=== PATIENT | male | born 1950 | race Caucasian/White ===

== ENCOUNTER 2024-03-25 15:29 | Inpatient (IN) | payer MEDICARE, OTHER, SELFPAY ==
[2024-03-23 17:19] VITALS: BP 116/79
[2024-03-23 17:59] VITALS: BMI 29.3
[2024-03-23 18:10] LABS: % Basophils 0.5 % (0-2); % Eosinophils 1.4 % (0-6); % Immature Granulocytes 0.3 % (0-0.5); % Neutrophils 70.8 % (42.2-75.2); Absolute Basophils 0.1 10^3/uL (0-0.2); Absolute Eosinophils 0.2 10^3/uL (0-0.7); Absolute Neutrophils 7.9 10^3/uL (1.4-6.5); Hematocrit 38.1 % (39.0-52.0); Hemoglobin 12.9 g/dL (13.0-18.0); Mean Corp Hgb Conc. 33.9 g/dL (33.0-37.0); Mean Corpuscular Hgb 29.5 pg (27.0-31.0); Mean Corpuscular Volume 87.2 fL (80.0-94.0); Mean Platelet Volume 10.5 fL (7.4-10.4); Nucleated Red Blood Cells % 0 % (-); Platelet Count 225 10^3/uL (130-400); Red Blood Cell Count 4.37 10^6/uL (4.70-6.10); Red Cell Dist. Width 13.9 % (11.5-14.5); White Blood Cell Count 11.1 10^3/uL (4.8-10.8)
[2024-03-23] MEDS: NSS 1000 IV ×2 (18:11→23:27)
[2024-03-23 18:42] LABS: Lactic Acid 1.1 mmol/L (0.7-2.0)
[2024-03-23 19:01] VITALS: BP 130/102
[2024-03-23 19:24] LABS: ALT (SGPT) < 10 U/L (0-50); AST (SGOT) 67 U/L (17-59); Albumin 3.5 g/dl (3.5-5.0); Alkaline Phosphatase 83 U/L (38-126); Blood Urea Nitrogen 38 mg/dl (9-20); Calcium 8.8 mg/dl (8.4-10.2); Carbon Dioxide 23 mmol/L (22-30); Chloride 109 mmol/L (98-107); Estimated Creatinine Clearance 41 ml/min; Glucose 97 mg/dl (70-99); Potassium 4.2 mmol/L (3.5-5.1); Sodium 137 mmol/L (135-145); Total Bilirubin 0.7 mg/dl (0.2-1.3); Total Protein 6.1 g/dl (6.3-8.2); eGFR 48.85
[2024-03-23 19:36] LABS: Urine Albumin Trace (Neg - Trace); Urine Bilirubin Negative (Negative); Urine Character Very Cloudy (Clear); Urine Color Yellow; Urine Glucose Negative (Negative); Urine Ketone Trace (Negative); Urine Leukocyte 2+ (Negative); Urine Nitrite Negative (Negative); Urine Occult Blood 2+ (Negative); Urine Specific Gravity 1.025 (<1.030); Urine Urobilinogen Negative (Neg - 1+)
[2024-03-23 19:49] LABS: Urine Squamous Cell 0-2 /LPF (Few)
[2024-03-23 19:50] LABS: Urine Bacteria Moderate (Negative); Urine White Cell 26-30 /HPF (0-5)
--- NOTE | 2024-03-23 19:57 | ED.GENMED ---
History of Present Illness
General
Chief Complaint: Change in Mental Status
Source: spouse and family
Exam Limitations: none
Time Seen by Provider: 03/23/24 17:35
Nursing documentation reviewed up to this point in time: agreed with
Travel History
Have you had any contact with someone who has COVID-19?: No
Do you have any symptoms of coronavirus? Fever > 100 degrees, chills, cough, shortness of breath, sore throat, loss of taste or smell, muscle aches, or headache?: No
History of Present Illness
History of Present Illness:
Patient to ED for eval of increasing lethargy, frequent falls. He was seen at today and sent here for further work-up. According to family, patient has become increasingly weak over the past week. He has a history of parkinsons but is able to
assist with his care and is able to ambulate with walker. Family states he has had 3 falls this week. Today he was attempting to sit in a chair and missed. hit back of head on chair. No LOC. Patient has been 'sleeping' since. Family denies
fever/chills, n/v/d. Appetite is decreased. Has not been drinking today.
Review of Systems
Review of Systems
Allergies reviewed?: Yes
All Other Systems: ROS reviewed and negative except as documented in HPI and ROS
Constitutional: Reports fatigue
EENT: Reports no symptoms
Respiratory: Reports no symptoms
Cardiac: Reports no symptoms
ABD/GI: Reports other (Poor appetite)
: Reports no symptoms
Musculoskeletal: Reports no symptoms
Skin: Reports other (contusion to left hip and middle back)
Neurological: Reports weakness and other (lethargy)
Phy Exam
General Physical Exam
General Presentation: mild distress
General age: appears stated age
General Skin: warm and dry
General Habitus: elderly
Cardiovascular Exam
Cardiovascular Exam: regular rate/rhythm
Pulmonary Exam
Pulmonary Exam: lungs clear and no respiratory distress
Gastrointestinal Exam
Gastrointestinal Exam: normal bowel sounds and non tender
Musculoskeletal Exam
Musculoskeletal Exam: full ROM and neuro vasc intact
Skin Exam
Skin Exam: normal color, warm/dry, no rash and other (superficial abrasion to left hip, contusion to middle back)
Psychiatric Exam
Psychiatric Exam: normal mood/affect
Course
Orders/Labs/Results
Orders:
Orders
03/23/24 17:20
CT Cervical Spine W/o Iv Contr Urgent
Comment:
Reason For Exam: change of mental with falls
CT Head W/o Iv Contrast Urgent
Comment:
Reason For Exam: change of mental with falls
03/23/24 18:00
Complete Blood Count/With Diff Urgent
Lactic Acid Urgent
Blood Culture Urgent
CHRISTOS Source: Blood/Venous
Specimen Description:
03/23/24 18:10
CR Chest - 2 Views Urgent
Comment:
Reason For Exam: cough
03/23/24 18:11
0.9% Sodium Chloride 1000 ml [Nss] 1,000 ml IV BOLUS
03/23/24 18:46
Comprehensive Metabolic Panel Urgent
Blood Culture Urgent
CHRISTOS Source: Blood/Venous
Specimen Description:
03/23/24 19:20
Urinalysis Reflex To Culture Urgent
Date Specimen was Collected: 03/23/24
Time Specimen was Collected: 19:19
Urine Microscopic Reflex Cult Urgent
Urine Culture Urgent
CHRISTOS Source: U
Specimen Description:
Date Specimen was Collected: 03/23/24
Time Specimen was Collected: 19:19
03/23/24 19:55
Aztreonam [Azactam] 2,000 mg IV NOW STA
03/23/24 20:26
Sterile Water [Sterile Water For Injection] 10 ml .ROUTE .[facility]
03/23/24 20:47
Bladder Scan ONCE
Follow Bladder Retention/Intermittent Cath Algorithm?: Yes
PRN if no void in __ hours: 6
Frequency: Per Retention Algorithm
If Bladder Scan Result >: 400
then:: Straight cath
Straight Cath As Directed
Frequency: Per Retention Algorithm
Additional Instructions: straight cath as needed per acute urinary retention algorithm for 24 hrs
Additional Instructions: for bladder scan greater than 400 mL
03/23/24 20:48
Admit/Transfer Patient As Directed
Co-Sign Provider:
Level of Care: Observation services
Assign to:: Medical/Surgical
Physician / Group: Valeriy
Diagnosis: UTI/Confusion
03/23/24 20:52
Code Status As Directed
Resuscitation Status: Full Code
03/23/24 21:00
0.9% Sodium Chloride 1000 ml [Nss] 1,000 ml IV 100 mls/hr
03/23/24 21:32
Acetaminophen [Tylenol] 650 mg PO Q4HPRN PRN
Albuterol Nebs [Ventolin Nebules] 2.5 mg INH R Q4HPRN PRN
Bisacodyl [Dulcolax] 10 mg RECTAL [id number] PRN
Docusate W/Senna [Senokot-S] 1 tablet PO BIDPRN PRN
Ondansetron Injectable [Zofran] 4 mg IV Q6HPRN PRN
Polyethylene Glycol Powder [Miralax] 17 grams PO DAILYPRN PRN
03/23/24 21:32
Activity As Directed
Activity Level: As Tolerated
Bladder Scan As Directed
Follow Bladder Retention/Intermittent Cath Algorithm?: Yes
PRN if no void in __ hours: 6
Frequency: Per Retention Algorithm
If Bladder Scan Result >: 400
then:: Straight cath
Intake/ Output As Directed
Frequency: Per unit guidelines
Neurological Checks As Directed
Frequency: q4h
Orthostatic Vital Signs As Directed
Orthostatic VS Frequency: Daily
Straight Cath As Directed
Frequency: Per Retention Algorithm
Additional Instructions: straight cath as needed per acute urinary retention algorithm for 24 hrs
Additional Instructions: for bladder scan greater than 400 mL
Vital Signs As Directed
Frequency: Per unit guidelines
DX Deep Vein Thrombosis Video Routine
03/23/24 22:00
Carbidopa/Levodopa [Sinemet 25-100] 1 tablet PO TID
Donepezil [Aricept] 15 mg PO HS
Isradipine [DynaCirc] 2.5 mg PO HS
Zonisamide [Zonegran] 50 mg PO HS
03/24/24 Breakfast
IDDSI 6 - Soft & Bite Sized
At Your Request: Non-Participating
Does patient need a safe tray?: No
Basic Metabolic Panel IN AM
Complete Blood Count/With Diff IN AM
Magnesium IN AM
OT Consult [Ot Eval And Treat] IN AM
Physical Therapy Consult [Pt Eval And Treat] IN AM
Activity Level: As Tolerated
Speech Therapy Eval & Treat IN AM
03/24/24 08:00
CefTRIAXone [Rocephin] 1,000 mg IV Q24H
Pantoprazole [Protonix] 40 mg PO DAILY
Zonisamide [Zonegran] 25 mg PO DAILY
03/24/24 18:00
Enoxaparin Sodium [Lovenox] 40 mg SC QPM
Abnormal Lab Results
03/23/24 03/23/24 03/23/24
18:00 18:46 19:20
WBC 11.1 H 10^3/uL
(4.8-10.8)
RBC 4.37 L 10^6/uL
(4.70-6.10)
Hgb 12.9 L g/dL
(13.0-18.0)
Hct 38.1 L %
(39.0-52.0)
MPV 10.5 H fL
(7.4-10.4)
Absolute Neuts (auto) 7.9 H 10^3/uL
(1.4-6.5)
Absolute Monos (auto) 1.0 H 10^3/uL
(0.1-0.6)
Lymphocytes % 18.0 L %
(20.5-51.1)
Chloride 109 H mmol/L
(98-107)
BUN 38 H mg/dl
(9-20)
Creatinine 1.5 H mg/dL
(0.7-1.3)
AST 67 H U/L
(17-59)
Total Protein 6.1 L g/dl
(6.3-8.2)
Urine Ketones Trace A
(Negative)
Ur Occult Blood Reflex 2+ A
(Negative)
Leukocyte Esterase Rfl 2+ A
(Negative)
Urine RBC 7-10 A /HPF
(0-2)
Urine WBC (Reflex) 26-30 A /HPF
(0-5)
Urine Bacteria (Reflex) Moderate A
(Negative)
03/23/24 18:00
03/23/24 18:46
Vital Signs
Initial and Last Documented VS:
Initial Vital Signs
Pulse Resp BP Pulse Ox
86 17 116/79 96
03/23/24 17:19 03/23/24 17:19 03/23/24 17:19 03/23/24 17:19
Last Documented Vital Signs
Temp Pulse Resp BP Pulse Ox
97.9 F 69 18 138/113 94
03/23/24 18:21 03/23/24 21:15 03/23/24 21:15 03/23/24 21:00 03/23/24 21:15
*Critical Care Note
Total Time (30-74mins, 75-104mins- exclusive of procedures): Not Applicable
Update Note
Update Note:
Patient to ED for increasing weakness, frequent falls. Labs reviewed. CT reviewed. Will admit to hospitalist service for UTI, weakness, dehydration. Family is agreeable to plan.
ED Attending Note
-
Portions of this chart may have been created with voice recognition software.� Occasional wrong word or��sound alike� substitutions may have occurred due to the inherent limitations of voice recognition software.
Discharge Plan
Departure
Patient Disposition: Admit
Date of Disposition: 03/23/24
Time of Disposition: 20:02
Presentation/result/management discussed w/ accepting MD/DO: Hospitalist
Patient with high blood pressure during this ER visit?: No
Condition: Fair
Covid-19: Not Applicable
Discharge Problem:
Acute UTI, Weakness, Dehydration
Interventions
Interventions:
*Risk Screen - Suicide Last Done: 03/23/24 22:21
*General Assessment Last Done: 03/23/24 17:58
*Neglect/Abuse Screening Last Done: 03/23/24 18:56
ED- Fall Risk Assessment Last Done: 03/23/24 18:24
*ED COVID-19 Vaccine History Last Done: 03/23/24 22:21
*Nursing Disposition Last Done: 03/23/24 21:36
ED- Pulmonary Assessment Last Done: 03/23/24 18:24
ED- Neurological Assessment Last Done: 03/23/24 18:23
Discharge Date and Time
Discharge Date/Time: 03/23/24 21:36
[2024-03-23 20:00] VITALS: BP 119/98
[2024-03-23] MEDS: AZACTAM 2000 MG IV (20:27)
--- NOTE | 2024-03-23 20:57 | HPS.HSE ---
Family Physician
-
Family Physician: Juvencio Tai
Chief Complaint
-
Confusion, Dizziness, Recent Treatment for UTI 1 week ago
History of Present Illness
73yo M with PMH HTN, Dementia, GERD, BPH, Parkinsons Disease (family denies seizure history), Previous Dysphagia, Hx Facial Cellulitis presets to ER with dizziness/confusion, recent treatment of UTI 1 week ago. Pt is a poor historian, family
(brianna Newman and Flor aiding in HPI). 1 week ago patient was having increased confusion. They dipped his urine which was positive for LE but no nitrates. He was started on bactrim DS which he took without improvement. Ultimately it was
discontinued Sunday 2/2 concern for side effects of worsening confusion. Pt is no longer on modified diet but they report in last week he has been coughing more with meals. Family denies hx recurrent UTIs but does report his prostate was considered
extremely enlarged following with Dr. Sal, last seen end of last year, no longer on finasteride/flomax 2/2 concern for med side effects. Family reports decreased PO intake. Also report his speech being more slurred. No focal weakness or
sensation complaints, no prior hx CVA/seizures. They report he is on zonisamide to lessen the side effects of his sinemet, following with Neurologist Dr. Vijay Mcguire.
At baseline pt has waxing and waning periods of lucency but is [id number], walks with a walker, goes to the BR by himself and can shower by himself if assisted into the shower. Family reports 2 falls in the past 2 days. Yesterday he was assisted
to the kitchen by his . She reports turning her head for a brief moment and him landing backward on his back without head strike or LOC. She reports a similar episode when beside the living room couch today, this time with head strike no LOC.
Family Denies fever, chills, chest pain, palps, wheezing, cough, sob, abd pain, n/v/d/c, dysuria, calf or leg pain, flank pain, or his kidney stones.
PCN allergy: 'rash a very long time ago'
ER course: Pt presents BP transiently 130/102, self limiting, other V.S.S wnl. WBC 11.1K. BUN/Cr 138/1.5. LA 1.1.. AST/ALT 67/<10. UA many bact, 26-30 WBC, 2+ LE, (-) nitrite. CT brain (-). CT Cspine (-). CXR Mild cardiomegaly. S/P 2gm IV azactam
and 1LNS bolus in ER.
Medical History
Past Medical History
Past Medical History: Reports Other (HTN, Dementia, GERD, BPH, Parkinsons Disease (family denies seizure history), Previous Dysphagia, Hx Facial Cellulitis)
Past Surgical History: Reports None and Other
Additional Past Surgical History:
Botox injection for dysphagia
Social History
Unable to obtain full social history at this time due to: Dementia
Tobacco: Non-smoker
Alcohol: None
Drug: None
Personal:
Living: With Family
Family History
Family History: Other (Father with with CAD s/p PR in 70s. Mother with CVA. Denies family history of strokes/seizures. )
Allergies / Home Medications
Allergies reflects when Allergies were last updated in [employer].
Home Medications with original date entered in [employer]
Allergy/Medication List:
Allergies
Allergy/AdvReac Type Severity Reaction Status Date / Time
Penicillins Allergy Unknown Verified 03/23/24 17:18
Home Medications
carbidopa 25 mg-levodopa 100 mg tablet (Sinemet) 1 tab PO TID 03/23/24
donepezil 10 mg tablet 15 mg PO HS 03/23/24
isradipine 2.5 mg capsule 2.5 mg PO HS 03/23/24
omeprazole 20 mg tablet,delayed release 20 mg PO AM 03/23/24
zonisamide 25 mg capsule 25 mg PO AM 03/23/24
zonisamide 50 mg capsule 50 mg PO HS 03/23/24
Review of Systems
-
A 12 point ROS was completed and negative except as noted: Yes
Physical Exam
Vital Signs
Vital Signs
Temp Pulse Resp BP Pulse Ox
97.9 F 67 12 119/98 97
03/23/24 18:21 03/23/24 20:30 03/23/24 20:30 03/23/24 20:00 03/23/24 20:30
Physical Exam
General: Well Developed, Well Nourished, No Apparent Distress, Slurred Speech and Appears Chronically Ill
HEENT: NormoCephalic, Atraumatic, PERRLA and Other (Very Dry MMM, no exudates in oropharynx ); No Neck Nontender or Neck Mass
Respiratory: Clear and Non Labored Respirations; No Wheezes, Rales or Rhonchi
Cardiac: S1/S2 and Regular Rhythm; No Murmur, Rub, Gallop or Peripheral Edema
GI: Soft, Non Tender, Non Distended and Normal Bowel Sounds; No Organomegaly
Rectal: Deferred by Provider
Genito-urinary: No costovertebral tender; No Zapata
Musculoskeletal: No Clubbing, No Cyanosis and No Edema
Skin: Warm and Dry; No Rash
Neuro: Awake, Alert, Nonfocal/grossly intact, No Sensory Deficits and Other (AAOx2 (knows name, , president); baseline parkinsonian tremors. )
Hematologic/Lymphatic: No Lymphadenopathy
Psych: Anxious and Apparent Dementia
Laboratory Results
-
03/23/24 18:00
03/23/24 18:46
Laboratory Results
Lactic Acid 1.1 mmol/L (0.7-2.0) 03/23/24 18:00
Total Bilirubin 0.7 mg/dl (0.2-1.3) 03/23/24 18:46
AST 67 U/L (17-59) H 03/23/24 18:46
ALT < 10 U/L (0-50) 03/23/24 18:46
Alkaline Phosphatase 83 U/L (38-126) 03/23/24 18:46
Data Reviewed
-
Diagnostic Radiology: Image Personally Visualized and interpreted
CT Scan: Image Personally Visualized and interpreted
Medical Tests (Nuc Med, Echo, EKG etc): Image Personally Visualized and interpreted
Lab Data: Labs Reviewed by me
Old Records: Reviewed
Impression/Plan
-
Acute/Chronic Encephalopathy / Hx Dementia
Falls with Ambulatory Dysfunction
- AAOx2 on evaluation, no focal findings
- At baseline pt has waxing and waning periods of lucency but is [id number], walks with a walker, goes to the BR by himself and can shower by himself if assisted into the shower.
- CT brain and C-spine (-).
- Suspect metabolic encephalopathy 2/2 UTI and dehydration.
- Continue treatment as below with IVF/IVABx
- Obtain speech, PT/OT evaluation
- Family encouraging early discharge to prevent delirium which he has had in past. Pt will be admitted to observation status
- I discussed with family that i suspect his slurred speech is likely dehydration/uti. Will defer stroke evaluation and consider if persisting in AM. They are in agreement. Q4h neurochecks.
- Avoid Haldol in setting of parkinsons if acutely agitated. Will consider low dose benzos if needed.
UTI
- Apparent failure of outpatient bactrim, discontinued Sunday03/21/2024
- Sepsis not POA.
- Afebrile. WBC 11.1K. LA 1.1. UA Many Bact, 26-30 WBC, 2+LE, (-) Nitrites
- S/P 2gm IV Azactam in ER. PCN allergy reported 'rash a long time ago'
- Will start Rocephin and monitor closely for reaction. Follow up UCx and Blood cultures x 2 obtained in ER
- Consider ID consultation if intolerant to CTX
Elevated Serum Creatinine / Hx BPH
- BUN/Cr 38/1.5, no prior baselines. Suspect pre-renal etiology 2/2 dehydration. Also could be in setting of recent bactrim use. Bactrim now on hold.
- Follow up CPK
- Also consider postobstructive etiology given 'severe bph' reported. Obtain Bladder scan and Follow bladder scan protocol
- Family reports him no longer being on flomax/finasteride 2/2 medication side effect
- Follows outpatient with Dr. Sal for BPH
- S/P 1LNS Bolus in ER. Continue NS @ 100cc/hr and trend
Transaminitis
- AST/ALT 67/<10. RUQ exam benign. Suspect mild ischemic insult in setting of dehydration
- Will check CPK for completeness in setting of fall
- continue IVF and trend LFTs
HTN
- BP transiently 130/102 on arrival, self limiting
- Continue home isradipine vs pharmacy recommended conversion
GERD
- Stable on home PPI.
Hx Parkinsons Disease
- Continue home donepezil, sinemet, zonisamide. As per family zonisamide aids in side effects of his sinemet
- Continue outpatient follow up with Dr. Mcguire
Diet: soft, regular diet. speech evaluation.
DVT PPx: Lovenox, consider change to heparin if renal function worsening
Code Status: Full Code, Confirmed with family
[2024-03-23 21:00] VITALS: BP 138/113
[2024-03-23 22:21] VITALS: BP 135/81; BMI 29.1
[2024-03-23] MEDS: SINEMET 25-100 PO (22:36)
[2024-03-23] MEDS: ARICEPT PO (22:39)
[2024-03-24 00:23] LABS: Creatine Phosphokinase 1419 U/L (55-170)
[2024-03-24] MEDS: ZONEGRAN 50 MG PO ×2 (00:43→22:07)
[2024-03-24] MEDS: NON-FORMULARY ITEM 2.5 MG PO ×2 (02:08→22:08)
[2024-03-24 06:21] LABS: % Basophils 0.4 % (0-2); % Eosinophils 1.3 % (0-6); % Immature Granulocytes 0.3 % (0-0.5); % Lymphocytes 17.1 % (20.5-51.1); % Monocytes 8.2 % (1.7-9.3); % Neutrophils 72.7 % (42.2-75.2); Absolute Eosinophils 0.1 10^3/uL (0-0.7); Absolute Lymphocytes 1.6 10^3/uL (1.2-3.4); Absolute Monocytes 0.7 10^3/uL (0.1-0.6); Absolute Neutrophils 6.6 10^3/uL (1.4-6.5); Hematocrit 36.8 % (39.0-52.0); Hemoglobin 12.2 g/dL (13.0-18.0); Mean Corp Hgb Conc. 33.2 g/dL (33.0-37.0); Mean Corpuscular Hgb 29.6 pg (27.0-31.0); Mean Corpuscular Volume 89.3 fL (80.0-94.0); Mean Platelet Volume 10.2 fL (7.4-10.4); Nucleated Red Blood Cells % 0 % (-); Platelet Count 190 10^3/uL (130-400); Red Blood Cell Count 4.12 10^6/uL (4.70-6.10)
[2024-03-24 07:00] VITALS: BP 130/66
[2024-03-24 07:15] LABS: ALT (SGPT) < 10 U/L (0-50); AST (SGOT) 72 U/L (17-59); Albumin 3.4 g/dl (3.5-5.0); Alkaline Phosphatase 89 U/L (38-126); Blood Urea Nitrogen 28 mg/dl (9-20); Calcium 8.6 mg/dl (8.4-10.2); Carbon Dioxide 21 mmol/L (22-30); Chloride 109 mmol/L (98-107); Direct Bilirubin 0.3 mg/dl (0.0-0.4); Estimated Creatinine Clearance 56 ml/min; Glucose 90 mg/dl (70-99); Magnesium 1.9 mg/dl (1.6-2.3); Potassium 4.2 mmol/L (3.5-5.1); Sodium 135 mmol/L (135-145); Total Bilirubin 0.8 mg/dl (0.2-1.3); eGFR > 60.00
[2024-03-24] MEDS: PROTONIX 40 MG PO (08:52)
[2024-03-24] MEDS: NSS 1000 IV (08:52)
[2024-03-24] MEDS: ROCEPHIN 1000 MG IV (08:53)
[2024-03-24] MEDS: ZONEGRAN 25 MG PO (08:53)
[2024-03-24] MEDS: STERILE WATER FOR INJECTION 10 ML IV (08:53)
[2024-03-24] MEDS: SINEMET 25-100 1 TABLET PO ×3 (08:53→22:07)
--- NOTE | 2024-03-24 10:30 | PTCARENOTE ---
pt's screaming in the [address] 'I AM NOT HAPPY WITH WHAT I SEE HERE, HAS ANYONE HELPED HIM?' This nurse and tech responded immediately. Pt's continues to scream over and interrupt over this nurse. 'HE IS COVERED IN VOMIT, I KNEW WE SHOULD
NOT HAVE COME TO THIS HOSPITAL. This nurse again attempted to explain, again screaming and interrupted 'HAS ANYONE EVEN BEEN IN HERE?! HE NEEDS CARE' Pt had spilled some of his iranian toast on his gown, this nurse had attempted to explain he
was on an altered texture diet, so fool appeared to look different but reassured it was not vomit. again screaming in this nurse's face: 'THIS IS DISGUSTING' continues to be too loud, inappropriate, interrupting and agitated. This nurse
replied perhaps she needs to take a minute to calm down and encouraged her to step out. Manager Environmental at bedside, escorted pt's to her office.
--- NOTE | 2024-03-24 11:13 | W.PN.HOSP.TC ---
Addendum entered and electronically signed by Barbara Dickey MD 03/24/24 16:21:
Updated daughter on the phone
Original Note:
Today's Communication/Plan
-
see A/P
Assessment / Plan
Assessment / Plan
HPI: 73 yo M with PMH HTN, Dementia, GERD, BPH, Parkinson disease (family denies seizure history), previous dysphagia, Hx Facial Cellulitis; p/w dizziness/confusion, recent treatment of UTI 1 week ago.
Pt is a poor historian. 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 He was started on bactrim DS for presumed UTI, he took without improvement. Ultimately it was discontinued Sunday/ concern for side effects of worsening confusion.
Pt was no longer on modified diet but family reported in past week he has been coughing more with meals.
Family reported his prostate was considered extremely enlarged, and pt follows with Dr. Sal, last seen end of last year, no longer on finasteride/flomax 2/2 concern for med side effects.
Family also reported decreased PO intake and his speech being more slurred.
No focal weakness or sensation complaints, no prior hx CVA/seizures. They report he is on zonisamide to lessen the side effects of his Sinemet, following with Neurologist Dr. Vijay Mcguire.
At baseline pt has waxing and waning periods of lucency but is [id number], walks with a walker, goes to the BR by himself and can shower by himself if assisted into the shower. Family reports 2 falls in the past 2 days.
He fell in the kitchen, landed backward on his back without head strike or LOC. Also in the living room but this time with head strike no LOC.
A/P:
# Acute vs chronic metabolic encephalopathy with underling Dementia and Parkinson's disease
# Falls with Ambulatory Dysfunction
# Slurred speech may be related with underling Dementia and Parkinson's disease
Pt is arousable, but lethargic on assessment
CT brain and C-spine (-).
Suspect acute metabolic encephalopathy 2/2 UTI and dehydration. Continue treatment as below with IVF/IVABx
Speech eval
PT/OT eval
Family encouraging early discharge to prevent delirium which he has had in past.
# UTI
failure of outpatient Bactrim, discontinued Sunday03/21/2024
Follow urine Cx, blood Cx
s/p Azactam in ER, cont Rocephin (pt has tolerated well)
# Likely Prerenal MALLORY, resolved
# Likely non-traumatic rhabdomyolysis
SCr 1.5 on admission, today at 1.1
CPK 1419 on admission, cont to follow
Cont IVF
Cont bladder scan given report from family that he has severe BPH
# Transaminitis, suspect reactive
trend LFTs
# HTN, controlled
Pt is on isradipine at home
# GERD
Stable on home PPI.
# Parkinson's Disease
Continue home donepezil, sinemet, zonisamide. As per family zonisamide aids in side effects of his sinemet
Continue outpatient follow up with Dr. Mcguire
Diet: soft, bite size diet ordered. Would await starting diet until speech evaluation is performed.
DVT PPx: Lovenox SQ
Code Status: Full Code, Confirmed with family
DW at bedside. is upset about getting SPL eval for pt.
DW RN
total time spent 51 min
Anticipated Discharge: > 48 hours
Subjective/Interval History
-
Date of Service: March 24, 2024
Objective Data
-
Labs:
Laboratory Results
03/24/24
06:09
WBC 9.0
Hgb 12.2 L
Hct 36.8 L
Plt Count 190
Sodium 135
Potassium 4.2
Chloride 109 H
Carbon Dioxide 21 L
BUN 28 H
Creatinine 1.1
Glucose 90
Calcium 8.6
Total Bilirubin 0.8
AST 72 H
ALT < 10
Alkaline Phosphatase 89
Vital Signs:
Vital Signs
Temp Pulse Resp BP Pulse Ox
37.0 C 74 18 130/66 95
03/24/24 07:00 03/24/24 07:00 03/24/24 07:00 03/24/24 07:00 03/24/24 09:31
Review of Systems
-
Unable to obtain full review of systems at this time due to: Acuity
Physical Exam
-
General: Well Developed, Well Nourished, No Apparent Distress, Comfortable and Appears Chronically Ill; Negative Respiratory Distress
HEENT: Normocephalic, Atraumatic, Nose Appears Normal and Ears Appear Normal; Negative Oxygen
Respiratory: Clear to Auscultation and Non Labored Respirations; Negative Accessory Resp Muscle Use
Cardiac: Regular Rhythm and S1/S2
GI: Soft, Nontender, Nondistended and Normal Bowel Sounds
Skin: Warm and Dry
Neuro: Awake
Psych: Calm and Apparent Dementia
Data Reviewed
-
CT Scan: Report Reviewed by me
Labs: Labs Reviewed by me
--- NOTE | 2024-03-24 11:19 | PTCARENOTE ---
pt/ot attempted visit, refused.
--- NOTE | 2024-03-24 12:25 | CM ---
Reviewed chart, met with patient and his to obtain information for assessment. Patient's stated that patient lives with her in a one story condo with no steps to enter. (no steps inside condo or bathroom). Patient receives assistance from
aides, patient's did not quantify hours but stated that they are there enough that she feels supported, and he also receives care from his and two daughter who both live within 20 minutes. Patient does need assistance with dressing,
bathing, all ADLs and personal care and he uses a walker to assist with his ambulation, however, his stated that he can ambulate long distances without device, so he mainly uses the walker for extra safety.
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 She drives and can transport patient to his provider appointments and takes him shopping/does all the shopping.
Patient has never had VN services.
He has never been to a SNF nor does patient's want him to transition to one.
Patient has a prescription plan and uses [facility] in [place] for all of his medications.
Patient's PCP is, Juvencio Tai MD.
Patient's was provided with obs letter, she signed it and it is on the chart.
Plan: Case management will continue to follow and assist with discharge planning. Patient's would like patient to return home when stable for discharge.
--- NOTE | 2024-03-24 13:47 | PTCARENOTE ---
st in to see pt, awaiting recommendations
--- NOTE | 2024-03-24 13:53 | PTOTSP ---
Speech Language Pathology - Initial Bedside Assessment:
Patient known to ST at with prior participation in outpatient speech therapy for dysphagia 03/2023 through 04/2023 and prior outpatient VSE 05/04/2023 showing mild oropharyngeal dysphagia. At bedside, patient demonstrated s/s oropharyngeal dysphagia
including slow mastication, oral residue after swallow that increased with regular trial, and delayed coughing with consecutive thin sips only. Patient showed tolerance of soft solids and thins via single sips.
Recommend:
1) Diet: IDDSI Level 6 solids (soft/bite sized) and thin liquids
2) Strategies: upright sitting position when eating or drinking, small/SINGLE sips of liquid (avoid continuous swallows), small bites, ensure mouth clear of residual before next bite/sip
3) Supervision with meals
4) Medications: Whole one at a time in puree
ST to continue to follow. Discussed recommendations with RN
[2024-03-24 14:55] LABS: Creatine Phosphokinase 1477 U/L (55-170)
[2024-03-24 15:00] VITALS: BP 166/94
--- NOTE | 2024-03-24 16:00 | PTCARENOTE ---
daughter at bedside requsting doctor to update her. Attending was at bedside and explaoned POC to pt's this am, encourages daughter to s/w her mom. Pt's Daughter Linda said her mom couldn't understand the doctor and wanted to s/w her. This nurse
asked if there was any specific questions daughter states 'I just want to know like, if he is going to get better, or if like she understands parkinsons, he can't be in the hospital for long'. message passed along to attending
[2024-03-24] MEDS: LOVENOX 40 MG SC (17:05)
--- NOTE | 2024-03-24 17:39 | PTCARENOTE ---
and daughter at bedside expressing concern for pt's speech. Pt has garbled speech and can be difficult to understand. When trying to use simple yes/no questions he appears to sometimes not understand. pt's speech is unchanged from this
morning's assessment and appears to be described as the same in the ED.
[2024-03-24] MEDS: TYLENOL 650 MG PO (22:07)
[2024-03-24] MEDS: ARICEPT 15 MG PO (22:07)
[2024-03-24 22:36] VITALS: BP 132/56
[2024-03-25 07:22] LABS: Hematocrit 37.5 % (39.0-52.0); Hemoglobin 12.6 g/dL (13.0-18.0); Mean Corp Hgb Conc. 33.6 g/dL (33.0-37.0); Mean Corpuscular Hgb 29.6 pg (27.0-31.0); Mean Corpuscular Volume 88.2 fL (80.0-94.0); Mean Platelet Volume 10.5 fL (7.4-10.4); Platelet Count 216 10^3/uL (130-400); Red Blood Cell Count 4.25 10^6/uL (4.70-6.10); Red Cell Dist. Width 13.6 % (11.5-14.5); White Blood Cell Count 12.6 10^3/uL (4.8-10.8)
[2024-03-25 08:00] VITALS: BP 149/75
[2024-03-25 08:24] LABS: ALT (SGPT) 20 U/L (0-50); AST (SGOT) 66 U/L (17-59); Albumin 3.5 g/dl (3.5-5.0); Alkaline Phosphatase 83 U/L (38-126); Blood Urea Nitrogen 24 mg/dl (9-20); Calcium 8.9 mg/dl (8.4-10.2); Carbon Dioxide 22 mmol/L (22-30); Chloride 108 mmol/L (98-107); Creatine Phosphokinase 1074 U/L (55-170); Estimated Creatinine Clearance 62 ml/min; Glucose 102 mg/dl (70-99); Magnesium 1.9 mg/dl (1.6-2.3); Potassium 3.9 mmol/L (3.5-5.1); Sodium 136 mmol/L (135-145); Total Bilirubin 0.7 mg/dl (0.2-1.3); eGFR > 60.00
[2024-03-25] MEDS: ROCEPHIN 1000 MG IV (08:34)
[2024-03-25] MEDS: STERILE WATER FOR INJECTION 10 ML IV (08:34)
[2024-03-25] MEDS: ZONEGRAN 25 MG PO (08:34)
[2024-03-25] MEDS: PROTONIX 40 MG PO (08:35)
[2024-03-25] MEDS: SINEMET 25-100 1 TABLET PO ×3 (08:35→22:32)
--- NOTE | 2024-03-25 10:51 | W.PN.HOSP.TC ---
Today's Communication/Plan
-
see A/P
Assessment / Plan
Assessment / Plan
HPI: 73 yo M with PMH HTN, Dementia, GERD, BPH, Parkinson disease (family denies seizure history), previous dysphagia, Hx Facial Cellulitis; p/w dizziness/confusion, recent treatment of UTI 1 week ago.
Pt is a poor historian. 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 He was started on bactrim DS for presumed UTI, he took without improvement. Ultimately it was discontinued Sunday/ concern for side effects of worsening confusion.
Pt was no longer on modified diet but family reported in past week he has been coughing more with meals.
Family reported his prostate was considered extremely enlarged, and pt follows with Dr. Sal, last seen end of last year, no longer on finasteride/flomax 2/2 concern for med side effects.
Family also reported decreased PO intake and his speech being more slurred.
No focal weakness or sensation complaints, no prior hx CVA/seizures. They report he is on zonisamide to lessen the side effects of his Sinemet, following with Neurologist Dr. Vijay Mcguire.
At baseline pt has waxing and waning periods of lucency but is [id number]-5, walks with a walker, goes to the BR by himself and can shower by himself if assisted into the shower. Family reports 2 falls in the past 2 days.
He fell in the kitchen, landed backward on his back without head strike or LOC. Also in the living room but this time with head strike no LOC.
A/P:
# Acute metabolic encephalopathy with underling dementia and Parkinson's disease
# Falls with ambulatory dysfunction
Pt remains confused
Suspect acute metabolic encephalopathy 2/2 UTI and dehydration. Continue treatment as below with IVF/IVABx
CT brain and C-spine on admission negative
Can check MRI brain to r/o acute stroke
Speech cleared for IDDSI Level 6 solids (soft/bite sized) and thin liquids
PT/OT eval when able
Family encouraging early discharge to prevent delirium which he has had in past.
# Complicated UTI
failure of outpatient Bactrim, was discontinued Sunday03/21/2024
urine Cx growing diphtheroid (result may be skewed due to Bactrim)
blood Cx negative
s/p Azactam in ER, cont Rocephin (pt has tolerated well)
# Prerenal MALLORY, resolved
# Likely non-traumatic rhabdomyolysis
SCr 1.5 on admission, today at 1.0
CPK 1419 on admission, today at 1074
Cont IVF
# Acute urinary retention likely due to severe BPH
Cont bladder scan and straight cath PRN
Add Flomax
may need Zapata if fails to urinate, informed pt and family
# Mild Transaminitis, suspect reactive
trend LFTs
# HTN, controlled
Pt is on isradipine at home, has not resumed
Flomax started, will see if this can help control his BP
add hydralazine IV PRN
# GERD
Stable on home PPI.
# Parkinson's Disease
Continue home donepezil, Sinemet, zonisamide. As per family zonisamide aids in side effects of his Sinemet
Continue outpatient follow up with Dr. Mcguire
Diet: soft, bite size diet ordered.
DVT PPx: Lovenox SQ
Code Status: Full Code, Confirmed with family
DW at bedside.
DW daughter on the phone extensively.
DW RN
total time spent 51 min
Anticipated Discharge: 24 - 48 hours
Subjective/Interval History
-
Date of Service: March 25, 2024
Objective Data
-
Labs:
Laboratory Results
03/25/24
06:53
WBC 12.6 H
Hgb 12.6 L
Hct 37.5 L
Plt Count 216
Sodium 136
Potassium 3.9
Chloride 108 H
Carbon Dioxide 22
BUN 24 H
Creatinine 1.0
Glucose 102 H
Calcium 8.9
Total Bilirubin 0.7
AST 66 H
ALT 20
Alkaline Phosphatase 83
Vital Signs:
Vital Signs
Temp Pulse Resp BP Pulse Ox
36.4 C 65 19 149/75 97
03/25/24 08:00 03/25/24 08:00 03/25/24 08:00 03/25/24 08:00 03/25/24 08:00
I&O
03/24/24 03/25/24 03/26/24
06:59 06:59 06:59
Intake Total 700 / 700
Output Total 700 / 700
Balance 0 / 0
Review of Systems
-
Unable to obtain full review of systems at this time due to: Dementia and Acuity
Physical Exam
-
General: Well Developed, Well Nourished, No Apparent Distress, Comfortable and Appears Chronically Ill; Negative Respiratory Distress
HEENT: Normocephalic, Atraumatic, Nose Appears Normal and Ears Appear Normal; Negative Oxygen
Respiratory: Clear to Auscultation and Non Labored Respirations; Negative Accessory Resp Muscle Use
Cardiac: Regular Rhythm and S1/S2
GI: Soft, Nontender, Nondistended and Normal Bowel Sounds
Skin: Warm and Dry
Neuro: Awake
Psych: Calm, Confused and Apparent Dementia
Data Reviewed
-
CT Scan: Report Reviewed by me
Labs: Labs Reviewed by me
[2024-03-25] MEDS: FLOMAX 0.400000000000000022 MG PO (11:58)
[2024-03-25 12:01] VITALS: BP 115/76; BP 143/92; PULSE 72
[2024-03-25 12:02] VITALS: BP 115/76; BP 143/92
[2024-03-25 14:31] VITALS: BP 136/75
[2024-03-25] MEDS: LOVENOX 40 MG SC (17:51)
[2024-03-25 22:32] VITALS: BP 123/68
[2024-03-25] MEDS: ZONEGRAN 50 MG PO (22:32)
[2024-03-25] MEDS: ARICEPT 15 MG PO (22:32)
[2024-03-25] MEDS: NON-FORMULARY ITEM 2.5 MG PO (22:33)
[2024-03-26 06:41] LABS: Hematocrit 33.9 % (39.0-52.0); Hemoglobin 11.6 g/dL (13.0-18.0); Mean Corp Hgb Conc. 34.2 g/dL (33.0-37.0); Mean Corpuscular Hgb 30.1 pg (27.0-31.0); Mean Corpuscular Volume 87.8 fL (80.0-94.0); Mean Platelet Volume 10.5 fL (7.4-10.4); Platelet Count 213 10^3/uL (130-400); Red Blood Cell Count 3.86 10^6/uL (4.70-6.10); Red Cell Dist. Width 13.8 % (11.5-14.5); White Blood Cell Count 8.2 10^3/uL (4.8-10.8)
[2024-03-26] MEDS: STERILE WATER FOR INJECTION 10 ML IV (07:11)
[2024-03-26] MEDS: PROTONIX 40 MG PO (07:11)
[2024-03-26] MEDS: ZONEGRAN 25 MG PO (07:11)
[2024-03-26] MEDS: ROCEPHIN 1000 MG IV (07:11)
[2024-03-26] MEDS: SINEMET 25-100 1 TABLET PO (07:11)
[2024-03-26] MEDS: FLOMAX 0.400000000000000022 MG PO (07:11)
[2024-03-26 07:17] LABS: ALT (SGPT) 11 U/L (0-50); AST (SGOT) 53 U/L (17-59); Albumin 3.2 g/dl (3.5-5.0); Alkaline Phosphatase 75 U/L (38-126); Blood Urea Nitrogen 25 mg/dl (9-20); Calcium 8.7 mg/dl (8.4-10.2); Carbon Dioxide 26 mmol/L (22-30); Chloride 107 mmol/L (98-107); Creatine Phosphokinase 657 U/L (55-170); Estimated Creatinine Clearance 56 ml/min; Glucose 99 mg/dl (70-99); Potassium 4.1 mmol/L (3.5-5.1); Sodium 135 mmol/L (135-145); Total Bilirubin 0.6 mg/dl (0.2-1.3); Total Protein 5.6 g/dl (6.3-8.2); eGFR > 60.00
[2024-03-26 07:30] VITALS: BP 134/69
--- NOTE | 2024-03-26 10:45 | W.PN.HOSP.TC ---
Addendum entered and electronically signed by Barbara Dickey MD 03/26/24 14:03:
total DC time 35 min
Original Note:
Today's Communication/Plan
-
DC home today with Zapata
Assessment / Plan
Assessment / Plan
HPI: 73 yo M with PMH HTN, Dementia, GERD, BPH, Parkinson disease (family denies seizure history), previous dysphagia, Hx Facial Cellulitis; p/w dizziness/confusion, recent treatment of UTI 1 week ago.
Pt is a poor historian. 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 He was started on bactrim DS for presumed UTI, he took without improvement. Ultimately it was discontinued Sunday/ concern for side effects of worsening confusion.
Pt was no longer on modified diet but family reported in past week he has been coughing more with meals.
Family reported his prostate was considered extremely enlarged, and pt follows with Dr. Sal, last seen end of last year, no longer on finasteride/flomax 2/2 concern for med side effects.
Family also reported decreased PO intake and his speech being more slurred.
No focal weakness or sensation complaints, no prior hx CVA/seizures. They report he is on zonisamide to lessen the side effects of his Sinemet, following with Neurologist Dr. Vijay Mcguire.
At baseline pt has waxing and waning periods of lucency but is [id number]-[id number]-1, walks with a walker, goes to the BR by himself and can shower by himself if assisted into the shower. Family reports 2 falls in the past 2 days.
He fell in the kitchen, landed backward on his back without head strike or LOC. Also in the living room but this time with head strike no LOC.
A/P:
# Acute metabolic encephalopathy with underling dementia and Parkinson's disease
# Falls with ambulatory dysfunction
Acute metabolic encephalopathy 2/[address] brain and C-spine on admission negative
MRI brain negative for acute infarct or intracranial hemorrhage. Noted Moderate bilateral frontal and temporal lobe volume loss consistent with a CHRONIC NEURODEGENERATIVE DISEASE.
Speech cleared for IDDSI Level 6 solids (soft/bite sized) and thin liquids
# Complicated UTI due to severe BPH
failure of outpatient Bactrim, was discontinued Sunday03/21/2024
urine Cx growing diphtheroid (result may be skewed due to having received Bactrim outpt)
blood Cx negative
s/p Azactam in ER, cont Rocephin (pt has tolerated well), and plan to DC with Cefdinir 11 more days (total 14 days)
# Prerenal MALLORY, resolved
# Likely non-traumatic rhabdomyolysis
SCr 1.5 on admission, today at 1.1
CPK 1419 on admission, today at 657
Off IVF
# Acute urinary retention likely due to underlying severe BPH
Cont bladder scan and straight cath PRN
Cont to have urinary retention, will plan to discharge with Zapata
Added Flomax , cont going forward
# Mild Transaminitis, suspect reactive, resolved
# HTN, controlled
Pt is on isradipine at home, cont home med (brought in by family)
Flomax also started
hydralazine IV PRN
# GERD
Stable on home PPI.
# Parkinson's Disease
Continue home donepezil, Sinemet, zonisamide. As per family zonisamide aids in side effects of his Sinemet
Continue outpatient follow up with Dr. Mcguire
Diet: soft, bite size diet ordered.
DVT PPx: Lovenox SQ
Code Status: Full Code, Confirmed with family
DW daughter at bedside. Discussed extensively and answered all questions.
DW RN
Anticipated Discharge: Today
Subjective/Interval History
-
Date of Service: March 26, 2024
Objective Data
-
Labs:
Laboratory Results
03/26/24
06:17
WBC 8.2
Hgb 11.6 L
Hct 33.9 L
Plt Count 213
Sodium 135
Potassium 4.1
Chloride 107
Carbon Dioxide 26
BUN 25 H
Creatinine 1.1
Glucose 99
Calcium 8.7
Total Bilirubin 0.6
AST 53
ALT 11
Alkaline Phosphatase 75
Vital Signs:
Vital Signs
Temp Pulse Resp BP Pulse Ox
36.4 C 60 18 134/69 99
03/26/24 07:30 03/26/24 07:30 03/26/24 07:30 03/26/24 07:30 03/26/24 07:30
I&O
03/25/24 03/26/24 03/27/24
06:59 06:59 06:59
Intake Total 700 / 700 640 / 640
Output Total 700 / 700 500 / 500
Balance 0 / 0 140 / 140
Review of Systems
-
Unable to obtain full review of systems at this time due to: Dementia
Physical Exam
-
General: Well Developed, Well Nourished, No Apparent Distress, Comfortable and Appears Chronically Ill; Negative Respiratory Distress
HEENT: Normocephalic, Atraumatic, Nose Appears Normal and Ears Appear Normal; Negative Oxygen
Respiratory: Clear to Auscultation and Non Labored Respirations; Negative Accessory Resp Muscle Use
Cardiac: Regular Rhythm and S1/S2
GI: Soft, Nontender, Nondistended and Normal Bowel Sounds
Skin: Warm and Dry
Neuro: Awake
Psych: Calm and Apparent Dementia
Data Reviewed
-
CT Scan: Report Reviewed by me
Labs: Labs Reviewed by me
[2024-03-26 13:24] VITALS: BP 132/73
--- NOTE | 2024-03-26 13:29 | W.DCSUMMARY ---
Discharge Summary
Discharge Data
Date of Admission: 03/25/24
Date of Discharge: 03/26/24
-
Pending Results: No
Hospital Course
Principal Diagnosis:
Acute metabolic encephalopathy/lethargy due to complicated urinary tract infection from severe benign prostate hypertrophy (BPH)
Prerenal acute kidney injury (MALLORY), resolved
Chronic Diagnoses:�
Dementia and Parkinson's disease with ambulatory dysfunction
Benign prostate hypertrophy
Hypertension
Gastroesophageal reflux disease
Parkinson's Disease, on home donepezil, Sinemet, zonisamide. As per family zonisamide aids in side effects of his Sinemet
Dementia
Consultations:�
None
Procedures:�
None
Clinical course:�
This is a 73-year-old male with past medical history as stated above, who presented with confusion and lethargy.
Patient has underlying dementia and Parkinson's disease, hence he is limited in providing history.
Problem 1:
Acute metabolic encephalopathy/lethargy due to complicated urinary tract infection from severe BPH.
His CT head and MRI brain were negative for acute infarct or intracranial hemorrhage. His MRI brain noted moderate bilateral frontal and temporal lobe volume loss consistent with a CHRONIC NEURODEGENERATIVE DISEASE.
He was cleared by speech therapist to continue soft/bite sized meal and thin liquids.
Due to him having received Bactrim outpatient, this likely skewed his urine culture this admission, which grew diphtheroid.
He received empiric Rocephin while in the hospital, and was discharged with cefdinir for 11 more days (total antibiotic course 14 days).
Unfortunately due to his acute urinary retention, Zapata catheter was placed this admission. He was discharged with Zapata catheter, and has been informed to follow-up with his outside urologist for voiding trial.
Flomax was also added back (he had taken it before) and can be continued going forward.
Problem 2:
Prerenal MALLORY, resolved.
His serum creatinine down trended from 1.5 on admission to 1.1 on the day of discharge.
As for the rest of his medical problems, they were stable during his hospital stay.
Discharge Plan
-
Patient Disposition: Home with Home Care
Discharge Diagnosis/Procedures: Acute metabolic encephalopathy/lethargy due to complicated urinary tract infection with severe benign prostatic hyperplasia; underling dementia and Parkinson's disease; Falls with ambulatory dysfunction
Condition: Fair
Diet: As tolerated and Other diet
Additional Diets: soft and bite size with thin liquid
Activity: As tolerated
Driving Restrictions: No driving
Activity Restrictions/Additional Instructions:
Continue Zapata until further directed by your urologist.
Follow up with your urologist for outpatient voiding trial
Referrals:
Juvencio Tai MD [Family Provider] - in less than 1 week
Additional Discharge Medication Instructions: Continue Cefdinir for 11 more days
Continue Flomax
Prescriptions:
New
tamsulosin 0.4 mg Capsule
0.4 mg PO DAILY Qty: 30 0RF
cefdinir 300 mg capsule
300 mg PO Q12H 11 Days Qty: 22 0RF
Continued
donepezil 10 mg Tablet
15 mg PO HS
isradipine 2.5 mg Capsule
2.5 mg PO HS
carbidopa-levodopa [Sinemet] 25-100 mg Tablet
1 tab PO TID
Rx Instructions:
pt takes differently than how the prescription reads from [facility]. says they have been changing his medications around
zonisamide 25 mg Capsule
25 mg PO AMHS
zonisamide 50 mg Capsule
50 mg PO HS
omeprazole 20 mg Tablet,Delayed Release (Dr/Ec)
20 mg PO AMHS
Discharge Orders:
Discharge Patient (As Directed); Ordered 03/26/24
Ordered By: Barbara Dickey
Discharge Date and Time
Print Language: K[place]
== END 2024-03-26 13:51 | disposition home health service (06) | DRG 71 ==
LOC: 3 WEST ACU 15:29
PROVIDERS: Nurse Practitioner; ADMITTING PHYSICIAN Internal Medicine; ATTENDING PHYSICIAN Internal Medicine; EMERGENCY PHYSICIAN Emergency Medicine; FAMILY PHYSICIAN Internal Medicine
DX: G93.41 Metabolic encephalopathy (principal); N17.9 Acute kidney failure, unspecified; N39.0 Urinary tract infection, site not specified; N40.0 Benign prostatic hyperplasia without lower urinary tract symptoms; E86.0 Dehydration; G20.A1 Parkinson's disease without dyskinesia, without mention of fluctuations; F02.80 Dementia in other diseases classified elsewhere, unspecified severity, without behavioral disturbance, psychotic disturbance, mood disturbance, and anxiety; R26.2 Difficulty in walking, not elsewhere classified; I10 Essential (primary) hypertension; K21.9 Gastro-esophageal reflux disease without esophagitis
CPT/HCPCS: 70450; 70551; 71046; 72125; 80053; 81003; 81015; 82248; 82550; 83605; 83735; 85025; 85027; 87040; 87086; 92526; 92610; 96361; 96374; 97163; 97167; 99285

== ENCOUNTER 2024-05-17 19:55 | Inpatient (IN) | payer MEDICARE, OTHER, SELFPAY ==
[2024-05-17] VITALS (14 sets, daily range): BP systolic 115–169; BP diastolic 55–106; BMI 27.7; BMI 27.2
[2024-05-17 14:23] LABS: % Basophils 0.2 % (0-2); % Eosinophils 0.1 % (0-6); % Immature Granulocytes 0.5 % (0-0.5); % Lymphocytes 6.5 % (20.5-51.1); % Monocytes 6.4 % (1.7-9.3); % Neutrophils 86.3 % (42.2-75.2); Absolute Immature Granulocytes 0.1 10^3/uL (0-0.05); Absolute Lymphocytes 1.1 10^3/uL (1.2-3.4); Absolute Monocytes 1.1 10^3/uL (0.1-0.6); Absolute Neutrophils 15.2 10^3/uL (1.4-6.5); Hematocrit 36.9 % (39.0-52.0); Hemoglobin 12.5 g/dL (13.0-18.0); Mean Corp Hgb Conc. 33.9 g/dL (33.0-37.0); Mean Corpuscular Hgb 28.9 pg (27.0-31.0); Mean Corpuscular Volume 85.4 fL (80.0-94.0); Mean Platelet Volume 10.1 fL (7.4-10.4); Nucleated Red Blood Cells % 0 % (-); Platelet Count 244 10^3/uL (130-400); Red Blood Cell Count 4.32 10^6/uL (4.70-6.10); Red Cell Dist. Width 13.2 % (11.5-14.5); White Blood Cell Count 17.6 10^3/uL (4.8-10.8)
[2024-05-17 14:42] LABS: ALT (SGPT) 11 U/L (0-50); AST (SGOT) 30 U/L (17-59); Albumin 3.8 g/dl (3.5-5.0); Alkaline Phosphatase 92 U/L (38-126); Blood Urea Nitrogen 25 mg/dl (9-20); Carbon Dioxide 22 mmol/L (22-30); Chloride 104 mmol/L (98-107); Glucose 113 mg/dl (70-99); Potassium 4.2 mmol/L (3.5-5.1); Sodium 138 mmol/L (135-145); Total Bilirubin 0.8 mg/dl (0.2-1.3); Total Protein 6.6 g/dl (6.3-8.2); eGFR 53.07
--- NOTE | 2024-05-17 15:31 | ED.GENMED ---
History of Present Illness
General
Chief Complaint: Abdominal Symptoms
Source: patient, spouse and family
Exam Limitations: none
Time Seen by Provider: 05/17/24 15:17
Nursing documentation reviewed up to this point in time: agreed with
History of Present Illness
History of Present Illness:
73-year-old male presents emergency room complaining of diarrhea, suspicion for infection. Recent prostate artery embolization at [place]. He has been on Levaquin and Bactrim recently.
Past History
Past History
ED Past Medical History: HTN and Other (Parkinson's)
ED Past Surgical History: Urological (Prostate artery embolization 05/15/2024 at [place]) and Other (Rienzi teeth)
Social History
Tobacco: Non-smoker
Alcohol: None
Drug: None
Personal:
Living: with family
Employment: Retired
Review of Systems
Review of Systems
Allergies reviewed?: Yes
All Other Systems: Not applicable
Constitutional: Reports fatigue
EENT: Reports no symptoms
Respiratory: Reports no symptoms
Cardiac: Reports no symptoms
ABD/GI: Reports diarrhea
: Reports no symptoms
Musculoskeletal: Reports no symptoms
Skin: Reports no symptoms
Neurological: Reports no symptoms
Endocrine: Reports no symptoms
Hematologic/Lymphatic: Reports no symptoms
Psychiatric: Reports no symptoms
Phy Exam
Physical Exam
Physical Exam:
Physical Exam
General: Chronic ill appearance
Neck: supple. no meningeal signs. normal posterior pharynx
Heart: s1/s2 regular rate and rhythm, no murmur. equal radial
pulses.
HEENT: Pupils equal round reactive to light, EOMI
Lungs: no acute respiratory distress. clear bilaterally
Abdomen: not tender. no CVAT, soft
: Zapata catheter in place
Neuro: alert and oriented. no focal neurological deficits cranial nerves II through XII intact
Skin: no rash
Psychiatric: well kept. interactive and cooperative
Extremities: no edema. no calf tenderness. negative homans. good distal pulses
Course
Orders/Labs/Results
Orders:
Orders
05/17/24 14:15
CMP [Comprehensive Metabolic Panel] Urgent
Complete Blood Count/With Diff Urgent
05/17/24 15:37
CR Chest - 2 Views Urgent
Comment:
Reason For Exam: fever, possible aspiration
05/17/24 15:44
Lactic Acid Q4H
Comment: CANCEL 2nd LACTIC ACID IF 1st LACTIC ACID IS LESS THAN 2
Blood Culture Q30M
CHRISTOS Source: Blood/Venous
Specimen Description:
Blood Culture Q30M
CHRISTOS Source: Blood/Venous
Specimen Description:
05/17/24 15:53
Urinalysis Reflex To Culture Urgent
Date Specimen was Collected: 05/17/24
Time Specimen was Collected: 15:39
Urine Microscopic Reflex Cult Urgent
Urine Culture Urgent
CHRISTOS Source: U
Specimen Description:
Date Specimen was Collected: 05/17/24
Time Specimen was Collected: 15:39
05/17/24 16:11
0.9% Sodium Chloride 1000 ml [Nss] 1,000 ml IV BOLUS
05/17/24 16:46
Cefepime HCl [Maxipime] 2,000 mg IV NOW STA
Abnormal Lab Results
05/17/24 05/17/24
14:15 15:53
WBC 17.6 H 10^3/uL
(4.8-10.8)
RBC 4.32 L 10^6/uL
(4.70-6.10)
Hgb 12.5 L g/dL
(13.0-18.0)
Hct 36.9 L %
(39.0-52.0)
Abs Immat Gran (auto) 0.1 H 10^3/uL
(0-0.05)
Absolute Neuts (auto) 15.2 H 10^3/uL
(1.4-6.5)
Absolute Lymphs (auto) 1.1 L 10^3/uL
(1.2-3.4)
Absolute Monos (auto) 1.1 H 10^3/uL
(0.1-0.6)
Neutrophils % 86.3 H %
(42.2-75.2)
Lymphocytes % 6.5 L %
(20.5-51.1)
BUN 25 H mg/dl
(9-20)
Creatinine 1.4 H mg/dL
(0.7-1.3)
Glucose 113 H mg/dl
(70-99)
Urine Ketones Trace A
(Negative)
Ur Occult Blood Reflex 4+ A
(Negative)
Urine Bilirubin 1+ A
(Negative)
Leukocyte Esterase Rfl 2+ A
(Negative)
Urine RBC 26-30 A /HPF
(0-2)
Urine WBC (Reflex) 16-20 A /HPF
(0-5)
Urine Bacteria (Reflex) Many A
(Negative)
Urine Albumin (Reflex) 1+ A
(Neg - Trace)
05/17/24 14:15
05/17/24 14:15
Vital Signs
Initial and Last Documented VS:
Initial Vital Signs
Temp Pulse Resp BP Pulse Ox
98.7 F 87 16 126/66 96
05/17/24 14:02 05/17/24 14:02 05/17/24 14:02 05/17/24 14:02 05/17/24 14:02
Last Documented Vital Signs
Temp Pulse Resp BP Pulse Ox
100.1 F 78 15 133/85 96
05/17/24 16:09 05/17/24 16:03 05/17/24 16:03 05/17/24 16:03 05/17/24 16:03
MDM/Problems Addressed
Differential Diagnosis Includes:
UTI, aspiration pneumonia
MDM/Problems Addressed:
73-year-old male with diarrhea, weakness, UTI. Patient has Parkinson's. Concern for aspiration pneumonia. Treat with cefepime. Admit to hospitalist.
Chronic conditions affecting care: Neurological disorder (Parkinson's) and Other (Prostate embolization)
Acute Exacerbation and/or Progression of Chronic Illness: HTN, Neurological disorder (Parkinson's) and Other (Prostate hypertrophy)
*Radiology
Radiology exam reviewed: radiology read reviewed (Chest x-ray left lower lobe pneumonia)
*Pulse Oximetry
Patient hypoxic: no
*EKG
Interpreted by ED Provider?: NA
*Commercial Trailer Truck Driver Interpretation
Rate: Commercial Trailer Truck Driver- N/A
*Critical Care Note
Total Time (30-74mins, 75-104mins- exclusive of procedures): Not Applicable
Data Reviewed
Review of Other/Old Records Reveals: Labs (Prior white blood cell count 8.2 on 03/26/2024)
Source: records
Patient Management
Social determinants of health affecting care: Living situation
Discussion with other providers: Hospitalist
Escalation/DeEscalation of care consider admission/obs:
Admit indicated
ED Attending Note
-
Portions of this chart may have been created with voice recognition software.� Occasional wrong word or��sound alike� substitutions may have occurred due to the inherent limitations of voice recognition software.
Discharge Plan
Departure
Patient Disposition: Admit
Date of Disposition: 05/17/24
Time of Disposition: 16:50
Admit to: Telemetry
Presentation/result/management discussed w/ accepting MD/DO: Hospitalist
Patient with high blood pressure during this ER visit?: Yes
Condition: Fair
Discharge Problem:
Acute UTI, Pneumonia, Hypovolemia
Prescriptions:
No Action
donepezil 10 mg Tablet
15 mg PO HS
isradipine 2.5 mg Capsule
2.5 mg PO HS
zonisamide 25 mg Capsule
25 mg PO DAILY
zonisamide 50 mg Capsule
50 mg PO HS
omeprazole 20 mg Tablet,Delayed Release (Dr/Ec)
20 mg PO DAILY
carbidopa-levodopa 25-100 mg Tablet Extended Release
1 tab PO TID
tamsulosin 0.4 mg capsule
0.4 mg PO QPM
acetaminophen [Tylenol] 325 mg Tablet
650 mg PO Q4HPRN PRN (Reason: mild pain)
loperamide 2 mg Tablet
2 mg PO DAILYPRN PRN (Reason: dairrhea)
Theragen Tablet
1 tab PO DAILY
sulfamethoxazole-trimethoprim [Bactrim DS] 800-160 mg Tablet
1 tab PO BID
ascorbic acid (vitamin C) [Vitamin C] 500 mg Tablet
500 mg PO DAILY
finasteride 5 mg Tablet
5 mg PO DAILY
Gemtesa 75 mg Tablet
75 mg PO DAILYPRN PRN (Reason: prostate)
Referrals:
UNKNOWN - PT NOT,INTERVIEWE [Family Provider] -
Interventions
Interventions:
*Risk Screen - Suicide Last Done: 05/17/24 15:41
*General Assessment Last Done: 05/17/24 16:07
*Neglect/Abuse Screening Last Done: 05/17/24 15:41
*ED COVID-19 Vaccine History Last Done: 05/17/24 14:02
YI-Zwluqg-Jxnxziriwd Assessment Last Done: 05/17/24 15:42
Discharge Date and Time
Print Language: MALAWIAN
[2024-05-17 16:02] LABS: Urine Albumin 1+ (Neg - Trace); Urine Bilirubin 1+ (Negative); Urine Character Very Cloudy (Clear); Urine Color Yellow; Urine Glucose Negative (Negative); Urine Ketone Trace (Negative); Urine Leukocyte 2+ (Negative); Urine Nitrite Negative (Negative); Urine Occult Blood 4+ (Negative); Urine Specific Gravity 1.025 (<1.030); Urine Urobilinogen Negative (Neg - 1+)
[2024-05-17 16:07] LABS: Lactic Acid 1.4 mmol/L (0.7-2.0)
[2024-05-17 16:10] LABS: Urine Mucus Many
[2024-05-17] MEDS: NSS 1000 IV ×2 (16:11→21:17)
[2024-05-17 16:12] LABS: Urine Bacteria Many (Negative); Urine Red Blood Cell 26-30 /HPF (0-2); Urine White Cell 16-20 /HPF (0-5)
[2024-05-17] MEDS: MAXIPIME 2000 MG IV (16:53)
--- NOTE | 2024-05-17 18:57 | HPS.HSE ---
Family Physician
-
Family Physician: INTERVIEWE UNKNOWN - PT NOT
Chief Complaint
-
Change of mental status
History of Present Illness
73-year-old man presented to the emergency room complaining of diarrhea, change of mental status and a suspicion for infection. The patient had a recent prostate artery embolization at [place]. He has been on Levaquin and Bactrim recently. The
family stated this is how he looks when he has an infection. He was recently admitted to for an infection in April 18. At that time, the main diagnosis was:
Acute metabolic encephalopathy/lethargy due to complicated urinary tract infection from severe benign prostate hypertrophy (BPH)
Prerenal acute kidney injury (MALLORY)
The clinical course for that admit was as follows: (from the d/c summary)
'Acute metabolic encephalopathy/lethargy due to complicated urinary tract infection from severe BPH. His CT head and MRI brain were negative for acute infarct or intracranial hemorrhage. His MRI brain noted moderate bilateral frontal and temporal
lobe volume loss consistent with a CHRONIC NEURODEGENERATIVE DISEASE. He was cleared by speech therapist to continue soft/bite sized meal and thin liquids. Due to him having received Bactrim outpatient, this likely skewed his urine culture this
admission, which grew diphtheroid. He received empiric Rocephin while in the hospital, and was discharged with cefdinir for 11 more days (total antibiotic course 14 days). Unfortunately due to his acute urinary retention, Zapata catheter was placed
this admission. He was discharged with Zapata catheter, and has been informed to follow-up with his outside urologist for voiding trial. Flomax was also added back (he had taken it before) and can be continued going forward'. The Prerenal MALLORY,
resolved. His serum creatinine down trended from 1.5 on admission to 1.1 on the day of discharge'.
At the time of my exam, he was somnolent and unable to answer questions.
Medical History
Past Medical History
Past Medical History: Reports Other
Additional Past Medical History:
�
Dementia and Parkinson's disease with ambulatory dysfunction
Benign prostate hypertrophy
Hypertension
Gastroesophageal reflux disease
Parkinson's Disease, on home donepezil, Sinemet, zonisamide. As per family zonisamide aids in side effects of his Sinemet
Dementia
Past Surgical History: Reports Other
Additional Past Surgical History:
See above
Social History
Tobacco: Non-smoker
Alcohol: None
Drug: None
Personal:
Living: With Family
Employment: Retired
Family History
Family History: Not pertinent
Allergies / Home Medications
Allergies reflects when Allergies were last updated in [employer].
Home Medications with original date entered in [employer]
Allergy/Medication List:
Allergies
Allergy/AdvReac Type Severity Reaction Status Date / Time
Penicillins Allergy Unknown Verified 05/17/24 14:08
Home Medications
donepezil 10 mg tablet 15 mg PO HS cognitive impairment 03/23/24
isradipine 2.5 mg capsule 2.5 mg PO HS Blood Pressure 03/23/24
omeprazole 20 mg tablet,delayed release 20 mg PO DAILY Gastrointestinal Issue 03/23/24
zonisamide 25 mg capsule 25 mg PO DAILY Seizures 03/23/24
zonisamide 50 mg capsule 50 mg PO HS Seizures 03/23/24
acetaminophen 325 mg tablet (Tylenol) 650 mg PO Q4HPRN PRN mild pain 05/17/24
ascorbic acid (vitamin C) 500 mg tablet (Vitamin C) 500 mg PO DAILY 05/17/24
carbidopa ER 25 mg-levodopa 100 mg tablet,extended release 1 tab PO TID 05/17/24
finasteride 5 mg tablet 5 mg PO DAILY 05/17/24
loperamide 2 mg tablet 2 mg PO DAILYPRN PRN dairrhea 05/17/24
sulfamethoxazole 800 mg-trimethoprim 160 mg tablet (Bactrim DS) 1 tab PO BID 05/17/24
tamsulosin 0.4 mg capsule 0.4 mg PO QPM 05/17/24
therapeutic multivitamin 1 tab PO DAILY 05/17/24
vibegron 75 mg tablet (Gemtesa) 75 mg PO DAILYPRN PRN prostate 05/17/24
Review of Systems
-
Unable to obtain full review of systems at this time due to: Acuity
Physical Exam
Vital Signs
Vital Signs
Temp Pulse Resp BP Pulse Ox
99.3 F 76 18 169/83 95
05/17/24 18:32 05/17/24 18:45 05/17/24 18:45 05/17/24 18:30 05/17/24 18:45
Physical Exam
General: Appears in Distress
HEENT: Nose Appears Normal and Ears Appear Normal; No Moist mucous membranes
Respiratory: Wheezes and Rhonchi
Cardiac: S1/S2 and Regular Rhythm
GI: Soft, Non Tender and Non Distended
Musculoskeletal: No Clubbing, No Cyanosis and No Edema
Skin: Warm and Dry; No Rash or Jaundice
Neuro: No Awake, Alert, Oriented or AO x 3
Psych: Calm
Laboratory Results
-
05/17/24 14:15
05/17/24 14:15
Laboratory Results
Lactic Acid Cancelled 05/17/24 19:30
Total Bilirubin 0.8 mg/dl (0.2-1.3) 05/17/24 14:15
AST 30 U/L (17-59) 05/17/24 14:15
ALT 11 U/L (0-50) 05/17/24 14:15
Alkaline Phosphatase 92 U/L (38-126) 05/17/24 14:15
Data Reviewed
-
Lab Data: Labs Reviewed by me
Impression/Plan
-
IMPRESSION:
73 an with metabolic encephalopathy, infection, SIRS, MALLORY.
WBC 17.6
BUN/Creat 25/1.4
CXR possible LLL PNA
UA OB, LE, RBC, WBC, Malinda-Many
PLAN:
1. Infection, sources could be lung or urogenital. Given acuity, will use broad spectrum abx. Also,
IV saline
[place] culture
2. MALLORY - likely from decreased PO and increased metabolic demand
IV saline
3. Parkinson's disease
Continue usual parkinson's meds
Code: Full
VCD for DVTp
--- NOTE | 2024-05-17 21:20 | PTCARENOTE ---
Pt brought up by ED RN. Pt arousable, quickly falling back to sleep. Vitals stable at this time.
[2024-05-17] MEDS: SINEMET CR 25-100 (EXTENDED RELEASE) 1 TABLET PO (22:10)
[2024-05-17] MEDS: ZONEGRAN 50 MG PO (22:12)
[2024-05-17] MEDS: ARICEPT 15 MG PO (22:14)
[2024-05-18] VITALS (14 sets, daily range): BP systolic 91–179; BP diastolic 54–97; BMI 27.4
[2024-05-18] MEDS: NSS 1000 IV ×3 (02:06→12:28)
[2024-05-18 04:05] LABS: Hematocrit 35.8 % (39.0-52.0); Hemoglobin 11.7 g/dL (13.0-18.0); Mean Corp Hgb Conc. 32.7 g/dL (33.0-37.0); Mean Corpuscular Hgb 29.1 pg (27.0-31.0); Mean Corpuscular Volume 89.1 fL (80.0-94.0); Mean Platelet Volume 10.7 fL (7.4-10.4); Platelet Count 191 10^3/uL (130-400); Red Blood Cell Count 4.02 10^6/uL (4.70-6.10); Red Cell Dist. Width 13.2 % (11.5-14.5); White Blood Cell Count 13.3 10^3/uL (4.8-10.8)
[2024-05-18 04:21] LABS: ALT (SGPT) < 10 U/L (0-50); AST (SGOT) 27 U/L (17-59); Alkaline Phosphatase 81 U/L (38-126); Blood Urea Nitrogen 19 mg/dl (9-20); Calcium 8.3 mg/dl (8.4-10.2); Carbon Dioxide 21 mmol/L (22-30); Chloride 109 mmol/L (98-107); Estimated Creatinine Clearance 58 ml/min; Glucose 90 mg/dl (70-99); Potassium 3.8 mmol/L (3.5-5.1); Sodium 138 mmol/L (135-145); Total Bilirubin 0.8 mg/dl (0.2-1.3); Total Protein 5.6 g/dl (6.3-8.2); eGFR > 60.00
--- NOTE | 2024-05-18 05:53 | PTCARENOTE ---
Pt becoming more alert as nigh went on. Still having moments of forgetfulness.
[2024-05-18] MEDS: STERILE WATER FOR INJECTION 10 ML IV ×2 (05:58→16:20)
[2024-05-18] MEDS: MAXIPIME 2000 MG IV ×2 (05:58→16:20)
[2024-05-18] MEDS: ZONEGRAN 25 MG PO (08:29)
[2024-05-18] MEDS: PROSCAR 5 MG PO (08:30)
[2024-05-18] MEDS: THERAGRAN 1 TABLET PO (08:30)
[2024-05-18] MEDS: VITAMIN C 500 MG PO (08:30)
[2024-05-18] MEDS: PROTONIX 40 MG PO (08:30)
[2024-05-18] MEDS: SINEMET CR 25-100 (EXTENDED RELEASE) 1 TABLET PO ×3 (08:30→22:02)
--- NOTE | 2024-05-18 09:17 | W.PN.HOSP.TC ---
Today's Communication/Plan
-
see bold
Assessment / Plan
Assessment / Plan
HPI: 73-year-old man presented to the emergency room complaining of diarrhea, change of mental status and a suspicion for infection. The patient had a recent prostate artery embolization at [place]. He has been on Levaquin and Bactrim recently.
The family stated this is how he looks when he has an infection. He was recently admitted to for an infection in March 23.
#Sepsis with fever and leukocytosis upon admission
#Acute urinary tract infection, Zapata catheter associated
Zapata changed in ER on 05/17
Continue IV cefepime, follow-up on cultures, trend fever and white count
#Acute toxic metabolic encephalopathy
Improved, continue to monitor
#Diarrhea
Check KUB to rule out fecal impaction
Check C. difficile, stool cultures, stool WBCs
#Acute kidney injury
Secondary to dehydration and sepsis, resolved
#Urinary retention with chronic Zapata since February 2022
Continue finasteride, Flomax
Outpatient follow-up for void trial
#Recent prostate artery embolization
Outpatient follow-up
#Parkinson's disease
Continue Sinemet, Aricept
#Seizure disorder
Continue zonisamide
DVT prophylaxis�subcu Lovenox
Full code
Updated at bedside, daughter on phone 05/18
Total time spent to see the patient on the floor, examine the patient, review data and lab results, discuss treatment plan with patient, nursing staff around 50 minutes.
Physical Exam
General: Frail, elderly, no acute distress
HEENT: Normocephalic, Atraumatic, EOMI, MMM
Respiratory: Clear to Auscultation bilaterally
Cardiac: Normal S1/S2, Regular Rate and Rhythm
GI: Soft, Nontender, Nondistended, Normal Bowel Sounds
Extremities: No Clubbing, Cyanosis, or Edema
Neuro: Nonfocal/Grossly Intact
Psych: Calm, Cooperative
Derm: No Visible lesions
Anticipated Discharge: 24 - 48 hours
Subjective/Interval History
-
Date of Service: May 18, 2024
Fever resolved. Patient denies chest pain, shortness of breath, palpitations. No fever, no vomiting.
Objective Data
-
Labs:
Laboratory Results
05/18/24 05/18/24
03:35 03:36
WBC 13.3 H
Hgb 11.7 L
Hct 35.8 L
Plt Count 191 D
Sodium 138
Potassium 3.8
Chloride 109 H
Carbon Dioxide 21 L
BUN 19
Creatinine 1.1
Glucose 90
Calcium 8.3 L
Total Bilirubin 0.8
AST 27
ALT < 10
Alkaline Phosphatase 81
Vital Signs:
Vital Signs
Temp Pulse Resp BP Pulse Ox
98.5 F 53 13 132/69 98
05/18/24 03:53 05/18/24 06:00 05/18/24 06:00 05/18/24 06:00 05/18/24 04:00
I&O
05/17/24 05/18/24 05/19/24
06:59 06:59 06:59
Intake Total 1810 / 1810
Output Total 1025 / 1025
Balance 785 / 785
--- NOTE | 2024-05-18 11:43 | CM ---
Patient with Hx Parkinsons Dz, dementia with Dx Acute metabolic encephalopathy, UTI, MALLORY. Room air. Receiving IV Abx, IVF. PT Eval pending.
Met with patient, Flor & daughter Linda;
the patient did not respond verbally or participate in the conversation, except when daughter asked him if he knew he was in the hospital and he mumbled yes, but could not say which hospital.
The patient resides with his in a one story condo with no steps to enter.
Family reports that the patient has been less talkative than usual in the past few days.
assists with ADLs such as bathing/dressing. He is able to take a shower utilizing shower chair.
The patient is usually ambulatory with his U-step walker, however has been unable to stand the last few days.
He uses a w/c to go out for medical appointments.
There are no caregiver services in place.
DME - U-step walker, w/c, shower chair
VN - current with [facility] for PT/ST however /Dtr may want an alternate agency at d/c
No prior SNF
PCP- [facility]
Pharmacy - [facility]
Plan follow up afte seen by PT.
[2024-05-18] MEDS: ZESTRIL 10 MG PO (13:00)
--- NOTE | 2024-05-18 13:06 | PTCARENOTE ---
Assumed care of patient at beginning of this shift from previous RN. Patient Ox2 with slurred speech (not new for patient). and daughter in to visit and updated by Dr Foreman. Patient able to take po meds whole in applesauce without difficulty; able
to tolerate breakfast of scrambled eggs. Speech therapy and PT consults ordered. Patient had NSS infusing at 200ml/hr. Discussed with Dr Foreman who d/c'd IVF. Patient continues with frequent loose stools; Dr Foreman made aware and ordered cdiff and stool
cultures which were sent. Patient remains on enhanced precautions; family instructed in good hand hygiene. See worklist for full assessment and vital signs; see MAR for med administration.
--- NOTE | 2024-05-18 16:00 | PTOTSP ---
ST Acute Care Evaluation
Pt currently presents with mild oropharyngeal dysphagia characterized by impulsivity with bite size and intake rate, prolonged mastication and bolus formation, reduced bolus formation, as well as inconsistent airway protection with both solids and
liquids. Pt does better with small single sips via open cup and small bite sizes.
Recommendations:
- DOWNGRADE pt's diet to SOFT BITE SIZED SOLIDS, continue with THIN LIQUID with SINGLE SIPS ONLY, NO STRAWS; meds whole in puree.
- Aspiration precautions: HOB upright for all PO intake; small bites; single sips; no straws; alternate solids/liquids; no talking while eating/drinking.
- STAIR BUILDER will continue to follow closely to monitor pt's tolerance of the recommended diet consistencies and to determine whether pt is appropriate for a VFSS.
[2024-05-18] MEDS: FLOMAX 0.400000000000000022 MG PO (17:37)
[2024-05-18] MEDS: ZESTRIL PO (20:35)
[2024-05-18] MEDS: ARICEPT 15 MG PO (22:01)
[2024-05-18] MEDS: ZONEGRAN 50 MG PO (22:01)
[2024-05-18] MEDS: NON-FORMULARY ITEM 1 UNIT PO (22:03)
[2024-05-19] VITALS (13 sets, daily range): BP systolic 107–165; BP diastolic 65–88; PULSE 60–74; BMI 27.8
[2024-05-19] MEDS: NON-FORMULARY ITEM 1 MG PO (00:36)
--- NOTE | 2024-05-19 02:04 | PTCARENOTE ---
Could not find documentation that Zapata was fully replaced in ED, just 'bag replaced'. Pt Zapata on admission did not resemble one of Zapata catheters. TRAFFIC CONTROL SUPERVISOR made aware. Pt Zapata replaced. 200ml's Yellow urine with white and pink tinged sediment
pieces out. Zapata catheter that was removed having brown/white sediment at head. Pt tolerated catheter placed with out distress.
[2024-05-19] MEDS: MAXIPIME 2000 MG IV (04:02)
[2024-05-19] MEDS: STERILE WATER FOR INJECTION 10 ML IV (04:02)
[2024-05-19 04:46] LABS: Hematocrit 36.2 % (39.0-52.0); Mean Corp Hgb Conc. 33.1 g/dL (33.0-37.0); Mean Corpuscular Hgb 29.3 pg (27.0-31.0); Mean Corpuscular Volume 88.3 fL (80.0-94.0); Mean Platelet Volume 10.7 fL (7.4-10.4); Platelet Count 205 10^3/uL (130-400); Red Cell Dist. Width 13.1 % (11.5-14.5); White Blood Cell Count 12.5 10^3/uL (4.8-10.8)
[2024-05-19 04:57] LABS: Blood Urea Nitrogen 19 mg/dl (9-20); Calcium 8.6 mg/dl (8.4-10.2); Carbon Dioxide 22 mmol/L (22-30); Chloride 107 mmol/L (98-107); Estimated Creatinine Clearance 64 ml/min; Glucose 101 mg/dl (70-99); Magnesium 1.8 mg/dl (1.6-2.3); Phosphorus 2.4 mg/dl (2.5-4.5); Potassium 3.7 mmol/L (3.5-5.1); Sodium 137 mmol/L (135-145); eGFR > 60.00
[2024-05-19] MEDS: PROTONIX 40 MG PO (07:41)
[2024-05-19] MEDS: THERAGRAN 1 TABLET PO (07:41)
[2024-05-19] MEDS: VITAMIN C 500 MG PO (07:41)
[2024-05-19] MEDS: PROSCAR 5 MG PO (07:42)
[2024-05-19] MEDS: ZONEGRAN 25 MG PO (07:42)
[2024-05-19] MEDS: ZESTRIL 10 MG PO ×2 (07:42→21:44)
[2024-05-19] MEDS: SINEMET CR 25-100 (EXTENDED RELEASE) 1 TABLET PO ×3 (07:42→21:48)
--- NOTE | 2024-05-19 07:44 | W.PN.HOSP.TC ---
Today's Communication/Plan
-
see bold
Assessment / Plan
Assessment / Plan
HPI: 73-year-old man presented to the emergency room complaining of diarrhea, change of mental status and a suspicion for infection. The patient had a recent prostate artery embolization at [place]. He has been on Levaquin and Bactrim recently.
The family stated this is how he looks when he has an infection. He was recently admitted to for an infection in March 23.
#Sepsis with fever and leukocytosis upon admission
#Acute urinary tract infection, Zapata catheter associated
Zapata changed 05/18
Continue IV cefepime, urine cultures neg, trend fever and white count
C/s ID
#Acute toxic metabolic encephalopathy
Improved, continue to monitor
#Diarrhea
KUB negative for impaction
C. difficile toxin negative, antigen positive
Start po vanc, c/s ID
#Acute kidney injury
Secondary to dehydration and sepsis, resolved
#Urinary retention with chronic Zapata since February 2022
Continue finasteride, Flomax
Outpatient follow-up for void trial
#Recent prostate artery embolization
Outpatient follow-up
#Parkinson's disease
Continue Sinemet, Aricept
#Seizure disorder
Continue zonisamide
DVT prophylaxis�subcu Lovenox
Full code
Updated at bedside, daughter on phone 05/19
Total time spent to see the patient on the floor, examine the patient, review data and lab results, discuss treatment plan with patient, nursing staff around 51 minutes.
Physical Exam
General: Frail, elderly, no acute distress
HEENT: Normocephalic, Atraumatic, EOMI, MMM
Respiratory: Clear to Auscultation bilaterally
Cardiac: Normal S1/S2, Regular Rate and Rhythm
GI: Soft, Nontender, Nondistended, Normal Bowel Sounds
Extremities: No Clubbing, Cyanosis, or Edema
Neuro: Nonfocal/Grossly Intact
Psych: Calm, Cooperative
Derm: No Visible lesions
Anticipated Discharge: 24 - 48 hours
Subjective/Interval History
-
Date of Service: May 19, 2024
Patient continues to have diarrhea. No fever, no chest pain, no shortness of breath.
Objective Data
-
Labs:
Laboratory Results
05/19/24
04:02
WBC 12.5 H
Hgb 12.0 L
Hct 36.2 L
Plt Count 205
Sodium 137
Potassium 3.7
Chloride 107
Carbon Dioxide 22
BUN 19
Creatinine 1.0
Glucose 101 H
Calcium 8.6
Vital Signs:
Vital Signs
Temp Pulse Resp BP Pulse Ox
98.2 F 61 21 138/66 97
05/19/24 03:02 05/19/24 06:00 05/19/24 06:00 05/19/24 06:00 05/19/24 04:00
I&O
05/18/24 05/19/24 05/20/24
06:59 06:59 06:59
Intake Total 1810 / 1810 310 / 310
Output Total 1025 / 1025 500 / 500
Balance 785 / 785 -190 / -190
[2024-05-19] MEDS: NEUTRA-PHOS POWDER PACKET 250 MG PO ×4 (08:27→21:46)
--- NOTE | 2024-05-19 10:53 | PTCARENOTE ---
Assumed care of patient at beginning of this shift. Cdiff resulted negative; IP instructed to removed enhanced precautions. Daughter in room and updated; she asked for update from physician. Dr Foreman notified via tiger text and called daughter.
Patient's daughter then informed this nurse that Dr Foreman said the patient could still have cdiff. ID consulted by Dr Foreman. This nurse discussed with Silvia Rivers, IP RN who instructed to then place patient back on enhanced precautions.
[2024-05-19] MEDS: FIRVANQ 125 MG PO (12:21)
--- NOTE | 2024-05-19 12:51 | CON.ID ---
Addendum entered and electronically signed by Rosalind Olson MD 05/19/24 17:27:
On further review of timeline I suspect the fever and leukocytosis are due to the embolization which occurred just 2 days before
Stopped antibiotics
follow clinically overnight
Original Note:
Consultation
-
Date/Time Consultation Requested: 05/19/24 10:06
Date/Time Consultation Performed: 05/19/24 12:54
Requesting Provider: Dr Foreman
Performing Provider: Dr Olson
Reason for Consultation: Change of mental status
Chief Complaint / Past History
Chief Complaint
Change of mental status
History of Present Illness
Mr Nolen is a 73 year old male wih history of Dementia and Parkinson's disease who presented here for diarrhea. Of note with prostate artery embolization at [place] and recent courses of levaquin, bactrim and a 14 day course of
ceftriaxone/cefdinir. On arrival patient was somnolent and history was limited. He, his and daughter were available at the time of my exam and provided further history. They report intermittent courses of antibiotics over the last several
weeks including levaquin, bactrim and cefdinir typically for positive urine cultures by report often from [facility]. One urine culture was prior to the embolization which was thrusday. It was treated with bactrim for 5 days total - 4 days in advance
of the procudure and the last dose was sunday. Then on sunday he developed diarrhea and family noted that he was somewhat somnolent. Family also noted increased coughing from his baseline though no sputum production. He does have dysphagia and
eats a dysphagia diet at home as well. He has not complained of suprapubic tenderness or new cva tenderness. Urine is clear. He presented here sunday.
Since arrival here tmax 100.4, bp stable, wbc initially 17 now 12.5, hgb 12, plt 205, cr 1.0, lactic acid 1.4, c difficile toxin neg, ag positive, stool culture in progress, ua 16-20 wbc/hpf and many bacteria from chronic geiger, urine culture
finazlied no growth. 05/17: possible mild LLL pneumonia patient is currently on oral vancomycin and cefepime. [facility] 05/[facility]. Currently on cefepime. ID is consulted for assistance with management.
Past History
Additional Past Medical History:
Dementia and Parkinson's disease with ambulatory dysfunction
Benign prostate hypertrophy
Hypertension
Gastroesophageal reflux disease
Parkinson's Disease, on home donepezil, Sinemet, zonisamide. As per family zonisamide aids in side effects of his Sinemet
Dementia
Additional Past Surgical History:
(Prostate artery embolization 05/15/2024 at [place]) and Other ([place] teeth)
Allergy History:
Penicillins Allergy (Verified 05/17/24 14:08)
Unknown
Medications Reviewed: Yes
Social History
Tobacco: Non-Smoker
Alcohol: None
Drug: None
Family History
Family History: Not Pertinent
Review of Systems
Review of Systems
General: Negative Fever or Chills
All systems: All other systems were reviewed and were negative
Vital Signs
Temp Pulse Resp BP Pulse Ox
97.4 F 57 18 136/67 96
05/19/24 07:40 05/19/24 12:00 05/19/24 12:00 05/19/24 12:00 05/19/24 08:35
Physical Exam
Physical Exam
Constitutional: No Acute Distress and Chronically Ill
Cardiovascular: Regular Rate and S1/S2; Negative Murmur or Rub
Pulmonary: Clear and Symmetric; Negative Wheezes, Rales or Rhonchi
Gastrointestinal: Soft, Non Tender, Non Distended and Normal Bowel Sounds
Skin: Warm and Dry; Negative Rash or Jaundice
Lab / Diagnostic Study Results
05/19/24 04:02
05/19/24 04:02
Abs Immat Gran (auto) 0.1 10^3/uL (0-0.05) H 05/17/24 14:15
Absolute Neuts (auto) 15.2 10^3/uL (1.4-6.5) H 05/17/24 14:15
Absolute Lymphs (auto) 1.1 10^3/uL (1.2-3.4) L 05/17/24 14:15
Absolute Monos (auto) 1.1 10^3/uL (0.1-0.6) H 05/17/24 14:15
Absolute Basos (auto) 0.0 10^3/uL (0-0.2) 05/17/24 14:15
Immature Gran % 0.5 % (0-0.5) 05/17/24 14:15
Neutrophils % 86.3 % (42.2-75.2) H 05/17/24 14:15
Lymphocytes % 6.5 % (20.5-51.1) L 05/17/24 14:15
Monocytes % 6.4 % (1.7-9.3) 05/17/24 14:15
Eosinophils % 0.1 % (0-6) 05/17/24 14:15
Basophils % 0.2 % (0-2) 05/17/24 14:15
Lactic Acid Cancelled 05/17/24 21:06
Microbiology Results
Micro:
05/17/24 15:53 Urine Culture - Final
Urine NO GROWTH
05/18/24 13:23 Salmonella/Shigella Culture - Preliminary
Feces/Stool Culture in Progress
Campylobacter Culture - Preliminary
Culture in Progress
Shiga Toxin Test - Final
No E. coli Shiga Toxin 1 or 2 detected.
Stool Leukocytes - Final
05/17/24 15:44 Blood Culture - Preliminary
Blood/Venous No Growth in 24 hours- Final report to follow
05/17/24 15:44 Blood Culture - Preliminary
Blood/Venous No Growth in 24 hours- Final report to follow
05/18/24 13:23 C. difficile GDH Antigen & Toxins - Final
Feces/Stool C. difficile antigen positive, toxin negative.
Clostridium difficile present, but toxin not detected.
Patient may be a carrier, colonized with nontoxinogenic
strain or the level of toxin in sample is below detection
limits. This information should be used in conjunction with
the patient's clinical history.
Assessment / Plan
Recent prostate embolization 05/15
Possible Aspiration Pneumonia
Dementia/Parkinsons
Leukocytosis - resolving
Fever - resolved
Colonization with C diff without active infection
Recent prostate embolization
- blood cultures x2 no growth to date
- UA from geiger with minimal pyuria, urine culture finalized negative
- sputum culture if able to produce one
- procalcitonin - leukocytosis and fever could have been due to recent embolization on 05/15 - if negative can stop antibiotics
- switched to cefdinir for now
- can continue oral vancomycin 125 mg PO BID through 05/21
- Imodium PRN
- follow clinically
--- NOTE | 2024-05-19 15:06 | PTCARENOTE ---
Pt rec'd from offgoing RN at 13:30 seated in chair. approaching nurse's station shortly after angry that pt's lunch had not been delievered after 2 hours. Diet order noted to be [id number], kitchen confirmed that pt is not allowed to have what the
ordered him, and that she was told that on the phone but hung up. Dr. Foreman contacted to clarify, regular diet order rec'd, updated to clarify the new diet and remind that she needs to cut up his food for him. remains annoyed with staff.
--- NOTE | 2024-05-19 15:16 | PTCARENOTE ---
Confirmed with Do-med surg orders rec'd. LENARD Copeland in room drawing procal now.
[2024-05-19] MEDS: IMODIUM 2 MG PO (15:41)
[2024-05-19] MEDS: STERILE WATER FOR INJECTION IV (15:52)
[2024-05-19] MEDS: FLOMAX 0.400000000000000022 MG PO (17:17)
--- NOTE | 2024-05-19 19:29 | PTCARENOTE ---
Pt has been assigned clean bed since 18:30, attempted to call report to 4th floor but RN was unavailable to take report, this RN requested that grocery store associate please call to receive report from IMU before other patients so that dayshift RN can leave on
time. At time of this writing no call rec'd from floor to take report, so handoff given to IMU grocery store associate to give report to floor.
--- NOTE | 2024-05-19 20:29 | PTCARENOTE ---
Report given to 4W RN. Pt will be transport via bed with all of his belongings.
--- NOTE | 2024-05-19 21:10 | PTCARENOTE ---
Pt arrived to room 431-01. Pt transferred from bed to stretcher. Pt AAOx3, VSS. Pt presenting with garbled/ slurred speech. Pt in no signs of acute distress, respirations regular. Pt oriented to room, call alejandro placed within reach.
[2024-05-19] MEDS: ARICEPT 15 MG PO (21:45)
[2024-05-19] MEDS: ZONEGRAN 50 MG PO (21:47)
[2024-05-19] MEDS: NON-FORMULARY ITEM 1 UNIT PO (21:48)
[2024-05-20 06:00] VITALS: BMI 27.5
--- NOTE | 2024-05-20 06:14 | W.PN.HOSP.TC ---
Today's Communication/Plan
-
monitor off abx
possible discharge tomorrow home rehab if remains stable/continues to improve
Assessment / Plan
Assessment / Plan
HPI: 73-year-old man presented to the emergency room complaining of diarrhea, change of mental status and a suspicion for infection. The patient had a recent prostate artery embolization at [place]. He has been on Levaquin and Bactrim recently.
The family stated this is how he looks when he has an infection. He was recently admitted to for an infection in March 23.
#Fever and leukocytosis upon admission suspect reactive due to recent procedure prostate artery embolization.
#Suspected Acute urinary tract infection, Zapata catheter associated (less likely)
Zapata changed 05/18
received empiric IV cefepime, urine cultures neg, fever white count resolved
ID consult appreciated monitor off abx
#Acute toxic metabolic encephalopathy
Improved, continue to monitor
#Diarrhea
KUB negative for impaction
C. difficile toxin negative, antigen positive
Diarrhea since resolved
ID consult appreciated no treatment needed at this time. Outpt probiotics encouraged
#Acute kidney injury
Secondary to dehydration, resolved
#Urinary retention with chronic Zapata since February 2022
Continue finasteride, Flomax
Outpatient follow-up for void trial
#Recent prostate artery embolization
Outpatient follow-up
#Parkinson's disease
Continue Sinemet, Aricept
#Seizure disorder
Continue zonisamide
DVT prophylaxis�subcu Lovenox
Full code
PT/OT appreciated SNF rehab - patient/family however prefer home rehab
Updated at bedside, daughter on phone 05/20
Total time spent to see the patient on the floor, examine the patient, review data and lab results, discuss treatment plan with patient, nursing staff around 55 minutes.
Physical Exam
General: Frail, elderly, no acute distress
HEENT: Normocephalic, Atraumatic, EOMI, MMM
Respiratory: Clear to Auscultation bilaterally
Cardiac: Normal S1/S2, Regular Rate and Rhythm
GI: Soft, Nontender, Nondistended, Normal Bowel Sounds
Extremities: No Clubbing, Cyanosis, or Edema
Neuro: Sleeping but arousable conversant follows simple commands
Psych: Calm, Cooperative
Derm: No Visible lesions
Anticipated Discharge: Within 24 hours
Subjective/Interval History
-
Date of Service: May 20, 2024
Seen and examined at bedside in no acute distress resting comfortably in bed. sleeping but arousable, follows simple commands, conversant,
Objective Data
-
Labs:
Laboratory Results
05/20/24
06:00
WBC Pending
Hgb Pending
Hct Pending
Plt Count Pending
Sodium Pending
Potassium Pending
Chloride Pending
Carbon Dioxide Pending
BUN Pending
Creatinine Pending
Glucose Pending
Calcium Pending
Vital Signs:
Vital Signs
Temp Pulse Resp BP Pulse Ox
97.6 F 75 18 135/74 95
05/19/24 23:45 05/19/24 23:45 05/19/24 23:45 05/19/24 23:45 05/19/24 23:45
I&O
05/18/24 05/19/24 05/20/24
06:59 06:59 06:59
Intake Total 1810 / 1810 310 / 310 240 / 240
Output Total 1025 / 1025 500 / 500 750 / 750
Balance 785 / 785 -190 / -190 -510 / -510
[2024-05-20 07:03] LABS: Hematocrit 35.1 % (39.0-52.0); Hemoglobin 11.6 g/dL (13.0-18.0); Mean Corpuscular Hgb 28.8 pg (27.0-31.0); Mean Corpuscular Volume 87.1 fL (80.0-94.0); Mean Platelet Volume 10.1 fL (7.4-10.4); Platelet Count 224 10^3/uL (130-400); Red Blood Cell Count 4.03 10^6/uL (4.70-6.10); White Blood Cell Count 9.7 10^3/uL (4.8-10.8)
[2024-05-20 07:31] LABS: Blood Urea Nitrogen 20 mg/dl (9-20); Calcium 8.7 mg/dl (8.4-10.2); Carbon Dioxide 22 mmol/L (22-30); Chloride 107 mmol/L (98-107); Estimated Creatinine Clearance 71 ml/min; Glucose 109 mg/dl (70-99); Magnesium 1.9 mg/dl (1.6-2.3); Potassium 3.6 mmol/L (3.5-5.1); Sodium 137 mmol/L (135-145); eGFR > 60.00
[2024-05-20 07:50] VITALS: BP 163/79
[2024-05-20] MEDS: THERAGRAN 1 TABLET PO (08:43)
[2024-05-20] MEDS: PROSCAR 5 MG PO (08:43)
[2024-05-20] MEDS: PROTONIX 40 MG PO (08:43)
[2024-05-20] MEDS: SINEMET CR 25-100 (EXTENDED RELEASE) 1 TABLET PO ×3 (08:43→22:05)
[2024-05-20] MEDS: VITAMIN C 500 MG PO (08:43)
[2024-05-20] MEDS: ZESTRIL 10 MG PO ×2 (08:44→22:04)
[2024-05-20] MEDS: ZONEGRAN 25 MG PO (08:44)
[2024-05-20] MEDS: NEUTRA-PHOS POWDER PACKET 250 MG PO ×4 (08:46→22:05)
--- NOTE | 2024-05-20 14:35 | CM ---
manager plant reviewed patient's chart and spoke with patient and spouse at bedside. Per spouse patient is current with [facility] and would like [facility] after discharge, referral sent to [facility].
Plan; Home with [facility].
[phone]
[2024-05-20 15:06] VITALS: BP 150/77; PULSE 68; O2SAT 97
[2024-05-20 15:35] VITALS: BP 127/62
--- NOTE | 2024-05-20 17:06 | W.PN.ID1 ---
Date of Service
Date of Service: May 20, 2024
Today's Communication
- fever and leukocytosis resolved and patient remains stable off of antibiotics
- Imodium PRN
- follow up with PCP; stable for dc from ID perspective
Assessment / Plan
Recent prostate embolization 05/15
- likely cause of fever and leukocytosis
Dementia/Parkinsons
Leukocytosis - resolving
Fever - resolved
Colonization with C diff without active infection
Recent prostate embolization
- fever and leukocytosis resolved and patient remains stable off of antibiotics
- Imodium PRN
- encouraged probiotics outpatient as colonized with c difficile, no treatment needed at this time
- follow up with PCP; stable for dc from ID perspective
Chief Complaint
-: Fever
Subjective / Review of Systems
afebrile
bp stable
without leukocytosis
cr stable
blood cultures remain negative
Vital Signs / Physical Exam
Vital Signs
Vital Signs
Temp Pulse Resp BP Pulse Ox
98.9 F 65 18 127/62 96
05/20/24 15:35 05/20/24 15:35 05/20/24 15:35 05/20/24 15:35 05/20/24 15:35
Physical Exam
Constitutional: No Acute Distress
Cardiovascular: Regular Rate and S1/S2; Negative Murmur or Rub
Pulmonary: Clear and Symmetric; Negative Wheezes or Rales
Gastrointestinal: Soft, Non Tender, Non Distended and Normal Bowel Sounds
Skin: Warm and Dry; Negative Rash or Jaundice
Objective Data
Lab Data
Lab Results
05/20/24 06:50
05/20/24 06:50
Estimated Creat Clear 71 ml/min 05/20/24 06:50
Lactic Acid Cancelled 05/17/24 21:06
Total Bilirubin 0.8 mg/dl (0.2-1.3) 05/18/24 03:35
AST 27 U/L (17-59) 05/18/24 03:35
ALT < 10 U/L (0-50) 05/18/24 03:35
Alkaline Phosphatase 81 U/L (38-126) 05/18/24 03:35
Most recent labs reviewed.
Micro Results:
05/17/24 15:44 Blood Culture - Preliminary
Blood/Venous No Growth in 72 hours- Final report to follow
05/17/24 15:44 Blood Culture - Preliminary
Blood/Venous No Growth in 72 hours- Final report to follow
05/18/24 13:23 Salmonella/Shigella Culture - Preliminary
Feces/Stool Culture in Progress
Campylobacter Culture - Final
No Campylobacter species isolated.
Shiga Toxin Test - Final
No E. coli Shiga Toxin 1 or 2 detected.
Stool Leukocytes - Final
05/17/24 15:53 Urine Culture - Final
Urine NO GROWTH
05/18/24 13:23 C. difficile GDH Antigen & Toxins - Final
Feces/Stool C. difficile antigen positive, toxin negative.
Clostridium difficile present, but toxin not detected.
Patient may be a carrier, colonized with nontoxinogenic
strain or the level of toxin in sample is below detection
limits. This information should be used in conjunction with
the patient's clinical history.
[2024-05-20] MEDS: FLOMAX 0.400000000000000022 MG PO (17:20)
[2024-05-20] MEDS: ARICEPT 15 MG PO (22:05)
[2024-05-20] MEDS: ZONEGRAN 50 MG PO (22:05)
[2024-05-20] MEDS: NON-FORMULARY ITEM 1 UNIT PO (22:06)
[2024-05-20 23:40] VITALS: BP 132/72
[2024-05-21 06:00] VITALS: BMI 27.4
[2024-05-21 07:00] VITALS: BP 151/77
--- NOTE | 2024-05-21 07:26 | W.PN.HOSP.TC ---
Addendum entered and electronically signed by Alycia Mejia MD 05/22/24 08:00:
SIRS d/t noninfectious source
Addendum entered and electronically signed by Alycia Mejia MD 05/22/24 07:57:
Acute Toxic Metabolic Encephalopathy resolving
Addendum entered and electronically signed by Alycia Mejia MD 05/21/24 13:20:
Patient significantly decompensated.
Family unable to take care at home.
Discharge canceled.
Rehab options being explored
Neuro eval requested Parkinson Sz medication question possible oversedation vs progression dz
Addendum entered and electronically signed by Alycia Mejia MD 05/21/24 11:19:
Hypertension
-home Isradipine Continued
-low dose Lisinopril added during hospitalization tolerated well, will prescribe on discharge
-follow up with primary for further blood pressure mgmt recommended
Original Note:
Today's Communication/Plan
-
discharge
Assessment / Plan
Assessment / Plan
HPI: 73-year-old man presented to the emergency room complaining of diarrhea, change of mental status and a suspicion for infection. The patient had a recent prostate artery embolization at [place]. He has been on Levaquin and Bactrim recently.
The family stated this is how he looks when he has an infection. He was recently admitted to for an infection in March 23.
#Fever and leukocytosis upon admission suspect reactive due to recent procedure prostate artery embolization.
#Suspected Acute urinary tract infection, Zapata catheter associated (less likely)
Zapata changed 05/18
received empiric IV cefepime,
urine and blood cultures neg/NGTD, fever white count resolved, remains afebrile wbc wnl off abx
ID consult appreciated
#Acute toxic metabolic encephalopathy
Improved, baseline mental status as per family bedside
#Diarrhea
KUB negative for impaction
C. difficile toxin negative, antigen positive
Diarrhea since resolved
ID consult appreciated no treatment needed at this time. Outpt probiotics encouraged
#Acute kidney injury
Secondary to dehydration, resolved
#Urinary retention with chronic Zapata since February 2022
Continue finasteride, Flomax
Outpatient follow-up for void trial with urology
#Recent prostate artery embolization
Outpatient follow-up
#Parkinson's disease
Continue Sinemet, Aricept
#Seizure disorder
Continue zonisamide
DVT prophylaxis�subcu Lovenox
Full code
PT/OT appreciated SNF rehab - patient/family however prefer home rehab
Medically stable for discharge home with home rehab and outpatient follow up recommendations.
Discussed with patient, patient's Flor, and patient's daughter Linda
Total Time Preparing Discharge ___50____ minutes including examination of the patient, summary of the hospital stay, instructions for continuing care to all relevant caregivers; and preparation of discharge records, prescriptions, and referral
forms if necessary.
Physical Exam
General: Frail, elderly, no acute distress
HEENT: Normocephalic, Atraumatic, EOMI, MMM Flat affect
Respiratory: Clear to Auscultation bilaterally
Cardiac: Normal S1/S2, Regular Rate and Rhythm
GI: Soft, Nontender, Nondistended, Normal Bowel Sounds
Extremities: No Clubbing, Cyanosis, or Edema, some cogwheel rigidity noted upper exts
Neuro: Awake Alert Conversant
Psych: Calm, Cooperative
Anticipated Discharge: Today
Subjective/Interval History
-
Date of Service: May 21, 2024
Seen and examined at bedside in no acute distress sitting up comfortably in bed. Reports dysuria. Flor and Daughter Linda present during evaluation.
Objective Data
-
Labs:
Laboratory Results
05/21/24
07:07
WBC Pending
Hgb Pending
Hct Pending
Plt Count Pending
Sodium Pending
Potassium Pending
Chloride Pending
Carbon Dioxide Pending
BUN Pending
Creatinine Pending
Glucose Pending
Calcium Pending
Vital Signs:
Vital Signs
Temp Pulse Resp BP Pulse Ox
98.0 F 72 18 132/72 95
05/20/24 23:40 05/20/24 23:40 05/20/24 23:40 05/20/24 23:40 05/20/24 23:40
I&O
05/20/24 05/21/24 05/22/24
06:59 06:59 06:59
Intake Total 240 / 240 600 / 600
Output Total 1350 / 1350 1000 / 1000
Balance -1110 / -1110 -400 / -400
[2024-05-21 07:36] LABS: Hematocrit 35.5 % (39.0-52.0); Hemoglobin 11.9 g/dL (13.0-18.0); Mean Corp Hgb Conc. 33.5 g/dL (33.0-37.0); Mean Corpuscular Hgb 28.7 pg (27.0-31.0); Mean Corpuscular Volume 85.5 fL (80.0-94.0); Platelet Count 245 10^3/uL (130-400); Red Blood Cell Count 4.15 10^6/uL (4.70-6.10); White Blood Cell Count 9.5 10^3/uL (4.8-10.8)
[2024-05-21 07:52] LABS: Blood Urea Nitrogen 17 mg/dl (9-20); Calcium 8.6 mg/dl (8.4-10.2); Carbon Dioxide 23 mmol/L (22-30); Chloride 107 mmol/L (98-107); Estimated Creatinine Clearance 71 ml/min; Glucose 107 mg/dl (70-99); Magnesium 1.8 mg/dl (1.6-2.3); Potassium 3.8 mmol/L (3.5-5.1); Sodium 137 mmol/L (135-145); eGFR > 60.00
[2024-05-21] MEDS: ZESTRIL 10 MG PO (08:13)
[2024-05-21] MEDS: PROSCAR 5 MG PO (08:13)
[2024-05-21] MEDS: VITAMIN C 500 MG PO (08:13)
[2024-05-21] MEDS: SINEMET CR 25-100 (EXTENDED RELEASE) 1 TABLET PO ×3 (08:13→21:26)
[2024-05-21] MEDS: ZONEGRAN 25 MG PO (08:13)
[2024-05-21] MEDS: THERAGRAN 1 TABLET PO (08:13)
[2024-05-21] MEDS: PROTONIX 40 MG PO (08:13)
[2024-05-21] MEDS: NEUTRA-PHOS POWDER PACKET 250 MG PO ×4 (08:14→21:26)
--- NOTE | 2024-05-21 11:22 | W.DCSUMMARY ---
Discharge Summary
Discharge Data
Date of Admission: 05/17/24
Date of Discharge: 05/21/24
-
Pending Results: Yes
Additional Pending Results:
official culture results
Discharge Plan
-
Patient Disposition: Home with Home Care
Discharge Diagnosis/Procedures: #Fever and leukocytosis upon admission suspect reactive due to recent procedure prostate artery embolization.
#Suspected Acute urinary tract infection, Zapata catheter associated, (ruled out, cultures negative, stable off antibiotics)
#Zapata changed 05/18
#Acute toxic metabolic encephalopathy resolved
#Diarrhea resolved
#CDiff colonized but toxin negative
#Acute kidney injury resolved
#Urinary retention with chronic Zapata
#Recent prostate artery embolization
#Parkinson's disease
#Seizure disorder
Condition: Fair
Diet: Regular
Activity: With assistance, As tolerated and With Walker
Driving Restrictions: No driving
Bathing Restrictions: None
Blood Work: Please repeat CBC and BMP with primary care provider in 1 week of discharge.
Others Tests: Repeat CXR in 1 month of discharge with primary care provider recommended
Other Services: VN, PT, OT and ST
Activity Restrictions/Additional Instructions:
Please follow up with primary care provider and urology in 1 week of discharge.
Encourage probiotic use (this is available over the counter and in food products such as yogurt) to promote healthy gut- as per ID recommendation for Cdiff colonization but without toxin present. No specific treatment for CDIff is necessary at this
time.
Bactrim has been discontinued as no antibiotic treatment is necessary at this time.
Lisinopril has been started for hypertension
Please take medications as prescribed/recommended and follow up with primary care provider and/or other healthcare provider involved in your care for refills and/or further adjustment to your medication regimen as necessary.
Instructions: Probiotics
Referrals:
UNKNOWN - PT NOT,INTERVIEWE [Family Provider] -
Prescriptions:
New
lisinopril 10 mg Tablet
10 mg PO DAILY 30 Days Qty: 30 0RF
Continued
donepezil 10 mg Tablet
15 mg PO HS
isradipine 2.5 mg Capsule
2.5 mg PO HS
zonisamide 25 mg Capsule
25 mg PO DAILY
zonisamide 50 mg Capsule
50 mg PO HS
omeprazole 20 mg Tablet,Delayed Release (Dr/Ec)
20 mg PO DAILY
carbidopa-levodopa 25-100 mg Tablet Extended Release
1 tab PO TID
tamsulosin 0.4 mg capsule
0.4 mg PO QPM
acetaminophen [Tylenol] 325 mg Tablet
650 mg PO Q4HPRN PRN (Reason: mild pain)
loperamide 2 mg Tablet
2 mg PO DAILYPRN PRN (Reason: dairrhea)
therapeutic multivitamin Tablet
1 tab PO DAILY
ascorbic acid (vitamin C) [Vitamin C] 500 mg Tablet
500 mg PO DAILY
finasteride 5 mg Tablet
5 mg PO DAILY
Gemtesa 75 mg Tablet
75 mg PO DAILYPRN PRN (Reason: prostate)
Discontinued
sulfamethoxazole-trimethoprim [Bactrim DS] 800-160 mg Tablet
1 tab PO BID
Discharge Orders:
Discharge Patient (As Directed); Ordered 05/21/24
Ordered By: Alycia Mejia
Discharge Date and Time
Print Language: FRISIAN
--- NOTE | 2024-05-21 11:55 | PN.CDI ---
CDI
- -
CDI:
Physician Documentation Request
Admit Date: 05/17/24 19:55
Dear Doctor Jackie,
hospitalist progress notes state 'Sepsis with fever and leukocytosis upon admission'
progress notes state 'Fever and leukocytosis upon admission suspect reactive due to recent procedure prostate artery embolization'
Please clarify which most accurately describes the patient:
Sepsis
Systemic manifestations of infection, with 2 or more SIRS criteria which include:
Fever > 100.4 degrees F or hypothermia < 96.8 degrees F
Leukocytosis - WBC > 12,000 or leukopenia, WBC < 4,000 or > 10% bands
Tachycardia - > 90 beats per minute
Tachypnea - RR > 20 breaths per minute or PaCO2 < 32 mmHg
Source: Merck Manual 2012
SIRS due to a non-infectious source
Other
Use of terms such as suspected, likely, concern for, or probable (associated with a specific diagnosis that is being evaluated, monitored, or treated as if it exists) are acceptable and can be coded in the inpatient setting, when documented at the
time of discharge.
Thank you,
Nicol Redd RN, BSN
CDI Specialist
[place] text
Please use your independent medical judgment in providing your response.
--- NOTE | 2024-05-21 11:59 | PN.CDI ---
CDI
- -
CDI:
Physician Documentation Request
Admit Date: 05/17/24 19:55
Dear Doctor Jackie,
Patient presented to the emergency room complaining of diarrhea, change of mental status and a suspicion for infection
H&P states '73 an with metabolic encephalopathy'
Progress notes from 05/18- states 'Acute toxic metabolic encephalopathy'
In an attempt to clarify potentially conflicting documentation, please clarify the type of encephalopathy:
Metabolic encephalopathy
Toxic metabolic encephalopathy
Other
Use of terms such as suspected, likely, concern for, or probable (associated with a specific diagnosis that is being evaluated, monitored, or treated as if it exists) are acceptable and can be coded in the inpatient setting, when documented at the
time of discharge.
Thank you,
Nicol Redd RN, BSN
CDI Specialist
[place] text
Please use your independent medical judgment in providing your response.
[2024-05-21 12:07] LABS: B.E. -1.7 mmol/L; HCO3 21.7 mmol/L (21-28); O2 Saturation % 97.4 % (94-98); PCO2 32 mmHg (35-48); PO2 79 mmHg (83-108); pH 7.44 (7.35-7.45)
--- NOTE | 2024-05-21 12:16 | CM ---
case finisher continues to follow with patient progress and spoke with patient and spouse this am along with daughter, Linda, plan is for patient to return to home today, family to transport, declined ambulance, declined skilled placement, plan is to
home with ALEXANDER with [facility] visiting nurses along with PT/OT. Patient's daughter was requesting twice a week PT/OT and case finisher spoke with Raegan at [facility] to request increased therapy in home. Per daughter Linda patient's physical
therapy specializes in people with Parkinson.
Plan; Home with [facility] visiting nurses. Family to transport.
[phone]
--- NOTE | 2024-05-21 13:51 | PTCARENOTE ---
Discharge ordered. Family insisting that pt can walk from a wheelchair to the car and then up into their house. In my time with the patient, he has been a heavy two person assist, yesterday he required the enzo to get oob. Attempted to stand pt
with family. Pt struggled to get himself to the side of the bed and after getting him to dangle his legs, he was unable to straighten his back and stand up straight. Dr. Mejia made aware, family now requesting to talk to case management.
--- NOTE | 2024-05-21 14:18 | CON.NEURO4 ---
Consultation - Neurology 4
-
CONSULTING PHYSICIAN: Dick Rosario MD(Neurology)
REFERRING PHYSICIAN: Devante Mejia(Hospitalist)
DICTATED BY: Dick Rosario
DATE/TIME OF REQUEST: 05/21/2024
DATE/TIME OF CONSULTATION: 05/21/2024 1415
Reason for Consultation: Altered mental Status
History of Present Illness:
This is a 73 year old right handed male who has presented to the hospital with fever and altered mental status. He gives a h/o Parkinson since his mid 50s who has been on Sinemet and Zonisamide(prevent freezing episodes), dementia secondary to
Parkinson's, dysphagia, facial Cellulitis who had a recent arterial embolization for BPH. He had multiple episodes of UTI and he was treated with multiple courses of antibiotics which included Bactrim and Cephalosporins. His prostate was extremely
enlarged was treated with finasteride/flomax without benefit. Last he underwent arterial embolization and he received a single dose of IV Levaquin. Subsequently his mental status has declined
On arrival patient was somnolent and history was limited. His and daughter were available at the time of my exam and provided further history. They report intermittent courses of antibiotics over the last several weeks including
Levaquin(single dose), Bactrim and cefdinir typically for positive urine cultures by report often from an indwelling Foleys. Positive urine culture prior to the embolization. It was treated with Bactrim for 5 days total - 4 days in advance of the
procedure and the last dose was Sunday. Then on Sunday he developed diarrhea and family noted that he was somewhat somnolent. Family also noted increased coughing from his baseline though no sputum production. He does have dysphagia and eats a
dysphagia diet at home as well. He has not complained of suprapubic tenderness or new cva tenderness. Urine is clear. He was admitted on Sunday.
Since arrival here tmax 100.4, bp stable, wbc initially 17 now 12.5, hgb 12, plt 205, cr 1.0, lactic acid 1.4, c difficile toxin neg, UA 16-20 WBC and many bacteria from chronic Zapata, urine culture revealed no growth.
05/17: possible mild LLL pneumonia patient is currently on oral vancomycin and cefepime. Zapata exchanged in [facility] ER on 05/17. Was treated with Cefepime.
At baseline till February-March pt has waxing and waning levels of alertness, walks with a walker, goes to the by himself and can shower by himself if assisted into the shower.
Past Medical History: Parkinsons, BPH
Surgical History: Arterial embolization
Family History: [place]
Social History: Lives at home with his family
Allergies: PCN
Home Medications: Carbidopa/Levodopa CR 25/100 TID, Zonegran 25mg AM, 50mg qhs, Aricept 15 mg qhs
Review of Symptoms:
Patient denies any fever, headache, chest pain, shortness of breath, GI or symptoms.
�Per the HPI.�All systems are reviewed negative except above.
�- Remove any of these problems that patient may have complained about in the HPI.
�- If patient is unresponsive, intubated or demented, say 'Per the HPI. I am unable to obtain a complete review of systems�because of patient's inability to provide history.'
Vital Signs: Addendum
Physical Exam:
The patient is afebrile, heart sounds S1 and S2 are (regular / irregular), and chest is clear to auscultation bilaterally.
- If not clear, describe.
Neurologic Examination:
The patient is arousable, confused and oriented x person. He is able to follow commands but unable to answer questions. There is aphasia and dysarthria. On cranial nerve assessment, pupils are 3 mm bilateral, round and reactive to light and
accommodation. Visual kruse are full. Extraocular movements are intact. Facial sensations are intact and bilaterally symmetrical, there is no facial asymmetry. Hearing is impaired bilaterally to normal conversation volume. Tongue palate and uvula
are midline. Sternocleidomastoid strengths are full bilaterally.
Motor exam reveals increased tone with strengths are 4/5 bilateral upper and lower extremities with minimal cogwheeling. There is no drift or involuntary movement noted.
Deep tendon reflexes are + bilateral upper and lower extremities and Babinski is absent bilaterally. Sensations of pain, touch, temperature and vibration are intact and bilaterally symmetrical.
Coordination is intact by finger to nose bilaterally.
Lab Results: Addendum
Neuro Imaging:
Impression:
Mr. YADIRA STRAUSS is a 73 year old M with h/o PArkinsons who has presented to the hospital with altered mental status following arterial embolization for BPH
Recommendations:
1. Continue Sinemet 25/100 CR TID
2. Decrease Zonegran 25 mg PO daily
3. Decrease Aricept 5 mg qhs
4. Avoid Quinolones
5. B12 level
6. Thiamin 100mg daily
Discussed patient care with: Hospitalist
Vital Signs and Labs
-
Vital Signs and Labs:
Vital Signs
Temp Pulse Resp BP Pulse Ox
36.6 C 58 18 151/77 96
05/21/24 07:00 05/21/24 07:00 05/21/24 07:00 05/21/24 07:00 05/21/24 07:00
Lab Results
05/21/24 07:07
05/21/24 07:07
Sodium 137 mmol/L (135-145) 05/21/24 07:07
Potassium 3.8 mmol/L (3.5-5.1) 05/21/24 07:07
BUN 17 mg/dl (9-20) 05/21/24 07:07
Glucose 107 mg/dl (70-99) H 05/21/24 07:07
Calcium 8.6 mg/dl (8.4-10.2) 05/21/24 07:07
Phosphorus 3.0 mg/dl (2.5-4.5) 05/21/24 07:07
Medications
-
Active Medications
Generic Name Dose Route Start Last Admin
Trade Name Freq PRN Reason Stop Dose Admin
Acetaminophen 650 mg 05/17/24 21:06
Acetaminophen 325 Mg Tablet PO 06/14/24 21:05
Q4HPRN PRN
mild pain
Ascorbic Acid 500 mg 05/18/24 08:00 05/21/24 08:13
Ascorbic Acid 500 Mg Tablet PO 06/15/24 07:59 500 mg
DAILY ESTEBAN Administration
Carbidopa/Levodopa 1 tablet 05/17/24 22:00 05/21/24 08:13
Carbidopa (25 Mg) Levodopa (100 Mg) Extended Release Tablet PO 06/14/24 21:59 1 tablet
TID ESTEBAN Administration
Donepezil HCl 5 mg 05/21/24 22:00
Donepezil 5 Mg Tablet PO 06/18/24 21:59
HS ESTEBAN
Finasteride 5 mg 05/18/24 08:00 05/21/24 08:13
Finasteride 5 Mg Tablet PO 06/15/24 07:59 5 mg
DAILY ESTEBAN Administration
Lisinopril 10 mg 05/22/24 08:00
Lisinopril 10 Mg Tablet PO 06/19/24 07:59
DAILY ESTEBAN
Loperamide HCl 2 mg 05/19/24 13:54
Loperamide 2 Mg Capsule PO 06/16/24 13:53
Q6HPRN PRN
diarrhea
Multivitamins Therapeutic 1 tablet 05/18/24 08:00 05/21/24 08:13
Multivitamin Tablet PO 06/15/24 07:59 1 tablet
DAILY ESTEBAN Administration
Vibegron [Gemtesa] 0 mg 05/17/24 21:06 05/19/24 00:36
75 Mg Tablet Po PO 1 mg
Dailyprn Prostate DAILYPRN PRN Administration
prostate
Isradipine 2.5 Mg 0 unit 05/18/24 22:00 05/20/24 22:06
Capsule Po Hs PO 06/15/24 21:59 1 unit
HS ESTEBAN Administration
Pantoprazole Sodium 40 mg 05/18/24 08:00 05/21/24 08:13
Pantoprazole 40 Mg Delayed Release Tablet PO 06/15/24 07:59 40 mg
DAILY ESTEBAN Administration
Potassium Phosphate 250 mg 05/19/24 09:00 05/21/24 08:14
Neutra-Phos Powder Concentrate (250 Mg) Packet PO 06/16/24 08:59 250 mg
PCHS ESTEBAN Administration
Sodium Chloride 0 flush 05/17/24 22:00
Sodium Chloride 0.9% (Flush) Syringe IV 06/14/24 21:59
PER PROTOCOL ESTEBAN
Tamsulosin HCl 0.4 mg 05/18/24 18:00 05/20/24 17:20
Tamsulosin 0.4 Mg Capsule PO 06/15/24 17:59 0.4 mg
QPM ESTEBAN Administration
Zonisamide 25 mg 05/18/24 08:00 05/21/24 08:13
Zonisamide 25 Mg Capsule PO 06/15/24 07:59 25 mg
DAILY ESTEBAN Administration
Home Medications
�Medication �Instructions �Recorded
donepezil 10 mg tablet 15 mg PO HS cognitive impairment 03/23/24
isradipine 2.5 mg capsule 2.5 mg PO HS Blood Pressure 03/23/24
omeprazole 20 mg tablet,delayed 20 mg PO DAILY Gastrointestinal 03/23/24
release Issue
zonisamide 25 mg capsule 25 mg PO DAILY Seizures 03/23/24
zonisamide 50 mg capsule 50 mg PO HS Seizures 03/23/24
acetaminophen 325 mg tablet 650 mg PO Q4HPRN PRN mild pain 05/17/24
(Tylenol)
ascorbic acid (vitamin C) 500 mg 500 mg PO DAILY 05/17/24
tablet (Vitamin C)
carbidopa ER 25 mg-levodopa 100 mg 1 tab PO TID 05/17/24
tablet,extended release
finasteride 5 mg tablet 5 mg PO DAILY 05/17/24
loperamide 2 mg tablet 2 mg PO DAILYPRN PRN dairrhea 05/17/24
tamsulosin 0.4 mg capsule 0.4 mg PO QPM 05/17/24
therapeutic multivitamin 1 tab PO DAILY 05/17/24
vibegron 75 mg tablet (Gemtesa) 75 mg PO DAILYPRN PRN prostate 05/17/24
lisinopril 10 mg tablet 10 mg PO DAILY 30 days #30 tabs 05/21/24
[2024-05-21 15:00] VITALS: BP 170/81
[2024-05-21] MEDS: VITAMIN B1 100 MG PO (16:17)
[2024-05-21 17:08] LABS: Vitamin B12 468 pg/ml (239-931)
[2024-05-21] MEDS: FLOMAX 0.400000000000000022 MG PO (18:07)
[2024-05-21] MEDS: ARICEPT 10 MG PO (21:26)
[2024-05-21] MEDS: NON-FORMULARY ITEM 1 UNIT PO (21:27)
[2024-05-21 23:50] VITALS: BP 135/77
[2024-05-22 06:00] VITALS: BMI 28.1
[2024-05-22 07:00] VITALS: BP 143/82
--- NOTE | 2024-05-22 07:19 | W.PN.HOSP.TC ---
Today's Communication/Plan
-
ST/PT/OT
discharge planning Acute Rehab
Blood Pressure control
small bite sized diet, thin liquids, single sips, no straw, aspiration precautions.
Assessment / Plan
Assessment / Plan
HPI: 73-year-old man presented to the emergency room complaining of diarrhea, change of mental status and a suspicion for infection. The patient had a recent prostate artery embolization at [place]. He has been on Levaquin and Bactrim recently.
The family stated this is how he looks when he has an infection. He was recently admitted to for an infection in March 23.
#Fever and leukocytosis upon admission suspect reactive due to recent procedure prostate artery embolization. (SIRS d/t noninfectious source)
#Suspected Acute urinary tract infection, Zapata catheter associated (less likely)
Zapata changed 05/18
received empiric IV cefepime,
urine and blood cultures neg/NGTD, fever white count resolved, remains afebrile wbc wnl off abx
ID consult appreciated
#Acute toxic metabolic encephalopathy vs nontoxic metabolic encephalopathy
resolving
#Diarrhea
KUB negative for impaction
C. difficile toxin negative, antigen positive
Diarrhea since resolved
ID consult appreciated no treatment needed at this time. Outpt probiotics encouraged
#Acute kidney injury
Secondary to dehydration, resolved
#Urinary retention with chronic Zapata since February 2022
Continue finasteride, Flomax
Outpatient follow-up for void trial with urology
#Recent prostate artery embolization
Outpatient follow-up
#Parkinson's disease
#Decompensation/Ambulatory dysfunction possible residual effect anesthesia from prior procedure vs polypharmacy
Continue Sinemet
Continue zonisamide [correction to prior documentation zonisamide for movement d/o no sz as per neuro]
Neuro eval appreciated Zonisamide and Aricept doses reduced (Originally recommended reduction in Aricept from 15 mg HS to 5mg however per family request dose was reduced to 10 mg HS instead)
#Dysphagia 2/2 Parkinson
Speech eval appreciated
small bite sized diet, single sips, no straw, meds in pureed
#Hypertension
cont home isradipine
Low dose Lisinopril added this hospitalzation, continue
DVT prophylaxis�subcu Lovenox
Full code
PT/OT appreciated Acute Rehab
PMR eval requested
Discussed with patient and patient's Flor
I spent a total of 57 minutes with the patient or on the floor. More than 50% of this time involved counseling and coordination of care.
Physical Exam
General: Frail, elderly, no acute distress
HEENT: Normocephalic, Atraumatic, EOMI, MMM Flat affect
Respiratory: Clear to Auscultation bilaterally
Cardiac: Normal S1/S2, Regular Rate and Rhythm
GI: Soft, Nontender, Nondistended, Normal Bowel Sounds
Extremities: No Clubbing, Cyanosis, or Edema, some cogwheel rigidity noted upper exts
Neuro: AOx3
Psych: Calm, Cooperative
Anticipated Discharge: 24 - 48 hours
Subjective/Interval History
-
Date of Service: May 22, 2024
Seen and examined at bedside in no acute distress sitting up comfortably in bed. Significant improvement in mental status noted. More alert awake conversant. Flor present during evaluation.
Objective Data
-
Labs:
Laboratory Results
05/22/24
06:21
WBC Pending
Hgb Pending
Hct Pending
Plt Count Pending
Sodium Pending
Potassium Pending
Chloride Pending
Carbon Dioxide Pending
BUN Pending
Creatinine Pending
Glucose Pending
Calcium Pending
Vital Signs:
Vital Signs
Temp Pulse Resp BP Pulse Ox
99.0 F 70 18 135/77 95
05/21/24 23:50 05/21/24 23:50 05/21/24 23:50 05/21/24 23:50 05/21/24 23:50
I&O
05/21/24 05/22/24 05/23/24
06:59 06:59 06:59
Intake Total 600 / 600 800 / 800
Output Total 1000 / 1000 1325 / 1325
Balance -400 / -400 -525 / -525
[2024-05-22 07:32] LABS: Hematocrit 36.5 % (39.0-52.0); Mean Corp Hgb Conc. 32.9 g/dL (33.0-37.0); Mean Corpuscular Hgb 28.7 pg (27.0-31.0); Mean Corpuscular Volume 87.3 fL (80.0-94.0); Mean Platelet Volume 10.2 fL (7.4-10.4); Platelet Count 243 10^3/uL (130-400); Red Blood Cell Count 4.18 10^6/uL (4.70-6.10); Red Cell Dist. Width 12.9 % (11.5-14.5)
[2024-05-22 08:03] LABS: Blood Urea Nitrogen 18 mg/dl (9-20); Calcium 8.5 mg/dl (8.4-10.2); Carbon Dioxide 23 mmol/L (22-30); Chloride 105 mmol/L (98-107); Estimated Creatinine Clearance 71 ml/min; Glucose 97 mg/dl (70-99); Magnesium 1.9 mg/dl (1.6-2.3); Phosphorus 3.2 mg/dl (2.5-4.5); Potassium 3.9 mmol/L (3.5-5.1); Sodium 137 mmol/L (135-145); eGFR > 60.00
[2024-05-22] MEDS: VITAMIN C 500 MG PO (08:39)
[2024-05-22] MEDS: VITAMIN B1 100 MG PO (08:39)
[2024-05-22] MEDS: PROSCAR 5 MG PO (08:40)
[2024-05-22] MEDS: THERAGRAN 1 TABLET PO (08:40)
[2024-05-22] MEDS: PROTONIX 40 MG PO (08:40)
[2024-05-22] MEDS: ZESTRIL 10 MG PO (08:40)
[2024-05-22] MEDS: SINEMET CR 25-100 (EXTENDED RELEASE) 1 TABLET PO ×3 (08:40→22:04)
[2024-05-22] MEDS: NEUTRA-PHOS POWDER PACKET 250 MG PO ×4 (08:40→22:04)
[2024-05-22] MEDS: ZONEGRAN 25 MG PO (08:42)
--- NOTE | 2024-05-22 10:23 | CM ---
manager occupational reviewed patient's chart and spoke with nursing and family and per family they feel that patient needs rehab, they have been reluctant to agree to rehab as they feel that patient will not get enough physical therapy. Patient's family
are agreeable to [facility] at [facility] referral sent to [facility]. Patient needs PM&R evaluation. Patient with Parkinson's.
Plan; Await PM&R evaluation and recommendation.
[2024-05-22 15:00] VITALS: BP 135/75
--- NOTE | 2024-05-22 17:49 | W.PN.ID1 ---
Date of Service
Date of Service: May 22, 2024
Today's Communication
ID service will no longer actively follow this patient please recall for further questions
Assessment / Plan
Recent prostate embolization 05/15
- likely cause of fever and leukocytosis
Dementia/Parkinsons
Leukocytosis - resolving
Fever - resolved
Colonization with C diff without active infection
Recent prostate embolization
- fever and leukocytosis resolved and patient remains stable off of antibiotics
- Imodium PRN
- encouraged probiotics outpatient as colonized with c difficile, no treatment needed at this time
ID service will no longer actively follow this patient please recall for further questions
Chief Complaint
-: Fever
Subjective / Review of Systems
afebrile
bp stable
remains without leukocytosis off of antibiotics
cr stable
blood cultures finalized negative
Vital Signs / Physical Exam
Vital Signs
Vital Signs
Temp Pulse Resp BP Pulse Ox
98.4 F 72 16 135/75 96
05/22/24 15:00 05/22/24 15:00 05/22/24 15:00 05/22/24 15:00 05/22/24 15:00
Physical Exam
Constitutional: No Acute Distress
Cardiovascular: Regular Rate and S1/S2; Negative Murmur or Rub
Pulmonary: Clear and Symmetric; Negative Wheezes or Rales
Gastrointestinal: Soft, Non Tender, Non Distended and Normal Bowel Sounds
Skin: Warm and Dry; Negative Rash or Jaundice
Objective Data
Lab Data
Lab Results
05/22/24 06:21
05/22/24 06:21
Estimated Creat Clear 71 ml/min 05/22/24 06:21
Lactic Acid Cancelled 05/17/24 21:06
Total Bilirubin 0.8 mg/dl (0.2-1.3) 05/18/24 03:35
AST 27 U/L (17-59) 05/18/24 03:35
ALT < 10 U/L (0-50) 05/18/24 03:35
Alkaline Phosphatase 81 U/L (38-126) 05/18/24 03:35
Most recent labs reviewed.
Micro Results:
05/17/24 15:44 Blood Culture - Final
Blood/Venous No Growth - Final Report
05/17/24 15:44 Blood Culture - Final
Blood/Venous No Growth - Final Report
05/18/24 13:23 Salmonella/Shigella Culture - Final
Feces/Stool No Salmonella, Shigella, Aeromonas or Plesiomonas species
isolated.
Campylobacter Culture - Final
No Campylobacter species isolated.
Shiga Toxin Test - Final
No E. coli Shiga Toxin 1 or 2 detected.
Stool Leukocytes - Final
05/17/24 15:53 Urine Culture - Final
Urine NO GROWTH
05/18/24 13:23 C. difficile GDH Antigen & Toxins - Final
Feces/Stool C. difficile antigen positive, toxin negative.
Clostridium difficile present, but toxin not detected.
Patient may be a carrier, colonized with nontoxinogenic
strain or the level of toxin in sample is below detection
limits. This information should be used in conjunction with
the patient's clinical history.
[2024-05-22] MEDS: FLOMAX 0.400000000000000022 MG PO (17:59)
[2024-05-22] MEDS: ARICEPT 10 MG PO (22:04)
[2024-05-22] MEDS: NON-FORMULARY ITEM 1 UNIT PO (22:06)
[2024-05-22 23:00] VITALS: BP 125/61
[2024-05-23 06:18] VITALS: BMI 27.7
[2024-05-23 07:00] VITALS: BP 153/76
--- NOTE | 2024-05-23 07:21 | W.PN.HOSP.TC ---
Today's Communication/Plan
-
PT/OT
Blood Pressure Control
Pending PMR eval
Assessment / Plan
Assessment / Plan
HPI: 73-year-old man presented to the emergency room complaining of diarrhea, change of mental status and a suspicion for infection. The patient had a recent prostate artery embolization at [place]. He has been on Levaquin and Bactrim recently.
The family stated this is how he looks when he has an infection. He was recently admitted to for an infection in March 23.
#Fever and leukocytosis upon admission suspect reactive due to recent procedure prostate artery embolization. (SIRS d/t noninfectious source)
#Suspected Acute urinary tract infection, Zapata catheter associated (less likely)
Zapata changed 05/18
received empiric IV cefepime,
urine and blood cultures neg/NGTD, fever white count resolved, remains afebrile wbc wnl off abx
ID consult appreciated
#Acute toxic metabolic encephalopathy vs nontoxic metabolic encephalopathy
resolving
#Diarrhea
KUB negative for impaction
C. difficile toxin negative, antigen positive
Diarrhea since resolved
ID consult appreciated no treatment needed at this time. Outpt probiotics encouraged
#Acute kidney injury
Secondary to dehydration, resolved
#Urinary retention with chronic Zapata since February 2022
Continue finasteride, Flomax
Outpatient follow-up for void trial with urology
#Recent prostate artery embolization
Outpatient follow-up
#Parkinson's disease
#Decompensation/Ambulatory dysfunction possible residual effect anesthesia from prior procedure vs polypharmacy
Continue Sinemet
Continue zonisamide [correction to prior documentation zonisamide for movement d/o no sz as per neuro]
Neuro eval appreciated Zonisamide and Aricept doses reduced (Originally recommended reduction in Aricept from 15 mg HS to 5mg however per family request dose was reduced to 10 mg HS instead)
#Dysphagia 2/2 Parkinson
Speech eval appreciated
small bite sized diet, single sips, no straw, meds in pureed
#Hypertension
cont home isradipine
Low dose Lisinopril added this hospitalzation, continue
DVT prophylaxis�subcu Lovenox
Full code
PT/OT appreciated Acute Rehab
PMR eval pending
Discussed with patient, patient's Flor, and daughter Linda
I spent a total of 55 minutes with the patient or on the floor. More than 50% of this time involved counseling and coordination of care.
Physical Exam
General: Frail, elderly, no acute distress
HEENT: Normocephalic, Atraumatic, EOMI, MMM Flat affect
Respiratory: Clear to Auscultation bilaterally
Cardiac: Normal S1/S2, Regular Rate and Rhythm
GI: Soft, Nontender, Nondistended, Normal Bowel Sounds
Extremities: No Clubbing, Cyanosis, or Edema, some cogwheel rigidity noted upper exts
Neuro: AOx3
Psych: Calm, Cooperative
Anticipated Discharge: 24 - 48 hours
Subjective/Interval History
-
Date of Service: May 23, 2024
Seen and examined at bedside in no acute distress sitting up comfortably in chair. Alert conversant. Flor present during evaluation.
Objective Data
-
Vital Signs:
Vital Signs
Temp Pulse Resp BP Pulse Ox
99.8 F 63 18 125/61 94
05/22/24 23:00 05/22/24 23:00 05/22/24 23:00 05/22/24 23:00 05/22/24 23:00
I&O
05/22/24 05/23/24 05/24/24
06:59 06:59 06:59
Intake Total 800 / 800 720 / 720
Output Total 1325 / 1325 750 / 750
Balance -525 / -525 -30 / -30
[2024-05-23] MEDS: PROTONIX 40 MG PO (08:31)
[2024-05-23] MEDS: NEUTRA-PHOS POWDER PACKET 250 MG PO ×3 (08:31→16:49)
[2024-05-23] MEDS: ZESTRIL 10 MG PO (08:31)
[2024-05-23] MEDS: VITAMIN C 500 MG PO (08:31)
[2024-05-23] MEDS: THERAGRAN 1 TABLET PO (08:32)
[2024-05-23] MEDS: PROSCAR 5 MG PO (08:32)
[2024-05-23] MEDS: SINEMET CR 25-100 (EXTENDED RELEASE) 1 TABLET PO ×3 (08:32→22:17)
[2024-05-23] MEDS: ZONEGRAN 25 MG PO (08:33)
[2024-05-23] MEDS: VITAMIN B1 100 MG PO (08:33)
--- NOTE | 2024-05-23 10:22 | CM ---
Chart reviewed and physical therapy are recommending acute rehab for patient, waiting on PM&R evaluation.
Plan; Waiting on recommendation from PM&R family were hoping for rehab placement at [place] [facility], referral sent to [place].
[2024-05-23 12:21] VITALS: BP 123/71; BP 123/77; PULSE 81
--- NOTE | 2024-05-23 12:23 | CON.MD ---
Documented by User: Shirin Brown PA-C 05/23/24 15:28
Consultation - Medical
-
Referring Provider: Alycia Joy
Chief Complaint: Ambulatory dysfunction, debility
History of Present Illness: Patient is a 73-year-old man with PMH of (Dementia HTN, Parkinson's disease, BPH, prostate artery embolization on 05/15/2024) who presented to the emergency room on 05/17 with diarrhea,and mental status change. He had a
recent prostate artery embolization on 05/15/24 at [facility] with recent courses of levaquin, bactrim and a 14 day course of ceftriaxone/cefdinir for reported positive urine cultures. He was recently admitted to for an infection on April 18 and was
diagnosed with acute metabolic encephalopathy and lethargy due to complicated urinary tract infection.
Past Medical History: HTN and Other Parkinson's Disease,
Procedure History: Urological (Prostate artery embolization 05/15/2024 at [facility] ,[facility] teeth
Family History: non pertinent
Social History:
Functional Level Premorbidly: Assisted with ADL, ambulates with wheelchair, walker. Patient says mostly stays in bed.
Functional Level Currently: Grooming�supervision, toileting�dependent, lower extremity care�max assist, transfer -mod assist, ambulated 60 feet x 2 with rollator with min assist
Tobacco: Non-smoker
Alcohol: Denies
Drug use: Denies
Lives with: Family
24-hour assistance available:
Number of floors: one
# steps to enter:
# steps to second floor: none
Potential First floor set up:yes
Driving: no
Occupation: Retired
�
Allergies:
Allergy/AdvReac Type Severity Reaction Status Date / Time
Penicillins Allergy Tolerates Verified 05/21/24 18:21
ceftriaxone/cefdinir
Review of Systems:
Constitutional: (x) Normal _
Eye: (x) Normal _
Ear/Nose/Throat: (x) Normal _
Respiratory: (x) Normal _
Cardiovascular: (x) Normal _
Gastrointestinal: (x) Diarrhea, dysphagia
Genitourinary: (x) BPH,
Musculoskeletal: (x) Normal _
Integumentary: (x) Normal _
Neurologic: (x) Normal _
Psychiatric: (x) Normal _
Endocrine: (x) Normal _
Hematologic/Lymphatic: (x) Normal _
Allergic/Immunologic: (x) Normal _
Medications:
Active Current Visit Medication List
Category Date Time Status
Acetaminophen [Tylenol] Med 05/17/24 21:06 Active
650 mg PO Q4HPRN PRN
Ascorbic Acid [Vitamin C] Med 05/18/24 08:00 Active
500 mg PO DAILY
Carbidopa/Levodopa Cr [Sinemet Cr 25-100 (Extended Med 05/17/24 22:00 Active
Release)]
1 tablet PO TID
Donepezil HCl [Aricept] Med 05/21/24 22:00 Active
10 mg PO HS
Finasteride [Proscar] Med 05/18/24 08:00 Active
5 mg PO DAILY
Flush (0.9% Sodium Chloride) [Flush (Nss)] Med 05/17/24 22:00 Active
See Dose Instructions IV PER PROTOCOL
Lisinopril [Zestril] Med 05/22/24 08:00 Active
10 mg PO DAILY
Loperamide [Imodium] Med 05/19/24 13:54 Active
2 mg PO Q6HPRN PRN
Multivitamin [Theragran] Med 05/18/24 08:00 Active
1 tablet PO DAILY
Non-Formulary Item Med 05/18/24 22:00 Active
See Dose Instructions PO HS
Pantoprazole [Protonix] Med 05/18/24 08:00 Active
40 mg PO DAILY
Sodium/Potassium Phosphate Mix [Neutra-Phos Powder Med 05/19/24 09:00 Active
Packet]
250 mg PO PCHS
Tamsulosin [Flomax] Med 05/18/24 18:00 Active
0.4 mg PO QPM
Zonisamide [Zonegran] Med 05/18/24 08:00 Active
25 mg PO DAILY
vibegron [Gemtesa] Med 05/17/24 21:06 Active
See Dose Instructions PO DAILYPRN PRN
Vitals:
Temp Pulse Resp BP Pulse Ox
97.7 F 60 16 153/76 95
05/23/24 07:00 05/23/24 07:00 05/23/24 07:00 05/23/24 08:31 05/23/24 07:00
Height 5 ft 8 in
Actual Weight 82.724 kg
Body Mass Index (BMI) 27.7
Physical Exam:
General Appearance/Observation: Well-developed, well-nourished individual in no apparent distress.
Pain/Comfort Assessment: Denies
Mood/Affect: Appropriate
Integumentary/Operative Site:
�� Pressure Ulcer Evaluation: absent over heels.
��
�� Other Type of Wound: absent
��
Eyes: Conjunctiva/Lids: normal ��� Pupils: pupils equal round and reactive to light and Accommodation
Ears/Nose/Throat: oral mucosa moist,� throat- unable to fully visualize. Not opening mouth wide.�� Lips/Teeth/Gums: normal
Neck: No muscle spasm or tenderness
Cardiovascular: Heart: regular, no murmur
Pulses: dorsalis pedis 1+ bilaterally
Respiratory: Respiratory Effort/Chest Expansion: normal ������� Auscultation: Clear to auscultation bilaterally
Gastrointestinal: abdomen not tender, no distension, normal abdominal bowel sounds, rumbling
Genitourinary:Zapata
Extremities: Edema: None Cyanosis: None Trophic changes: None
Neurology Exam:
Orientation: Alert, Oriented to self,
Memory: unable to fully assess, hard to hear due to hypophonia
Higher cortical function
Repetition: impaired
Comprehension: slow to process
Two step command: slow to process
Naming: Intact
Cranial Nerves:
�� CNII: Pupillary light reflex: Intact��� Visual Field: Intact
�� CN III, IV, : Extraocular muscles: Intact . Slow to follow
�� CN V: Facial Sensation at Forehead: Intact, Maxilla: Intact, Mandible: Intact
�� CN VII: Facial movement: Symmetric
�� CN VIII: Hearing: Normal
�� CN IX/X: Speech & swallow: hypophonia hard to hear Position of Uvula: Midline
�� CN XI: Shoulder shrug: Symmetric
�� CN XII: Tongue protrusion: Midline
Sensory:
�� Light touch: Intact in bilateral upper and lower extremities
�
Reflexes:
�� Biceps: trace bilaterally
�� Brachioradialis:trace bilaterally
�� Triceps:trace bilaterally
�� Patellar:absent bilaterally
�� Achilles: absent bilaterally
�� Babinski: Down going bilaterally
�� Clonus: None
�� Terrance: Negative bilaterally
Cerebellar: Dysmetria/Ataxia:not tested
Musculoskeletal:
Motor: (Manual muscle scale 0-5)
Muscle SA EF WE EE FF FA HF KE DF EHL PF
Right� 4 4 3+ 5 4 4 1 1 3 3 3
Left 4 4 3+ 5 4 4 0 0 3 3 3
Patient does not follow commands consistently. Not lifting legs when instructed to.
Tone: Normal in all extremities
Range of Motion: Passively within normal limits in all extremities
Lab Results
Labs
WBC 10.0 10^3/uL (4.8-10.8) 05/22/24 06:21
RBC 4.18 10^6/uL (4.70-6.10) L 05/22/24 06:21
Hgb 12.0 g/dL (13.0-18.0) L 05/22/24 06:21
Hct 36.5 % (39.0-52.0) L 05/22/24 06:21
MCV 87.3 fL (80.0-94.0) 05/22/24 06:21
MCH 28.7 pg (27.0-31.0) 05/22/24 06:21
MCHC 32.9 g/dL (33.0-37.0) L 05/22/24 06:21
RDW 12.9 % (11.5-14.5) 05/22/24 06:21
Plt Count 243 10^3/uL (130-400) 05/22/24 06:21
MPV 10.2 fL (7.4-10.4) 05/22/24 06:21
Abs Immat Gran (auto) 0.1 10^3/uL (0-0.05) H 05/17/24 14:15
Absolute Neuts (auto) 15.2 10^3/uL (1.4-6.5) H 05/17/24 14:15
Absolute Lymphs (auto) 1.1 10^3/uL (1.2-3.4) L 05/17/24 14:15
Absolute Monos (auto) 1.1 10^3/uL (0.1-0.6) H 05/17/24 14:15
Absolute Eos (auto) 0.0 10^3/uL (0-0.7) 05/17/24 14:15
Absolute Basos (auto) 0.0 10^3/uL (0-0.2) 05/17/24 14:15
Immature Gran % 0.5 % (0-0.5) 05/17/24 14:15
Neutrophils % 86.3 % (42.2-75.2) H 05/17/24 14:15
Lymphocytes % 6.5 % (20.5-51.1) L 05/17/24 14:15
Monocytes % 6.4 % (1.7-9.3) 05/17/24 14:15
Eosinophils % 0.1 % (0-6) 05/17/24 14:15
Basophils % 0.2 % (0-2) 05/17/24 14:15
Nucleated RBC % 0 % (-) 05/17/24 14:15
pH 7.44 (7.35-7.45) 05/21/24 11:58
pCO2 32 mmHg (35-48) L 05/21/24 11:58
pO2 79 mmHg (83-108) L 05/21/24 11:58
HCO3 21.7 mmol/L (21-28) 05/21/24 11:58
Base Excess -1.7 mmol/L 05/21/24 11:58
ABG O2 Sat (Measured) 97.4 % (94-98) 05/21/24 11:58
O2 Delivery Level 05/21/24 11:58
Sodium 137 mmol/L (135-145) 05/22/24 06:21
Potassium 3.9 mmol/L (3.5-5.1) 05/22/24 06:21
Chloride 105 mmol/L (98-107) 05/22/24 06:21
Carbon Dioxide 23 mmol/L (22-30) 05/22/24 06:21
BUN 18 mg/dl (9-20) 05/22/24 06:21
Creatinine 0.9 mg/dL (0.7-1.3) 05/22/24 06:21
Estimated Creat Clear 71 ml/min 05/22/24 06:21
eGFR > 60.00 05/22/24 06:21
Glucose 97 mg/dl (70-99) 05/22/24 06:21
Lactic Acid Cancelled 05/17/24 21:06
Calcium 8.5 mg/dl (8.4-10.2) 05/22/24 06:21
Phosphorus 3.2 mg/dl (2.5-4.5) 05/22/24 06:21
Magnesium 1.9 mg/dl (1.6-2.3) 05/22/24 06:21
Total Bilirubin 0.8 mg/dl (0.2-1.3) 05/18/24 03:35
AST 27 U/L (17-59) 05/18/24 03:35
ALT < 10 U/L (0-50) 05/18/24 03:35
Alkaline Phosphatase 81 U/L (38-126) 05/18/24 03:35
Total Protein 5.6 g/dl (6.3-8.2) L 05/18/24 03:35
Albumin 3.0 g/dl (3.5-5.0) L 05/18/24 03:35
Vitamin B12 Cancelled 05/21/24 15:15
Procalcitonin 0.10 ng/ml (0.0-0.25) 05/19/24 15:30
Urine Color Yellow 05/17/24 15:53
Urine Clarity Very cloudy (Clear) 05/17/24 15:53
Urine pH 5.0 (5.0-9.0) 05/17/24 15:53
Ur Specific [place] 1.025 (<1.030) 05/17/24 15:53
Urine Ketones Trace (Negative) A 05/17/24 15:53
Ur Occult Blood Reflex 4+ (Negative) A 05/17/24 15:53
Urine Nitrite (Reflex) Negative (Negative) 05/17/24 15:53
Urine Bilirubin 1+ (Negative) A 05/17/24 15:53
Urine Urobilinogen Negative (Neg - 1+) 05/17/24 15:53
Leukocyte Esterase Rfl 2+ (Negative) A 05/17/24 15:53
Urine RBC 26-30 /HPF (0-2) A 05/17/24 15:53
Urine WBC (Reflex) 16-20 /HPF (0-5) A 05/17/24 15:53
Urine Bacteria (Reflex) Many (Negative) A 05/17/24 15:53
Urine Mucus Many 05/17/24 15:53
Urine Glucose Negative (Negative) 05/17/24 15:53
Urine Albumin (Reflex) 1+ (Neg - Trace) A 05/17/24 15:53
�
Diagnostic Results: as per HPI
Assessment Patient is a 73-year-old man with PMH of (Dementia HTN, Parkinson's disease, BPH, prostate artery embolization on 05/15/2024) with diarrhea,and mental status change. He had a recent prostate artery embolization on 05/15/24 at [facility] with
recent courses of levaquin, bactrim and a 14 day course antibiotics.
Plan
PT/OT to increase independence with ADLs, improve balance, coordination, endurance, strength, mobility, community reintegration, decreased burden of care on others and family education.
Dilatory dysfunction/debility,
Ambulatory dysfunction/debility: PT/OT
Acute toxic metabolic encephalopathy vs nontoxic metabolic encephalopathy-resolving. Blood cultures were negative.
Diarrhea: KUB negative for impaction, C. difficile toxin negative, antigen positive. resolved. Per ID- no treatment needed at this time. Outpatient probiotics encouraged as colonized with c difficile. Imodium prn
Parkinson's Disease: Sinemet 25/100 CR TID, Zonegran 25 mg PO daily. PT/OT/Speech
Dementia: Aricept 5 mg qHS
Dysphagia secondary to Parkinson: speech evaluation, aspiration precautions.�Small bite sized diet, single sips, no straw, meds in pureed. Advance diet as tolerated.
Leukocytosis - resolved-10. Recent prostate embolization 05/15- likely cause
HTN: Isradipine, Lisinopril 10mg .monitor closely
Acute kidney injury: due to dehydration, resolved
HLD: Statin
Psych: Psychology consult.� Monitor mood, adjust medications as needed.
Skin: monitor for pressure sores/rashes/lesions.
Pain: acetaminophen as needed.
Bowel: Colace and Senna, PRN bisacodyl.
Bladder/ BPH s/p embolization 05/15: Zapata- Proscar 5mg qd. Flomax 0.4 daily, Gemtesa 75 mg p.o. as needed time void, PVRs, PRN straight cath.
GI Prophylaxis: Pantoprazole 40mg qd
DVT Prophylaxis: Lovenox SC
Pulmonary: Incentive spirometry
Safety: Continue to reinforce assistance with all transfers.
Code Status:� Full code
Dispo (date/plan/equipment needs): Home with family care.� Social history reviewed.
Functional and Medical Goals: Modified Independent with ADL�s, ambulation, transfers
Discharge Destination:
Summary of recommendations:
-
Thank you for allowing me to care for your patient. Please contact me with any questions or concerns.
This note was dictated using a voice recognition system. Please excuse any typographical errors from flat finisher. If you believe there are any discrepancies, please notify our office.

Documented by User: Toni Reyes MD 05/23/24 16:56
Consultation - Medical
-
Referring Provider: Alycia Joy
Chief Complaint: Ambulatory dysfunction, debility
History of Present Illness: Patient is a 73-year-old man with PMH of (Dementia HTN, Parkinson's disease, BPH, prostate artery embolization on 05/15/2024) who presented to the emergency room on 05/17 with diarrhea,and mental status change. He had a
recent prostate artery embolization on 05/15/24 at [facility] with recent courses of levaquin, bactrim and a 14 day course of ceftriaxone/cefdinir for reported positive urine cultures. He was recently admitted to for an infection on April 18 and was
diagnosed with acute metabolic encephalopathy and lethargy due to complicated urinary tract infection.
Past Medical History: HTN and Other Parkinson's Disease,
Procedure History: Urological (Prostate artery embolization 05/15/2024 at [facility] ,[facility] teeth
Family History: non pertinent
Social History:
Functional Level Premorbidly: Assisted with ADL, ambulates with wheelchair, walker. Patient says mostly stays in bed.
Functional Level Currently: Grooming�supervision, toileting�dependent, lower extremity care�max assist, transfer -mod assist, ambulated 60 feet x 2 with rollator with min assist
Tobacco: Non-smoker
Alcohol: Denies
Drug use: Denies
Lives with: Family
24-hour assistance available:
Number of floors: one
# steps to enter:
# steps to second floor: none
Potential First floor set up:yes
Driving: no
Occupation: Retired
�
Allergies:
Allergy/AdvReac Type Severity Reaction Status Date / Time
Penicillins Allergy Tolerates Verified 05/21/24 18:21
ceftriaxone/cefdinir
Review of Systems:
Constitutional: (x) Normal _
Eye: (x) Normal _
Ear/Nose/Throat: (x) Normal _
Respiratory: (x) Normal _
Cardiovascular: (x) Normal _
Gastrointestinal: (x) Diarrhea, dysphagia
Genitourinary: (x) BPH,
Musculoskeletal: (x) Normal _
Integumentary: (x) Normal _
Neurologic: (x) Normal _
Psychiatric: (x) Normal _
Endocrine: (x) Normal _
Hematologic/Lymphatic: (x) Normal _
Allergic/Immunologic: (x) Normal _
Medications:
Active Current Visit Medication List
Category Date Time Status
Acetaminophen [Tylenol] Med 05/17/24 21:06 Active
650 mg PO Q4HPRN PRN
Ascorbic Acid [Vitamin C] Med 05/18/24 08:00 Active
500 mg PO DAILY
Carbidopa/Levodopa Cr [Sinemet Cr 25-100 (Extended Med 05/17/24 22:00 Active
Release)]
1 tablet PO TID
Donepezil HCl [Aricept] Med 05/21/24 22:00 Active
10 mg PO HS
Finasteride [Proscar] Med 05/18/24 08:00 Active
5 mg PO DAILY
Flush (0.9% Sodium Chloride) [Flush (Nss)] Med 05/17/24 22:00 Active
See Dose Instructions IV PER PROTOCOL
Lisinopril [Zestril] Med 05/22/24 08:00 Active
10 mg PO DAILY
Loperamide [Imodium] Med 05/19/24 13:54 Active
2 mg PO Q6HPRN PRN
Multivitamin [Theragran] Med 05/18/24 08:00 Active
1 tablet PO DAILY
Non-Formulary Item Med 05/18/24 22:00 Active
See Dose Instructions PO HS
Pantoprazole [Protonix] Med 05/18/24 08:00 Active
40 mg PO DAILY
Sodium/Potassium Phosphate Mix [Neutra-Phos Powder Med 05/19/24 09:00 Active
Packet]
250 mg PO PCHS
Tamsulosin [Flomax] Med 05/18/24 18:00 Active
0.4 mg PO QPM
Zonisamide [Zonegran] Med 05/18/24 08:00 Active
25 mg PO DAILY
vibegron [Gemtesa] Med 05/17/24 21:06 Active
See Dose Instructions PO DAILYPRN PRN
Vitals:
Temp Pulse Resp BP Pulse Ox
97.7 F 60 16 153/76 95
05/23/24 07:00 05/23/24 07:00 05/23/24 07:00 05/23/24 08:31 05/23/24 07:00
Height 5 ft 8 in
Actual Weight 82.724 kg
Body Mass Index (BMI) 27.7
Physical Exam:
General Appearance/Observation: Well-developed, well-nourished individual in no apparent distress.
Pain/Comfort Assessment: Denies
Mood/Affect: Appropriate
Integumentary/Operative Site:
�� Pressure Ulcer Evaluation: absent over heels.
��
�� Other Type of Wound: absent
��
Eyes: Conjunctiva/Lids: normal ��� Pupils: pupils equal round and reactive to light and Accommodation
Ears/Nose/Throat: oral mucosa moist,� throat- unable to fully visualize. Not opening mouth wide.�� Lips/Teeth/Gums: normal
Neck: No muscle spasm or tenderness
Cardiovascular: Heart: regular, no murmur
Pulses: dorsalis pedis 1+ bilaterally
Respiratory: Respiratory Effort/Chest Expansion: normal ������� Auscultation: Clear to auscultation bilaterally
Gastrointestinal: abdomen not tender, no distension, normal abdominal bowel sounds, rumbling
Genitourinary:Zapata
Extremities: Edema: None Cyanosis: None Trophic changes: None
Neurology Exam:
Orientation: Alert, Oriented to self,
Memory: unable to fully assess, hard to hear due to hypophonia
Higher cortical function
Repetition: impaired
Comprehension: slow to process
Two step command: slow to process
Naming: Intact
Cranial Nerves:
�� CNII: Pupillary light reflex: Intact��� Visual Field: Intact
�� CN III, IV, : Extraocular muscles: Intact . Slow to follow
�� CN V: Facial Sensation at Forehead: Intact, Maxilla: Intact, Mandible: Intact
�� CN VII: Facial movement: Symmetric
�� CN VIII: Hearing: Normal
�� CN IX/X: Speech & swallow: hypophonia hard to hear Position of Uvula: Midline
�� CN XI: Shoulder shrug: Symmetric
�� CN XII: Tongue protrusion: Midline
Sensory:
�� Light touch: Intact in bilateral upper and lower extremities
�
Reflexes:
�� Biceps: trace bilaterally
�� Brachioradialis:trace bilaterally
�� Triceps:trace bilaterally
�� Patellar:absent bilaterally
�� Achilles: absent bilaterally
�� Babinski: Down going bilaterally
�� Clonus: None
�� Terrance: Negative bilaterally
Cerebellar: Dysmetria/Ataxia:not tested
Musculoskeletal:
Motor: (Manual muscle scale 0-5)
Muscle SA EF WE EE FF FA HF KE DF EHL PF
Right� 4 4 3+ 5 4 4 1 1 3 3 3
Left 4 4 3+ 5 4 4 0 0 3 3 3
Patient does not follow commands consistently. Not lifting legs when instructed to.
Tone: Seems more rigidity in UE and LE's
Range of Motion: Limited with UE/shoulder to 100, no gross contractures
Lab Results
Labs
WBC 10.0 10^3/uL (4.8-10.8) 05/22/24 06:21
RBC 4.18 10^6/uL (4.70-6.10) L 05/22/24 06:21
Hgb 12.0 g/dL (13.0-18.0) L 05/22/24 06:21
Hct 36.5 % (39.0-52.0) L 05/22/24 06:21
MCV 87.3 fL (80.0-94.0) 05/22/24 06:21
MCH 28.7 pg (27.0-31.0) 05/22/24 06:21
MCHC 32.9 g/dL (33.0-37.0) L 05/22/24 06:21
RDW 12.9 % (11.5-14.5) 05/22/24 06:21
Plt Count 243 10^3/uL (130-400) 05/22/24 06:21
MPV 10.2 fL (7.4-10.4) 05/22/24 06:21
Abs Immat Gran (auto) 0.1 10^3/uL (0-0.05) H 05/17/24 14:15
Absolute Neuts (auto) 15.2 10^3/uL (1.4-6.5) H 05/17/24 14:15
Absolute Lymphs (auto) 1.1 10^3/uL (1.2-3.4) L 05/17/24 14:15
Absolute Monos (auto) 1.1 10^3/uL (0.1-0.6) H 05/17/24 14:15
Absolute Eos (auto) 0.0 10^3/uL (0-0.7) 05/17/24 14:15
Absolute Basos (auto) 0.0 10^3/uL (0-0.2) 05/17/24 14:15
Immature Gran % 0.5 % (0-0.5) 05/17/24 14:15
Neutrophils % 86.3 % (42.2-75.2) H 05/17/24 14:15
Lymphocytes % 6.5 % (20.5-51.1) L 05/17/24 14:15
Monocytes % 6.4 % (1.7-9.3) 05/17/24 14:15
Eosinophils % 0.1 % (0-6) 05/17/24 14:15
Basophils % 0.2 % (0-2) 05/17/24 14:15
Nucleated RBC % 0 % (-) 05/17/24 14:15
pH 7.44 (7.35-7.45) 05/21/24 11:58
pCO2 32 mmHg (35-48) L 05/21/24 11:58
pO2 79 mmHg (83-108) L 05/21/24 11:58
HCO3 21.7 mmol/L (21-28) 05/21/24 11:58
Base Excess -1.7 mmol/L 05/21/24 11:58
ABG O2 Sat (Measured) 97.4 % (94-98) 05/21/24 11:58
O2 Delivery Level 05/21/24 11:58
Sodium 137 mmol/L (135-145) 05/22/24 06:21
Potassium 3.9 mmol/L (3.5-5.1) 05/22/24 06:21
Chloride 105 mmol/L (98-107) 05/22/24 06:21
Carbon Dioxide 23 mmol/L (22-30) 05/22/24 06:21
BUN 18 mg/dl (9-20) 05/22/24 06:21
Creatinine 0.9 mg/dL (0.7-1.3) 05/22/24 06:21
Estimated Creat Clear 71 ml/min 05/22/24 06:21
eGFR > 60.00 05/22/24 06:21
Glucose 97 mg/dl (70-99) 05/22/24 06:21
Lactic Acid Cancelled 05/17/24 21:06
Calcium 8.5 mg/dl (8.4-10.2) 05/22/24 06:21
Phosphorus 3.2 mg/dl (2.5-4.5) 05/22/24 06:21
Magnesium 1.9 mg/dl (1.6-2.3) 05/22/24 06:21
Total Bilirubin 0.8 mg/dl (0.2-1.3) 05/18/24 03:35
AST 27 U/L (17-59) 05/18/24 03:35
ALT < 10 U/L (0-50) 05/18/24 03:35
Alkaline Phosphatase 81 U/L (38-126) 05/18/24 03:35
Total Protein 5.6 g/dl (6.3-8.2) L 05/18/24 03:35
Albumin 3.0 g/dl (3.5-5.0) L 05/18/24 03:35
Vitamin B12 Cancelled 05/21/24 15:15
Procalcitonin 0.10 ng/ml (0.0-0.25) 05/19/24 15:30
Urine Color Yellow 05/17/24 15:53
Urine Clarity Very cloudy (Clear) 05/17/24 15:53
Urine pH 5.0 (5.0-9.0) 05/17/24 15:53
Ur Specific [place] 1.025 (<1.030) 05/17/24 15:53
Urine Ketones Trace (Negative) A 05/17/24 15:53
Ur Occult Blood Reflex 4+ (Negative) A 05/17/24 15:53
Urine Nitrite (Reflex) Negative (Negative) 05/17/24 15:53
Urine Bilirubin 1+ (Negative) A 05/17/24 15:53
Urine Urobilinogen Negative (Neg - 1+) 05/17/24 15:53
Leukocyte Esterase Rfl 2+ (Negative) A 05/17/24 15:53
Urine RBC 26-30 /HPF (0-2) A 05/17/24 15:53
Urine WBC (Reflex) 16-20 /HPF (0-5) A 05/17/24 15:53
Urine Bacteria (Reflex) Many (Negative) A 05/17/24 15:53
Urine Mucus Many 05/17/24 15:53
Urine Glucose Negative (Negative) 05/17/24 15:53
Urine Albumin (Reflex) 1+ (Neg - Trace) A 05/17/24 15:53
�
Diagnostic Results: as per HPI
Assessment Patient is a 73-year-old man with PMH of (Dementia HTN, Parkinson's disease, BPH, prostate artery embolization on 05/15/2024) with diarrhea,and mental status change. He had a recent prostate artery embolization on 05/15/24 at [facility] with
recent courses of levaquin, bactrim and a 14 day course antibiotics.
Plan
PT/OT to increase independence with ADLs, improve balance, coordination, endurance, strength, mobility, community reintegration, decreased burden of care on others and family education.
Dilatory dysfunction/debility,
Ambulatory dysfunction/debility: PT/OT
Acute toxic metabolic encephalopathy vs nontoxic metabolic encephalopathy-resolving. Blood cultures were negative.
Diarrhea: KUB negative for impaction, C. difficile toxin negative, antigen positive. resolved. Per ID- no treatment needed at this time. Outpatient probiotics encouraged as colonized with c difficile. Imodium prn
Parkinson's Disease: Sinemet 25/100 CR TID, Zonegran 25 mg PO daily. PT/OT/Speech
Dementia: Aricept 5 mg qHS
Dysphagia secondary to Parkinson: speech evaluation, aspiration precautions.�Small bite sized diet, single sips, no straw, meds in pureed. Advance diet as tolerated.
Leukocytosis - resolved-10. Recent prostate embolization 05/15- likely cause
HTN: Isradipine, Lisinopril 10mg .monitor closely
Acute kidney injury: due to dehydration, resolved
HLD: Statin
Psych: Psychology consult.� Monitor mood, adjust medications as needed.
Skin: monitor for pressure sores/rashes/lesions.
Pain: acetaminophen as needed.
Bowel: Colace and Senna, PRN bisacodyl.
Bladder/ BPH s/p embolization 05/15: Zapata- Proscar 5mg qd. Flomax 0.4 daily, Gemtesa 75 mg p.o. as needed time void, PVRs, PRN straight cath.
GI Prophylaxis: Pantoprazole 40mg qd
DVT Prophylaxis: Lovenox SC
Pulmonary: Incentive spirometry
Safety: Continue to reinforce assistance with all transfers.
Code Status:� Full code
Dispo (date/plan/equipment needs): Home with family care.� Social history reviewed.
Functional and Medical Goals: Modified Independent with ADL�s, ambulation, transfers
Discharge Destination: SNF/Skilled rehab
Summary of recommendations:
Attending note;
Patient seen and examined by me this afternoon in the room. Patients seen with and case discussed with Shirin Brown PA-C and agree with above note, examination and plan as outlined. Patient appears to have significant Parkinson's with
bradykinesia and limited mobility. Drooling and somewhat rigid in neck and UE and LE's for me on examination. Hypophonic and difficult to understand with some speech, but does follow commands well. No specific UE or LE weakness or asymmtry, but
just more generalized weakness and difficulty with lifting leg in bed. Only mild resting tremor on my exam.
He does have additional deconditioning and weakness in conjunction with the Parkinson's that is limiting his functional mobility and balance, gait dysfunction, fall risk, ADL's. This patient would certainly benefit from additional rehabilitation
services after discharge before discharge home in order to improve strength, and balance and gait stability and improve towards more independence with above and his ADL's. He would do better at skilled/SNF level rehab at this time and doubtful he
could tolerate intensive level therapies needed for participation in acute rehab. His rigidity is notable and posterior lean with transfers and gait does increase risk of falls.
This note was dictated using a voice recognition system. Please excuse any typographical errors from flat finisher. If you believe there are any discrepancies, please notify our office.
[2024-05-23 16:20] VITALS: BP 104/58
[2024-05-23] MEDS: FLOMAX 0.400000000000000022 MG PO (16:49)
[2024-05-23] MEDS: NON-FORMULARY ITEM 1 UNIT PO (22:16)
[2024-05-23] MEDS: ARICEPT 10 MG PO (22:17)
[2024-05-23 23:00] VITALS: BP 133/68
[2024-05-24 05:54] VITALS: BMI 26.8
--- NOTE | 2024-05-24 07:11 | W.PN.HOSP.TC ---
Today's Communication/Plan
-
cont PT/OT
discharge planning [facility] Tomorrow Sun 05/25
Assessment / Plan
Assessment / Plan
HPI: 73-year-old man presented to the emergency room complaining of diarrhea, change of mental status and a suspicion for infection. The patient had a recent prostate artery embolization at [place]. He has been on Levaquin and Bactrim recently.
The family stated this is how he looks when he has an infection. He was recently admitted to for an infection in March 23.
#Fever and leukocytosis upon admission suspect reactive due to recent procedure prostate artery embolization. (SIRS d/t noninfectious source)
#Suspected Acute urinary tract infection, Zapata catheter associated (less likely)
Zapata changed 05/18
received empiric IV cefepime,
urine and blood cultures neg/NGTD, fever white count resolved, remains afebrile wbc wnl off abx
ID consult appreciated
#Acute toxic metabolic encephalopathy vs nontoxic metabolic encephalopathy
resolving
#Diarrhea
KUB negative for impaction
C. difficile toxin negative, antigen positive
Diarrhea since resolved
ID consult appreciated no treatment needed at this time. Outpt probiotics encouraged
#Acute kidney injury
Secondary to dehydration, resolved
#Urinary retention with chronic Zapata since February 2022
Continue finasteride, Flomax
Outpatient follow-up for void trial with urology
#Recent prostate artery embolization
Outpatient follow-up
#Parkinson's disease
#Decompensation/Ambulatory dysfunction possible residual effect anesthesia from prior procedure vs polypharmacy
Continue Sinemet
Continue zonisamide [correction to prior documentation zonisamide for movement d/o no sz as per neuro]
Neuro eval appreciated Zonisamide and Aricept doses reduced (Originally recommended reduction in Aricept from 15 mg HS to 5mg however per family request dose was reduced to 10 mg HS instead)
#Dysphagia 2/2 Parkinson
Speech eval appreciated
small bite sized diet, single sips, no straw, meds in pureed
#Hypertension
cont home isradipine
Low dose Lisinopril added this hospitalization, continue
DVT prophylaxis�subcu Lovenox
Full code
PT/OT appreciated Acute Rehab
Case mgmt appreciated patient accepted [facility] for tomorrow Sun 05/25
Discussed with patient, patient's Flor, and daughter Linda
I spent a total of 40 minutes with the patient or on the floor. More than 50% of this time involved counseling and coordination of care.
Physical Exam
General: Frail, elderly, no acute distress
HEENT: Normocephalic, Atraumatic, EOMI, MMM Flat affect
Respiratory: Clear to Auscultation bilaterally
Cardiac: Normal S1/S2, Regular Rate and Rhythm
GI: Soft, Nontender, Nondistended, Normal Bowel Sounds
Extremities: No Clubbing, Cyanosis, or Edema, some cogwheel rigidity noted upper exts
Neuro: AOx3
Psych: Calm, Cooperative
Anticipated Discharge: Within 24 hours
Subjective/Interval History
-
Date of Service: May 24, 2024
No acute distress. Reports overall feeling well.
Objective Data
-
Labs:
Laboratory Results
05/24/24
06:00
WBC Pending
Hgb Pending
Hct Pending
Plt Count Pending
Sodium Pending
Potassium Pending
Chloride Pending
Carbon Dioxide Pending
BUN Pending
Creatinine Pending
Glucose Pending
Calcium Pending
Vital Signs:
Vital Signs
Temp Pulse Resp BP Pulse Ox
99.3 F 67 18 133/68 96
05/23/24 23:00 05/23/24 23:00 05/23/24 23:00 05/23/24 23:00 05/23/24 23:00
I&O
05/23/24 05/24/24 05/25/24
06:59 06:59 06:59
Intake Total 720 / 720 600 / 600
Output Total 750 / 750 775 / 775
Balance -30 / -30 -175 / -175
[2024-05-24 07:50] VITALS: BP 160/80
[2024-05-24] MEDS: THERAGRAN 1 TABLET PO (07:54)
[2024-05-24] MEDS: PROTONIX 40 MG PO (07:54)
[2024-05-24] MEDS: ZONEGRAN 25 MG PO (07:54)
[2024-05-24] MEDS: PROSCAR 5 MG PO (07:54)
[2024-05-24] MEDS: VITAMIN C 500 MG PO (07:54)
[2024-05-24] MEDS: SINEMET CR 25-100 (EXTENDED RELEASE) 1 TABLET PO ×3 (07:54→21:07)
[2024-05-24] MEDS: ZESTRIL 10 MG PO (07:55)
[2024-05-24 08:37] LABS: Hematocrit 37.3 % (39.0-52.0); Hemoglobin 12.5 g/dL (13.0-18.0); Mean Corp Hgb Conc. 33.5 g/dL (33.0-37.0); Mean Corpuscular Hgb 28.7 pg (27.0-31.0); Mean Corpuscular Volume 85.7 fL (80.0-94.0); Mean Platelet Volume 10.2 fL (7.4-10.4); Platelet Count 278 10^3/uL (130-400); Red Blood Cell Count 4.35 10^6/uL (4.70-6.10); White Blood Cell Count 9.7 10^3/uL (4.8-10.8)
[2024-05-24 09:00] LABS: Blood Urea Nitrogen 30 mg/dl (9-20); Calcium 8.7 mg/dl (8.4-10.2); Carbon Dioxide 23 mmol/L (22-30); Chloride 108 mmol/L (98-107); Estimated Creatinine Clearance 58 ml/min; Glucose 95 mg/dl (70-99); Magnesium 2.2 mg/dl (1.6-2.3); Phosphorus 2.9 mg/dl (2.5-4.5); Potassium 4.2 mmol/L (3.5-5.1); Sodium 138 mmol/L (135-145); eGFR > 60.00
--- NOTE | 2024-05-24 10:25 | PTCARENOTE ---
pt's daughter at bedside, very upset that he was not a candidate for [facility]. Dr Mejia aware that she would like to speak to him. He stated he would be up shortly. Acupuncturist Jay also at bedside speaking to pt's daughter and .
--- NOTE | 2024-05-24 10:43 | CM ---
Addendum entered by Jasmyn Moreno 05/24/24 16:18:
Caroline (Manjula) [facility] Acute rehab [phone]
Addendum entered by Jasmyn Moreno 05/24/24 13:23:
pay station department manager spoke with Caroline in admissions at [facility] and they have accepted patient tomorrow 05/25/24. Message left for patient's spouse.
[facility] Acute rehab
Report [phone]

Original Note:
Chart reviewed PM&R saw patient and PM&R are recommending home, family feel patient is not at baseline and are still requesting acute rehab, family are requesting a referral to [facility], referral sent, also [place] discussed, but family are looking
for acute rehab.
Plan; Referral sent to [facility] acute rehab.
--- NOTE | 2024-05-24 11:33 | PTCARENOTE ---
Dr Mejia spoke to daughter and . They then came out and asked RN if he could get oob. RN stated they would look for other staff to help. When RN walked in to the room family had pt standing at the bedside. They were asked to please wait for staff
before getting him up as he has geiger catheter and sequential teds attached to him. He was able to stand at the bedside for approx 5 minutes with support.
[2024-05-24 13:15] VITALS: BP 114/79; BP 141/73; PULSE 63
[2024-05-24 13:19] VITALS: BP 114/79; BP 141/73; PULSE 63; O2SAT 97
[2024-05-24 15:19] VITALS: BP 115/72
[2024-05-24] MEDS: FLOMAX 0.400000000000000022 MG PO (17:41)
[2024-05-24] MEDS: ARICEPT 10 MG PO (21:07)
[2024-05-24] MEDS: NON-FORMULARY ITEM 1 UNIT PO (21:07)
[2024-05-24 23:00] VITALS: BP 118/63
[2024-05-25 05:24] VITALS: BMI 26.9
--- NOTE | 2024-05-25 06:32 | W.PN.HOSP.TC ---
Addendum entered and electronically signed by Alycia Mejia MD 05/28/24 18:00:
Acute Kidney Injury likely due to dehydration unclear relation to SIRS on presentation
Addendum entered and electronically signed by Alycia Mejia MD 05/28/24 17:58:
SIRS possibly contributed to acute toxic metabolic encephalopathy
Original Note:
Today's Communication/Plan
-
Discharge
Assessment / Plan
Assessment / Plan
HPI: 73-year-old man presented to the emergency room complaining of diarrhea, change of mental status and a suspicion for infection. The patient had a recent prostate artery embolization at [place]. He has been on Levaquin and Bactrim recently.
The family stated this is how he looks when he has an infection. He was recently admitted to for an infection in March 23.
#Fever and leukocytosis upon admission suspect reactive due to recent procedure prostate artery embolization. (SIRS d/t noninfectious source)
#Suspected Acute urinary tract infection, Zapata catheter associated (less likely)
Zapata changed 05/18
received empiric IV cefepime,
urine and blood cultures neg/NGTD, fever white count resolved, remains afebrile wbc wnl off abx
ID consult appreciated
#Acute toxic metabolic encephalopathy vs nontoxic metabolic encephalopathy
resolving
#Diarrhea
KUB negative for impaction
C. difficile toxin negative, antigen positive
Diarrhea since resolved
ID consult appreciated no treatment needed at this time. Outpt probiotics encouraged
#Acute kidney injury
Secondary to dehydration, resolved
#Urinary retention with chronic Zapata since February 2022
Continue finasteride, Flomax
Outpatient follow-up for void trial with urology
#Recent prostate artery embolization
Outpatient follow-up
#Parkinson's disease
#Decompensation/Ambulatory dysfunction possible residual effect anesthesia from prior procedure vs polypharmacy
Continue Sinemet
Continue zonisamide [correction to prior documentation zonisamide for movement d/o no sz as per neuro]
Neuro eval appreciated Zonisamide and Aricept doses reduced (Originally recommended reduction in Aricept from 15 mg HS to 5mg however per family request dose was reduced to 10 mg HS instead)
#Dysphagia 2/2 Parkinson
Speech eval appreciated
small bite sized diet, single sips, no straw, meds in pureed
#Hypertension
cont home isradipine
Low dose Lisinopril added this hospitalization, continue
DVT prophylaxis�subcu Lovenox
Full code
PT/OT appreciated Acute Rehab
Case mgmt appreciated patient accepted [facility] for tomorrow Sun 05/25
Medically stable for discharge to [facility] with outpatient follow up recommendations.
Discussed with patient, patient's Flor, and daughter Linda
Total Time Preparing Discharge __40 minutes including examination of the patient, summary of the hospital stay, instructions for continuing care to all relevant caregivers; and preparation of discharge records, prescriptions, and referral
forms if necessary.
Physical Exam
General: Frail, elderly, no acute distress
HEENT: Normocephalic, Atraumatic, EOMI, MMM Flat affect
Respiratory: Clear to Auscultation bilaterally
Cardiac: Normal S1/S2, Regular Rate and Rhythm
GI: Soft, Nontender, Nondistended, Normal Bowel Sounds
Extremities: No Clubbing, Cyanosis, or Edema, some cogwheel rigidity noted upper exts
Neuro: AOx3
Psych: Calm, Cooperative
Anticipated Discharge: Today
Subjective/Interval History
-
Date of Service: May 25, 2024
No acute distress. Reports feeling well.
Objective Data
-
Vital Signs:
Vital Signs
Temp Pulse Resp BP Pulse Ox
97.9 F 64 18 118/63 96
05/24/24 23:00 05/24/24 23:00 05/24/24 23:00 05/24/24 23:00 05/24/24 23:00
I&O
05/23/24 05/24/24 05/25/24
06:59 06:59 06:59
Intake Total 720 / 720 600 / 600 1560 / 1560
Output Total 750 / 750 775 / 775 725 / 725
Balance -30 / -30 -175 / -175 835 / 835
[2024-05-25 07:40] VITALS: BP 149/93
[2024-05-25] MEDS: VISBIOME 1 CAP PO (08:38)
[2024-05-25] MEDS: THERAGRAN 1 TABLET PO (08:38)
[2024-05-25] MEDS: ZONEGRAN 25 MG PO (08:38)
[2024-05-25] MEDS: SINEMET CR 25-100 (EXTENDED RELEASE) 1 TABLET PO (08:38)
[2024-05-25] MEDS: PROTONIX 40 MG PO (08:38)
[2024-05-25] MEDS: VITAMIN C 500 MG PO (08:38)
[2024-05-25] MEDS: PROSCAR 5 MG PO (08:38)
[2024-05-25] MEDS: ZESTRIL 10 MG PO (08:38)
--- NOTE | 2024-05-25 09:03 | W.DCSUMMARY ---
Discharge Summary
Discharge Data
Date of Admission: 05/17/24
Date of Discharge: 05/25/24
-
Pending Results: No
Hospital Course
73-year-old man presented to the emergency room complaining of diarrhea, change of mental status and a suspicion for infection. The patient had a recent prostate artery embolization at [place]. He had been on Levaquin and Bactrim recently. He
was recently admitted to for an infection in March 23. Fever and leukocytosis upon admission suspect reactive due to recent procedure prostate artery embolization. (SIRS d/t noninfectious source). Suspected Acute urinary tract infection, Zapata
catheter associated (less likely, ruled out). Zapata changed 05/18. Pt received empiric IV cefepime, urine and blood cultures neg/NGTD, fever white count resolved, remained afebrile wbc wnl off abx. Acute toxic metabolic encephalopathy vs nontoxic
metabolic encephalopathy, gradually resolved over the course of hospitalization. Diarrhea, KUB negative for impaction, C. difficile toxin negative, antigen positive. Diarrhea since resolved. ID consult appreciated no treatment needed at this
time. Outpt probiotics encouraged. Acute kidney injury secondary to dehydration, resolved. Urinary retention with chronic Zapata since February 2022, continued finasteride and Flomax. Outpatient follow-up for void trial with urology recommended.
Parkinson's disease, decompensation/Ambulatory dysfunction possible residual effect anesthesia from prior procedure vs polypharmacy. Continued home Sinemet. Neuro evaluated and recommended Zonisamide and Aricept dose reduction (Originally
recommended reduction in Aricept from 15 mg HS to 5mg. However per family request, dose was reduced to 10 mg HS instead). Dysphagia 2/2 Parkinson, speech eval appreciated small bite sized diet, single sips, no straw, meds in pureed. Hypertension,
continued home isradipine, low dose Lisinopril added this hospitalization for better blood pressure control. PT/OT evaluated and recommended Acute Rehab. Medically stable, patient was discharged to [facility] with outpatient follow up
recommendations.
Discharge Plan
-
Patient Disposition: Acute Rehab Facility
Discharge Diagnosis/Procedures: Recent prostate artery embolization
Fever and leukocytosis upon admission suspect reactive due to recent procedure prostate artery embolization.
Suspected Acute urinary tract infection, Zapata catheter associated, (ruled out, cultures negative, stable off antibiotics)
Zapata changed 05/18
Acute toxic metabolic encephalopathy resolved
Diarrhea resolved
CDiff colonized but toxin negative
Acute kidney injury resolved
Urinary retention with chronic Zapata
Parkinson's disease
Seizure disorder
Ambulatory dysfunction, decompensated due to recent anesthesia vs polypharmacy (medications adjusted)
Condition: Fair
Diet: Regular
Activity: With assistance, As tolerated and With Walker
Driving Restrictions: No driving
Bathing Restrictions: None
Others Tests: Repeat CXR in 1 month of discharge with primary care provider recommended
Other Services: VN, PT, OT and ST
Activity Restrictions/Additional Instructions:
Please follow up with primary care provider and urology in 1 week of discharge.
Encourage probiotic use (this is available over the counter and in food products such as yogurt) to promote healthy gut- as per ID recommendation for Cdiff colonization but without toxin present. No specific treatment for CDIff is necessary at this
time.
Bactrim has been discontinued as no antibiotic treatment is necessary at this time.
Lisinopril has been started for hypertension
Ziprasidone and Donepezil doses have been reduced due to concerns side effects, polypharmacy, contributing to decompensation as per neurology.
Please take medications as prescribed/recommended and follow up with primary care provider and/or other healthcare provider involved in your care for refills and/or further adjustment to your medication regimen as necessary.
Instructions: Probiotics
Referrals:
UNKNOWN - PT NOT,INTERVIEWE [Family Provider] -
Prescriptions:
New
lisinopril 10 mg Tablet
10 mg PO DAILY 30 Days Qty: 30 0RF
donepezil 10 mg Tablet
10 mg PO HS 30 Days Qty: 30 0RF
Continued
isradipine 2.5 mg Capsule
2.5 mg PO HS
zonisamide 25 mg Capsule
25 mg PO DAILY
omeprazole 20 mg Tablet,Delayed Release (Dr/Ec)
20 mg PO DAILY
carbidopa-levodopa 25-100 mg Tablet Extended Release
1 tab PO TID
tamsulosin 0.4 mg capsule
0.4 mg PO QPM
acetaminophen [Tylenol] 325 mg Tablet
650 mg PO Q4HPRN PRN (Reason: mild pain)
loperamide 2 mg Tablet
2 mg PO DAILYPRN PRN (Reason: dairrhea)
therapeutic multivitamin Tablet
1 tab PO DAILY
ascorbic acid (vitamin C) [Vitamin C] 500 mg Tablet
500 mg PO DAILY
finasteride 5 mg Tablet
5 mg PO DAILY
Gemtesa 75 mg Tablet
75 mg PO DAILYPRN PRN (Reason: prostate)
Discontinued
donepezil 10 mg Tablet
15 mg PO HS
zonisamide 50 mg Capsule
50 mg PO HS
sulfamethoxazole-trimethoprim [Bactrim DS] 800-160 mg Tablet
1 tab PO BID
Discharge Orders:
Discharge Patient (As Directed); Ordered 05/25/24
Ordered By: Alycia Mejia
Discharge Date and Time
Discharge Date/Time: 05/25/24 12:00
Print Language: KHMER
[2024-05-25 10:05] VITALS: BP 137/73
--- NOTE | 2024-05-25 10:15 | PTCARENOTE ---
Addendum entered by Ariana Cummings RN 05/25/24 10:49:
Report called to Urmila at [facility] . She will be nurse caring for him. Made her aware of pear picker time changed from 11am to 1230pm . Fell left and will meet patient at [facility].
Original Note:
pt for transfer to [facility]. Report was given to Caroline. Pt' s family updated on pear picker time of 1230.
--- NOTE | 2024-05-25 10:29 | CM ---
Patient with Hx Parkinsons Dz, dementia with Dx Reactive fever & leukocytosis, Acute metabolic encephalopathy, Diarrhea, MALLORY. Room air. PT & OT recommend acute rehab.
Spoke with Caroline LyndaManjula) [facility] Acute re[facility] (ph [phone]); she agrees to transport time 12:30pm. The phone for report [phone], fax [phone].
Met with patient, and daughter; all agree to d/c today to [facility] by ambulance and are aware of transport time. IMM completed with daughter Linda.
Plan [facility] today by ambulance.
--- NOTE | 2024-05-25 13:50 | PTCARENOTE ---
pt's was called as a bag with a pair of the patient's shorts was found in the room after discharge. His Flor told the RN that they could just throw them away
--- NOTE | 2024-05-27 11:44 | PN.CDI ---
CDI
- -
CDI:
Physician Documentation Request
Admit Date: 05/17/24 19:55
Dear Doctor Jackie,
Patient is admitted with fever and leukocytosis , SIRS d/t noninfectious source, acute toxic metabolic encephalopathy. Other diagnosis include MALLORY, diarrhea.
Progress note states 'Acute kidney injury secondary to dehydration...'
Please clarify if a relationship exist between these conditions:
Yes, MALLORY is related to/associated with/due to SIRS
No, MALLORY is not related to/associated with/due to SIRS but it is due to dehydration only.
Unable to determine
Use of terms such as suspected, likely, concern for, or probable (associated with a specific diagnosis that is being evaluated, monitored, or treated as if it exists) are acceptable and can be coded in the inpatient setting, when documented at the
time of discharge.
Thank you,
Nicol Redd RN, BSN
CDI Specialist
tiger text
Please use your independent medical judgment in providing your response.
--- NOTE | 2024-05-27 12:16 | PN.CDI ---
CDI
- -
CDI:
Physician Documentation Request
Admit Date: 05/17/24 19:55
Dear Doctor Jackie
Patient admitted with fever and leukocytosis, SIRS d/t noninfectious source, acute toxic metabolic encephalopathy.
Please clarify the relationship between these conditions:
Yes, acute toxic metabolic encephalopathy is related to/associated with/due to SIRS.
No, acute toxic metabolic encephalopathy is not related to/associated with/due to SIRS
Unable to determine
Use of terms such as suspected, likely, concern for, or probable (associated with a specific diagnosis that is being evaluated, monitored, or treated as if it exists) are acceptable and can be coded in the inpatient setting, when documented at the
time of discharge.
Thank you,
Nicol Redd RN, BSN
CDI Specialist
tiger text
Please use your independent medical judgment in providing your response.
== END 2024-05-25 12:00 | DRG 91 ==
LOC: 4 WEST ACU 19:55
PROVIDERS: Family Medicine; ADMITTING PHYSICIAN Internal Medicine; ATTENDING PHYSICIAN Internal Medicine; CONSULT PHYSICIAN Physical Medicine & Rehabilitation; CONSULT PHYSICIAN Psychiatry & Neurology Neurology; EMERGENCY PHYSICIAN Emergency Medicine; OTHER PHYSICIAN Student in an Organized Health Care Education/Training Program
DX: G92.8 Other toxic encephalopathy (principal); R65.11 Systemic inflammatory response syndrome (SIRS) of non-infectious origin with acute organ dysfunction; N17.8 Other acute kidney failure; G20.A1 Parkinson's disease without dyskinesia, without mention of fluctuations; F02.80 Dementia in other diseases classified elsewhere, unspecified severity, without behavioral disturbance, psychotic disturbance, mood disturbance, and anxiety; I10 Essential (primary) hypertension; K21.9 Gastro-esophageal reflux disease without esophagitis; E86.0 Dehydration; G40.909 Epilepsy, unspecified, not intractable, without status epilepticus; N40.1 Benign prostatic hyperplasia with lower urinary tract symptoms; E86.1 Hypovolemia; D72.828 Other elevated white blood cell count; R33.9 Retention of urine, unspecified; R13.10 Dysphagia, unspecified; R26.89 Other abnormalities of gait and mobility; R19.7 Diarrhea, unspecified; Z79.899 Other long term (current) drug therapy; Z98.890 Other specified postprocedural states; Z87.440 Personal history of urinary (tract) infections; Z22.1 Carrier of other intestinal infectious diseases; Z88.0 Allergy status to penicillin
CPT/HCPCS: 36600; 71046; 74018; 80048; 80053; 81003; 81015; 82607; 82805; 83605; 83735; 84100; 84145; 85025; 85027; 87040; 87045; 87046; 87077; 87086; 87324; 87427; 87449; 89055; 92526; 92610; 96361; 96374; 97116; 97163; 97167; 97530; 99284

== ENCOUNTER 2024-06-21 11:02 | Emergency (ER) | payer MEDICARE, OTHER, SELFPAY ==
[2024-06-21 11:07] VITALS: BP 153/80
[2024-06-21 12:58] VITALS: BP 159/95
[2024-06-21 13:00] VITALS: BP 154/94
--- NOTE | 2024-06-21 13:12 | ED.GENMED ---
History of Present Illness
General
Chief Complaint: Catheter/Tube Problem
Time Seen by Provider: 06/21/24 12:49
History of Present Illness
History of Present Illness:
73-year-old male presents the emergency department for evaluation of a clogged Zapata catheter. Chronic Zapata due to urinary retention, due to frequent bleeding underwent a prostate artery embolization at [place] approximately 5 to 6 weeks ago.
This procedure was complicated by postoperative infection and he was admitted here for this. Zapata was last emptied yesterday. He is not on anticoagulants. History is limited due to his dementia
Past History
Past History
ED Past Medical History: HTN and Other (Parkinson's)
ED Past Surgical History: Urological (Prostate artery embolization 05/15/2024 at [place]) and Other ([place] teeth)
Social History
Tobacco: Non-smoker
Alcohol: None
Drug: None
Personal:
Living: with family
Employment: Retired
Review of Systems
Review of Systems
Allergies reviewed?: Yes
All Other Systems: ROS reviewed and negative except as documented in HPI and ROS
Phy Exam
Physical Exam
Physical Exam:
GEN: Well appearing, NAD, WDWN
HEENT: Oral mucosa moist, no scleral icterus
Cardiac: Regular rate
Lung: No respiratory distress, no tachypnea
: Red urine in Zapata bag
MSK: No gross deformity or injuries
Skin: Good color, no pallor or jaundice, no rashes
Neuro: Alert, oriented to baseline per spouse
Psych: Calm, cooperative
Course
Orders/Labs/Results
Orders:
Orders
06/21/24 13:27
Urinalysis Reflex To Culture Urgent
Date Specimen was Collected: 06/21/24
Time Specimen was Collected: 13:25
Urine Microscopic Reflex Cult Urgent
Urine Culture Urgent
CHRISTOS Source: U
Specimen Description:
Date Specimen was Collected: 06/21/24
Time Specimen was Collected: 13:25
Abnormal Lab Results
06/21/24
13:27
Urine Ketones Trace A
(Negative)
Ur Occult Blood Reflex 4+ A
(Negative)
Leukocyte Esterase Rfl Trace A
(Negative)
Urine RBC >100 A /HPF
(0-2)
Urine WBC (Reflex) 11-15 A /HPF
(0-5)
Urine Bacteria (Reflex) Few A
(Negative)
Urine Albumin (Reflex) 1+ A
(Neg - Trace)
Vital Signs
Initial and Last Documented VS:
Initial Vital Signs
Temp Pulse Resp BP Pulse Ox
98.7 F 73 18 153/80 98
06/21/24 11:07 06/21/24 11:07 06/21/24 11:07 06/21/24 11:07 06/21/24 11:07
Last Documented Vital Signs
Temp Pulse Resp BP Pulse Ox
98.7 F 73 18 153/98 97
06/21/24 11:07 06/21/24 11:07 06/21/24 11:07 06/21/24 15:31 06/21/24 13:16
MDM/Problems Addressed
MDM/Problems Addressed:
Zapata exchanged and upsized, pink-tinged urine observed draining well. Patient's not on blood thinners thus I do not feel there is indication for CBI. Has urology follow-up on Sunday. Will start empiric antibiotics
*Critical Care Note
Total Time (30-74mins, 75-104mins- exclusive of procedures): Not Applicable
ED Attending Note
-
Portions of this chart may have been created with voice recognition software.� Occasional wrong word or��sound alike� substitutions may have occurred due to the inherent limitations of voice recognition software.
Discharge Plan
Departure
Patient Disposition: Home (Routine Discharge)
Date of Disposition: 06/21/24
Time of Disposition: 15:24
Patient with high blood pressure during this ER visit?: No
Discharge Problem:
Hematuria, Complication, blocked Zapata catheter
Instructions: Blood in Urine (Hematuria), Adult ED
Prescriptions:
No Action
isradipine 2.5 mg Capsule
2.5 mg PO HS
zonisamide 25 mg Capsule
25 mg PO DAILY
omeprazole 20 mg Tablet,Delayed Release (Dr/Ec)
20 mg PO DAILY
carbidopa-levodopa 25-100 mg Tablet Extended Release
1 tab PO TID
tamsulosin 0.4 mg capsule
0.4 mg PO QPM
acetaminophen [Tylenol] 325 mg Tablet
650 mg PO Q4HPRN PRN (Reason: mild pain)
loperamide 2 mg Tablet
2 mg PO DAILYPRN PRN (Reason: dairrhea)
therapeutic multivitamin Tablet
1 tab PO DAILY
ascorbic acid (vitamin C) [Vitamin C] 500 mg Tablet
500 mg PO DAILY
finasteride 5 mg Tablet
5 mg PO DAILY
Gemtesa 75 mg Tablet
75 mg PO DAILYPRN PRN (Reason: prostate)
lisinopril 10 mg Tablet
10 mg PO DAILY 30 Days Qty: 30 0RF
donepezil 10 mg Tablet
10 mg PO HS 30 Days Qty: 30 0RF
Referrals:
Glynn Joseph MD [Family Provider] -
Activity Restrictions/Additional Instructions:
See your urologist Sunday
Return if the catheter clogs again
Interventions
Interventions:
*Risk Screen - Suicide Last Done: 06/21/24 12:15
*General Assessment Last Done: 06/21/24 12:15
*Neglect/Abuse Screening Last Done: 06/21/24 12:15
ED- Fall Risk Assessment Last Done: 06/21/24 12:56
*ED COVID-19 Vaccine History Last Done: 06/21/24 12:15
*Nursing Disposition Last Done: 06/21/24 15:39
WG-Nayzev-Emtyolvrvq Assessment Last Done: 06/21/24 12:13
ED-Male Genitourinary Assessment Last Done: 06/21/24 12:13
Discharge Date and Time
Discharge Date/Time: 06/21/24 15:40
Print Language: [id number]
[2024-06-21 13:48] LABS: Urine Albumin 1+ (Neg - Trace); Urine Bilirubin Negative (Negative); Urine Character Slightly Cloudy (Clear); Urine Color Amber; Urine Glucose Negative (Negative); Urine Ketone Trace (Negative); Urine Leukocyte Trace (Negative); Urine Nitrite Negative (Negative); Urine Occult Blood 4+ (Negative); Urine Urobilinogen Negative (Neg - 1+)
[2024-06-21 14:06] LABS: Urine Mucus Few; Urine Red Blood Cell >100 /HPF (0-2); Urine Squamous Cell 0-2 /LPF (Few)
[2024-06-21 14:08] LABS: Urine Bacteria Few (Negative)
[2024-06-21 15:31] VITALS: BP 153/98
== END 2024-06-21 15:40 | disposition home or self-care (01) ==
LOC: EMR 11:02
PROVIDERS: Physician Assistant; EMERGENCY PHYSICIAN Emergency Medicine; FAMILY PHYSICIAN Internal Medicine
DX: T83.091A Other mechanical complication of indwelling urethral catheter, initial encounter (principal); R31.9 Hematuria, unspecified; R33.9 Retention of urine, unspecified; F02.80 Dementia in other diseases classified elsewhere, unspecified severity, without behavioral disturbance, psychotic disturbance, mood disturbance, and anxiety; G20.A1 Parkinson's disease without dyskinesia, without mention of fluctuations; I10 Essential (primary) hypertension; Z98.890 Other specified postprocedural states; Z88.0 Allergy status to penicillin
CPT/HCPCS: 99284; 51702; 81003; 81015; 87086

== ENCOUNTER → 2024-07-01 10:10 | Outpatient (REF) | payer MEDICARE, OTHER, SELFPAY | LOC: RST 10:10 | PROVIDERS: ATTENDING PHYSICIAN Psychiatry & Neurology Neurology; FAMILY PHYSICIAN Internal Medicine | DX: G20.A2 Parkinson's disease without dyskinesia, with fluctuations (principal); R13.10 Dysphagia, unspecified | CPT/HCPCS: 74230; 92611 ==

== ENCOUNTER 2024-07-23 16:33 | Inpatient (IN) | payer MEDICARE, OTHER, SELFPAY ==
[2024-07-22 19:46] VITALS: BMI 28.5
[2024-07-22 19:48] VITALS: BP 120/73
[2024-07-22 19:59] LABS: % Basophils 0.2 % (0-2); % Eosinophils 0.4 % (0-6); % Immature Granulocytes 0.4 % (0-0.5); % Lymphocytes 7.2 % (20.5-51.1); % Monocytes 0.4 % (1.7-9.3); % Neutrophils 91.4 % (42.2-75.2); Absolute Lymphocytes 0.4 10^3/uL (1.2-3.4); Absolute Neutrophils 5.1 10^3/uL (1.4-6.5); Hematocrit 36.9 % (39.0-52.0); Hemoglobin 12.7 g/dL (13.0-18.0); Mean Corp Hgb Conc. 34.4 g/dL (33.0-37.0); Mean Corpuscular Hgb 28.5 pg (27.0-31.0); Mean Corpuscular Volume 82.7 fL (80.0-94.0); Mean Platelet Volume 10.5 fL (7.4-10.4); Nucleated Red Blood Cells % 0 % (-); Platelet Count 184 10^3/uL (130-400); Red Blood Cell Count 4.46 10^6/uL (4.70-6.10); Red Cell Dist. Width 14.4 % (11.5-14.5); White Blood Cell Count 5.6 10^3/uL (4.8-10.8)
[2024-07-22 20:00] VITALS: BP 137/69
[2024-07-22 20:10] LABS: Lactic Acid 1.7 mmol/L (0.7-2.0)
[2024-07-22 20:19] LABS: ALT (SGPT) < 10 U/L (0-50); AST (SGOT) 21 U/L (17-59); Albumin 3.7 g/dl (3.5-5.0); Alkaline Phosphatase 98 U/L (38-126); Blood Urea Nitrogen 29 mg/dl (9-20); Calcium 9.3 mg/dl (8.4-10.2); Carbon Dioxide 23 mmol/L (22-30); Chloride 105 mmol/L (98-107); Estimated Creatinine Clearance 51 ml/min; Glucose 94 mg/dl (70-99); Potassium 3.6 mmol/L (3.5-5.1); Sodium 140 mmol/L (135-145); Total Bilirubin 0.6 mg/dl (0.2-1.3); Total Protein 6.2 g/dl (6.3-8.2); eGFR > 60.00
--- NOTE | 2024-07-22 20:23 | ED.GENMED ---
History of Present Illness
General
Chief Complaint: Urinary Symptoms
Source: patient and spouse
Exam Limitations: none
Time Seen by Provider: 07/22/24 19:49
History of Present Illness
History of Present Illness:
This is a 73 year old male that is brought in by ambulance with c/o Blood in his urine and Fever. states that he just got his catheter out about a month ago and he does not want another one. States that suddenly today he went to Urinate and he
had blood in his urine. States that she used an AZO strip and some of it was positive. State that she took his temp and it was 96.0 then she called the PCP and he started with chills and not feeling well so they came to the ER. States that his temp
went up to 101 and he was weak. States that he had diarrhea today and patient states that he did have urinary burning. Denies any chest pain, SOB, abd pain, nausea, vomiting, headache, dizziness.
Past History
Past History
ED Past Medical History: GERD, HTN and Other (Parkinson's, Urinary retention, Cellulitis, )
ED Past Surgical History: Urological (Prostate artery embolization 05/15/2024 at [place]) and Other ([place] teeth)
Social History
Tobacco: Non-smoker
Alcohol: None
Drug: None
Personal:
Living: with family
Employment: Retired
Review of Systems
Review of Systems
All Other Systems: ROS reviewed and negative except as documented in HPI and ROS
Constitutional: Reports fever and chills
EENT: Reports no symptoms
Respiratory: Reports no symptoms; Denies cough or trouble breathing
Cardiac: Reports no symptoms; Denies chest pain
ABD/GI: Reports diarrhea; Denies abdominal pain, nausea or vomiting
: Reports dysuria; Denies frequency or urgency
Musculoskeletal: Reports no symptoms
Skin: Reports no symptoms
Neurological: Reports no symptoms; Denies dizzy or headache
Psychiatric: Reports no symptoms
Phy Exam
General Physical Exam
General Presentation: no apparent distress
General age: appears older than age
General Skin: warm and dry
General Habitus: elderly
General Mental: alert
General Hydration: appears well hydrated
ENT Exam
ENT Exam: TM's normal, pharynx normal and neck supple
Eye Exam
Eye Exam: EOMI
Cardiovascular Exam
Cardiovascular Exam: regular rate/rhythm and normal peripheral pulses
Pulmonary Exam
Pulmonary Exam: lungs clear, no respiratory distress, no rales, chest non tender, no crackles, no rhonchi, no wheezing and no cough
Gastrointestinal Exam
Gastrointestinal Exam: normal bowel sounds, non tender, soft, no organomegaly, no pulsatile mass and non distended
Musculoskeletal Exam
Musculoskeletal Exam: edema (Very slight nonpitting of ankles)
Skin Exam
Skin Exam: normal color, warm/dry, no rash and no petechia
Psychiatric Exam
Psychiatric Exam: normal mood/affect
Course
Orders/Labs/Results
Orders:
Orders
07/22/24 19:41
Cardiac Monitoring- Treatment ONCE
IV Insert/Care/Rem.- Treatment PRN
Straight cath- Treatment ONCE
O2 Therapy [RESP] Urgent
Titrate/Wean O2 to maintain O2 sat greater than (%): 93
Special Instructions: TO MAINTAIN CONTINUOUS O2 SATS > OR = 93%
Pulse Ox/cont/shift [RESP] Urgent
Quantity: 1
Special Instructions: CONTINUOUS
07/22/24 19:44
Complete Blood Count/With Diff Urgent
Comprehensive Metabolic Panel Urgent
Lactic Acid Q4H
Comment: ON ICE, CANCEL 2ND ORDER IF FIRST LACTIC ACID LEVEL <2
Urinalysis Reflex To Culture Urgent
Date Specimen was Collected: 07/22/24
Time Specimen was Collected: 19:42
Urine Microscopic Reflex Cult Urgent
Blood Culture Urgent
CHRISTOS Source: Blood/Venous
Specimen Description:
Urine Culture Urgent
CHRISTOS Source: U
Specimen Description:
Date Specimen was Collected: 07/22/24
Time Specimen was Collected: 19:42
07/22/24 20:22
0.9% Sodium Chloride 1000 ml [Nss] 1,000 ml IV BOLUS
07/22/24 20:23
Ibuprofen [Motrin] 600 mg PO NOW STA
07/22/24 20:59
COVID-19 Antigen Urgent
Source: Nasal Swab
07/22/24 21:44
CR Chest - 2 Views Urgent
Comment:
Reason For Exam: Fever
07/22/24 23:45
Lactic Acid Q4H
Comment: ON ICE, CANCEL 2ND ORDER IF FIRST LACTIC ACID LEVEL <2
Abnormal Lab Results
07/22/24
19:44
RBC 4.46 L 10^6/uL
(4.70-6.10)
Hgb 12.7 L g/dL
(13.0-18.0)
Hct 36.9 L %
(39.0-52.0)
MPV 10.5 H fL
(7.4-10.4)
Absolute Lymphs (auto) 0.4 L 10^3/uL
(1.2-3.4)
Absolute Monos (auto) 0.0 L 10^3/uL
(0.1-0.6)
Neutrophils % 91.4 H %
(42.2-75.2)
Lymphocytes % 7.2 L %
(20.5-51.1)
Monocytes % 0.4 L %
(1.7-9.3)
BUN 29 H mg/dl
(9-20)
Total Protein 6.2 L g/dl
(6.3-8.2)
Leukocyte Esterase Rfl 1+ A
(Negative)
07/22/24 19:44
08/27/24 19:44
H/H slighlty low. Dehydration.
Vital Signs
Initial and Last Documented VS:
Initial Vital Signs
Pulse Resp Pulse Ox
104 19 96
07/22/24 19:41 07/22/24 19:41 07/22/24 19:41
Last Documented Vital Signs
Temp Pulse Resp BP Pulse Ox
100.7 F H 87 15 90/59 95
07/22/24 22:24 07/22/24 22:30 07/22/24 22:30 07/22/24 22:23 07/22/24 22:30
MDM/Problems Addressed
Differential Diagnosis Includes:
Hematuria, UTI, PNA
MDM/Problems Addressed:
This is a 73 year old male that comes in by ambulance with c/o hematuria. states that this started today and he had fever with chills. States that she feels he has a UTI.
Will get labs, Urine and give IV fluids.
Back into see patient and family. Explained that his blood work shows dehydration and patient was given IV fluids. His urine is negative for infection and he is COVID negative. Will get Chest x-ray.
Back into see patient and family. Explained that his chest X-ray is normal. a Blood culture was sent and his blood work shows that his WBC are normal and he is negative for COVId. Urine is negative. Will discharge patient home. Explained that this
could be a viral illness but if his blood culture comes back positive she will be called. WIll make ambulance arrangement for patient to go home.
Chronic conditions affecting care:
UTi,
Acute Exacerbation and/or Progression of Chronic Illness:
UTI
*Radiology
Radiology exam reviewed: preliminary read by ED provider (Chest- negative for acute disease. ) and radiology read reviewed (Chest-Low lung volumes with otherwise clear lungs. )
*Pulse Oximetry
Patient hypoxic: no
*EKG
Interpreted by ED Provider?: NA
Rate: EKG- N/A
*Critical Care Note
Total Time (30-74mins, 75-104mins- exclusive of procedures): Not Applicable
ED Attending Note
-
Portions of this chart may have been created with voice recognition software.� Occasional wrong word or��sound alike� substitutions may have occurred due to the inherent limitations of voice recognition software.
Discharge Plan
Departure
Patient Disposition: Home (Routine Discharge)
Date of Disposition: 07/22/24
Time of Disposition: 22:55
Patient with high blood pressure during this ER visit?: No
Condition: Good
Covid-19: Negative COVID-19
Discharge Problem:
Acute viral syndrome, Fever
Instructions: Fever, Adult (DC)
Prescriptions:
No Action
isradipine 2.5 mg Capsule
2.5 mg PO HS
zonisamide 25 mg Capsule
25 mg PO DAILY
carbidopa-levodopa 25-100 mg Tablet Extended Release
1 tab PO TID
tamsulosin 0.4 mg capsule
0.4 mg PO QPM
therapeutic multivitamin Tablet
1 tab PO DAILY
ascorbic acid (vitamin C) [Vitamin C] 500 mg Tablet
500 mg PO DAILY
finasteride 5 mg Tablet
5 mg PO DAILY
donepezil 10 mg Tablet
10 mg PO HS 30 Days Qty: 30 0RF
omeprazole 40 mg Capsule,Delayed Release(Dr/Ec)
40 mg PO DAILY
memantine 7 mg Capsule,Sprinkle,Er 24hr
7 mg PO DAILY
Visbiome 112.5 billion cell Capsule
1 cap PO DAILY
Referrals:
Glynn Joseph MD [Family Provider] - Follow up in 2-3 days
Activity Restrictions/Additional Instructions:
As discussed, your blood work shows dehydration. You have been given IV fluid here. Please increase your water intake to 8-8oz glasses daily. Your urine is negative for infection and you are negative for COVID. Your chest x-ray is normal. Please
use Tylenol 1000mg every 6 hours or Ibuprofen 600mg with food for fever and alternate them, so if you take Tylenol at 9am the Ibuprofen can be given at 12 noon and the Tylenol will be due at 3pm and Ibuprofen at 6pm. Follow up with the family
doctor for recheck. IF YOU HAVE ANY OTHER CONCERNS PLEASE RETURN TO THE EMERGENCY ROOM.
Interventions
Interventions:
*Risk Screen - Suicide Last Done: 07/22/24 19:46
*General Assessment Last Done: 07/22/24 19:46
*Neglect/Abuse Screening Last Done: 07/22/24 19:46
*ED COVID-19 Vaccine History Last Done: 07/22/24 19:46
ED-Male Genitourinary Assessment Last Done: 07/22/24 19:46
Discharge Date and Time
Print Language: MACEDONIAN
[2024-07-22 20:51] LABS: Urine Albumin Trace (Neg - Trace); Urine Bilirubin Negative (Negative); Urine Character Clear (Clear); Urine Color Yellow; Urine Glucose Negative (Negative); Urine Ketone Negative (Negative); Urine Leukocyte 1+ (Negative); Urine Nitrite Negative (Negative); Urine Occult Blood Negative (Negative); Urine Specific Gravity 1.015 (<1.030); Urine Urobilinogen Negative (Neg - 1+)
[2024-07-22 21:00] VITALS: BP 106/65
[2024-07-22] MEDS: MOTRIN 600 MG PO (21:03)
[2024-07-22 21:09] LABS: Urine Red Blood Cell 0-2 /HPF (0-2)
[2024-07-22] MEDS: NSS 1000 IV (21:09)
[2024-07-22 21:36] LABS: COVID-19 Antigen Negative (Negative)
[2024-07-22 22:23] VITALS: BP 90/59
[2024-07-22 23:00] VITALS: BP 89/58
[2024-07-22 23:03] VITALS: BP 88/64
--- NOTE | 2024-07-22 23:37 | ED.GENMED ---
History of Present Illness
General
Chief Complaint: Urinary Symptoms
Time Seen by Provider: 07/22/24 19:49
Past History
Past History
ED Past Medical History: GERD, HTN and Other (Parkinson's, Urinary retention, Cellulitis, )
ED Past Surgical History: Urological (Prostate artery embolization 05/15/2024 at [place]) and Other ([place] teeth)
Social History
Tobacco: Non-smoker
Alcohol: None
Drug: None
Personal:
Living: with family
Employment: Retired
Course
Orders/Labs/Results
Orders:
Orders
07/22/24 19:41
Cardiac Monitoring- Treatment ONCE
IV Insert/Care/Rem.- Treatment PRN
Straight cath- Treatment ONCE
O2 Therapy [RESP] Urgent
Titrate/Wean O2 to maintain O2 sat greater than (%): 93
Special Instructions: TO MAINTAIN CONTINUOUS O2 SATS > OR = 93%
Pulse Ox/cont/shift [RESP] Urgent
Quantity: 1
Special Instructions: CONTINUOUS
07/22/24 19:44
Complete Blood Count/With Diff Urgent
Comprehensive Metabolic Panel Urgent
Lactic Acid Q4H
Comment: ON ICE, CANCEL 2ND ORDER IF FIRST LACTIC ACID LEVEL <2
Urinalysis Reflex To Culture Urgent
Date Specimen was Collected: 07/22/24
Time Specimen was Collected: 19:42
Urine Microscopic Reflex Cult Urgent
Blood Culture Urgent
CHRISTOS Source: Blood/Venous
Specimen Description:
Urine Culture Urgent
CHRISTOS Source: U
Specimen Description:
Date Specimen was Collected: 07/22/24
Time Specimen was Collected: 19:42
07/22/24 20:22
0.9% Sodium Chloride 1000 ml [Nss] 1,000 ml IV BOLUS
07/22/24 20:23
Ibuprofen [Motrin] 600 mg PO NOW STA
07/22/24 20:59
COVID-19 Antigen Urgent
Source: Nasal Swab
07/22/24 21:44
CR Chest - 2 Views Urgent
Comment:
Reason For Exam: Fever
07/22/24 23:45
Lactic Acid Q4H
Comment: ON ICE, CANCEL 2ND ORDER IF FIRST LACTIC ACID LEVEL <2
Abnormal Lab Results
07/22/24
19:44
RBC 4.46 L 10^6/uL
(4.70-6.10)
Hgb 12.7 L g/dL
(13.0-18.0)
Hct 36.9 L %
(39.0-52.0)
MPV 10.5 H fL
(7.4-10.4)
Absolute Lymphs (auto) 0.4 L 10^3/uL
(1.2-3.4)
Absolute Monos (auto) 0.0 L 10^3/uL
(0.1-0.6)
Neutrophils % 91.4 H %
(42.2-75.2)
Lymphocytes % 7.2 L %
(20.5-51.1)
Monocytes % 0.4 L %
(1.7-9.3)
BUN 29 H mg/dl
(9-20)
Total Protein 6.2 L g/dl
(6.3-8.2)
Leukocyte Esterase Rfl 1+ A
(Negative)
07/22/24 19:44
07/22/24 19:44
Vital Signs
Initial and Last Documented VS:
Initial Vital Signs
Pulse Resp Pulse Ox
104 19 96
07/22/24 19:41 07/22/24 19:41 07/22/24 19:41
Last Documented Vital Signs
Temp Pulse Resp BP Pulse Ox
100.7 F H 85 14 88/64 97
07/22/24 22:24 07/22/24 23:03 07/22/24 23:03 07/22/24 23:03 07/22/24 23:03
ED Attending Note
-
Portions of this chart may have been created with voice recognition software.� Occasional wrong word or��sound alike� substitutions may have occurred due to the inherent limitations of voice recognition software.
Discharge Plan
Departure
Patient Disposition: Admit
Date of Disposition: 07/22/24
Time of Disposition: 22:55
Admit to: Med/Surg
Presentation/result/management discussed w/ accepting MD/DO: Hospitalist
Patient with high blood pressure during this ER visit?: No
Condition: Good
Covid-19: Negative COVID-19
Discharge Problem:
Acute viral syndrome, Fever, Weakness
Prescriptions:
No Action
isradipine 2.5 mg Capsule
2.5 mg PO HS
zonisamide 25 mg Capsule
25 mg PO DAILY
carbidopa-levodopa 25-100 mg Tablet Extended Release
1 tab PO TID
tamsulosin 0.4 mg capsule
0.4 mg PO QPM
therapeutic multivitamin Tablet
1 tab PO DAILY
ascorbic acid (vitamin C) [Vitamin C] 500 mg Tablet
500 mg PO DAILY
finasteride 5 mg Tablet
5 mg PO DAILY
donepezil 10 mg Tablet
10 mg PO HS 30 Days Qty: 30 0RF
omeprazole 40 mg Capsule,Delayed Release(Dr/Ec)
40 mg PO DAILY
memantine 7 mg Capsule,Sprinkle,Er 24hr
7 mg PO DAILY
Visbiome 112.5 billion cell Capsule
1 cap PO DAILY
Referrals:
Glynn Joseph MD [Family Provider] - Follow up in 2-3 days
Interventions
Interventions:
*Risk Screen - Suicide Last Done: 07/22/24 19:46
*General Assessment Last Done: 07/22/24 19:46
*Neglect/Abuse Screening Last Done: 07/22/24 19:46
*ED COVID-19 Vaccine History Last Done: 07/22/24 19:46
ED-Male Genitourinary Assessment Last Done: 07/22/24 19:46
Discharge Date and Time
Print Language: [place]
[2024-07-23] VITALS (19 sets, daily range): BP systolic 85–140; BP diastolic 42–83; PULSE 70–73; O2SAT 98; BMI 28.9
--- NOTE | 2024-07-23 02:38 | HPS.HSE ---
Family Physician
-
Family Physician: Glynn Foster
Chief Complaint
-
Fever, Blood in urine
History of Present Illness
Patient is a 73y M with PMH significant for Parkinson's disease, dementia and hypertension who presents to ED for evaluation of reported fever at home and noted blood in the urine. Patient was noted to have initial fever to 103 here in the ED.
At the time of my examination, he is resting comfortably and he denies any and all complaints.
His work-up thus far has been fairly unremarkable with the exception of the fever.
Medical History
Past Medical History
Past Medical History: Reports Other
Additional Past Medical History:
�
Dementia and Parkinson's disease with ambulatory dysfunction
Benign prostate hypertrophy
Hypertension
Gastroesophageal reflux disease
Parkinson's Disease, on home donepezil, Sinemet, zonisamide. As per family zonisamide aids in side effects of his Sinemet
Dementia
Past Surgical History: Reports Other
Additional Past Surgical History:
See above
Social History
Tobacco: Non-smoker
Alcohol: None
Drug: None
Personal:
Living: With Family
Employment: Retired
Family History
Family History: Not pertinent
Allergies / Home Medications
Allergies reflects when Allergies were last updated in [facility].
Home Medications with original date entered in [facility]
Allergy/Medication List:
Allergies
Allergy/AdvReac Type Severity Reaction Status Date / Time
Penicillins Allergy Tolerates Verified 05/21/24 18:21
ceftriaxone/cefdinir
Home Medications
isradipine 2.5 mg capsule 2.5 mg PO HS Blood Pressure 03/23/24
zonisamide 25 mg capsule 25 mg PO DAILY Seizures 03/23/24
ascorbic acid (vitamin C) 500 mg tablet (Vitamin C) 500 mg PO DAILY 05/17/24
carbidopa ER 25 mg-levodopa 100 mg tablet,extended release 1 tab PO TID 05/17/24
finasteride 5 mg tablet 5 mg PO DAILY 05/17/24
tamsulosin 0.4 mg capsule 0.4 mg PO QPM 05/17/24
therapeutic multivitamin 1 tab PO DAILY 05/17/24
donepezil 10 mg tablet 10 mg PO HS 30 days #30 tabs 05/25/24
Lactobac no.2-Bifidobac no.1-S. thermo 112.5 billion cell capsule (Visbiome) 1 cap PO DAILY 07/22/24
memantine 7 mg capsule sprinkle,extended release 24hr 7 mg PO DAILY 07/22/24
omeprazole 40 mg capsule,delayed release 40 mg PO DAILY 07/22/24
Review of Systems
-
History Source: Patient
A 12 point ROS was completed and negative except as noted: Yes
Constitutional: Denies Fever or Chills
EENT: Denies Sore Throat
Respiratory: Denies Cough or Trouble Breathing
Cardiac: Denies Chest Pain or Palpitations
Abdomen/GI: Denies Abdominal Pain, Nausea, Vomiting or Diarrhea
: Denies Dysuria, Frequency or Flank Pain
Musculoskeletal: Denies Joint Pain or Edema
Neurological: Denies Dizzy or Headache
Psych: Denies Depression or Anxiety
Physical Exam
Vital Signs
Vital Signs
Temp Pulse Resp BP Pulse Ox
100.7 F H 71 11 89/56 94
07/22/24 22:24 07/23/24 02:00 07/23/24 02:00 07/23/24 02:00 07/23/24 02:00
Physical Exam
General: Other (73y M in no acute distress. Resting comfortably.)
HEENT: Moist mucous membranes and PERRLA
Respiratory: Other (Scattered coarse breath sounds. No wheeze / rhonchi.)
Cardiac: S1/S2 and Regular Rhythm; No Murmur
GI: Soft, Non Tender, Non Distended and Normal Bowel Sounds
Musculoskeletal: No Clubbing, No Cyanosis and Other (Trace pedal edema.)
Neuro: Awake, Alert and Other (Some muscle stiffness / rigidity appreciated.)
Laboratory Results
-
07/22/24 19:44
07/22/24 19:44
Laboratory Results
Lactic Acid Cancelled 07/22/24 23:45
Total Bilirubin 0.6 mg/dl (0.2-1.3) 07/22/24 19:44
AST 21 U/L (17-59) 07/22/24 19:44
ALT < 10 U/L (0-50) 07/22/24 19:44
Alkaline Phosphatase 98 U/L (38-126) 07/22/24 19:44
Impression/Plan
-
A/P: Patient is a 73y M with PMH significant for PD, HTN and BPH who presents to ED for evaluation of fever and reported blood in the urine at home.
Fever
- Observe overnight for further evaluation and treatment.
- fever to 103 here with no evident source - ? viral process.
- UA is unremarkable - as is CXR.
- No leukocytosis, but there is a L shift.
- Patient offers no focal complaints and examination is fairly unremarkable.
- Would observe off of any abx therapy for now.
- Follow fever curve and monitor for any evident symptoms.
- Follow-up culture data and treat any positive results accordingly.
Parkinson's Disease with Dementia
- Stable. Continue current outpatient med regimen.
- Patient has no seizure history - Zonegran is to aid with side effects of Sinemet.
BPH
- Bladder scan protocol / straight cath or Zapata if needed.
- Continue Flomax / Proscar.
DVT Prophylaxis: SCDs
Code Status: Full
[2024-07-23] MEDS: NSS 500 IV (04:45)
[2024-07-23] MEDS: LR 1000 IV ×2 (06:00→17:10)
[2024-07-23 06:29] LABS: Hematocrit 32.4 % (39.0-52.0); Hemoglobin 11.3 g/dL (13.0-18.0); Mean Corp Hgb Conc. 34.9 g/dL (33.0-37.0); Mean Corpuscular Hgb 29.2 pg (27.0-31.0); Mean Corpuscular Volume 83.7 fL (80.0-94.0); Mean Platelet Volume 10.3 fL (7.4-10.4); Platelet Count 174 10^3/uL (130-400); Red Blood Cell Count 3.87 10^6/uL (4.70-6.10); Red Cell Dist. Width 14.6 % (11.5-14.5); White Blood Cell Count 21.9 10^3/uL (4.8-10.8)
[2024-07-23 06:40] LABS: Blood Urea Nitrogen 32 mg/dl (9-20); Calcium 8.8 mg/dl (8.4-10.2); Carbon Dioxide 22 mmol/L (22-30); Chloride 107 mmol/L (98-107); Estimated Creatinine Clearance 41 ml/min; Glucose 109 mg/dl (70-99); Potassium 3.9 mmol/L (3.5-5.1); Sodium 139 mmol/L (135-145); eGFR 48.85
[2024-07-23] MEDS: PROSCAR 5 MG PO (08:36)
[2024-07-23] MEDS: VITAMIN C 500 MG PO (08:36)
[2024-07-23] MEDS: PROTONIX 40 MG PO (08:37)
[2024-07-23] MEDS: NAMENDA 5 MG PO ×2 (09:27→20:42)
[2024-07-23] MEDS: ZONEGRAN 25 MG PO (09:27)
[2024-07-23] MEDS: SINEMET CR 25-100 (EXTENDED RELEASE) 1 TABLET PO ×3 (09:27→21:01)
--- NOTE | 2024-07-23 10:15 | W.PN.HOSP.TC ---
Today's Communication/Plan
-
Follow-up CT C/A/P without contrast
Start empiric IV antibiotics
Follow cultures
Assessment / Plan
Assessment / Plan
#Gram-positive septicemia -- unclear source, cannot rule out aspiration
-Presented with high-grade fever, now with leukocytosis; source of which unclear
-Presumed right blood culture showing gram-positive cocci in chains and clusters
-Chest x-ray was normal, UA unremarkable upon arrival
-History limited from his dementia, unclear if he is having acute complaint
Plan:
-Order CT C/A/P without contrast to assess for infection source
-Start IV vancomycin empirically, ordered MRSA screen
-Continue to follow cultures for final results and sensitivities
-Add on procalcitonin levels to previous labs
-Trend CBC, temperature curve
-Aspiration precaution
-Consider ID consult
#Parkinson's Disease with dementia
-Medications include Sinemet, on Zonegran to limit side effects
-Appears stable on his current regimen
#BPH
-Home regimen includes Flomax and Proscar
-Will monitor for signs of urine retention, bladder scan protocol
DVT prophylaxis: SCDs
Diet: Regular, meds placed in applesauce
CODE STATUS: Full code
Anticipated Discharge: > 48 hours
Subjective/Interval History
-
Date of Service: July 23, 2024
Seen and examined at the bedside while eating breakfast. No acute events since admission.
White cell count did come back at 22 today. Preliminary blood culture showing gram-positive cocci. Started vancomycin empirically.
He denies any acute complaints, history limited from baseline dementia.
Objective Data
-
Labs:
Laboratory Results
07/23/24
06:20
WBC 21.9 H
Hgb 11.3 L
Hct 32.4 L
Plt Count 174
Sodium 139
Potassium 3.9
Chloride 107
Carbon Dioxide 22
BUN 32 H
Creatinine 1.5 H
Glucose 109 H
Calcium 8.8
Vital Signs:
Vital Signs
Temp Pulse Resp BP Pulse Ox
99.2 F 73 20 115/63 100
07/23/24 06:00 07/23/24 08:15 07/23/24 08:15 07/23/24 08:06 07/23/24 08:07
Review of Systems
-
Unable to obtain full review of systems at this time due to: Dementia
Physical Exam
-
General: No Apparent Distress, Comfortable and Sweats
HEENT: Normocephalic, Atraumatic, Moist Mucous Membranes and Anicteric
Respiratory: Clear to Auscultation (Coarse sounds) and Non Labored Respirations; Negative Wheezes, Rales, Rhonchi or Accessory Resp Muscle Use
Cardiac: Regular Rhythm and S1/S2; Negative Murmur, Rub or Gallop
GI: Soft, Nontender, Nondistended and Normal Bowel Sounds
Musculoskeletal: No Clubbing, No Cyanosis and No Edema
Neuro: Awake, Alert, Oriented, Nonfocal/Grossly Intact and Central Nerve's Intact
Data Reviewed
-
Labs: Labs Reviewed by me
--- NOTE | 2024-07-23 10:34 | PHA.VAN.IN ---
Assessment
- Assessment
Renal Function: Appears elevated from baseline (SCR 1.5 vs 0.9)
Plan
- Plan
Initial / Loading Dose: 2000mg - administration pending
Maintenance Regimen: dosing by level given increasing SCR
Monitoring: random 07/24 600
Pharmacokinetics Vancomycin I
- -
Patient Age: 73
Patient Sex: Male
Vancomycin Day #: 1
Indication: Bacteremia
Requesting Provider: Dr. Mukesh Carrillo
Pertinent Antimicrobial Allergies:
penicillins - tolerates ceftriaxone / cefdinir
Height / Weight:
Height 5 ft 7 in
Actual Weight 82.6 kg
- Vital Signs / Lab Results
Temp Pulse Resp BP Pulse Ox
99.2 F 73 20 115/63 100
07/23/24 06:00 07/23/24 08:15 07/23/24 08:15 07/23/24 08:06 07/23/24 08:07
Lab Results - Hematology
07/22/24 07/23/24
19:44 06:20
WBC 5.6 21.9 H
Lab Results - Chemistry
07/22/24 07/23/24
19:44 06:20
BUN 29 H 32 H
Creatinine 1.2 1.5 H
Estimated Creat Clear 51 41
Albumin 3.7
07/22/24 07/22/24
19:44 23:45
Lactic Acid 1.7 Cancelled
Lab Results - Urine
07/22/24
19:44
Urine Nitrite (Reflex) Negative
Leukocyte Esterase Rfl 1+ A
Urine WBC (Reflex) 6-10
Microbiology Results
07/22/24 19:44 Blood Culture - Preliminary
Blood/Venous Positive culture in progress
Gram Stain - Preliminary
--- NOTE | 2024-07-23 10:35 | CM ---
CM reviewed medical records. CM met with patient in room. OT was in room assisting patient with breakfast. Patient was pleasant and cooperative with IA. Patient was able to confirm with the assistance of OT that patient lives with and
children provide assistance through out the day for ADL's. Patent has been to acute rehab at [facility]. Patient does have a history of [facility] care, but could not confirm if he has nursing or PT in the home. Patient is active with his
PCP. CRONIN letter provided.
CM left message for patient's to confirm home care agency.
--- NOTE | 2024-07-23 11:15 | PTOTSP ---
Speech Therapy Assessment
Patient with overt signs concerning for laryngeal penetration and/or aspiration when drinking consecutive sips of thin liquid. Tolerated single sips of thin liquid. This correlates with findings on recent VSE. Patient is considered at elevated risk
for aspiration given history of PD and dementia. Pharyngeal stasis noted on recent VSE but without overt symptoms today.
Recommend
1. Continue with current diet of regular soldis and thin liquids.
2. Supervision
3. Single sips of liquid
4. Meds whole in applesauce.
5. Clear mouth of food before sip of liquid.
6. Throat clear and dry swallows intermittently during meals and after med pass.
7. Aspiration precautions.
ST will follow to ensure diet tolerance and alter recommendations/strategies as needed.
[2024-07-23] MEDS: VANCOCIN 540 MG IV (12:29)
[2024-07-23] MEDS: TYLENOL 650 MG PO (16:12)
--- NOTE | 2024-07-23 16:30 | PTCARENOTE ---
Received pt from ER, pt drowsy, arousable to verbal; stimuli, able to follow simple commands, garbled speech, difficult to understand. Able to state birthday, oriented to self only. Pt had fever upon arrival to floor, 102.2, procal result critical
value, made aware, antibiotics coverage adjusted. Other VSS, NSR on tele. 98% on RA. Pt given tylenol and ice packs. Last temp 99.6. Pt oriented to room, call alejandro within reach, Bed alarm placed for safety, daughter updated via phone, plan of
care continues.
[2024-07-23 16:53] LABS: Procalcitonin 54.97 ng/ml (0.0-0.25)
[2024-07-23] MEDS: LOVENOX 40 MG SC (17:10)
[2024-07-23] MEDS: FLOMAX 0.4 MG PO (17:10)
[2024-07-23] MEDS: STERILE WATER FOR INJECTION 10 ML IV (17:26)
[2024-07-23] MEDS: ROCEPHIN 1000 MG IV (17:26)
[2024-07-23] MEDS: ARICEPT 10 MG PO (20:43)
[2024-07-24] MEDS: LR 1000 IV ×2 (02:57→14:08)
[2024-07-24 03:34] VITALS: BP 154/74
[2024-07-24] MEDS: TYLENOL 650 MG PO ×2 (03:35→18:41)
[2024-07-24 06:56] LABS: Vancomycin Random 9.5 ug/ml
[2024-07-24 07:14] LABS: % Basophils 0.3 % (0-2); % Eosinophils 0.2 % (0-6); % Immature Granulocytes 1.3 % (0-0.5); % Lymphocytes 4.1 % (20.5-51.1); % Monocytes 3.4 % (1.7-9.3); % Neutrophils 90.7 % (42.2-75.2); Absolute Immature Granulocytes 0.2 10^3/uL (0-0.05); Absolute Lymphocytes 0.5 10^3/uL (1.2-3.4); Absolute Monocytes 0.4 10^3/uL (0.1-0.6); Absolute Neutrophils 10.8 10^3/uL (1.4-6.5); Hematocrit 31.5 % (39.0-52.0); Hemoglobin 10.8 g/dL (13.0-18.0); Mean Corp Hgb Conc. 34.3 g/dL (33.0-37.0); Mean Corpuscular Hgb 28.7 pg (27.0-31.0); Mean Corpuscular Volume 83.8 fL (80.0-94.0); Mean Platelet Volume 11.4 fL (7.4-10.4); Nucleated Red Blood Cells % 0 % (-); Platelet Count 144 10^3/uL (130-400); Red Blood Cell Count 3.76 10^6/uL (4.70-6.10); Red Cell Dist. Width 14.7 % (11.5-14.5); White Blood Cell Count 11.9 10^3/uL (4.8-10.8)
[2024-07-24 07:19] LABS: Blood Urea Nitrogen 27 mg/dl (9-20); Calcium 8.3 mg/dl (8.4-10.2); Carbon Dioxide 20 mmol/L (22-30); Chloride 108 mmol/L (98-107); Estimated Creatinine Clearance 51 ml/min; Glucose 104 mg/dl (70-99); Potassium 3.7 mmol/L (3.5-5.1); Sodium 138 mmol/L (135-145); eGFR > 60.00
[2024-07-24 07:40] VITALS: BP 168/85
[2024-07-24] MEDS: PROTONIX 40 MG PO (08:52)
[2024-07-24] MEDS: VITAMIN C 500 MG PO (08:52)
[2024-07-24] MEDS: NAMENDA 5 MG PO (08:53)
[2024-07-24] MEDS: SINEMET CR 25-100 (EXTENDED RELEASE) 1 TABLET PO ×2 (08:53→15:20)
[2024-07-24] MEDS: ZONEGRAN 25 MG PO (08:53)
[2024-07-24] MEDS: PROSCAR 5 MG PO (08:54)
--- NOTE | 2024-07-24 09:07 | PHA.VAN.FU ---
Addendum entered and electronically signed by Yelena Rowe Luiz 07/24/24 09:29:
Agree with resident's assessment and plan below.
Original Note:
Vancomycin Assessment / Plan
- Assessment
Renal Function: SCR Decreasing (1.5->1.2; baseline 0.9)
WBC's are: Trending Down
In the past 24 hrs, patient has been: Febrile (Max 102.9)
Concomitant Antimicrobials: Ceftriaxone
- Assessment - Therapeutic Drug Monitoring
Random Level: 9.5 ~15.5hrs after 2G loading dose
- Dosing Plan
Dosing by Level: Re-dose today
Dosing Comments: 1500mg x1
- Monitoring Plan
Random Level: 07/25 0600
- Follow Up
Pharmacy will continue to follow.
Vancomycin Follow UP
- -
Patient Age: 73
Patient Sex: Male
Vancomycin Day #: 2
Indication: Bacteremia
Requesting Provider: Dr. Mukesh Carrillo
Pertinent Antimicrobial Allergies:
penicillins - tolerates ceftriaxone / cefdinir
Height / Weight:
Height 5 ft 7 in
Actual Weight 83.546 kg
- Vital Signs / Lab Results
Temp Pulse Resp BP Pulse Ox
98.8 F 76 20 168/85 97
07/24/24 07:40 07/24/24 07:40 07/24/24 07:40 07/24/24 07:40 07/24/24 07:40
Lab Results - Hematology
07/22/24 07/23/24 07/24/24
19:44 06:20 05:59
WBC 5.6 21.9 H 11.9 H
Lab Results - Chemistry
07/22/24 07/23/24 07/24/24
19:44 06:20 05:59
BUN 29 H 32 H 27 H
Creatinine 1.2 1.5 H 1.2
Estimated Creat Clear 51 41 51
Albumin 3.7
07/22/24 07/22/24
19:44 23:45
Lactic Acid 1.7 Cancelled
Microbiology Results
07/22/24 19:44 Blood Culture - Preliminary
Blood/Venous Positive culture in progress
Gram Stain - Preliminary
Therapeutic Drug Monitoring
Random Vancomycin 9.5 ug/ml 07/24/24 05:59
[2024-07-24] MEDS: VANCOCIN 300 MG IV (10:03)
[2024-07-24] MEDS: VANCOCIN 300 ML IV (10:03)
--- NOTE | 2024-07-24 10:20 | CM ---
Reviewed the chart notes and attempted to speak with the patient's spouse via telephone. Introduced self and role of a test case developer. Patient's spouse went on a rampage about last hospitalization and how [facility] refused to accept the patient, but .
[facility] did. CM attempted to redirect to this present hospitalization and inquired whether patient was current with any VN service. Per spouse, [facility] had been out about four times. Attempted to discuss PT recommendation, but patient's spouse
stated 'I'm not listening to you. I will only speak with the doctor'. Then she promptly disconnected the line. CM continues to be available to patient/family and is monitoring medical plan for needs at discharge.
Plan: Discharge plans will depend on the patient's progress. PT recommending skilled rehab.
[2024-07-24 11:03] VITALS: BP 146/75
--- NOTE | 2024-07-24 11:29 | W.PN.HOSP.TC ---
Today's Communication/Plan
-
Continue with broad-spectrum antibiotics
Follow cultures and MRSA screen
ID consult
Assessment / Plan
Assessment / Plan
#Gram-positive septicemia -- unclear source; cannot rule out aspiration or UTI
-Presented with high-grade fever, leukocytosis; source of which unclear
-Blood culture showing gram-positive cocci in chains and clusters, final result pending
-Chest x-ray was normal, UA unremarkable upon arrival, Procalcitonin came back at 54
-CT showed ureteral dilation, signs of passed stones in bladder, small bilateral effusions
-History limited from his dementia, unclear if he is having acute complaint
-Currently on IV vancomycin and ceftriaxone empirically
-Infectious disease consulted for source identification
Plan:
-Continue with broad-spectrum antibiotics, follow-up final cultures
-Follow-up MRSA screen to transition vancomycin to more narrow spectrum
-Consider repeat cultures, echocardiogram
-Trend CBC, temperature curve
-Aspiration precaution
#Parkinson's Disease with dementia
-Medications include Sinemet, on Zonegran to limit side effects
-Appears stable on his current regimen
#BPH
-Home regimen includes Flomax and Proscar
-Will monitor for signs of urine retention, bladder scan protocol
#GERD
-No known history of Hendrix's esophagus or erosive disease
-Stable on home PPI therapy daily
DVT prophylaxis: SCDs
Diet: Regular, meds placed in applesauce
CODE STATUS: Full code
Anticipated Discharge: > 48 hours
Subjective/Interval History
-
Date of Service: July 24, 2024
Seen and examined at the bedside. No acute events reported overnight.
He remains hemodynamically stable, on room air, though still febrile with fever 101.2 �F this morning. Leukocytosis improving with white count near 11 today
He denies any acute complaints though history is limited from his dementia. His daughter was at the bedside and I updated her on the plan and course of hospitalization thus far.
Objective Data
-
Labs:
Laboratory Results
07/24/24
05:59
WBC 11.9 H
Hgb 10.8 L
Hct 31.5 L
Plt Count 144
Sodium 138
Potassium 3.7
Chloride 108 H
Carbon Dioxide 20 L
BUN 27 H
Creatinine 1.2
Glucose 104 H
Calcium 8.3 L
Vital Signs:
Vital Signs
Temp Pulse Resp BP Pulse Ox
98.2 F 54 22 146/75 95
07/24/24 11:03 07/24/24 11:03 07/24/24 11:03 07/24/24 11:03 07/24/24 11:03
Review of Systems
-
Unable to obtain full review of systems at this time due to: Dementia
Physical Exam
-
General: Well Nourished, No Apparent Distress and Comfortable
HEENT: Normocephalic, Atraumatic and Moist Mucous Membranes
Respiratory: Clear to Auscultation and Non Labored Respirations; Negative Wheezes, Rales or Rhonchi
Cardiac: Regular Rhythm and S1/S2; Negative Murmur, Rub or Gallop
GI: Soft, Nontender, Nondistended and Normal Bowel Sounds
Genito-urinary: No Costovertebral Tender
Musculoskeletal: No Clubbing, No Cyanosis and No Edema
Skin: Warm and Dry; Negative Rash
Neuro: Awake, Alert, Nonfocal/Grossly Intact, Central Nerve's Intact and Other (Mental baseline with severe dementia)
Data Reviewed
-
CT Scan: Report Reviewed by me, Discussed with Physician and Discussed with Family
Labs: Labs Reviewed by me, Discussed with Physician and Discussed with Family
[2024-07-24] MEDS: LR IV (12:52)
[2024-07-24 15:13] VITALS: BP 158/78
[2024-07-24] MEDS: VISBIOME 1 CAP PO (15:20)
--- NOTE | 2024-07-24 15:49 | CON.ID ---
Consultation
-
Date/Time Consultation Requested: 07/24/24 11:28
Date/Time Consultation Performed: 07/24/24 15:50
Requesting Provider: Dr Carrillo
Performing Provider: Dr Olson
Reason for Consultation: Sepsis, source unclear
Chief Complaint / Past History
Chief Complaint
fever and hematuria
History of Present Illness
Mr Nolen is a 73 year old male with history of Parkisons Disease and dementia, prior prostate embolization who presented here for fever and hematuria. Patient rapidly falls asleep during my evaluation. RN provides the history that he has been
lethargic. Fever of 103.0 noted in the ER. Reported no complains on arrival. Patient with history of prolonged geiger use - about 3 months - recently removed. No hardwear. No new back pain.
Since arrival here she has been febrile to 102.9 rectal, bp stable, wbc initially 5.6 peaked at 21 now 11.9, hbg 10.8, plt 144, L shift is noted, eos were present, cr 1.2 on arrival peaked at 1.5 now 1.2, lactic acid 1.7, t bili 0.6, ast 21, alt
<10, alk phos 98, procal 55, UA minimal pyuria with 6-10 wbc, covid ag neg, CT c/a/p dilation of distal ureter - stones in the bladder - no discrete obstructing stone, 07/22 single blood culture enterococcus, urine culture polymicrobial, finalized
neg, currently on vancomycin and ceftriaxone - tolerating both.
Past History
Additional Past Medical History:
Dementia and Parkinson's disease with ambulatory dysfunction
Benign prostate hypertrophy
Hypertension
Gastroesophageal reflux disease
Parkinson's Disease, on home donepezil, Sinemet, zonisamide. As per family zonisamide aids in side effects of his Sinemet
Dementia
Past Surgical History: None
Allergy History:
Penicillins Allergy (Verified 05/21/24 18:21)
Tolerates ceftriaxone/cefdinir
Medications Reviewed: Yes
Social History
Tobacco: Non-Smoker
Alcohol: None
Drug: None
Family History
Family History: Not Pertinent
Review of Systems
Review of Systems
General: Fever and Chills
All systems: All other systems were reviewed and were negative
Vital Signs
Temp Pulse Resp BP Pulse Ox
97.7 F 58 20 158/78 97
07/24/24 15:13 07/24/24 15:13 07/24/24 15:13 07/24/24 15:13 07/24/24 15:13
Physical Exam
Physical Exam
Constitutional: No Acute Distress
Cardiovascular: Regular Rate and S1/S2; Negative Murmur or Rub
Pulmonary: Clear and Symmetric; Negative Wheezes, Rales or Rhonchi
Gastrointestinal: Soft, Non Tender, Non Distended and Normal Bowel Sounds
Extremities: Splinter Hemorrhage (hand)
Skin: Warm and Dry; Negative Rash or Jaundice
Lab / Diagnostic Study Results
07/24/24 05:59
07/24/24 05:59
Abs Immat Gran (auto) 0.2 10^3/uL (0-0.05) H 07/24/24 05:59
Absolute Neuts (auto) 10.8 10^3/uL (1.4-6.5) H 07/24/24 05:59
Absolute Lymphs (auto) 0.5 10^3/uL (1.2-3.4) L 07/24/24 05:59
Absolute Monos (auto) 0.4 10^3/uL (0.1-0.6) 07/24/24 05:59
Absolute Basos (auto) 0.0 10^3/uL (0-0.2) 07/24/24 05:59
Immature Gran % 1.3 % (0-0.5) H 07/24/24 05:59
Neutrophils % 90.7 % (42.2-75.2) H 07/24/24 05:59
Lymphocytes % 4.1 % (20.5-51.1) L 07/24/24 05:59
Monocytes % 3.4 % (1.7-9.3) 07/24/24 05:59
Eosinophils % 0.2 % (0-6) 07/24/24 05:59
Basophils % 0.3 % (0-2) 07/24/24 05:59
Lactic Acid Cancelled 07/22/24 23:45
Procalcitonin 54.97 ng/ml (0.0-0.25) H* 07/23/24 16:12
Microbiology Results
Micro:
07/22/24 19:44 Urine Culture - Final
Urine
07/22/24 19:44 Blood Culture - Preliminary
Blood/Venous Enterococcus species
Gram Stain - Preliminary
07/23/24 16:12 MRSA Screen - Pending
Nose
Assessment / Plan
Enterococcal Bacteremia
Reported allergy to penicillin - unknown
Dementia
- urine culture polymicrobial
- single blood culture with enterococcus
- repeat blood cultures x2
- TTE - given frailty of patient doubt patient would be a surgical candidate, would not plan on YONIS as risks likely > benefits, empiric treatment may be considered pending course
- CT a/p without gross lesions
- suspect initial source was likely urinary, unclear if now with secondary endovascular infection - workup as above - follow for clearance of blood cultures
- likely ampicillin challenge when confirmed that isolate sensitive
- continue vancomycin/ceftriaxone for now
[2024-07-24] MEDS: FLOMAX 0.4 MG PO (17:09)
[2024-07-24] MEDS: LOVENOX 40 MG SC (17:10)
[2024-07-24] MEDS: ROCEPHIN 1000 MG IV (17:10)
[2024-07-24] MEDS: STERILE WATER FOR INJECTION 10 ML IV (17:10)
--- NOTE | 2024-07-24 17:50 | W.PN.URO.CBU ---
Today's Communication / Plan
-
Continue bladder scan protocol
Patient would benefit from UDS as an outpatient to better characterize his current voiding dysfunction follwing PAE and in the setting of probable neurogenic bladder
Outpatient cystoscopy might prove beneficial in evaluating the nature of the calcific debris that appears to be withnin the urinary bladder
Assessment / Plan
-
Transient gross hematuria prior to hospitalization: resolved
Significant BPH s/p PAE
3 month history of Zapata catheter dependence with recurrent UTI: retnetion has resolved
Left hydroureter with possible left distal ureteral stricture v. edema from passed stone
Chronic left hydronephrosis
Enterobacter in blood culture without correlate in urine
Diagnosis
-
Date of Service: July 24, 2024
-
Patient Diagnosis:
Significant BPH s/p prostatic arterial embolization April 2024 (Dr. Sawyer: [facility])
Patient had been catheter dependent for roughly 3 months (both before and after PAE)
He ultimately passed a voiding trial a few weeks ago, but has been having significant urinary urgency and urge incontinence
He remains on tamsulosin and finasteride
---
He was admitted with fever and an episode of gross hematuria for further evaluation
He has Enterococcus in his blood
Urine culture was unrevealing (mixed gaudencio)
CT scan 07/23/24 (personally reviewed) revealed left hydroureteronephrosis to the level of the distal ureter with transition to normal caliber a few centimeters proximal to the UVJ. No ureteral stone was noted. There is calcific debris along the
right side of the bladder base: possibly passed stone fragments or changes from his PAE.
His outpatient record documents known left hydronephrosis dating to as early as 2021
Subjective
-
Provides little information
Denies any left CVAT
No dysuria
Objective
-
Vital Signs
Temp Pulse Resp BP Pulse Ox
99.5 F 58 20 158/78 97
07/24/24 16:44 07/24/24 15:13 07/24/24 15:13 07/24/24 15:13 07/24/24 15:13
Intake and Output
07/23/24 07/24/24 07/25/24
06:59 06:59 06:59
Other:
How many times incontinent 1
MODERATE amount urine
How many times incontinent 2
SATURATED amount urine
Laboratory Results
07/24/24 05:59
07/24/24 05:59
Review of Systems
-
Unable to obtain full review of systems at this time due to: Dementia
Physical Exam
-
General - no acute distress
Abdomen - soft, non-tender, no CVAT
Genitalia - normal. In adult diaper
Counseling
-
Patient encouraged to follow up with his treating urologist
The family is inclined to have follow p care here: have seen Dr. Christensen
[2024-07-24 20:39] VITALS: BP 95/53
[2024-07-24] MEDS: NAMENDA PO ×2 (20:39→22:32)
[2024-07-24] MEDS: ARICEPT PO ×2 (20:40→22:33)
[2024-07-24] MEDS: SINEMET CR 25-100 (EXTENDED RELEASE) PO (22:33)
--- NOTE | 2024-07-24 22:33 | PTCARENOTE ---
during PM med pass pt too drowsy to follow commands and swallow PO medications safely. [employer]SHOVEL DRIVER made aware. no new orders at this time. plan of care ongoing.
[2024-07-24 23:52] VITALS: BP 183/84
[2024-07-25] VITALS (9 sets, daily range): BP systolic 137–184; BP diastolic 67–94; PULSE 51; O2SAT 95
[2024-07-25] MEDS: LR 1000 IV ×2 (04:28→15:48)
[2024-07-25 06:41] LABS: Vancomycin Random 9.8 ug/ml
[2024-07-25 06:52] LABS: Blood Urea Nitrogen 23 mg/dl (9-20); Calcium 8.5 mg/dl (8.4-10.2); Carbon Dioxide 24 mmol/L (22-30); Chloride 108 mmol/L (98-107); Estimated Creatinine Clearance 56 ml/min; Glucose 107 mg/dl (70-99); Potassium 3.9 mmol/L (3.5-5.1); Sodium 141 mmol/L (135-145); eGFR > 60.00
[2024-07-25 07:09] LABS: % Basophils 0.2 % (0-2); % Immature Granulocytes 0.6 % (0-0.5); % Monocytes 5.2 % (1.7-9.3); Absolute Eosinophils 0.2 10^3/uL (0-0.7); Absolute Immature Granulocytes 0.1 10^3/uL (0-0.05); Absolute Lymphocytes 1.1 10^3/uL (1.2-3.4); Absolute Monocytes 0.5 10^3/uL (0.1-0.6); Absolute Neutrophils 6.9 10^3/uL (1.4-6.5); Hemoglobin 11.3 g/dL (13.0-18.0); Mean Corp Hgb Conc. 34.2 g/dL (33.0-37.0); Mean Corpuscular Hgb 29.4 pg (27.0-31.0); Mean Corpuscular Volume 85.7 fL (80.0-94.0); Mean Platelet Volume 10.7 fL (7.4-10.4); Nucleated Red Blood Cells % 0 % (-); Platelet Count 136 10^3/uL (130-400); Red Blood Cell Count 3.85 10^6/uL (4.70-6.10); Red Cell Dist. Width 14.6 % (11.5-14.5); White Blood Cell Count 8.7 10^3/uL (4.8-10.8)
--- NOTE | 2024-07-25 08:09 | PHA.VAN.FU ---
Vancomycin Assessment / Plan
- Assessment
Renal Function: SCR Decreasing
WBC's are: WNL
Concomitant Antimicrobials: ceftriaxone
- Assessment - Therapeutic Drug Monitoring
Random Level: 9.8 - drawn ~20H after previous dose of 1500mg
- Dosing Plan
Dosing by Level: Re-dose today (Vanc 750mg x1 now then at 1800)
Dosing Comments: SCR remains slighlty elevated from baseline of ~0.9
Will trial BID dosing today rather than 1750mg
- Monitoring Plan
Random Level: 07/26 06
- Follow Up
Pharmacy will continue to follow.
Vancomycin Follow UP
- -
Patient Age: 73
Patient Sex: Male
Vancomycin Day #: 3
Indication: Bacteremia
Requesting Provider: Dr. Mukesh Carrillo / [facility]
Pertinent Antimicrobial Allergies:
penicillins - tolerates ceftriaxone / cefdinir
Height / Weight:
Height 5 ft 7 in
Actual Weight 83.546 kg
- Vital Signs / Lab Results
Temp Pulse Resp BP Pulse Ox
98.6 F 48 18 153/69 97
07/25/24 03:07 07/25/24 03:07 07/25/24 03:07 07/25/24 03:07 07/25/24 03:07
Lab Results - Hematology
07/22/24 07/23/24 07/24/24
19:44 06:20 05:59
WBC 5.6 21.9 H 11.9 H
07/25/24
05:47
WBC 8.7
Lab Results - Chemistry
07/22/24 07/23/24 07/24/24
19:44 06:20 05:59
BUN 29 H 32 H 27 H
Creatinine 1.2 1.5 H 1.2
Estimated Creat Clear 51 41 51
Albumin 3.7
07/25/24
05:47
BUN 23 H
Creatinine 1.1
Estimated Creat Clear 56
Albumin
07/22/24 07/22/24
19:44 23:45
Lactic Acid 1.7 Cancelled
Microbiology Results
07/23/24 16:12 MRSA Screen - Final
Nose No Methicillin Resistant Staphylococcus aureus isolated.
07/22/24 19:44 Urine Culture - Final
Urine
07/22/24 19:44 Blood Culture - Preliminary
Blood/Venous Enterococcus species
Gram Stain - Preliminary
Therapeutic Drug Monitoring
Random Vancomycin 9.8 ug/ml 07/25/24 05:47
[2024-07-25] MEDS: VISBIOME 1 CAP PO (09:04)
[2024-07-25] MEDS: NAMENDA 5 MG PO ×2 (09:04→22:15)
[2024-07-25] MEDS: ZONEGRAN 25 MG PO (09:04)
[2024-07-25] MEDS: VANCOCIN 150 IV ×2 (09:04→17:55)
[2024-07-25] MEDS: VITAMIN C 500 MG PO (09:04)
[2024-07-25] MEDS: PROTONIX 40 MG PO (09:04)
[2024-07-25] MEDS: PROSCAR 5 MG PO (09:04)
[2024-07-25] MEDS: SINEMET CR 25-100 (EXTENDED RELEASE) 1 TABLET PO ×3 (09:04→22:16)
--- NOTE | 2024-07-25 10:21 | PN.CDI ---
CDI
- -
CDI:
Physician Documentation Request
Admit Date: 07/23/24 16:33
Dear Doctor Gerardo,
Patient admitted with sepsis.
Creatinine levels documented below:
Patient received IV fluids.
Laboratory Tests
07/22/24 07/23/24 07/24/24
19:44 06:20 05:59
Creatinine 1.2 1.5 H 1.2
Please clarify which of the following accurately represents the patient's renal status:
MALLORY
Insignificant abnormal lab finding
Other
Criteria for MALLORY*
1 Increase in serum creatinine by > or = to 0.3 mg/dL (> or = to 26.5 micromol/L) within 48 hours, OR
2 Increase in serum creatinine to > or = to 1.5 times baseline, which is known or presumed to have occurred within 7 days, OR
3 Urine volume < 0.5 nL/kg/hour for six hours
Use of terms such as suspected, likely, concern for, or probable (associated with a specific diagnosis that is being evaluated, monitored, or treated as if it exists) are acceptable and can be coded in the inpatient setting, when documented at the
time of discharge.
Thank you,
Cheryl DO,RN,CCDS
CDI Specialist
Available via tiger text
Please use your independent medical judgment in providing your response.
*Source: Kidney Disease: Improving Global Outcomes (KDIGO) 2012
--- NOTE | 2024-07-25 11:30 | W.PN.HOSP.TC ---
Today's Communication/Plan
-
Continue vancomycin and ceftriaxone
Follow repeat cultures
Procalcitonin tomorrow morning
Follow-up ID recs
Assessment / Plan
Assessment / Plan
#Enterococcus bacteremia -- suspected urinary source though unable to confirm
-Presented with high-grade fever, leukocytosis; source of which unclear
-Chest x-ray was normal, UA unremarkable upon arrival, Procalcitonin came back at 54
-CT showed ureteral dilation, signs of passed stones in bladder, small bilateral effusions
-History limited from his dementia, unclear if he is having acute complaints
-Currently on IV vancomycin and ceftriaxone empirically; TTE negative
-Infectious disease following, repeat blood culture sent yesterday
Plan:
-Continue with broad-spectrum antibiotics, follow-up repeat cultures
-Consider YONIS if repeat cultures are positive
-Trend CBC, temperature curve
-Aspiration precaution
-Repeat procalcitonin tomorrow
#Parkinson's Disease with dementia
-Medications include Sinemet, on Zonegran to limit side effects
-Appears stable on his current regimen
#BPH
-Home regimen includes Flomax and Proscar
-Will monitor for signs of urine retention, bladder scan protocol
#GERD
-No known history of Hendrix's esophagus or erosive disease
-Stable on home PPI therapy daily
#Prerenal MALLORY (resolved)
-In the context of sepsis, creatinine peaked at 1.5, resolved with IVF
DVT prophylaxis: SCDs
Diet: Regular, meds placed in applesauce
CODE STATUS: Full code
Anticipated Discharge: 24 - 48 hours
Subjective/Interval History
-
Date of Service: July 25, 2024
Seen and examined at bedside. His daughter was in the room and I answered all questions that she had. No acute events reported overnight.
As of this morning he appears well, states he feels good. History is limited by his baseline dementia.
I did speak with his daughter about plan regarding his sepsis. TTE yesterday was negative, repeat blood cultures were taken. If repeat blood cultures are again positive for Enterococcus he may require YONIS for better assessment for endocarditis.
His daughter states that the is not a good candidate for anesthesia due to post anesthetic cognitive effects. Seems to be more with general anesthesia than sedation with benzodiazepines.
Objective Data
-
Labs:
Laboratory Results
07/25/24
05:47
WBC 8.7
Hgb 11.3 L
Hct 33.0 L
Plt Count 136
Sodium 141
Potassium 3.9
Chloride 108 H
Carbon Dioxide 24
BUN 23 H
Creatinine 1.1
Glucose 107 H
Calcium 8.5
Vital Signs:
Vital Signs
Temp Pulse Resp BP Pulse Ox
97.9 F 63 20 145/85 97
07/25/24 11:24 07/25/24 11:24 07/25/24 11:24 07/25/24 11:24 07/25/24 11:24
I&O
07/24/24 07/25/24 07/26/24
06:59 06:59 06:59
Intake Total 780 / 780
Output Total 600 / 600
Balance 180 / 180
Review of Systems
-
Unable to obtain full review of systems at this time due to: Dementia
Physical Exam
-
General: No Apparent Distress, Comfortable and Other (Nontoxic-appearing today)
HEENT: Normocephalic, Atraumatic and Moist Mucous Membranes
Respiratory: Clear to Auscultation and Non Labored Respirations; Negative Wheezes, Rales or Rhonchi
Cardiac: Regular Rhythm and S1/S2; Negative Murmur, Rub, JVD or Gallop
GI: Soft, Nontender, Nondistended and Normal Bowel Sounds
Musculoskeletal: No Clubbing, No Cyanosis and No Edema
Skin: Warm and Dry; Negative Rash
Neuro: Awake, Alert, Oriented, Nonfocal/Grossly Intact and Central Nerve's Intact; Negative Tremors
Data Reviewed
-
Medical Tests (Nuc Med, Echo etc): Report Reviewed by me and Discussed with Family
Labs: Labs Reviewed by me and Discussed with Family
--- NOTE | 2024-07-25 12:08 | W.PN.ID1 ---
Date of Service
Date of Service: July 25, 2024
Today's Communication
- plan ampicillin challenge today - discussed with adult daughter who is in agreement
- continue ceftriaxone
- likely 6 week course of IV antibiotics
Assessment / Plan
Possible endocarditis
Enterococcal Bacteremia
Reported allergy to penicillin - unknown
Note urology concern possible neurogenic bladder
Dementia
- 3 minor criteria for endocarditis - predisposing lesion, splinter hemorrhages, single positive blood culture CA enterococcus
- urine culture polymicrobial - suspect initial source was likely urinary, now with possible endocarditis
- single blood culture with enterococcus
- repeat blood cultures x2 in progress no growth to date
- advise against trending procalcitonins for bacteremia - it is not well validated and would not change my management
- TTE with sclerosis but no wilfred vegetration - given frailty of patient doubt patient would be a surgical candidate, would not plan on YONIS as risks likely > benefits, empiric treatment may be considered pending course
- CT a/p without gross lesions
- plan ampicillin challenge today - discussed with adult daughter who is in agreement
- continue ceftriaxone
- likely 6 week course of IV antibiotics
Chief Complaint
-: Bacteremia
Subjective / Review of Systems
afebrile
bp stable
leukocytosis has resolved
Vital Signs / Physical Exam
Vital Signs
Vital Signs
Temp Pulse Resp BP Pulse Ox
97.9 F 63 20 145/85 97
07/25/24 11:24 07/25/24 11:24 07/25/24 11:24 07/25/24 11:24 07/25/24 11:24
Physical Exam
Constitutional: No Acute Distress
Cardiovascular: Regular Rate and S1/S2; Negative Murmur or Rub
Pulmonary: Clear and Symmetric; Negative Wheezes or Rales
Gastrointestinal: Soft, Non Tender, Non Distended and Normal Bowel Sounds
Extremities: Splinter Hemorrhage
Skin: Warm and Dry; Negative Rash or Jaundice
Neurological: Awake
Objective Data
Lab Data
Lab Results
07/25/24 05:47
07/25/24 05:47
Estimated Creat Clear 56 ml/min 07/25/24 05:47
Lactic Acid Cancelled 07/22/24 23:45
Total Bilirubin 0.6 mg/dl (0.2-1.3) 07/22/24 19:44
AST 21 U/L (17-59) 07/22/24 19:44
ALT < 10 U/L (0-50) 07/22/24 19:44
Alkaline Phosphatase 98 U/L (38-126) 07/22/24 19:44
Most recent labs reviewed.
Micro Results:
07/22/24 19:44 Blood Culture - Preliminary
Blood/Venous Enterococcus faecalis
Gram Stain - Preliminary
07/23/24 16:12 MRSA Screen - Final
Nose No Methicillin Resistant Staphylococcus aureus isolated.
07/24/24 18:13 Blood Culture - Pending
Blood/Venous
07/24/24 17:35 Blood Culture - Pending
Blood/Venous
07/22/24 19:44 Urine Culture - Final
Urine
Care Review
Plan reviewed with: Physician (Dr Carrillo - procalcitonin)
[2024-07-25] MEDS: AMPICILLIN 108 MG IV ×3 (13:49→22:16)
--- NOTE | 2024-07-25 16:45 | CM ---
Addendum entered by Meg Pantoja 07/26/24 13:55:
CM outreached to [facility] television director today to determine possibility of transfer for acute rehab and timing due to weekend/holiday. Referral had been sent via [facility] on July 25. Pt will need IV abx and PICC line.
Bed not available until Sunday at the earliest.
CM will continue to follow for Acute Rehab transfer vs. SNF pending determination.
Original Note:
Chart reviewed, MRI ordered, Therapy recommending Acute Rehab; Referral sent to [facility] via [facility] for consideration.
If other options need to be pursued this will be discussed with Jake and his to determine willingness to consider alternatives (SNF vs. home with heavy support services). is very agitated and demanding.
CM will continue to follow to coordinate rehab transfer if accepted.
[2024-07-25] MEDS: ROCEPHIN 1000 MG IV (17:05)
[2024-07-25] MEDS: LOVENOX 40 MG SC (17:05)
[2024-07-25] MEDS: STERILE WATER FOR INJECTION 10 ML IV (17:05)
[2024-07-25] MEDS: FLOMAX 0.4 MG PO (17:06)
[2024-07-25] MEDS: ARICEPT 15 MG PO (22:17)
[2024-07-26] MEDS: AMPICILLIN 108 MG IV ×6 (01:47→22:09)
[2024-07-26 03:56] VITALS: BP 158/78
[2024-07-26 07:30] VITALS: BP 179/81
[2024-07-26 08:14] LABS: % Basophils 0.3 % (0-2); % Eosinophils 1.5 % (0-6); % Immature Granulocytes 0.3 % (0-0.5); % Lymphocytes 16.8 % (20.5-51.1); % Monocytes 6.4 % (1.7-9.3); % Neutrophils 74.7 % (42.2-75.2); Absolute Eosinophils 0.1 10^3/uL (0-0.7); Absolute Lymphocytes 1.6 10^3/uL (1.2-3.4); Absolute Monocytes 0.6 10^3/uL (0.1-0.6); Hematocrit 32.7 % (39.0-52.0); Hemoglobin 11.1 g/dL (13.0-18.0); Mean Corp Hgb Conc. 33.9 g/dL (33.0-37.0); Mean Corpuscular Hgb 28.1 pg (27.0-31.0); Mean Corpuscular Volume 82.8 fL (80.0-94.0); Mean Platelet Volume 11.3 fL (7.4-10.4); Nucleated Red Blood Cells % 0 % (-); Platelet Count 156 10^3/uL (130-400); Red Blood Cell Count 3.95 10^6/uL (4.70-6.10); Red Cell Dist. Width 14.4 % (11.5-14.5); White Blood Cell Count 9.4 10^3/uL (4.8-10.8)
[2024-07-26 08:34] LABS: Vancomycin Random 11.4 ug/ml
[2024-07-26 08:47] LABS: Blood Urea Nitrogen 17 mg/dl (9-20); Calcium 8.9 mg/dl (8.4-10.2); Carbon Dioxide 26 mmol/L (22-30); Chloride 107 mmol/L (98-107); Estimated Creatinine Clearance 62 ml/min; Glucose 100 mg/dl (70-99); Sodium 142 mmol/L (135-145); eGFR > 60.00
[2024-07-26] MEDS: LR 1000 IV (09:17)
[2024-07-26] MEDS: PROTONIX 40 MG PO (09:18)
[2024-07-26] MEDS: VITAMIN C 500 MG PO (09:18)
[2024-07-26] MEDS: DESENEX/MITRAZOL/ZEASORB 1 APPLIC TOPICAL ×2 (09:18→22:17)
[2024-07-26] MEDS: VISBIOME 1 CAP PO (09:19)
[2024-07-26] MEDS: PROSCAR 5 MG PO (09:20)
[2024-07-26] MEDS: SINEMET CR 25-100 (EXTENDED RELEASE) 1 TABLET PO ×3 (09:20→22:09)
[2024-07-26] MEDS: ZONEGRAN 25 MG PO (09:20)
[2024-07-26] MEDS: NAMENDA 5 MG PO ×2 (09:20→22:07)
--- NOTE | 2024-07-26 09:44 | W.PN.ID1 ---
Date of Service
Date of Service: July 26, 2024
Today's Communication
Add metronidazole.
Increase ceftriaxone dose.
Assessment / Plan
Possible endocarditis
Enterococcal, anaerobic GNR Bacteremia
Reported allergy to penicillin - unknown. Tolerating ampicillin.
Note urology concern possible neurogenic bladder
Dementia
- 3 minor criteria for endocarditis - predisposing lesion, splinter hemorrhages, single positive blood culture CA enterococcus
- urine culture polymicrobial - suspect initial source was likely urinary, now with possible endocarditis
- single blood culture with enterococcus
- repeat blood cultures x2 in progress no growth to date
- advise against trending procalcitonins for bacteremia - it is not well validated and would not change my management
- TTE with sclerosis but no wilfred vegetation - given frailty of patient doubt patient would be a surgical candidate, would not plan on YONIS as risks likely > benefits, empiric treatment may be considered pending course
- CT a/p without gross lesions
- Continue IV ampicillin.
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
-Add oral metronidazole to cover the anaerobe.
- likely 6 week course of IV antibiotics
Chief Complaint
-: Bacteremia
Subjective / Review of Systems
Enjoying breakfast.
No rash/pruritis.
Vital Signs / Physical Exam
Vital Signs
Vital Signs
Temp Pulse Resp BP Pulse Ox
98 F 69 18 179/81 95
07/26/24 07:30 07/26/24 07:30 07/26/24 07:30 07/26/24 07:30 07/26/24 07:30
Physical Exam
Constitutional: No Acute Distress
Cardiovascular: Regular Rate and S1/S2
Pulmonary: Clear
Gastrointestinal: Soft, Non Tender and Non Distended
Extremities: Negative Edema
Objective Data
Lab Data
Lab Results
07/26/24 07:13
07/26/24 07:13
Estimated Creat Clear 62 ml/min 07/26/24 07:13
Lactic Acid Cancelled 07/22/24 23:45
Total Bilirubin 0.6 mg/dl (0.2-1.3) 07/22/24 19:44
AST 21 U/L (17-59) 07/22/24 19:44
ALT < 10 U/L (0-50) 07/22/24 19:44
Alkaline Phosphatase 98 U/L (38-126) 07/22/24 19:44
Most recent labs reviewed.
Micro Results:
07/24/24 18:13 Blood Culture - Preliminary
Blood/Venous No Growth in 24 hours- Final report to follow
07/24/24 17:35 Blood Culture - Preliminary
Blood/Venous No Growth in 24 hours- Final report to follow
07/22/24 19:44 Blood Culture - Preliminary
Blood/Venous Enterococcus faecalis
Anaerobic gram neg bacilli
Gram Stain - Preliminary
07/23/24 16:12 MRSA Screen - Final
Nose No Methicillin Resistant Staphylococcus aureus isolated.
07/22/24 19:44 Urine Culture - Final
Urine
07/23/24 CT C/A/P: There is dilation of the left proximal and mid ureter measuring up to 1.9 cm with nondistended distal ureter, however no discrete discrete obstructing stone visualized. Calcification within the right posterior lateral aspect of
the urinary bladder, possible stones. Colonic diverticulosis without evidence of acute diverticulitis. Normal appendix.
[2024-07-26] MEDS: FLUSH (NSS) 2 FLUSH IV (10:34)
[2024-07-26] MEDS: STERILE WATER FOR INJECTION 20 ML IV ×2 (10:34→22:10)
[2024-07-26] MEDS: ROCEPHIN 2000 MG IV ×2 (10:34→22:10)
[2024-07-26 11:00] VITALS: BP 151/71
--- NOTE | 2024-07-26 12:31 | W.PN.HOSP.TC ---
Today's Communication/Plan
-
will order panorex
consult Dr. Haider
Assessment / Plan
Assessment / Plan
pt is a 73 year old male
Enterococcus bacteremia -- suspected urinary source though unable to confirm--Chest x-ray was normal, UA unremarkable upon arrival, Procalcitonin came back at 54--CT showed ureteral dilation, signs of passed stones in bladder, small bilateral
effusions-Currently on IV vancomycin and ceftriaxone empirically; TTE negative--apprec ID--looking at possibility of needing ABX for 6 weeks--not planning YONIS--will check Panorex to eval teeth
Parkinson's Disease with dementia--Medications include Sinemet, on Zonegran to limit side effects--Appears stable on his current regimen--family wants [facility]--has been in [facility] acute rehab in May with much improvement (as per daughter)
BPH--Home regimen includes Flomax and Proscar--Will monitor for signs of urine retention, bladder scan protocol
GERD--No known history of Hendrix's esophagus or erosive disease--Stable on home PPI therapy daily
Prerenal MALLORY (resolved)--In the context of sepsis, creatinine peaked at 1.5, resolved with IVF
DVT prophylaxis: SCDs
CODE STATUS: Full code
updated daughter Linda by phone--07/26/24
Anticipated Discharge: > 48 hours
Subjective/Interval History
-
Date of Service: July 26, 2024
pt not verbal with me--drooling but will raise his head and look at me
Objective Data
-
Labs:
Laboratory Results
07/26/24
07:13
WBC 9.4
Hgb 11.1 L
Hct 32.7 L
Plt Count 156
Sodium 142
Potassium 4.0
Chloride 107
Carbon Dioxide 26
BUN 17
Creatinine 1.0
Glucose 100 H
Calcium 8.9
Vital Signs:
max temp for 24 hours
07/25/24
19:14
Temp 99.2 F
Vital Signs
Temp Pulse Resp BP Pulse Ox
98 F 69 18 179/81 95
07/26/24 07:30 07/26/24 07:30 07/26/24 07:30 07/26/24 07:30 07/26/24 07:30
I&O
07/25/24 07/26/24 07/27/24
06:59 06:59 06:59
Intake Total 780 / 780 2075
Output Total 600 / 600
Balance 180 / 180 2075
Review of Systems
-
Unable to obtain full review of systems at this time due to: Dementia
Physical Exam
-
General: Well Developed, Well Nourished and No Apparent Distress
HEENT: Normocephalic, Atraumatic and Other (drooling)
Respiratory: Clear to Auscultation; Negative Wheezes, Rales or Rhonchi
Cardiac: Regular Rhythm and S1/S2; Negative Murmur
GI: Soft, Nontender, Nondistended and Normal Bowel Sounds
Musculoskeletal: No Clubbing, No Cyanosis and No Edema
Neuro: Awake; Negative Alert
Psych: Calm
--- NOTE | 2024-07-26 12:36 | CM ---
Addendum entered by Meg Pantoja 07/26/24 12:39:
Pt also needs IV abx for 6 weeks.
Original Note:
CM outreached to [place] [facility] [employer] liaison today to determine possibility of transfer for acute rehab and timing due to weekend/holiday. Ref[facility] had been [facility] via [facility] July [facility].
Will need Physiatry eval for consideration.
CM will continue to follow for Acute Rehab transfer vs. SNF pending determination.
[2024-07-26] MEDS: FLAGYL 500 MG PO ×2 (14:59→22:09)
[2024-07-26 15:24] VITALS: BP 169/77
[2024-07-26] MEDS: FLOMAX 0.4 MG PO (17:32)
[2024-07-26] MEDS: LOVENOX 40 MG SC (17:33)
[2024-07-26 19:04] VITALS: BP 147/72
[2024-07-26] MEDS: ARICEPT 15 MG PO (22:09)
[2024-07-26 23:26] VITALS: BP 162/77
[2024-07-27] VITALS (7 sets, daily range): BP systolic 114–178; BP diastolic 65–94
[2024-07-27] MEDS: AMPICILLIN 108 MG IV ×6 (01:40→21:23)
[2024-07-27] MEDS: FLAGYL 500 MG PO ×3 (05:27→21:18)
[2024-07-27 08:19] LABS: Hematocrit 34.9 % (39.0-52.0); Mean Corp Hgb Conc. 34.4 g/dL (33.0-37.0); Mean Corpuscular Hgb 28.8 pg (27.0-31.0); Mean Corpuscular Volume 83.7 fL (80.0-94.0); Platelet Count 179 10^3/uL (130-400); Red Blood Cell Count 4.17 10^6/uL (4.70-6.10); Red Cell Dist. Width 14.2 % (11.5-14.5); White Blood Cell Count 9.3 10^3/uL (4.8-10.8)
[2024-07-27] MEDS: NAMENDA 5 MG PO ×2 (08:19→21:19)
[2024-07-27] MEDS: DESENEX/MITRAZOL/ZEASORB 1 APPLIC TOPICAL ×2 (08:19→21:21)
[2024-07-27] MEDS: SINEMET CR 25-100 (EXTENDED RELEASE) 1 TABLET PO ×3 (08:20→21:18)
[2024-07-27] MEDS: PROTONIX 40 MG PO (08:20)
[2024-07-27] MEDS: ZONEGRAN 25 MG PO (08:20)
[2024-07-27] MEDS: PROSCAR 5 MG PO (08:20)
[2024-07-27] MEDS: VISBIOME 1 CAP PO (08:20)
[2024-07-27] MEDS: VITAMIN C 500 MG PO (08:20)
[2024-07-27 08:38] LABS: Blood Urea Nitrogen 15 mg/dl (9-20); Calcium 8.8 mg/dl (8.4-10.2); Carbon Dioxide 25 mmol/L (22-30); Chloride 105 mmol/L (98-107); Estimated Creatinine Clearance 56 ml/min; Glucose 96 mg/dl (70-99); Magnesium 1.8 mg/dl (1.6-2.3); Sodium 141 mmol/L (135-145); eGFR > 60.00
--- NOTE | 2024-07-27 09:25 | W.PN.HOSP.TC ---
Today's Communication/Plan
-
await final decision re: PICC and IV abx
await final decision for [facility]
Assessment / Plan
Assessment / Plan
pt is a 73 year old male
Enterococcus bacteremia -- suspected urinary source though unable to confirm as urine culture with mixed gaudencio--CT showed ureteral dilation, signs of passed stones in bladder, small bilateral effusions-Currently on IV ceftriaxone/ampicillin/flagyl;
TTE negative--apprec ID--looking at possibility of needing ABX for 6 weeks--not planning YONIS, will need PICC--will check Panorex to eval teeth (ordered)
Parkinson's Disease with dementia--Medications include Sinemet, on Zonegran to limit side effects--Appears stable on his current regimen--family wants [facility]lon--has been in [place] acute rehab in May with much improvement (as per
daughter)--consulted Dr. Haider
BPH--Home regimen includes Flomax and Proscar--Will monitor for signs of urine retention, bladder scan protocol
GERD--No known history of Hendrix's esophagus or erosive disease--Stable on home PPI therapy daily
Prerenal MALLORY (resolved)--In the context of sepsis, creatinine peaked at 1.5, resolved with IVF
DVT prophylaxis: SCDs
CODE STATUS: Full code
updated daughter Linda by phone--07/26/24
Anticipated Discharge: > 48 hours
Subjective/Interval History
-
Date of Service: July 27, 2024
pt sitting up eating breakfast
Objective Data
-
Labs:
Laboratory Results
07/27/24
07:05
WBC 9.3
Hgb 12.0 L
Hct 34.9 L
Plt Count 179
Sodium 141
Potassium 4.0
Chloride 105
Carbon Dioxide 25
BUN 15
Creatinine 1.1
Glucose 96
Calcium 8.8
Vital Signs:
max temp for 24 hours
07/27/24
03:27
Temp 99 F
Vital Signs
Temp Pulse Resp BP Pulse Ox
98 F 57 18 171/81 95
07/27/24 08:20 07/27/24 08:20 07/27/24 08:20 07/27/24 08:20 07/27/24 08:20
I&O
07/26/24 07/27/24 07/28/24
06:59 06:59 06:59
Intake Total 2075 800 / 800
Balance 2075 800 / 800
Review of Systems
-
All other systems: Reviewed and negative
Physical Exam
-
General: Well Developed, Well Nourished and No Apparent Distress
HEENT: Normocephalic and Atraumatic
Respiratory: Clear to Auscultation; Negative Wheezes or Rhonchi
Cardiac: Regular Rhythm and S1/S2; Negative Murmur
GI: Other (could not examine--sitting up in bed with breakfast tray table in front of him)
Musculoskeletal: No Clubbing, No Cyanosis and No Edema
Neuro: Awake and Alert
--- NOTE | 2024-07-27 10:11 | W.PN.ID1 ---
Date of Service
Date of Service: July 27, 2024
Today's Communication
Continue ampicillin/ceftriaxone/metronidazole.
Assessment / Plan
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
Enterococcal, anaerobic GNR Bacteremia
Reported allergy to penicillin - unknown. Tolerating ampicillin.
Note urology concern possible neurogenic bladder
Dementia
- 3 minor criteria for endocarditis - predisposing lesion, splinter hemorrhages, single positive blood culture CA enterococcus
- urine culture polymicrobial - suspect initial source was likely urinary, now with possible endocarditis
- single blood culture with enterococcus
- repeat blood cultures x2 in progress no growth to date
- advise against trending procalcitonins for bacteremia - it is not well validated and would not change my management
- TTE with sclerosis but no wilfred vegetation - given frailty of patient doubt patient would be a surgical candidate, would not plan on YONIS as risks likely > benefits, empiric treatment may be considered pending course
- CT a/p without gross lesions
- Continue IV ampicillin.
- Continue ceftriaxone 2g IV q12, as synergy with ampicillin for suspected invasive E. faecalis.
-Continue oral metronidazole (d2) to cover the anaerobe.
- likely 6 week course of IV antibiotics
Chief Complaint
-: Bacteremia
Subjective / Review of Systems
Daughter at bedside.
Pt without new complaints.
Vital Signs / Physical Exam
Vital Signs
Vital Signs
Temp Pulse Resp BP Pulse Ox
98 F 57 18 171/81 95
07/27/24 08:20 07/27/24 08:20 07/27/24 08:20 07/27/24 08:20 07/27/24 08:20
Physical Exam
Constitutional: No Acute Distress
Cardiovascular: Regular Rate and S1/S2
Pulmonary: Clear
Gastrointestinal: Soft, Non Tender and Non Distended
Neurological: Awake
Objective Data
Lab Data
Lab Results
07/27/24 07:05
07/27/24 07:05
Estimated Creat Clear 56 ml/min 07/27/24 07:05
Lactic Acid Cancelled 07/22/24 23:45
Total Bilirubin 0.6 mg/dl (0.2-1.3) 07/22/24 19:44
AST 21 U/L (17-59) 07/22/24 19:44
ALT < 10 U/L (0-50) 07/22/24 19:44
Alkaline Phosphatase 98 U/L (38-126) 07/22/24 19:44
Most recent labs reviewed.
Micro Results:
07/24/24 18:13 Blood Culture - Preliminary
Blood/Venous No Growth in 48 hours- Final report to follow
07/24/24 17:35 Blood Culture - Preliminary
Blood/Venous No Growth in 48 hours- Final report to follow
07/22/24 19:44 Blood Culture - Preliminary
Blood/Venous Enterococcus faecalis
Anaerobic gram neg bacilli
Gram Stain - Preliminary
07/23/24 16:12 MRSA Screen - Final
Nose No Methicillin Resistant Staphylococcus aureus isolated.
07/22/24 19:44 Urine Culture - Final
Urine
07/23/24 CT C/A/P: There is dilation of the left proximal and mid ureter measuring up to 1.9 cm with nondistended distal ureter, however no discrete discrete obstructing stone visualized. Calcification within the right posterior lateral aspect of
the urinary bladder, possible stones. Colonic diverticulosis without evidence of acute diverticulitis. Normal appendix.
[2024-07-27] MEDS: FLUSH (NSS) 2 FLUSH IV ×3 (11:30→18:12)
[2024-07-27] MEDS: STERILE WATER FOR INJECTION 20 ML IV ×2 (11:30→21:28)
[2024-07-27] MEDS: ROCEPHIN 2000 MG IV ×2 (11:30→21:28)
[2024-07-27] MEDS: APRESOLINE 5 MG IV (16:44)
[2024-07-27] MEDS: FLUSH (NSS) 1 FLUSH IV (16:45)
--- NOTE | 2024-07-27 16:55 | CM ---
CM outreached to [facility] revenue liaison; Bed not available until Sunday at the earliest. Referral had been sent via [facility] on July 25. Pt will need IV abx and PICC line.
Bed not available until Sunday at the earliest.
No Physiatry consult needed per [place] liaison due to Medicare coverage.
[2024-07-27] MEDS: FLOMAX 0.4 MG PO (17:54)
[2024-07-27] MEDS: LOVENOX 40 MG SC (17:54)
[2024-07-27] MEDS: ARICEPT 15 MG PO (21:18)
[2024-07-28] MEDS: AMPICILLIN 108 MG IV ×6 (02:38→21:27)
[2024-07-28 03:48] VITALS: BP 130/73
[2024-07-28] MEDS: FLAGYL 500 MG PO ×3 (05:51→21:25)
[2024-07-28 07:40] VITALS: BP 165/74
[2024-07-28 08:40] LABS: Hematocrit 34.1 % (39.0-52.0); Hemoglobin 11.6 g/dL (13.0-18.0); Mean Corpuscular Hgb 27.9 pg (27.0-31.0); Mean Platelet Volume 9.7 fL (7.4-10.4); Platelet Count 200 10^3/uL (130-400); Red Blood Cell Count 4.16 10^6/uL (4.70-6.10); Red Cell Dist. Width 14.2 % (11.5-14.5); White Blood Cell Count 10.2 10^3/uL (4.8-10.8)
[2024-07-28 09:16] LABS: Blood Urea Nitrogen 17 mg/dl (9-20); Calcium 8.9 mg/dl (8.4-10.2); Carbon Dioxide 24 mmol/L (22-30); Chloride 106 mmol/L (98-107); Estimated Creatinine Clearance 56 ml/min; Glucose 96 mg/dl (70-99); Magnesium 1.8 mg/dl (1.6-2.3); Sodium 140 mmol/L (135-145); eGFR > 60.00
[2024-07-28] MEDS: NAMENDA 5 MG PO ×2 (09:30→21:26)
[2024-07-28] MEDS: PROTONIX 40 MG PO (09:30)
[2024-07-28] MEDS: DESENEX/MITRAZOL/ZEASORB 1 APPLIC TOPICAL ×2 (09:30→21:30)
[2024-07-28] MEDS: SINEMET CR 25-100 (EXTENDED RELEASE) 1 TABLET PO ×3 (09:30→21:26)
[2024-07-28] MEDS: PROSCAR 5 MG PO (09:30)
[2024-07-28] MEDS: VISBIOME 1 CAP PO (09:30)
[2024-07-28] MEDS: ZONEGRAN 25 MG PO (09:30)
[2024-07-28] MEDS: VITAMIN C 500 MG PO (09:31)
[2024-07-28] MEDS: STERILE WATER FOR INJECTION 20 ML IV ×2 (09:31→21:27)
[2024-07-28] MEDS: ROCEPHIN 2000 MG IV ×2 (09:31→21:27)
[2024-07-28] MEDS: FLUSH (NSS) 2 FLUSH IV ×3 (09:34→17:53)
--- NOTE | 2024-07-28 10:23 | W.PN.HOSP.TC ---
Addendum entered and electronically signed by Grayson Cobb DO 07/28/24 11:06:
Updated daughter at the bedside. All questions answered.
Original Note:
Today's Communication/Plan
-
Continue current care
Assessment / Plan
Assessment / Plan
Gen-AAOx3, NAD
HEENT-NC, AT, anicteric, clear oral mm
Neck-supple
CV-reg, no M, +S1/S2
Lungs-clear B/L
Abd-soft, NT, ND
Ext-no edema
Musculoskeletal-no cyanosis, clubbing
Skin-warm and dry
Neuro-grossly non-focal
Psych-calm, cooperative
Enterococcus bacteremia -- suspected urinary source though unable to confirm as urine culture with mixed gaudencio--CT showed ureteral dilation, signs of passed stones in bladder, small bilateral effusions-Currently on IV ceftriaxone/ampicillin/flagyl;
TTE negative--apprec ID--looking at possibility of needing ABX for 6 weeks--not planning YONIS, will need PICC.
Mandibular x-ray shows 1.2 cm lytic lesion around the remaining root of the left posterior mandibular tooth, suspicious for dental abscess. Tried to consult oral surgery but no one is on-call today, given the holiday. Will try tomorrow.
Parkinson's Disease with dementia--Medications include Sinemet, on Zonegran to limit side effects--Appears stable on his current regimen--family wants [facility]--has been in [facility] acute re[facility] in May with much improvement (as per
daughter)--consulted Dr. Haider
BPH--Home regimen includes Flomax and Proscar--Will monitor for signs of urine retention, bladder scan protocol
GERD--No known history of Hendrix's esophagus or erosive disease--Stable on home PPI therapy daily
Prerenal MALLORY (resolved)--In the context of sepsis, creatinine peaked at 1.5, resolved with IVF
DVT prophylaxis: SCDs
CODE STATUS: Full code
Dispo -awaiting acute rehab.
Anticipated Discharge: Within 24 hours
Subjective/Interval History
-
Date of Service: July 28, 2024
Patient seen and examined. Eating breakfast. No complaints.
Objective Data
-
Labs:
Laboratory Results
07/28/24
08:09
WBC 10.2
Hgb 11.6 L
Hct 34.1 L
Plt Count 200
Sodium 140
Potassium 4.0
Chloride 106
Carbon Dioxide 24
BUN 17
Creatinine 1.1
Glucose 96
Calcium 8.9
Vital Signs:
Vital Signs
Temp Pulse Resp BP Pulse Ox
97.8 F 58 24 165/74 94
07/28/24 07:40 07/28/24 07:40 07/28/24 07:40 07/28/24 07:40 07/28/24 07:40
I&O
07/27/24 07/28/24 07/29/24
06:59 06:59 06:59
Intake Total 800 / 800 590 / 590
Balance 800 / 800 590 / 590
Review of Systems
-
Unable to obtain full review of systems at this time due to: Dementia
History Source: Patient
All other systems: Reviewed and negative
[2024-07-28 11:25] VITALS: BP 129/67
--- NOTE | 2024-07-28 12:05 | W.PN.ID1 ---
Date of Service
Date of Service: July 28, 2024
Today's Communication
See below.
Assessment / Plan
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
Enterococcal, Bacteroides Bacteremia
Left mandibular abscess
Reported allergy to penicillin - unknown. Tolerating ampicillin.
Note urology concern possible neurogenic bladder
Dementia
- 3 minor criteria for endocarditis - predisposing lesion, splinter hemorrhages, single positive blood culture CA enterococcus
- urine culture polymicrobial - suspect initial source was likely urinary, now with possible endocarditis
- single blood culture with enterococcus and bacteroides
- repeat blood cultures x2 in progress no growth to date
- advise against trending procalcitonin for bacteremia - it is not well validated and would not change my management
- TTE with sclerosis but no wilfred vegetation - given frailty of patient doubt patient would be a surgical candidate, would not plan on YONIS as risks likely > benefits, empiric treatment may be considered pending course
- CT a/p without gross lesions
- Continue IV ampicillin.
- Continue ceftriaxone 2g IV q12, as synergy with ampicillin for suspected invasive E. faecalis.
-Continue oral metronidazole (d3) to cover the anaerobe.
- likely 6 week course of IV antibiotics as per Dr Olson who will arrange for home IV abx.
- Per daughter, pt with 2 weeks of left lower tooth pain prior to admission. Last summer, dentist had recommended tooth extraction before it becomes infected. However, pt cannot receive sedation and therefore procedure delayed.
Enterococcus and Bacteroides are not typical oral gaudencio. Regardless, tooth abscess needs to be addressed with extraction. Recommend he sees an oral surgeon for best course of action. The current antibiotics cover odontogenic infections.
Chief Complaint
-: Bacteremia
Subjective / Review of Systems
Daughter at bedside. She wants to take him home soon.
Vital Signs / Physical Exam
Vital Signs
Vital Signs
Temp Pulse Resp BP Pulse Ox
97.8 F 58 24 165/74 94
07/28/24 07:40 07/28/24 07:40 07/28/24 07:40 07/28/24 07:40 07/28/24 07:40
Physical Exam
Constitutional: No Acute Distress
Cardiovascular: Regular Rate and S1/S2
Pulmonary: Clear
Gastrointestinal: Soft, Non Tender, Non Distended and Normal Bowel Sounds
Genito-Urinary: Negative CVA Tenderness
Objective Data
Lab Data
Lab Results
07/28/24 08:09
07/28/24 08:09
Estimated Creat Clear 56 ml/min 07/28/24 08:09
Lactic Acid Cancelled 07/22/24 23:45
Total Bilirubin 0.6 mg/dl (0.2-1.3) 07/22/24 19:44
AST 21 U/L (17-59) 07/22/24 19:44
ALT < 10 U/L (0-50) 07/22/24 19:44
Alkaline Phosphatase 98 U/L (38-126) 07/22/24 19:44
Most recent labs reviewed.
Micro Results:
07/24/24 18:13 Blood Culture - Preliminary
Blood/Venous No Growth in 72 hours- Final report to follow
07/24/24 17:35 Blood Culture - Preliminary
Blood/Venous No Growth in 72 hours- Final report to follow
07/22/24 19:44 Blood Culture - Final
Blood/Venous Enterococcus faecalis
Bacteroides distasonis
Gram Stain - Final
07/23/24 16:12 MRSA Screen - Final
Nose No Methicillin Resistant Staphylococcus aureus isolated.
07/22/24 19:44 Urine Culture - Final
Urine
07/23/24 CT C/A/P: There is dilation of the left proximal and mid ureter measuring up to 1.9 cm with nondistended distal ureter, however no discrete discrete obstructing stone visualized. Calcification within the right posterior lateral aspect of
the urinary bladder, possible stones. Colonic diverticulosis without evidence of acute diverticulitis. Normal appendix.
07/27/24 Mandible XRAY: 1.2 cm lytic lesion around the remaining root of a left posterior mandibular tooth suspicious for a left-sided mandibular dental abscess.
[2024-07-28 14:11] LABS: Rheumatoid Agglutinin Less Than 10 IU (<10 IU)
[2024-07-28 14:30] VITALS: BP 162/89; PULSE 58; O2SAT 96
[2024-07-28 15:40] VITALS: BP 143/76
[2024-07-28] MEDS: LOVENOX 40 MG SC (17:53)
[2024-07-28] MEDS: FLOMAX 0.4 MG PO (17:53)
[2024-07-28] MEDS: ARICEPT 15 MG PO (21:25)
[2024-07-28 23:42] VITALS: BP 141/79
[2024-07-29] MEDS: AMPICILLIN 108 MG IV ×6 (01:30→21:55)
[2024-07-29] MEDS: FLAGYL 500 MG PO ×3 (05:56→21:53)
[2024-07-29 07:45] VITALS: BP 167/90
[2024-07-29] MEDS: DESENEX/MITRAZOL/ZEASORB 1 APPLIC TOPICAL ×2 (08:06→19:51)
[2024-07-29] MEDS: VITAMIN C 500 MG PO (08:07)
[2024-07-29] MEDS: PROTONIX 40 MG PO (08:07)
[2024-07-29] MEDS: ZONEGRAN 25 MG PO (08:07)
[2024-07-29] MEDS: SINEMET CR 25-100 (EXTENDED RELEASE) 1 TABLET PO ×3 (08:07→21:53)
[2024-07-29] MEDS: PROSCAR 5 MG PO (08:07)
[2024-07-29] MEDS: VISBIOME 1 CAP PO (08:07)
[2024-07-29] MEDS: NAMENDA 5 MG PO ×2 (08:07→19:52)
--- NOTE | 2024-07-29 09:41 | W.PN.HOSP.TC ---
Today's Communication/Plan
-
Discharge planning
Assessment / Plan
Assessment / Plan
Gen-AAOx3, NAD
HEENT-NC, AT, anicteric, clear oral mm
Neck-supple
CV-reg, no M, +S1/S2
Lungs-clear B/L
Abd-soft, NT, ND
Ext-no edema
Musculoskeletal-no cyanosis, clubbing
Skin-warm and dry
Neuro-grossly non-focal
Psych-calm, cooperative
Enterococcus bacteremia -- suspected urinary source though unable to confirm as urine culture with mixed gaudencio--CT showed ureteral dilation, signs of passed stones in bladder, small bilateral effusions-Currently on IV ceftriaxone/ampicillin/flagyl;
TTE negative--apprec ID--looking at possibility of needing ABX for 6 weeks--not planning YONIS, will need PICC.
Mandibular x-ray shows 1.2 cm lytic lesion around the remaining root of the left posterior mandibular tooth, suspicious for dental abscess.
Oral surgery is not available in our hospital and patient will require outpatient oral surgery evaluation.
Parkinson's Disease with dementia--Medications include Sinemet, on Zonegran to limit side effects--Appears stable on his current regimen--family wants [facility]--has been in [facility] acute rehab in May with much improvement (as per
daughter)--consulted Dr. Haider
BPH--Home regimen includes Flomax and Proscar--Will monitor for signs of urine retention, bladder scan protocol
GERD--No known history of Hendrix's esophagus or erosive disease--Stable on home PPI therapy daily
Prerenal MALLORY (resolved)--In the context of sepsis, creatinine peaked at 1.5, resolved with IVF
DVT prophylaxis: SCDs
CODE STATUS: Full code
Dispo -awaiting acute rehab. Medically stable for discharge. Case management aware.
Anticipated Discharge: Within 24 hours
Subjective/Interval History
-
Date of Service: July 29, 2024
Patient seen and examined. No complaints.
Objective Data
-
Vital Signs:
Vital Signs
Temp Pulse Resp BP Pulse Ox
97.3 F 58 16 167/90 96
07/29/24 07:45 07/29/24 07:45 07/29/24 07:45 07/29/24 07:45 07/29/24 07:45
I&O
07/28/24 07/29/24 07/30/24
06:59 06:59 06:59
Intake Total 590 / 590 250 / 250
Balance 590 / 590 250 / 250
Review of Systems
-
History Source: Patient
All other systems: Reviewed and negative
[2024-07-29] MEDS: STERILE WATER FOR INJECTION 20 ML IV ×2 (10:16→21:55)
[2024-07-29] MEDS: ROCEPHIN 2000 MG IV ×2 (10:16→21:55)
--- NOTE | 2024-07-29 11:20 | W.PN.ID1 ---
Date of Service
Date of Service: July 29, 2024
Today's Communication
- 6 week course of IV antibiotics through 09/02/24 - script provided to correctional case records supervisor
stable for dc when outpatient IV antibiotics arranged
Assessment / Plan
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
Enterococcal, Bacteroides Bacteremia
Left mandibular abscess
<del>Reported</del> <del>allergy</del> <del>to</del> <del>penicillin</del> <del>-</del> <del>unknown.</del> passed ampicillin challenge, patient is not allergic, removed
Note urology concern possible neurogenic bladder
Dementia
- 3 minor criteria for endocarditis - predisposing lesion, splinter hemorrhages, single positive blood culture CA enterococcus
- urine culture polymicrobial - suspect initial source was likely urinary, now with possible endocarditis
- single blood culture with enterococcus and bacteroides
- repeat blood cultures x2 in progress no growth to date
- CT a/p without gross lesions
- Continue IV ampicillin. - 6 week course through 09/02/24 - script provided to correctional case records supervisor
- Continue ceftriaxone 2g IV q12 - 6 week course through 09/02/24 - script provided to correctional case records supervisor
- Continue oral metronidazole (d4 of 14) to cover the anaerobe through 08/07
- Per daughter, pt with 2 weeks of left lower tooth pain prior to admission. Last summer, dentist had recommended tooth extraction before it becomes infected. However, pt cannot receive sedation and therefore procedure delayed.
- tooth abscess needs to be addressed with extraction - ideally within the next two weeks. Recommend he sees an oral surgeon for best course of action. The current antibiotics cover odontogenic infections.
stable for dc when outpatient IV antibiotics arranged
Chief Complaint
-: Bacteremia
Subjective / Review of Systems
afebrile
bp stable
does report some tooth pain 'I can feel it'
bacteroids is oral gaudencio, enterococcus occasionally described as oral gaudencio, however not common, would still treat as community acquired enterococcus especially with history of bladder dysfunction and likely stone
Vital Signs / Physical Exam
Vital Signs
Vital Signs
Temp Pulse Resp BP Pulse Ox
97.3 F 58 16 167/90 96
07/29/24 07:45 07/29/24 07:45 07/29/24 07:45 07/29/24 07:45 07/29/24 07:45
Physical Exam
Constitutional: No Acute Distress
Cardiovascular: Regular Rate and S1/S2; Negative Murmur or Rub
Pulmonary: Clear and Symmetric; Negative Wheezes or Rales
Gastrointestinal: Soft, Non Tender, Non Distended and Normal Bowel Sounds
Skin: Warm and Dry; Negative Rash or Jaundice
Objective Data
Lab Data
Lab Results
07/28/24 08:09
07/28/24 08:09
Estimated Creat Clear 56 ml/min 07/28/24 08:09
Lactic Acid Cancelled 07/22/24 23:45
Total Bilirubin 0.6 mg/dl (0.2-1.3) 07/22/24 19:44
AST 21 U/L (17-59) 07/22/24 19:44
ALT < 10 U/L (0-50) 07/22/24 19:44
Alkaline Phosphatase 98 U/L (38-126) 07/22/24 19:44
Most recent labs reviewed.
Micro Results:
07/24/24 18:13 Blood Culture - Preliminary
Blood/Venous No Growth in 4 days- Final report to follow
07/24/24 17:35 Blood Culture - Preliminary
Blood/Venous No Growth in 4 days- Final report to follow
07/22/24 19:44 Blood Culture - Final
Blood/Venous Enterococcus faecalis
Bacteroides distasonis
Gram Stain - Final
07/23/24 16:12 MRSA Screen - Final
Nose No Methicillin Resistant Staphylococcus aureus isolated.
07/22/24 19:44 Urine Culture - Final
Urine
07/23/24 CT C/A/P: There is dilation of the left proximal and mid ureter measuring up to 1.9 cm with nondistended distal ureter, however no discrete discrete obstructing stone visualized. Calcification within the right posterior lateral aspect of
the urinary bladder, possible stones. Colonic diverticulosis without evidence of acute diverticulitis. Normal appendix.
07/27/24 Mandible XRAY: 1.2 cm lytic lesion around the remaining root of a left posterior mandibular tooth suspicious for a left-sided mandibular dental abscess.
Care Review
Plan reviewed with: Nurse
--- NOTE | 2024-07-29 11:54 | CON.MD ---
Documented by User: Vicky Lopez MD, Resident 07/29/24 20:42
Consultation - Medical
-
Referring Provider: Reza Galicia MD
Chief Complaint: Debility
History of Present Illness:
The patient is a 73 year old male who presented to ER on 07/22/24 complaining from fever and blood in his urine. The patient had chills and was not feeling well. His daughter reported that this was his third time UTI. Additionally the patient had
diarrhea and burning while urinating at that time with a temperature of 103 F. Blood and urine cultures were sent. The patient blood culture was positive with enterococcus and had another blood culture positive with MRSA. His last 2 blood culture
resulted with no growth. ID did asses the patient and started on IV antibiotics and planning to continue IV antibiotic treatment until 09/02/24 due a possible endocarditis.
Past Medical History:
Dementia and Parkinson's disease with ambulatory dysfunction
Benign prostate hypertrophy
Hypertension
Gastroesophageal reflux disease
Parkinson's Disease, on home donepezil, Sinemet, zonisamide. As per family zonisamide aids in side effects of his Sinemet
Dementia
Procedure History: Urological (Prostate artery embolization 05/15/2024 at [place]) and Other (Descanso teeth)
Family History: Non relevant
Social History: and lives with
Functional Level Premorbidly: Assisted, rolling walker
Functional Level Currently: Bed Mobility:-Supine to sit- Maximum assistance -Sit to supine- Maximum assistance/ Transfer -Sit to stand- Moderate assistance/ -Stand to sit- Minimal assistance/ [Ambulation/Weight Bearing/Gait]: Ambulation Pt
ambulated 2 ft forward and back with RW and mod assist of 2. After sitting and resting, pt stood and side stepped toward HOB with mod assist of 2. Needs assistance with walker management
Tobacco: Denies
Alcohol: Denies
Drug use: Denies
Lives with:
24-hour assistance available: Yes by
Number of floors: one story home
# steps to enter: first floor
# steps to second floor:
Potential First floor set up:available
Driving: No
Occupation: Retired
Allergies
Allergy/AdvReac Type Severity Reaction Status Date / Time
No Known Allergies Allergy Unverified 07/29/24 11:29
Home Medications
isradipine 2.5 mg capsule 2.5 mg PO HS Blood Pressure 03/23/24
zonisamide 25 mg capsule 25 mg PO DAILY Seizures 03/23/24
ascorbic acid (vitamin C) 500 mg tablet (Vitamin C) 500 mg PO DAILY Supplement 05/17/24
carbidopa ER 25 mg-levodopa 100 mg tablet,extended release 1 tab PO TID PARKINSON'S 05/17/24
finasteride 5 mg tablet 5 mg PO DAILY Urinary Issue 05/17/24
tamsulosin 0.4 mg capsule 0.4 mg PO QPM Urinary Issue 05/17/24
therapeutic multivitamin 1 tab PO DAILY Supplement 05/17/24
Lactobac no.2-Bifidobac no.1-S. thermo 112.5 billion cell capsule (Visbiome) 1 cap PO DAILY Gastrointestinal Issue 07/22/24
memantine 7 mg capsule sprinkle,extended release 24hr 7 mg PO DAILY cognative health 07/22/24
omeprazole 40 mg capsule,delayed release 40 mg PO DAILY Gastrointestinal Issue 07/22/24
donepezil 10 mg tablet 15 mg PO HS 07/24/24
Review of Systems:
Constitutional: (x) Normal _
Eye: (x) Normal _
Ear/Nose/Throat: (x) Normal _
Respiratory: (x) Normal _
Cardiovascular: (x) Normal _
Gastrointestinal: (x) Normal
Genitourinary: (x) Had a catheter and was removed one month ago. The patient is not willing having catheter.
Musculoskeletal: (x) Has stiffness on bilateral LE
Integumentary: (x) Normal _
Neurologic: (x) Normal _
Psychiatric: (x) Normal _
Endocrine: (x) Normal _
Hematologic/Lymphatic: (x) Normal _
Allergic/Immunologic: (x) Normal _
Vitals:
Vital Signs
Temp Pulse Resp BP Pulse Ox
97.8 F 62 16 148/76 94
07/29/24 15:40 07/29/24 19:56 07/29/24 15:40 07/29/24 19:56 07/29/24 15:40
Physical Exam:
General Appearance/Observation: Well-developed, well-nourished individual in no apparent distress.
Pain/Comfort Assessment: Denies
Integumentary/Operative Site:
Pressure Ulcer Evaluation: absent over heels.
Eyes: Conjunctiva/Lids: normal Pupils: pupils equal round and reactive to light and Accommodation
Ears/Nose/Throat: oral mucosa moist, throat clear.
Neck: No muscle spasm or tenderness
Cardiovascular: Heart: regular, no murmur
Pulses: dorsalis pedis 2+ bilaterally
Respiratory: Respiratory Effort/Chest Expansion: normal Auscultation: Clear to auscultation bilaterally
Gastrointestinal: abdomen not tender, no distension, normal abdominal bowel sounds
Genitourinary: No Zapata
Rectal Exam: Deferred
Extremities: Edema: None Cyanosis: None Trophic changes: None
Neurology Exam:
Orientation: Alert, Oriented to self, Time, Place
Memory: Intact immediately
Two step command: Intact
Naming: Have difficulty with naming ( dementia)
Cranial Nerves:
CNII: Pupillary light reflex: Intact Visual Field: Intact
CN III, IV, : Extraocular muscles: Intact
CN V: Facial Sensation at Forehead: Intact, Maxilla: Intact, Mandible: Intact
CN VII: Facial movement: Symmetric
CN VIII: Hearing: Normal
CN IX/X: Speech & swallow:Difficulty with swallowing.
CN XI: Shoulder shrug: Symmetric
CN XII: Tongue protrusion: Midline
Sensory:
Light touch: Intact in bilateral upper and lower extremities
Reflexes:
Biceps: 2+ bilaterally
Brachioradialis: 2+ bilaterally
Triceps: 2+ bilaterally
Patellar: 2+ bilaterally
Achilles: 2+ bilaterally
Babinski: Down going bilaterally
Clonus: None
Terrance: Negative bilaterally
Cerebellar: Dysmetria/Ataxia: None on finger nose test
Musculoskeletal:
Motor: (Manual muscle scale 0-5) Muscle Strength on Bilateral Upper Extremities: 5/5
Motor: (Manual muscle scale 0-5) Muscle Strength on Bilateral Lower Extremities:3/5 on HF/KE/KF
Bilateral DF/PF :4-5/5
Tone: Normal in all extremities
Range of Motion: Passively within normal limits in all extremities
Lab Results
Laboratory Data
Total Bilirubin 0.6 mg/dl (0.2-1.3) 07/22/24 19:44
AST 21 U/L (17-59) 07/22/24 19:44
ALT < 10 U/L (0-50) 07/22/24 19:44
Alkaline Phosphatase 98 U/L (38-126) 07/22/24 19:44
Lab Results - Hematology
07/27/24 07/28/24
07:05 08:09
WBC 9.3 10.2
Lab Results - Chemistry
07/27/24 07/28/24
07:05 08:09
BUN 15 17
Creatinine 1.1 1.1
Estimated Creat Clear 56 56
Diagnostic Results: as per HPI
Assessment: The patient was admitted to the hospital with a concern of sepsis and his blood culture showed positivity for growth twice. It was deciided to continue his treatment with IV antibiotics until 09/02/24 with a possible diagnosis of
endocarditis. The patient has had a chronic ambulatory problem at baseline due his Parkinson and currently needs moderate assistance for mobilizing.
Plan
PM&R PT/OT to increase independence with ADLs, improve balance, coordination, endurance, strength, mobility, community reintegration, decreased burden of care on others and family education.
Enterococcus bacteremia: Currently on IV ceftriaxone/ampicillin/flagyl; TTE negative--apprec ID--looking at possibility of needing ABX for 6 weeks--not planning YONIS, will need PICC.Mandibular x-ray: suspicious for dental abscess/ require outpatient
oral surgery evaluation at outpatient setting
Parkinson's Disease with dementia: Sinemet and Zonegran
Dysphagia: speech evaluation, oral care protocol, chlorhexidine rinse after meals and HS, aspiration precautions. Advance diet as tolerated.
Dysarthria: speech evaluation
BPH: Flomax and Proscar/ monitor for signs of urine retention, bladder scan protocol
GERD PPX: PPI
Prerenal MALLORY:resolved
DVT prophylaxis: SCDs
CODE STATUS: Full code
Functional and Medical Goals: Modified Independent with ADL�s, ambulation, transfers
Discharge Destination: SNF to continue IV treatment
Summary of recommendations:
Discharge Destination: The patient can be considered for SNF to increase independence with ADLs, improve balance, coordination, endurance, strength, mobility, community reintegration, decreased burden of care on others and family education. He needs
to receive his IV antibiotics until 09/02/24 with a possible diagnosis of endocarditis. SNF would be the recommended place for this patient to receive his IV treatment properly and continue to PT/OT.
Please contact me with any questions or concerns. Thanks Dr Haider for involving me in this patient`s care.
Vicky Lopez MD
[facility]

Documented by User: Justen Haider MD 07/30/24 00:07
Consultation - Medical
-
Referring Provider: Reza Galicia MD
Chief Complaint: Debility
History of Present Illness:
The patient is a 73 year old male who presented to ER on 07/22/24 complaining from fever and blood in his urine. The patient had chills and was not feeling well. His daughter reported that this was his third time UTI. Additionally the patient had
diarrhea and burning while urinating at that time with a temperature of 103 F. Blood and urine cultures were sent. The patient blood culture was positive with enterococcus and had another blood culture positive with MRSA. His last 2 blood culture
resulted with no growth. ID did asses the patient and started on IV antibiotics and planning to continue IV antibiotic treatment until 09/02/24 due a possible endocarditis.
Past Medical History:
Dementia and Parkinson's disease with ambulatory dysfunction
Benign prostate hypertrophy
Hypertension
Gastroesophageal reflux disease
Parkinson's Disease, on home donepezil, Sinemet, zonisamide. As per family zonisamide aids in side effects of his Sinemet
Dementia
Procedure History: Urological (Prostate artery embolization 05/15/2024 at [place]) and Other (Descanso teeth)
Family History: Non relevant
Social History: and lives with
Functional Level Premorbidly: Assisted, rolling walker
Functional Level Currently: Bed Mobility:-Supine to sit- Maximum assistance -Sit to supine- Maximum assistance/ Transfer -Sit to stand- Moderate assistance/ -Stand to sit- Minimal assistance/ [Ambulation/Weight Bearing/Gait]: Ambulation Pt
ambulated 2 ft forward and back with RW and mod assist of 2. After sitting and resting, pt stood and side stepped toward HOB with mod assist of 2. Needs assistance with walker management
Tobacco: Denies
Alcohol: Denies
Drug use: Denies
Lives with:
24-hour assistance available: Yes by
Number of floors: one story home
# steps to enter: first floor
# steps to second floor:
Potential First floor set up:available
Driving: No
Occupation: Retired
Allergies
Allergy/AdvReac Type Severity Reaction Status Date / Time
No Known Allergies Allergy Unverified 07/29/24 11:29
Home Medications
isradipine 2.5 mg capsule 2.5 mg PO HS Blood Pressure 03/23/24
zonisamide 25 mg capsule 25 mg PO DAILY Seizures 03/23/24
ascorbic acid (vitamin C) 500 mg tablet (Vitamin C) 500 mg PO DAILY Supplement 05/17/24
carbidopa ER 25 mg-levodopa 100 mg tablet,extended release 1 tab PO TID PARKINSON'S 05/17/24
finasteride 5 mg tablet 5 mg PO DAILY Urinary Issue 05/17/24
tamsulosin 0.4 mg capsule 0.4 mg PO QPM Urinary Issue 05/17/24
therapeutic multivitamin 1 tab PO DAILY Supplement 05/17/24
Lactobac no.2-Bifidobac no.1-S. thermo 112.5 billion cell capsule (Visbiome) 1 cap PO DAILY Gastrointestinal Issue 07/22/24
memantine 7 mg capsule sprinkle,extended release 24hr 7 mg PO DAILY cogn[facility] health 07/22/24
omeprazole 40 mg capsule,delayed release 40 mg PO DAILY Gastrointestinal Issue 07/22/24
donepezil 10 mg tablet 15 mg PO HS 07/24/24
Review of Systems:
Constitutional: (x) Normal _
Eye: (x) Normal _
Ear/Nose/Throat: (x) Normal _
Respiratory: (x) Normal _
Cardiovascular: (x) Normal _
Gastrointestinal: (x) Normal
Genitourinary: (x) Had a catheter and was removed one month ago. The patient is not willing having catheter.
Musculoskeletal: (x) Has stiffness on bilateral LE
Integumentary: (x) Normal _
Neurologic: (x) Normal _
Psychiatric: (x) Normal _
Endocrine: (x) Normal _
Hematologic/Lymphatic: (x) Normal _
Allergic/Immunologic: (x) Normal _
Vitals:
Vital Signs
Temp Pulse Resp BP Pulse Ox
97.8 F 62 16 148/76 94
07/29/24 15:40 07/29/24 19:56 07/29/24 15:40 07/29/24 19:56 07/29/24 15:40
Physical Exam:
General Appearance/Observation: Well-developed, well-nourished individual in no apparent distress.
Pain/Comfort Assessment: Denies
Integumentary/Operative Site:
Pressure Ulcer Evaluation: absent over heels.
Eyes: Conjunctiva/Lids: normal Pupils: pupils equal round and reactive to light and Accommodation
Ears/Nose/Throat: oral mucosa moist, throat clear.
Neck: No muscle spasm or tenderness
Cardiovascular: Heart: regular, no murmur
Pulses: dorsalis pedis 2+ bilaterally
Respiratory: Respiratory Effort/Chest Expansion: normal Auscultation: Clear to auscultation bilaterally
Gastrointestinal: abdomen not tender, no distension, normal abdominal bowel sounds
Genitourinary: No Zapata
Rectal Exam: Deferred
Extremities: Edema: None Cyanosis: None Trophic changes: None
Neurology Exam:
Orientation: Alert, Oriented to self, Time, Place
Memory: Intact immediately
Two step command: Intact
Naming: Have difficulty with naming ( dementia)
Cranial Nerves:
CNII: Pupillary light reflex: Intact Visual Field: Intact
CN III, IV, : Extraocular muscles: Intact
CN V: Facial Sensation at Forehead: Intact, Maxilla: Intact, Mandible: Intact
CN VII: Facial movement: Symmetric
CN VIII: Hearing: Normal
CN IX/X: Speech & swallow:Difficulty with swallowing.
CN XI: Shoulder shrug: Symmetric
CN XII: Tongue protrusion: Midline
Sensory:
Light touch: Intact in bilateral upper and lower extremities
Reflexes:
Biceps: 2+ bilaterally
Brachioradialis: 2+ bilaterally
Triceps: 2+ bilaterally
Patellar: 2+ bilaterally
Achilles: 2+ bilaterally
Babinski: Down going bilaterally
Clonus: None
Terrance: Negative bilaterally
Cerebellar: Dysmetria/Ataxia: None on finger nose test
Musculoskeletal:
Motor: (Manual muscle scale 0-5) Muscle Strength on Bilateral Upper Extremities: 5/5
Motor: (Manual muscle scale 0-5) Muscle Strength on Bilateral Lower Extremities:4/5 on HF/KE/KF
Bilateral DF/PF :4-5/5
Tone: Normal in all extremities
Range of Motion: Passively within normal limits in all extremities
Lab Results
Laboratory Data
Total Bilirubin 0.6 mg/dl (0.2-1.3) 07/22/24 19:44
AST 21 U/L (17-59) 07/22/24 19:44
ALT < 10 U/L (0-50) 07/22/24 19:44
Alkaline Phosphatase 98 U/L (38-126) 07/22/24 19:44
Lab Results - Hematology
07/27/24 07/28/24
07:05 08:09
WBC 9.3 10.2
Lab Results - Chemistry
07/27/24 07/28/24
07:05 08:09
BUN 15 17
Creatinine 1.1 1.1
Estimated Creat Clear 56 56
Diagnostic Results: as per HPI
Assessment:
73 y/o M with PMH Parkinson's disease and dementia with Enterococcus bacteremia possibly from tooth abscess causing concern for endocarditis requiring 6 weeks of antibiotics.
Plan
PM&R PT/OT to increase independence with ADLs, improve balance, coordination, endurance, strength, mobility, community reintegration, decreased burden of care on others and family education.
Enterococcus bacteremia: Currently on IV ceftriaxone/ampicillin/flagyl; TTE negative--apprec ID--looking at possibility of needing ABX for 6 weeks--not planning YONIS, will need PICC.Mandibular x-ray: suspicious for dental abscess/ require outpatient
oral surgery evaluation at outpatient setting
- Spoke with ID and not able to use oral medications at this time, must be 6 week course.
Parkinson's Disease with dementia: Sinemet and Zonegran
Parkinson's related Dysphagia: speech evaluation, oral care protocol, aspiration precautions. On regular diet but picking softer foods.
Dysarthria: speech evaluation
Tooth infection: will need tooth extraction within the next 2 weeks per ID discussion as possibly source of infection..
BPH: Flomax and Proscar/ monitor for signs of urine retention, bladder scan protocol
GERD PPX: PPI
Prerenal MALLORY:resolved
DVT prophylaxis: SCDs
CODE STATUS: Full code
Functional and Medical Goals: Modified Independent with ADL�s, ambulation, transfers
Discharge Destination: SNF to continue IV treatment. The patient was admitted to the hospital with a concern of sepsis and his blood culture showed positivity for growth twice. It was decided to continue his treatment with IV antibiotics until
09/02/24 with a possible diagnosis of endocarditis. The patient has had a chronic ambulatory problem at baseline due his Parkinson and currently needs moderate assistance for mobilizing.
Summary of recommendations:
Discharge Destination: The patient can be considered for SNF to increase independence with ADLs, improve balance, coordination, endurance, strength, mobility, community reintegration, decreased burden of care on others and family education. He needs
to receive his IV antibiotics until 09/02/24 with a possible diagnosis of endocarditis. SNF would be the recommended place for this patient to receive his IV treatment properly and continue to PT/OT.
Enterococcus bacteremia: Currently on IV ceftriaxone/ampicillin/flagyl; TTE negative--apprec ID--looking at possibility of needing ABX for 6 weeks--not planning YONIS, will need PICC.Mandibular x-ray: suspicious for dental abscess/ require outpatient
oral surgery evaluation at outpatient setting
- Spoke with ID and not able to use oral medications at this time, must be 6 week course.
Please contact me with any questions or concerns. Thanks Dr Haider for involving me in this patient`s care.
Vicky Lopez MD
[facility]
Attending Statement:
I saw and examined the patient with Dr. Lopez 07/29/24.� Reviewed care plan with patient, ID, and resident.� I agree with the above subjective and physical exam, and plan as documented with adjustments made as necessary. Overall
--- NOTE | 2024-07-29 15:15 | CM ---
MARGY contacted [facility] today to check status of bed availability. She will get back to me about transfer pending bed availability. No precert needed for acute rehab transfer, as pt has Medicare primary.
MARGY spoke with Jake's daughter to update her about [facility] transfer; she is aware that no bed is currently available. Daughter advised that Jake had previously been at [facility] and made amazing progress, so she is really hopeful that he
will be able to be transferred to [facility].
Plan: CM will continue to follow; await IP Rehab bed at [facility].
[2024-07-29 15:40] VITALS: BP 176/83
[2024-07-29] MEDS: LOVENOX 40 MG SC (17:05)
[2024-07-29 19:00] VITALS: BP 126/68; BP 138/71; PULSE 111; PULSE 74; PULSE 78
[2024-07-29] MEDS: FLOMAX 0.4 MG PO (19:52)
[2024-07-29] MEDS: ARICEPT 15 MG PO (19:52)
[2024-07-29 22:42] VITALS: BP 138/73
[2024-07-30] MEDS: AMPICILLIN 108 MG IV ×6 (02:01→21:58)
[2024-07-30] MEDS: FLAGYL 500 MG PO ×3 (06:04→21:58)
[2024-07-30 06:59] VITALS: BP 157/71
[2024-07-30] MEDS: DESENEX/MITRAZOL/ZEASORB 1 APPLIC TOPICAL ×2 (09:39→21:57)
[2024-07-30] MEDS: ZONEGRAN 25 MG PO (09:40)
[2024-07-30] MEDS: SINEMET CR 25-100 (EXTENDED RELEASE) 1 TABLET PO ×3 (09:40→21:57)
[2024-07-30] MEDS: VISBIOME 1 CAP PO (09:40)
[2024-07-30] MEDS: PROSCAR 5 MG PO (09:40)
[2024-07-30] MEDS: FLOMAX 0.4 MG PO ×2 (09:40→21:58)
--- NOTE | 2024-07-30 09:40 | W.PN.HOSP.TC ---
Today's Communication/Plan
-
Discharge planning
Assessment / Plan
Assessment / Plan
Gen-AAOx3, NAD
HEENT-NC, AT, anicteric, clear oral mm
Neck-supple
CV-reg, no M, +S1/S2
Lungs-clear B/L
Abd-soft, NT, ND
Ext-no edema
Musculoskeletal-no cyanosis, clubbing
Skin-warm and dry
Neuro-grossly non-focal
Psych-calm, cooperative
Enterococcus bacteremia -- suspected urinary source though unable to confirm as urine culture with mixed gaudencio--CT showed ureteral dilation, signs of passed stones in bladder, small bilateral effusions-Currently on IV ceftriaxone/ampicillin/flagyl;
TTE negative--apprec ID--looking at possibility of needing ABX for 6 weeks--not planning YONIS. PICC line placed in right upper extremity.
ID recommends 6 weeks of ampicillin and ceftriaxone until September 02. Oral metronidazole until August 07.
Mandibular x-ray shows 1.2 cm lytic lesion around the remaining root of the left posterior mandibular tooth, suspicious for dental abscess.
Oral surgery is not available in our hospital and patient will require outpatient oral surgery evaluation.
Parkinson's Disease with dementia--Medications include Sinemet, on Zonegran to limit side effects--Appears stable on his current regimen--family wants [facility]--has been in [facility] in May with much improvement (as per daughter),
physiatry evaluated the patient.
BPH--Home regimen includes Flomax and Proscar--Will monitor for signs of urine retention, bladder scan protocol
GERD--No known history of Hendrix's esophagus or erosive disease--Stable on home PPI therapy daily
Prerenal MALLORY (resolved)--In the context of sepsis, creatinine peaked at 1.5, resolved with IVF
DVT prophylaxis: SCDs
CODE STATUS: Full code
Dispo -awaiting acute rehab. Medically stable for discharge. Case management aware.
Anticipated Discharge: Within 24 hours
Subjective/Interval History
-
Date of Service: July 30, 2024
Patient seen and examined. No complaints.
Objective Data
-
Vital Signs:
Vital Signs
Temp Pulse Resp BP Pulse Ox
98.6 F 57 22 157/71 94
07/30/24 06:59 07/30/24 06:59 07/30/24 06:59 07/30/24 06:59 07/30/24 09:32
I&O
07/29/24 07/30/24 07/31/24
06:59 06:59 06:59
Intake Total 250 / 250 1048 / 1048
Output Total 450 / 450
Balance 250 / 250 598 / 598
Review of Systems
-
History Source: Patient
All other systems: Reviewed and negative
[2024-07-30] MEDS: PROTONIX 40 MG PO (09:41)
[2024-07-30] MEDS: NAMENDA 5 MG PO ×2 (09:41→21:58)
[2024-07-30] MEDS: VITAMIN C 500 MG PO (09:41)
[2024-07-30] MEDS: STERILE WATER FOR INJECTION 20 ML IV ×2 (09:42→21:59)
[2024-07-30] MEDS: FLUSH (NSS) 1 FLUSH IV ×4 (09:42→17:46)
[2024-07-30] MEDS: ROCEPHIN 2000 MG IV ×2 (09:42→21:59)
[2024-07-30 15:00] VITALS: BP 145/74; PULSE 66; O2SAT 97
[2024-07-30 15:08] VITALS: BP 121/69
[2024-07-30 15:45] VITALS: BP 145/74; PULSE 66; O2SAT 97
--- NOTE | 2024-07-30 15:45 | PTCARENOTE ---
Pt AAO x3, sl forgetful at times; speech slow/soft; occ slurred. CONLEY slowly/stiffly; assists minimally with positioning. OOB to chair with PT assist x2/walker, yovany OOB activity. VSS. On room air- pulse ox 96%, no SOB noted. Abd obese, soft, yovany
PO; appetite fair. Aspiration prec maintained. Incont large amts urine. Rt upper arm single PICC P/I; no sx of infiltration. at bedside. Will continue to monitor.
--- NOTE | 2024-07-30 15:52 | W.PN.ID1 ---
Date of Service
Date of Service: July 30, 2024
Today's Communication
- Continue IV ampicillin. - 6 week course through 09/02/24
- Continue ceftriaxone 2g IV q12 - 6 week course through 09/02/24
- Continue oral metronidazole (d4 of 14) to cover the anaerobe through 08/07
- if patient is planned to go home rather than rehab, or to rehab and then home; then ampicillin could be transitioned to a continuous infusion which will be simpler to administer at home. Please notify me sunday- prior to a planned
discharge if a new script and set up with home infusion company needed, sunday-sunday home infusions generally cannot be arranaged as home infusion companies typically do not accept new patients until the following sunday.
- tooth abscess needs to be addressed with extraction. Recommend he sees an oral surgeon for best course of action shortly after discharge from rehab. The current antibiotics cover odontogenic infections.
Assessment / Plan
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
Enterococcal, Bacteroides Bacteremia
Left mandibular abscess
<del>Reported</del> <del>allergy</del> <del>to</del> <del>penicillin</del> <del>-</del> <del>unknown.</del> passed ampicillin challenge, patient is not allergic, removed
Note urology concern possible neurogenic bladder
Dementia
- 3 minor criteria for endocarditis - predisposing lesion, splinter hemorrhages, single positive blood culture CA enterococcus - recommend treatment for possible endocarditis
- urine culture polymicrobial - suspect initial source was likely urinary, now with possible endocarditis
- single blood culture with enterococcus and bacteroides
- repeat blood cultures x2 in progress no growth to date
- CT a/p without gross lesions
- Continue IV ampicillin. - 6 week course through 09/02/24
- Continue ceftriaxone 2g IV q12 - 6 week course through 09/02/24
- Continue oral metronidazole (d4 of 14) to cover the anaerobe through 08/07
- if patient is planned to go home rather than rehab, or to rehab and then home; then ampicillin could be transitioned to a continuous infusion which will be simpler to administer at home. Please notify me sunday- prior to a planned
discharge if a new script and set up with home infusion company needed, sunday-sunday home infusions generally cannot be arranaged as home infusion companies typically do not accept new patients until the following sunday.
- Per daughter, pt with 2 weeks of left lower tooth pain prior to admission. Last summer, dentist had recommended tooth extraction before it becomes infected. However, pt cannot receive sedation and therefore procedure delayed.
- tooth abscess needs to be addressed with extraction. Recommend he sees an oral surgeon for best course of action shortly after discharge from rehab. The current antibiotics cover odontogenic infections.
stable for dc when outpatient IV antibiotics arranged
Chief Complaint
-: Bacteremia
Subjective / Review of Systems
afebrile
incontinent urine
picc in place
more alert and eating dinner
Vital Signs / Physical Exam
Vital Signs
Vital Signs
Temp Pulse Resp BP Pulse Ox
98.6 F 57 22 157/71 96
07/30/24 06:59 07/30/24 06:59 07/30/24 06:59 07/30/24 06:59 07/30/24 15:41
Physical Exam
Constitutional: No Acute Distress
Cardiovascular: Regular Rate and S1/S2; Negative Murmur or Rub
Pulmonary: Clear and Symmetric; Negative Wheezes or Rales
Gastrointestinal: Soft, Non Tender, Non Distended and Normal Bowel Sounds
Skin: Warm and Dry; Negative Rash or Jaundice
Lines: PICC
Objective Data
Lab Data
Lab Results
07/28/24 08:09
07/28/24 08:09
Estimated Creat Clear 56 ml/min 07/28/24 08:09
Lactic Acid Cancelled 07/22/24 23:45
Total Bilirubin 0.6 mg/dl (0.2-1.3) 07/22/24 19:44
AST 21 U/L (17-59) 07/22/24 19:44
ALT < 10 U/L (0-50) 07/22/24 19:44
Alkaline Phosphatase 98 U/L (38-126) 07/22/24 19:44
Most recent labs reviewed.
Micro Results:
07/24/24 18:13 Blood Culture - Final
Blood/Venous No Growth - Final Report
07/24/24 17:35 Blood Culture - Final
Blood/Venous No Growth - Final Report
07/22/24 19:44 Blood Culture - Final
Blood/Venous Enterococcus faecalis
Bacteroides distasonis
Gram Stain - Final
07/23/24 16:12 MRSA Screen - Final
Nose No Methicillin Resistant Staphylococcus aureus isolated.
07/22/24 19:44 Urine Culture - Final
Urine
07/23/24 CT C/A/P: There is dilation of the left proximal and mid ureter measuring up to 1.9 cm with nondistended distal ureter, however no discrete discrete obstructing stone visualized. Calcification within the right posterior lateral aspect of
the urinary bladder, possible stones. Colonic diverticulosis without evidence of acute diverticulitis. Normal appendix.
07/27/24 Mandible XRAY: 1.2 cm lytic lesion around the remaining root of a left posterior mandibular tooth suspicious for a left-sided mandibular dental abscess.
Care Review
Plan reviewed with: Physician (Dr Reza garcia)
--- NOTE | 2024-07-30 17:44 | CM ---
met with patient and daughter at bedside and spoke with [facility] many times.[facility] with patient's family administering q 4hrs iv ampicillin after he is dc form [facility].spoke with
resident with physiatry,dr duc champagne and dr garcia.family has agreed to hire a hc worker to giave the 4 hr ampicillin when dc from [facility] would like a letter of commitment that they will either hire someone or family will administer
remaining iv abx once dc.however per id-may be able to change ampicillin to a continuous infusion after dc from [facility].
I sent dr champagne tt asking him what he wants on commitment letter and he has not answered this question.per austyn at [facility] no nbed available until sunday.Plan:hopefully [facility] rehab on sunday.
[2024-07-30] MEDS: LOVENOX 40 MG SC (17:46)
[2024-07-30] MEDS: ARICEPT 15 MG PO (21:57)
[2024-07-30 23:33] VITALS: BP 146/75
[2024-07-31] MEDS: AMPICILLIN 108 MG IV ×6 (02:30→21:10)
--- NOTE | 2024-07-31 05:32 | PTCARENOTE ---
Pt with only one saturated void this shift. Bladder scanned for 540 mL. Straight cathed via sterile technique for 600 mL ciara/malodorous urine. Tolerated well. Plan of care ongoing.
[2024-07-31] MEDS: TYLENOL 650 MG PO (06:00)
[2024-07-31] MEDS: FLAGYL 500 MG PO ×3 (06:01→21:08)
[2024-07-31 06:59] VITALS: BP 156/77
[2024-07-31] MEDS: FLUSH (NSS) 2 FLUSH IV ×3 (10:13→17:21)
[2024-07-31] MEDS: ROCEPHIN 2000 MG IV ×2 (10:14→21:07)
[2024-07-31] MEDS: ZONEGRAN 25 MG PO (10:14)
[2024-07-31] MEDS: STERILE WATER FOR INJECTION 20 ML IV ×2 (10:14→21:09)
[2024-07-31] MEDS: FLOMAX 0.4 MG PO ×2 (10:15→19:52)
[2024-07-31] MEDS: PROTONIX 40 MG PO (10:15)
[2024-07-31] MEDS: NAMENDA 5 MG PO ×2 (10:18→19:52)
[2024-07-31] MEDS: VITAMIN C 500 MG PO (10:18)
[2024-07-31] MEDS: SINEMET CR 25-100 (EXTENDED RELEASE) 1 TABLET PO ×3 (10:18→21:09)
[2024-07-31] MEDS: PROSCAR 5 MG PO (10:18)
[2024-07-31] MEDS: VISBIOME 1 CAP PO (10:19)
[2024-07-31] MEDS: DESENEX/MITRAZOL/ZEASORB 1 APPLIC TOPICAL ×2 (10:24→19:52)
--- NOTE | 2024-07-31 11:46 | W.PN.HOSP.TC ---
Addendum entered and electronically signed by Grayson Cobb DO 07/31/24 14:22:
Daughter Linda updated on the phone again.
I have reached out to infectious disease as well as physiatry service to expedite transfer to [facility]. Infectious disease willing to adjust dosing of ampicillin to ease the burden of the frequency.
Original Note:
Today's Communication/Plan
-
Discharge planning
Assessment / Plan
Assessment / Plan
Gen-AAOx3, NAD
HEENT-NC, AT, anicteric, clear oral mm
Neck-supple
CV-reg, no M, +S1/S2
Lungs-clear B/L
Abd-soft, NT, ND
Ext-no edema
Musculoskeletal-no cyanosis, clubbing
Skin-warm and dry
Neuro-grossly non-focal
Psych-calm, cooperative
Enterococcus bacteremia -- suspected urinary source though unable to confirm as urine culture with mixed gaudencio--CT showed ureteral dilation, signs of passed stones in bladder, small bilateral effusions-Currently on IV ceftriaxone/ampicillin/flagyl;
TTE negative--apprec ID--looking at possibility of needing ABX for 6 weeks--not planning YONIS. PICC line placed in right upper extremity.
ID recommends 6 weeks of ampicillin and ceftriaxone until September 02. Oral metronidazole until August 07.
Mandibular x-ray shows 1.2 cm lytic lesion around the remaining root of the left posterior mandibular tooth, suspicious for dental abscess.
Oral surgery is not available in our hospital and patient will require outpatient oral surgery evaluation.
Parkinson's Disease with dementia--Medications include Sinemet, on Zonegran to limit side effects--Appears stable on his current regimen--family wants [facility]--has been in [facility] in May with much improvement (as per daughter),
physiatry evaluated the patient.
BPH--Home regimen includes Flomax and Proscar--Will monitor for signs of urine retention, bladder scan protocol
GERD--No known history of Hendrix's esophagus or erosive disease--Stable on home PPI therapy daily
Prerenal MALLORY (resolved)--In the context of sepsis, creatinine peaked at 1.5, resolved with IVF
DVT prophylaxis: SCDs
CODE STATUS: Full code
Dispo -awaiting acute rehab. Medically stable for discharge. Case management aware.
[facility] and they plan to obtain a private duty nurse to assist with IV antibiotic administration to complete the 6-week course at home.
Discussed with Dr. Haider.
Anticipated Discharge: Within 24 hours
Subjective/Interval History
-
Date of Service: July 31, 2024
Patient seen and examined. No complaints.
Objective Data
-
Vital Signs:
Vital Signs
Temp Pulse Resp BP Pulse Ox
97.8 F 56 24 156/77 98
07/31/24 06:59 07/31/24 06:59 07/31/24 06:59 07/31/24 06:59 07/31/24 06:59
I&O
07/30/24 07/31/24 08/01/24
06:59 06:59 06:59
Intake Total 1048 / 1048 1032 / 1032 216 / 216
Output Total 450 / 450 1050 / 1050
Balance 598 / 598 -18 / -18 216 / 216
Review of Systems
-
History Source: Patient
All other systems: Reviewed and negative
--- NOTE | 2024-07-31 14:54 | W.PN.ID1 ---
Date of Service
Date of Service: July 31, 2024
Today's Communication
- will switch to continuous ampicillin starting in the AM per [facility] request - 6 week course through 09/02/24
- Continue ceftriaxone 2g IV q12 - 6 week course through 09/02/24
- Continue oral metronidazole (d4 of 14) to cover the anaerobe through 08/07
Assessment / Plan
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
Enterococcal, Bacteroides Bacteremia
Left mandibular abscess
<del>Reported</del> <del>allergy</del> <del>to</del> <del>penicillin</del> <del>-</del> <del>unknown.</del> passed ampicillin challenge, patient is not allergic, removed
Note urology concern possible neurogenic bladder
Dementia
- 3 minor criteria for endocarditis - predisposing lesion, splinter hemorrhages, single positive blood culture CA enterococcus - recommend treatment for possible endocarditis
- urine culture polymicrobial - suspect initial source was likely urinary, now with possible endocarditis
- single blood culture with enterococcus and bacteroides
- repeat blood cultures x2 in progress no growth to date
- CT a/p without gross lesions
- will switch to continuous ampicillin starting in the AM per [facility] request - 6 week course through 09/02/24
- Continue ceftriaxone 2g IV q12 - 6 week course through 09/02/24
- Continue oral metronidazole (d4 of 14) to cover the anaerobe through 08/07
- Per daughter, pt with 2 weeks of left lower tooth pain prior to admission. Last summer, dentist had recommended tooth extraction before it becomes infected. However, pt cannot receive sedation and therefore procedure delayed.
- tooth abscess needs to be addressed with extraction. Recommend he sees an oral surgeon for best course of action shortly after discharge from rehab. The current antibiotics cover odontogenic infections.
stable for dc from ID perspective
Chief Complaint
-: Bacteremia
Subjective / Review of Systems
afebrile
bp stable
tolerating current therapies
Vital Signs / Physical Exam
Vital Signs
Vital Signs
Temp Pulse Resp BP Pulse Ox
97.8 F 56 24 156/77 98
07/31/24 06:59 07/31/24 06:59 07/31/24 06:59 07/31/24 06:59 07/31/24 06:59
Physical Exam
Constitutional: No Acute Distress and Chronically Ill
Cardiovascular: Regular Rate and S1/S2; Negative Murmur or Rub
Pulmonary: Clear and Symmetric; Negative Wheezes or Rales
Gastrointestinal: Soft, Non Tender, Non Distended and Normal Bowel Sounds
Skin: Warm and Dry; Negative Rash or Jaundice
Objective Data
Lab Data
Lab Results
07/28/24 08:09
07/28/24 08:09
Estimated Creat Clear 56 ml/min 07/28/24 08:09
Lactic Acid Cancelled 07/22/24 23:45
Total Bilirubin 0.6 mg/dl (0.2-1.3) 07/22/24 19:44
AST 21 U/L (17-59) 07/22/24 19:44
ALT < 10 U/L (0-50) 07/22/24 19:44
Alkaline Phosphatase 98 U/L (38-126) 07/22/24 19:44
Most recent labs reviewed.
Micro Results:
07/22/24 19:44 Blood Culture - Final
Blood/Venous Enterococcus faecalis
Bacteroides distasonis
Gram Stain - Final
07/24/24 18:13 Blood Culture - Final
Blood/Venous No Growth - Final Report
07/24/24 17:35 Blood Culture - Final
Blood/Venous No Growth - Final Report
07/23/24 16:12 MRSA Screen - Final
Nose No Methicillin Resistant Staphylococcus aureus isolated.
07/22/24 19:44 Urine Culture - Final
Urine
07/23/24 CT C/A/P: There is dilation of the left proximal and mid ureter measuring up to 1.9 cm with nondistended distal ureter, however no discrete discrete obstructing stone visualized. Calcification within the right posterior lateral aspect of
the urinary bladder, possible stones. Colonic diverticulosis without evidence of acute diverticulitis. Normal appendix.
07/27/24 Mandible XRAY: 1.2 cm lytic lesion around the remaining root of a left posterior mandibular tooth suspicious for a left-sided mandibular dental abscess.
Care Review
Plan reviewed with: Physician (Dr Cobb and Dr Garcia, [facility])
[2024-07-31 15:24] VITALS: BP 138/77
--- NOTE | 2024-07-31 15:31 | CM ---
CM met with Mr. Nolen, his and daughter several times today to discuss plan for acute rehab transfer. Current plan is for [facility] pending bed availability mid-next week. Pt/family are now considering transfer to [facility]
where he has been in the past. Referral sent to [facility] via [facility].
Plan: Await response from [facility] regarding bed availability. CM will continue to follow.
[2024-07-31] MEDS: LOVENOX 40 MG SC (17:21)
[2024-07-31] MEDS: ARICEPT 15 MG PO (21:08)
[2024-07-31 23:00] VITALS: BP 146/63
[2024-08-01] MEDS: AMPICILLIN 108 MG IV ×2 (01:04→04:54)
[2024-08-01] MEDS: FLAGYL 500 MG PO ×2 (04:54→14:27)
[2024-08-01 07:30] VITALS: BP 185/89
[2024-08-01] MEDS: PROSCAR 5 MG PO (08:36)
[2024-08-01] MEDS: DESENEX/MITRAZOL/ZEASORB 1 APPLIC TOPICAL (08:36)
[2024-08-01] MEDS: VISBIOME 1 CAP PO (08:36)
[2024-08-01] MEDS: PROTONIX 40 MG PO (08:36)
[2024-08-01] MEDS: FLOMAX 0.4 MG PO (08:37)
[2024-08-01] MEDS: NAMENDA 5 MG PO (08:37)
[2024-08-01] MEDS: SINEMET CR 25-100 (EXTENDED RELEASE) 1 TABLET PO (08:37)
[2024-08-01] MEDS: VITAMIN C 500 MG PO (08:38)
[2024-08-01] MEDS: ZONEGRAN 25 MG PO (08:38)
--- NOTE | 2024-08-01 08:52 | W.PN.HOSP.TC ---
Today's Communication/Plan
-
Discharge planning
Assessment / Plan
Assessment / Plan
Gen-AAOx3, NAD
HEENT-NC, AT, anicteric, clear oral mm
Neck-supple
CV-reg, no M, +S1/S2
Lungs-clear B/L
Abd-soft, NT, ND
Ext-no edema
Musculoskeletal-no cyanosis, clubbing
Skin-warm and dry
Neuro-grossly non-focal
Psych-calm, cooperative
Enterococcus bacteremia -- suspected urinary source though unable to confirm as urine culture with mixed gaudencio--CT showed ureteral dilation, signs of passed stones in bladder, small bilateral effusions-Currently on IV ceftriaxone/ampicillin/flagyl;
TTE negative--apprec ID--looking at possibility of needing ABX for 6 weeks--not planning YONIS. PICC line placed in right upper extremity.
ID recommends 6 weeks of ampicillin and ceftriaxone until September 02. Oral metronidazole until August 07.
Mandibular x-ray shows 1.2 cm lytic lesion around the remaining root of the left posterior mandibular tooth, suspicious for dental abscess.
Oral surgery is not available in our hospital and patient will require outpatient oral surgery evaluation.
Parkinson's Disease with dementia--Medications include Sinemet, on Zonegran to limit side effects--Appears stable on his current regimen--family wants [facility]--has been in [facility] in May with much improvement (as per daughter),
physiatry evaluated the patient.
BPH--Home regimen includes Flomax and Proscar--Will monitor for signs of urine retention, bladder scan protocol
GERD--No known history of Hendrix's esophagus or erosive disease--Stable on home PPI therapy daily
Prerenal MALLORY (resolved)--In the context of sepsis, creatinine peaked at 1.5, resolved with IVF
DVT prophylaxis: SCDs
CODE STATUS: Full code
Dispo -awaiting acute rehab. Medically stable for discharge. Case management aware.
Family plans on taking patient home after discharge from [facility] and they plan to obtain a private duty nurse to assist with IV antibiotic administration to complete the 6-week course at home.
Discussed with Dr. Haider.
Now family contemplating [facility] rehab.
Anticipated Discharge: 24 - 48 hours
Subjective/Interval History
-
Date of Service: August 01, 2024
Patient seen and examined. No complaints.
Objective Data
-
Vital Signs:
Vital Signs
Temp Pulse Resp BP Pulse Ox
97.6 F 58 16 146/63 98
07/31/24 23:00 07/31/24 23:00 07/31/24 23:00 07/31/24 23:00 08/01/24 08:35
I&O
07/31/24 08/01/24 08/02/24
06:59 06:59 06:59
Intake Total 1522 / 1522 540 / 540
Output Total 1050 / 1050 700 / 700
Balance 472 / 472 -160 / -160
Review of Systems
-
History Source: Patient
All other systems: Reviewed and negative
[2024-08-01 08:53] VITALS: BP 185/89
[2024-08-01 09:32] VITALS: BP 165/87; PULSE 61; O2SAT 97
[2024-08-01] MEDS: AMPICILLIN 548 MG IV (09:47)
[2024-08-01] MEDS: FLUSH (NSS) 1 FLUSH IV (09:48)
[2024-08-01] MEDS: ROCEPHIN 2000 MG IV (09:48)
[2024-08-01] MEDS: STERILE WATER FOR INJECTION 20 ML IV (09:48)
[2024-08-01 10:16] VITALS: BP 165/87; PULSE 65; O2SAT 97
--- NOTE | 2024-08-01 11:18 | CM ---
CM met with Mrs. Nolen and his daughter to discuss options for acute rehab transfer. They are deciding between [facility] vs. [facility]; both facilities have beds and have accepted for transfer.
I met again with them in the room with Mr. Nolen. He is agreeable to either facilities, but has been at [facility] previously, so is familair with the therapists and doctors there.
Family discussing final plan; CM will return to speak with them after they have time to make a decision on location.
--- NOTE | 2024-08-01 12:52 | CM ---
Addendum entered by Meg Pantoja 08/01/24 14:03:
[facility] Report number updated: [phone]
Original Note:
The [facility] have decided on transfer to [facility] for rehabilitation. [facility] notified that family chose another facility.
Ambulance transport to be arranged and family will go directly to the facility.
Plan: Discharge via ambulance to [facility]
Report: [phone]
--- NOTE | 2024-08-01 12:59 | W.DS.TRANS ---
DC Summary - [facility]
-
Discharge Instructions:
Discharge Diagnosis/Procedures Endocarditis, Parkinson's disease with dementia,
MALLORY
Diet Regular
Activity As tolerated,With assistance
Driving Restrictions No driving
Bathing Restrictions None
Instructions:
Stand-Alone Forms:
Changes to Home Medications: No
Discharge Medications:
DC Medications w/original date entered in [facility]
isradipine 2.5 mg capsule 2.5 mg PO HS Blood Pressure 03/23/24
zonisamide 25 mg capsule 25 mg PO DAILY Seizures 03/23/24
ascorbic acid (vitamin C) 500 mg tablet (Vitamin C) 500 mg PO DAILY Supplement 05/17/24
carbidopa ER 25 mg-levodopa 100 mg tablet,extended release 1 tab PO TID PARKINSON'S 05/17/24
finasteride 5 mg tablet 5 mg PO DAILY Urinary Issue 05/17/24
therapeutic multivitamin 1 tab PO DAILY Supplement 05/17/24
Lactobac no.2-Bifidobac no.1-S. thermo 112.5 billion cell capsule (Visbiome) 1 cap PO DAILY Gastrointestinal Issue 07/22/24
memantine 7 mg capsule sprinkle,extended release 24hr 7 mg PO DAILY [facility] 07/22/24
omeprazole 40 mg capsule,delayed release 40 mg PO DAILY Gastrointestinal Issue 07/22/24
Ampicillin 12,000 mg 22.833 mls/hr IV Q24H 08/01/24
ceftriaxone 2 gram solution for injection 2,000 mg IV Q12H #0 ea 08/01/24
donepezil 5 mg tablet 15 mg (3 x 5 mg) PO HS #0 tabs 08/01/24
metronidazole 500 mg tablet 500 mg PO Q8H #0 tabs 08/01/24
tamsulosin 0.4 mg capsule 0.4 mg PO BID #0 caps 08/01/24
Home Medication Changes
Pending Results: No
--- NOTE | 2024-08-01 13:37 | W.PN.ID1 ---
Date of Service
Date of Service: August 01, 2024
Today's Communication
Continue antibiotics.
Assessment / Plan
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
Enterococcal, Bacteroides Bacteremia
Left mandibular abscess
<del>Reported</del> <del>allergy</del> <del>to</del> <del>penicillin</del> <del>-</del> <del>unknown.</del> passed ampicillin challenge, patient is not allergic, removed
Note urology concern possible neurogenic bladder
Dementia
- Continue ampicillin - 6 week course through 09/02/24
- Continue ceftriaxone 2g IV q12 - 6 week course through 09/02/24
- Continue oral metronidazole (d5 of ) to cover the anaerobe through 08/07
- Per daughter, pt with 2 weeks of left lower tooth pain prior to admission. Last summer, dentist had recommended tooth extraction before it becomes infected. However, pt cannot receive sedation and therefore procedure delayed.
- tooth abscess needs to be addressed with extraction. Recommend he sees an oral surgeon for best course of action shortly after discharge from rehab. The current antibiotics cover odontogenic infections.
stable for dc from ID perspective
Chief Complaint
-: Bacteremia
Subjective / Review of Systems
Review of Systems: No Fever
Vital Signs / Physical Exam
Vital Signs
Vital Signs
Temp Pulse Resp BP Pulse Ox
97.5 F 57 20 185/89 98
08/01/24 07:30 08/01/24 07:30 08/01/24 07:30 08/01/24 07:30 08/01/24 08:35
Physical Exam
Constitutional: No Acute Distress, Chronically Ill and Non-toxic
Eyes: Sclera Anicteric
Cardiovascular: Regular Rate and S1/S2; Negative Murmur or Rub
Pulmonary: Clear and Symmetric; Negative Wheezes or Rales
Gastrointestinal: Soft, Non Tender, Non Distended and Normal Bowel Sounds
Extremities: Negative Cyanosis, Erythema or Splinter Hemorrhage
Skin: Warm and Dry; Negative Rash or Jaundice
Neurological: Awake and Alert
Psychological: Calm
Objective Data
Lab Data
Lab Results
07/28/24 08:09
07/28/24 08:09
Estimated Creat Clear 56 ml/min 07/28/24 08:09
Lactic Acid Cancelled 07/22/24 23:45
Total Bilirubin 0.6 mg/dl (0.2-1.3) 07/22/24 19:44
AST 21 U/L (17-59) 07/22/24 19:44
ALT < 10 U/L (0-50) 07/22/24 19:44
Alkaline Phosphatase 98 U/L (38-126) 07/22/24 19:44
Most recent labs reviewed.
Micro Results:
07/22/24 19:44 Blood Culture - Final
Blood/Venous Enterococcus faecalis
Bacteroides distasonis
Gram Stain - Final
07/24/24 18:13 Blood Culture - Final
Blood/Venous No Growth - Final Report
07/24/24 17:35 Blood Culture - Final
Blood/Venous No Growth - Final Report
07/23/24 16:12 MRSA Screen - Final
Nose No Methicillin Resistant Staphylococcus aureus isolated.
07/22/24 19:44 Urine Culture - Final
Urine
07/23/24 CT C/A/P: There is dilation of the left proximal and mid ureter measuring up to 1.9 cm with nondistended distal ureter, however no discrete discrete obstructing stone visualized. Calcification within the right posterior lateral aspect of
the urinary bladder, possible stones. Colonic diverticulosis without evidence of acute diverticulitis. Normal appendix.
07/27/24 Mandible XRAY: 1.2 cm lytic lesion around the remaining root of a left posterior mandibular tooth suspicious for a left-sided mandibular dental abscess.
[2024-08-01 13:47] VITALS: BP 121/72
--- NOTE | 2024-08-01 14:13 | CM ---
Azul Jensen of [facility] requested a copy of IV abx RX and face sheet - faxed to [phone].
== END 2024-08-01 15:19 | DRG 872 ==
LOC: 4 EAST ACU 16:33
PROVIDERS: Clinical Nurse Specialist Family Health; Emergency Medicine; Internal Medicine; ADMITTING PHYSICIAN Hospitalist; ATTENDING PHYSICIAN Hospitalist; CONSULT PHYSICIAN Physical Medicine & Rehabilitation; EMERGENCY PHYSICIAN Student in an Organized Health Care Education/Training Program; FAMILY PHYSICIAN Internal Medicine; OTHER PHYSICIAN Specialist; OTHER PHYSICIAN Student in an Organized Health Care Education/Training Program
DX: A41.9 Sepsis, unspecified organism (principal); N17.9 Acute kidney failure, unspecified; I38 Endocarditis, valve unspecified; Z11.52 Encounter for screening for COVID-19; G20.A1 Parkinson's disease without dyskinesia, without mention of fluctuations; F02.80 Dementia in other diseases classified elsewhere, unspecified severity, without behavioral disturbance, psychotic disturbance, mood disturbance, and anxiety; N40.0 Benign prostatic hyperplasia without lower urinary tract symptoms
CPT/HCPCS: 70110; 71045; 71046; 71250; 74176; 80048; 80053; 80202; 81003; 81015; 83605; 83735; 84145; 85025; 85027; 86430; 87040; 87070; 87077; 87086; 87149; 87186; 87205; 87811; 92526; 92610; 93306; 97112; 97167; 97530; 97535

== ENCOUNTER 2024-08-05 21:50 | Inpatient (IN) | payer MEDICARE, OTHER, SELFPAY ==
[2024-08-05] VITALS (7 sets, daily range): BP systolic 166–180; BP diastolic 81–96; BMI 27.8
[2024-08-05 18:23] LABS: % Basophils 0.6 % (0-2); % Eosinophils 4.5 % (0-6); % Immature Granulocytes 0.7 % (0-0.5); % Lymphocytes 19.4 % (20.5-51.1); % Monocytes 6.9 % (1.7-9.3); % Neutrophils 67.9 % (42.2-75.2); Absolute Basophils 0.1 10^3/uL (0-0.2); Absolute Eosinophils 0.4 10^3/uL (0-0.7); Absolute Immature Granulocytes 0.1 10^3/uL (0-0.05); Absolute Lymphocytes 1.8 10^3/uL (1.2-3.4); Absolute Monocytes 0.7 10^3/uL (0.1-0.6); Absolute Neutrophils 6.4 10^3/uL (1.4-6.5); Hematocrit 35.7 % (39.0-52.0); Hemoglobin 12.1 g/dL (13.0-18.0); Mean Corp Hgb Conc. 33.9 g/dL (33.0-37.0); Mean Corpuscular Hgb 29.3 pg (27.0-31.0); Mean Corpuscular Volume 86.4 fL (80.0-94.0); Mean Platelet Volume 9.8 fL (7.4-10.4); Nucleated Red Blood Cells % 0 % (-); Platelet Count 337 10^3/uL (130-400); Red Blood Cell Count 4.13 10^6/uL (4.70-6.10); Red Cell Dist. Width 15.2 % (11.5-14.5); White Blood Cell Count 9.4 10^3/uL (4.8-10.8)
[2024-08-05 18:26] LABS: ALT (SGPT) < 10 U/L (0-50); AST (SGOT) 24 U/L (17-59); Albumin 3.5 g/dl (3.5-5.0); Alkaline Phosphatase 86 U/L (38-126); Blood Urea Nitrogen 25 mg/dl (9-20); Calcium 9.1 mg/dl (8.4-10.2); Carbon Dioxide 24 mmol/L (22-30); Chloride 105 mmol/L (98-107); Estimated Creatinine Clearance 62 ml/min; Glucose 109 mg/dl (70-99); Potassium 4.1 mmol/L (3.5-5.1); Sodium 141 mmol/L (135-145); Total Bilirubin 0.3 mg/dl (0.2-1.3); Total Protein 6.1 g/dl (6.3-8.2); eGFR > 60.00
--- NOTE | 2024-08-05 19:48 | ED.GENMED ---
History of Present Illness
General
Chief Complaint: Chest Problem
Source: spouse
Exam Limitations: none
Time Seen by Provider: 08/05/24 19:35
Nursing documentation reviewed up to this point in time: agreed with
History of Present Illness
History of Present Illness:
patient is a 73-year-old female with past medical history of recent endocarditis Parkinson's disease with dementia BPH acute kidney injury. He is in [place] [facility] receiving a 6-week course of IV antibiotics/ampicillin and ceftriaxone. And is
previously noted on discharge instructions will continue metronidazole until August 07 orally.
reports the patient was sent to the ER today because he was having a swallowing study done at [place] today and he reports apparently the tech that was doing it 'saw liquid go down his lungs.'
I spoke to Dr. Justen Dunne why he was unsure why patient cannot swallow all of a sudden he did pass a swallowing study 3 weeks ago.
pt sent in for feeding tube.
Patient presents awake alert he denies shortness of breath presently.
Past History
Past History
ED Past Medical History: HTN and Other (Parkinson's)
ED Past Surgical History: Urological (Prostate artery embolization 05/15/2024 at [place]) and Other ([place] teeth)
Social History
Tobacco: Non-smoker
Alcohol: None
Drug: None
Personal:
Living: with family
Employment: Retired
Review of Systems
Review of Systems
Allergies reviewed?: Yes
Unable to obtain full review of systems at this time due to: other (parkinsons)
Other source history: family
All Other Systems: ROS reviewed and negative except as documented in HPI and ROS
Constitutional: Reports no symptoms
Respiratory: Reports no symptoms
Cardiac: Reports no symptoms
ABD/GI: Reports no symptoms
: Reports no symptoms
Musculoskeletal: Reports no symptoms
Skin: Reports no symptoms
Neurological: Reports no symptoms
Psychiatric: Reports no symptoms
Phy Exam
General Physical Exam
General Presentation: no apparent distress
General age: appears stated age
General Skin: warm and dry
General Habitus: elderly
General Mental: alert
General Hydration: appears well hydrated
ENT Exam
ENT Exam: other (Throat is clear no drooling tongue appears darker in color mildly dehydrated)
Cardiovascular Exam
Cardiovascular Exam: regular rate/rhythm, no murmur and normal peripheral pulses
Pulmonary Exam
Pulmonary Exam: lungs clear and no respiratory distress
Neurological Exam
Neurological Exam: alert
Musculoskeletal Exam
Musculoskeletal Exam: full ROM
Skin Exam
Skin Exam: normal color and warm/dry
Psychiatric Exam
Psychiatric Exam: normal mood/affect
Course
Orders/Labs/Results
Orders:
Orders
08/05/24 18:00
CBC/With Diff [Complete Blood Count/With Diff] Urgent
CMP [Comprehensive Metabolic Panel] Urgent
08/05/24 18:01
EKG [Electrocardiogram (*1)] Urgent
Reason for Study: Other
Other Reason for Exam: endocarditis
EKG- Treatment ONCE
Chest [CR Chest - 2 Views ] Urgent
Comment:
Reason For Exam: RUE PICC placement verify
08/05/24 20:07
0.9% Sodium Chloride 500 ml [Nss] 500 ml IV BOLUS
08/05/24 20:46
Admit/Transfer Patient As Directed
Co-Sign Provider:
Level of Care: Inpatient admission
Assign to:: Medical/Surgical
Physician / Group: sandip
Diagnosis: dysphagia
Reason for Hospitalization: dyspagia
Expected length of stay greater than two midnights?: Yes
ELOS- Estimated Length of Stay in days: 3
I certify the patient meets the requirements for IP care: Yes
08/05/24 20:47
PRN Pain Medication Management As Directed
May give lesser potent ordered pain med per pt: Yes
preference::
Protocol:: Medication orders for pain may be administered in a
manner that supports deferring to patient preference
when the pt is:
- Requesting an ordered lesser potent pain medication.
Least to most potent pain medications are defined
as: acetaminophen < NSAID < tramadol < opioids
(morphine, oxycodone, hydromorphone).
- Requesting a lesser dose of the same medication IF
ORDERED.
- Requesting a less intrusive route of administration
if both routes are prescribed by the provider (PO <
IV).
08/05/24 20:48
Code Status As Directed
Resuscitation Status: Full Code
Abnormal Lab Results
08/05/24
18:00
RBC 4.13 L 10^6/uL
(4.70-6.10)
Hgb 12.1 L g/dL
(13.0-18.0)
Hct 35.7 L %
(39.0-52.0)
RDW 15.2 H %
(11.5-14.5)
Abs Immat Gran (auto) 0.1 H 10^3/uL
(0-0.05)
Absolute Monos (auto) 0.7 H 10^3/uL
(0.1-0.6)
Immature Gran % 0.7 H %
(0-0.5)
Lymphocytes % 19.4 L %
(20.5-51.1)
BUN 25 H mg/dl
(9-20)
Glucose 109 H mg/dl
(70-99)
Total Protein 6.1 L g/dl
(6.3-8.2)
08/05/24 18:00
08/05/24 18:00
Vital Signs
Initial and Last Documented VS:
Initial Vital Signs
Temp Pulse Resp BP Pulse Ox
97.8 F 60 18 180/82 97
08/05/24 17:51 08/05/24 17:51 08/05/24 17:51 08/05/24 17:51 08/05/24 17:51
Last Documented Vital Signs
Temp Pulse Resp BP Pulse Ox
97.8 F 53 13 166/84 96
08/05/24 17:51 08/05/24 21:30 08/05/24 21:30 08/05/24 21:00 08/05/24 20:15
Field Service Tech consulted with Physician
Field Service Tech consulted with physician?: Yes
Name of Physician Consulted: Karlie
MDM/Problems Addressed
Differential Diagnosis Includes:
not limited to: Swallowing dysfunction dehydration
MDM/Problems Addressed:
73 yr. old male currently at loss receiving IV antibiotics for endocarditis sent for failed swallowing study. Patient currently had a swallowing study that he failed today though as per rehab physician he had a normal swallowing study several weeks
ago. He is not sure if his meds or Parkinson need be adjusted. He will need a feeding tube. He presents awake alert no acute distress no coughing tongue secretions well lungs are clear not hypoxic chest x-ray is negative no fever normal white
count. flud bolus ordered.
Chronic conditions affecting care:
Currently being treated for endocarditis, Parkinson's
*Radiology
Radiology exam reviewed: radiology read reviewed
*Pulse Oximetry
Patient hypoxic: no
*EKG
Interpreted by ED Provider?: Yes
Comparison EKG: no comparison EKG present
Heart Rate: 69
Rate: normal
Rhythm: sinus
Ischemia: no ischemia
*Critical Care Note
Total Time (30-74mins, 75-104mins- exclusive of procedures): Not Applicable
ED Attending Note
-
Portions of this chart may have been created with voice recognition software.� Occasional wrong word or��sound alike� substitutions may have occurred due to the inherent limitations of voice recognition software.
Discharge Plan
Departure
Patient Disposition: Admit
Date of Disposition: 08/05/24
Time of Disposition: 20:20
Admit to: Med/Surg
Admit to doctor: hospitalist
Presentation/result/management discussed w/ accepting MD/DO: Hospitalist
Condition: Fair
Covid-19: Not Applicable
Discharge Problem:
Dysphagia
Interventions
Interventions:
*Risk Screen - Suicide Last Done: 08/05/24 17:51
*General Assessment Last Done: 08/05/24 17:51
*Neglect/Abuse Screening Last Done: 08/05/24 17:51
ED- Fall Risk Assessment Last Done: 08/05/24 18:14
*ED COVID-19 Vaccine History Last Done: 08/05/24 21:52
ED- Cardiac Assessment Last Done: 08/05/24 18:14
ED- Pulmonary Assessment Last Done: 08/05/24 18:14
--- NOTE | 2024-08-05 20:16 | HPS.HSE ---
Addendum entered and electronically signed by Dagoberto Harrell DO 08/05/24 22:39:
Patient seen and examined independently. Agree with findings and plan as set forth by DILCIA Chapa.
Patient is a 73y M with PMH significant for Parkinson's disease, hypertension and recent admission for fever and presumed endocarditis who presents to ED from [facility] for evaluation of new difficulty swallowing. Patient started with drooling,
coughing and failed a swallow evaluation yesterday. He had previously completed a formal Speech eval. This showed aspiration with serial intake of thin liquids. Recommendations were for normal diet with single sips of thin liquids at that time.
Patient complains of discomfort in the L posterior mandible area.
Exam shows significant area of inflammation / abscess in the L mandibular region.
Ass:
New / Worsening Dysphagia
Left Mandibular Abscess
Enterococcus faecalis bacteremia / Presumed Endocarditis
Parkinson's Disease with Dementia
BPH
GERD
Plan:
Admit for further evaluation and treatment.
NPO for now pending repeat Speech eval.
L dental abscess appears rather significant.
Patient likely requires definitive intervention.
Consider ENT evaluation v OMFS if available.
Continue current IV abx regimen for now.
ID evaluation.
? GI eval / PEG tube if swallow function does not improve.
Original Note:
Family Physician
-
Family Physician: Glynn Foster
Chief Complaint
-
dysphagia
History of Present Illness
73-year-old female with past medical history of recent endocarditis on three different abx, Parkinson's disease,dementia BPH presented to us with dysphagia. He is in [place] [facility] receiving a 6-week course of IV ampicillin and ceftriaxone and flagyl.
since yesterday, he started drooling, coughing and failed swallow study. [facility]. denied any fever, chest pain, sob. denied MONTEJO, dizzy or syncopal episode. denied abdominal pain,n,v,d. denied dysuria or
hematuria. patient is poor historian. history obtained from daughter (Paty).
admitting for further management.
Medical History
Past Medical History
Past Medical History: Reports Other
Additional Past Medical History:
parkinson
HTN
BPH
UTI
cellulitis
Past Surgical History: Reports None
Social History
Tobacco: Non-smoker
Alcohol: None
Drug: None
Personal:
Living: With Family
Family History
Family History: Not pertinent
Allergies / Home Medications
Allergies reflects when Allergies were last updated in [employer].
Home Medications with original date entered in [employer]
Allergy/Medication List:
Allergies
Allergy/AdvReac Type Severity Reaction Status Date / Time
No Known Allergies Allergy Verified 08/05/24 17:56
Home Medications
isradipine 2.5 mg capsule 2.5 mg PO HS Blood Pressure 03/23/24
zonisamide 25 mg capsule 25 mg PO DAILY Seizures 03/23/24
ascorbic acid (vitamin C) 500 mg tablet (Vitamin C) 500 mg PO DAILY Supplement 05/17/24
carbidopa ER 25 mg-levodopa 100 mg tablet,extended release 1 tab PO TID PARKINSON'S 05/17/24
finasteride 5 mg tablet 5 mg PO DAILY Urinary Issue 05/17/24
therapeutic multivitamin 1 tab PO DAILY Supplement 05/17/24
Lactobac no.2-Bifidobac no.1-S. thermo 112.5 billion cell capsule (Visbiome) 1 cap PO DAILY Gastrointestinal Issue 07/22/24
memantine 7 mg capsule sprinkle,extended release 24hr 7 mg PO DAILY [facility] 07/22/24
omeprazole 40 mg capsule,delayed release 40 mg PO DAILY Gastrointestinal Issue 07/22/24
Ampicillin 12,000 mg 22.833 mls/hr IV Q24H 08/01/24
ceftriaxone 2 gram solution for injection 2,000 mg IV Q12H #0 ea 08/01/24
donepezil 5 mg tablet 15 mg (3 x 5 mg) PO HS #0 tabs 08/01/24
metronidazole 500 mg tablet 500 mg PO Q8H #0 tabs 08/01/24
tamsulosin 0.4 mg capsule 0.4 mg PO BID #0 caps 08/01/24
Review of Systems
-
Constitutional: Reports No Symptoms
EENT: Reports Other (difficulty swallowing)
Respiratory: Reports No Symptoms
Cardiac: Reports No Symptoms
Abdomen/GI: Reports No Symptoms
: Reports No Symptoms
Musculoskeletal: Reports No Symptoms
Skin: Reports No Symptoms
Neurological: Reports No Symptoms
Endocrine: Reports No Symptoms
Hematologic/Lymphatic: Reports No Symptoms
Psych: Reports No Symptoms
Physical Exam
Vital Signs
Vital Signs
Temp Pulse Resp BP Pulse Ox
97.8 F 54 16 167/85 98
08/05/24 17:51 08/05/24 18:00 08/05/24 18:00 08/05/24 18:00 08/05/24 18:14
Physical Exam
General: Well Developed, Well Nourished and No Apparent Distress
HEENT: NormoCephalic, Moist mucous membranes and Atraumatic
Respiratory: Clear
Cardiac: S1/S2 and Regular Rhythm; No Murmur or Rub
GI: Soft, Non Tender, Non Distended and Normal Bowel Sounds; No Organomegaly
Rectal: Deferred by Provider
Musculoskeletal: No Clubbing, No Cyanosis and No Edema
Skin: No Rash
Neuro: Nonfocal/grossly intact
Laboratory Results
-
08/05/24 18:00
08/05/24 18:00
Laboratory Results
Total Bilirubin 0.3 mg/dl (0.2-1.3) 08/05/24 18:00
AST 24 U/L (17-59) 08/05/24 18:00
ALT < 10 U/L (0-50) 08/05/24 18:00
Alkaline Phosphatase 86 U/L (38-126) 08/05/24 18:00
Data Reviewed
-
Lab Data: Labs Reviewed by me
Impression/Plan
-
#dysphagia unclear cause likely due t to abscess
-keep NPO strict
-speech eval
-consider GI eval after speech eval
-continue gentle hydration
-OMFS consult
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
#Enterococcal, Bacteroides Bacteremia
#Left mandibular abscess
Continue ampicillin - 6 week course through 09/02/24
- Continue ceftriaxone 2g IV q12 - 6 week course through 09/02/24
- Continue oral metronidazole (d5 of 14) to cover the anaerobe through 08/07
-will consult ID
#tooth/mandibular abscess
-as per ID The current antibiotics cover odontogenic infections.
-need OMFS consult
#parkinson's Disease with dementia
-on Sinemet, on Zonegran
#BPH
-Home regimen includes Flomax and Proscar
#GERD-
-Stable on home PPI therapy daily
#DVT prophylaxis: SCDs
#CODE STATUS: Full code
[2024-08-05] MEDS: NSS 500 IV (20:20)
--- NOTE | 2024-08-05 21:27 | PHANOTE ---
med rec tech(08/05/24)-Compiled patient medication list from discharge paperwork dated 08/05/24 at 16:24.
[2024-08-06 00:14] VITALS: BMI 27.4
[2024-08-06 00:15] VITALS: BP 112/81
[2024-08-06] MEDS: ROCEPHIN 2000 MG IV ×3 (00:27→23:48)
[2024-08-06] MEDS: NSS 1000 IV ×2 (00:28→16:34)
[2024-08-06] MEDS: STERILE WATER FOR INJECTION 20 ML IV ×3 (00:28→23:48)
[2024-08-06] MEDS: FLAGYL 500 MG 100 IV ×4 (00:28→23:48)
[2024-08-06] MEDS: AMPICILLIN 108 MG IV ×4 (02:47→21:32)
[2024-08-06 06:37] LABS: Hematocrit 35.5 % (39.0-52.0); Hemoglobin 11.9 g/dL (13.0-18.0); Mean Corp Hgb Conc. 33.5 g/dL (33.0-37.0); Mean Corpuscular Hgb 28.3 pg (27.0-31.0); Mean Corpuscular Volume 84.3 fL (80.0-94.0); Platelet Count 323 10^3/uL (130-400); Red Blood Cell Count 4.21 10^6/uL (4.70-6.10); Red Cell Dist. Width 15.2 % (11.5-14.5); White Blood Cell Count 8.6 10^3/uL (4.8-10.8)
[2024-08-06 07:05] LABS: Blood Urea Nitrogen 19 mg/dl (9-20); Carbon Dioxide 24 mmol/L (22-30); Chloride 106 mmol/L (98-107); Estimated Creatinine Clearance 62 ml/min; Glucose 88 mg/dl (70-99); Potassium 4.4 mmol/L (3.5-5.1); Sodium 140 mmol/L (135-145); eGFR > 60.00
[2024-08-06 08:17] VITALS: BP 179/91
--- NOTE | 2024-08-06 08:40 | PTOTSP ---
Addendum entered and electronically signed by ST Lorraine 08/06/24 11:16:
Pt seen for discussion with medical team, including patient, , hospitalist, and RN. Discussed drastic change in swallow function from last VSE completed at 07/01/24 until the VSE completed at [place] yesterday. Up until yesterday, swallow
function had been stable since VSE in 2022, and it wouldn't make sense that PD would have significantly worsened in just 4 weeks. reported that pt seemed 'out of it' at [place] for a few days, so in team conversation, question whether mentation
was cause of worsened dysphagia. MD planning to stop a medication that may have affected alertness. As VSE just completed yesterday, would not repeat yet, especially as med being discontinued. CXR clear on admission and WBC not elevated.
Discussed trialing a diet with monitoring given tolerance and function in the past. in agreement.
Recommend:
(1) Initiate cautious IDDSI Level 6 (Soft/Bite-Sized) and Thin Liquids
(2) Aspiration precautions: sit upright, slow rate, single cup sips only (no straws), encourage cough if wet voice noted
(3) With increased congestion or overt signs of aspiration, make NPO
(4) Will consider repeat VSE as needed
(5) NON DESTRUCTIVE EVALUATION SPECIALIST to continue to follow
Original Note:
Speech Language Pathology
Pt seen for clinical bedside swallow evaluation. Well known to NON DESTRUCTIVE EVALUATION SPECIALIST at . VSE completed at [place] 08/05 with findings of severe pharyngeal residue with deep penetration with puree/mildly thick liquids via tsp and silent aspiration of thin liquids via
tsp/moderately thick liquids via tsp. This is a significant worsening compared to last VSE completed at on 07/01/24 where only intermittent penetration noted with no aspiration, and soft/regular solids and thin liquids were recommended.
Wet vocal quality noted at rest with throat clear, which is pt's baseline. P.O. trials of puree, regular solids, and thin liquids via cup provided. Slightly prolonged mastication of regular solids noted, but this was functional given additional
time. Brief cough with cracker x1, but unsure if related to P.O. intake or baseline.
Recommend:
(1) Consider NPO until further discussion with medical team
(2) Oral care 4x/day with suctioning as needed
(3) NON DESTRUCTIVE EVALUATION SPECIALIST to follow
[2024-08-06] MEDS: PROSCAR 5 MG PO (11:06)
[2024-08-06] MEDS: SENOKOT 17.2 MG PO (11:06)
[2024-08-06] MEDS: SINEMET CR 25-100 (EXTENDED RELEASE) 1 TABLET PO ×3 (11:06→21:34)
--- NOTE | 2024-08-06 11:54 | CON.ID ---
Consultation
-
Date/Time Consultation Requested: 08/05/24 22:00
Date/Time Consultation Performed: 08/06/23 11:59
Requesting Provider: Filipe HA
Performing Provider: Whitney fitzgerald
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
Chief Complaint / Past History
Chief Complaint
L mandibular abscess
History of Present Illness
Mr Nolen is a 73 year old male with history of Parkisons Disease and dementia with recent hospitalization from 07/22-08/02 for possible endocarditis due to e faecalis and small periapical dental abscess treated with ampicillin/ceftriaxone for the
endocarditis with the addition of metronidazole for bacteroides bacteremia (likely due to dental abscess). He was transferred to rehab to complete the course of antibiotics with plans for outpatient follow up with OMFS now representing for
dysphagia and new swelling/pain around the left mandible. He failed a swallow evaluation at rehab and was referred here. Patient
Since presenting here he has been afebrile, bp hypertensive, wbc initially 9.4 now 8.6, hgb 11.9, plt 323, cr 1.0, t bili 0.3, ast 24, alt <10, alk pohs 86, CXR 08/05: PICC in place, no infiltrates, remains on amp/ceftriaxone/oral metronidazole, ID
is consulted for assistance with management.
Past History
Additional Past Medical History:
parkinson
HTN
BPH
GERD
Additional Past Surgical History:
prostate embolization
Allergy History:
No Known Allergies Allergy (Verified 08/05/24 17:56)
Medications Reviewed: Yes
Social History
Tobacco: Non-Smoker
Alcohol: None
Drug: None
Family History
Family History: Not Pertinent
Review of Systems
Review of Systems
General: Negative Fever or Chills
All systems: All other systems were reviewed and were negative
Vital Signs
Temp Pulse Resp BP Pulse Ox
99.1 F 56 20 179/91 96
08/06/24 08:17 08/06/24 08:17 08/06/24 08:17 08/06/24 08:17 08/06/24 08:17
Physical Exam
Physical Exam
Constitutional: No Acute Distress and Chronically Ill
Head: Other (no swelling, fullness, redness or tenderness of the angle of the jaw, examination of the teeth does reveal carries around the base of the L mandibular molar, not draining puss, no fluctuance, no swelling)
Cardiovascular: Regular Rate and S1/S2; Negative Murmur or Rub
Pulmonary: Clear and Symmetric; Negative Wheezes, Rales or Rhonchi
Gastrointestinal: Soft, Non Tender, Non Distended and Normal Bowel Sounds
Skin: Warm and Dry; Negative Rash or Jaundice
Lines: PICC (no erythema, warmth, swelling or tenderness)
Lab / Diagnostic Study Results
08/06/24 05:37
08/06/24 05:37
Abs Immat Gran (auto) 0.1 10^3/uL (0-0.05) H 08/05/24 18:00
Absolute Neuts (auto) 6.4 10^3/uL (1.4-6.5) 08/05/24 18:00
Absolute Lymphs (auto) 1.8 10^3/uL (1.2-3.4) 08/05/24 18:00
Absolute Monos (auto) 0.7 10^3/uL (0.1-0.6) H 08/05/24 18:00
Absolute Basos (auto) 0.1 10^3/uL (0-0.2) 08/05/24 18:00
Immature Gran % 0.7 % (0-0.5) H 08/05/24 18:00
Neutrophils % 67.9 % (42.2-75.2) 08/05/24 18:00
Lymphocytes % 19.4 % (20.5-51.1) L 08/05/24 18:00
Monocytes % 6.9 % (1.7-9.3) 08/05/24 18:00
Eosinophils % 4.5 % (0-6) 08/05/24 18:00
Basophils % 0.6 % (0-2) 08/05/24 18:00
Assessment / Plan
Small Periapical Abscess by radiology - no evidence of progression of abscess on my clinical exam
- unfortunately OMFS is no longer available at this institution
- patient already on aggressive antibiotic therapy for odontogenic infections, reviewed with clinical pharmacy in agreement, suspect source control is the issue
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
Enterococcal, Bacteroides Bacteremia
Left mandibular abscess
Dementia
- c/w ampicillin either 2 gm IV q4 or continuous infusion - 6 week course through 09/02/24
- Continue ceftriaxone 2g IV q12 - 6 week course through 09/02/24
- Continue oral metronidazole - extend another two weeks to cover the anaerobe through 08/20
--- NOTE | 2024-08-06 11:56 | W.PN.HOSP.TC ---
Today's Communication/Plan
-
Monitor vital signs see plan
Trial of IDD 6 diet per speech
Hold Zonegran
Monitor mental status
Avoid feeding if patient is sedated
Continue antibiotics
Assessment / Plan
Assessment / Plan
General: Well Developed, Well Nourished and No Apparent Distress
HEENT: NormoCephalic, Moist mucous membranes and Atraumatic
Respiratory: Clear
Cardiac: S1/S2 and Regular Rhythm; No Murmur or Rub
GI: Soft, Non Tender, Non Distended and Normal Bowel Sounds
Rectal: Deferred by Provider
Musculoskeletal: No Clubbing, No Cyanosis and No Edema
Skin: No Rash
Neuro: Nonfocal/grossly intact
dysphagia likely 2/2 intermittent change in mental status which could be delirium or TME 2/2 medications
-speech evaluated; ok for IDDS6 with thin; 08/05 with silent aspiration with liquids however today much more alert. Appears swallowing difficulties associated with mental status change. Spoke with spouse and daughter at length and will stop zonegran
as it was recommended to taper initially by his outpatient neurologist. he was put on this medication by his old neurologist for motor functions for his parkinson's
speech following; will try diet and monitor.
Spoke with patient, family in length and they would want to hold off on any feeding tube
Patient family is aware that he needs to be seen by OMFS outpatient regarding his dental abscess. Currently he does not have any pain or trouble swallowing. Denies any shortness of breath
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
#Enterococcal, Bacteroides Bacteremia
#Left mandibular abscess
Continue ampicillin - 6 week course through 09/02/24; not sure why this has been cancelled by pharmacy
- Continue ceftriaxone 2g IV q12 - 6 week course through 09/02/24
- Continue oral metronidazole (d5 of 14) to cover the anaerobe through 08/07
-ID consulted
#tooth/mandibular abscess
-as per ID The current antibiotics cover odontogenic infections.
-need OMFS evaluation outpatient
#parkinson's Disease with dementia
-on Sinemet, hold Zonegran
#BPH
-Home regimen includes Flomax and Proscar
#GERD-
-Stable on home PPI therapy daily
#DVT prophylaxis: SCDs
#CODE STATUS: Full code
I spent a total of 52 minutes with the patient or on the floor. More than 50% of this time involved counseling and coordination of care.
Anticipated Discharge: 24 - 48 hours
Subjective/Interval History
-
Date of Service: August 06, 2024
denies pain
Objective Data
-
Labs:
Laboratory Results
08/06/24
05:37
WBC 8.6
Hgb 11.9 L
Hct 35.5 L
Plt Count 323
Sodium 140
Potassium 4.4
Chloride 106
Carbon Dioxide 24
BUN 19
Creatinine 1.0
Glucose 88
Calcium 9.0
Vital Signs:
Vital Signs
Temp Pulse Resp BP Pulse Ox
99.1 F 56 20 179/91 96
08/06/24 08:17 08/06/24 08:17 08/06/24 08:17 08/06/24 08:17 08/06/24 08:17
I&O
08/05/24 08/06/24 08/07/24
06:59 06:59 06:59
Intake Total 620 / 620
Output Total 400 / 400
Balance 220 / 220
[2024-08-06 15:57] VITALS: BP 157/82
[2024-08-06 16:00] VITALS: BP 172/89; PULSE 59; O2SAT 97
[2024-08-06 16:08] VITALS: BP 172/89; PULSE 59; O2SAT 96
[2024-08-06] MEDS: LOVENOX 40 MG SC (17:09)
--- NOTE | 2024-08-06 17:19 | CM ---
Alert aphasic patient who lives with his Flor who lives in a 1 story home with 3 step to enter. He is assisted in all activities of daily living.Spoke with she said she wants his to go to [facility] / [facility] history
Pharmacy [facility] [address]
PCP DR Joseph
PLAN Possible Mason
[2024-08-06] MEDS: NAMENDA 5 MG PO (21:33)
[2024-08-06] MEDS: FLOMAX 0.4 MG PO (21:33)
[2024-08-06] MEDS: ARICEPT 20 MG PO (21:33)
[2024-08-06 23:06] VITALS: BP 153/85
[2024-08-07] MEDS: AMPICILLIN 108 MG IV ×2 (01:38→06:17)
[2024-08-07 04:13] LABS: Hematocrit 35.2 % (39.0-52.0); Hemoglobin 11.6 g/dL (13.0-18.0); Mean Corpuscular Hgb 27.6 pg (27.0-31.0); Mean Corpuscular Volume 83.8 fL (80.0-94.0); Mean Platelet Volume 9.8 fL (7.4-10.4); Platelet Count 314 10^3/uL (130-400); Red Cell Dist. Width 15.3 % (11.5-14.5); White Blood Cell Count 8.5 10^3/uL (4.8-10.8)
[2024-08-07 04:34] LABS: Blood Urea Nitrogen 19 mg/dl (9-20); Carbon Dioxide 23 mmol/L (22-30); Chloride 106 mmol/L (98-107); Estimated Creatinine Clearance 62 ml/min; Glucose 90 mg/dl (70-99); Potassium 4.2 mmol/L (3.5-5.1); Sodium 139 mmol/L (135-145); eGFR > 60.00
[2024-08-07] MEDS: PROSCAR 5 MG PO (08:16)
[2024-08-07] MEDS: PROTONIX 40 MG PO (08:16)
[2024-08-07] MEDS: NAMENDA 5 MG PO ×2 (08:16→21:22)
[2024-08-07] MEDS: SINEMET CR 25-100 (EXTENDED RELEASE) 1 TABLET PO ×3 (08:16→21:22)
[2024-08-07] MEDS: VITAMIN D3 (cholecalciferol) 50 MCG PO (08:16)
[2024-08-07] MEDS: FLAGYL 500 MG 100 IV (08:17)
[2024-08-07 08:32] VITALS: BP 177/86
[2024-08-07] MEDS: AMPICILLIN 548 MG IV (09:20)
--- NOTE | 2024-08-07 11:26 | W.PN.ID1 ---
Date of Service
Date of Service: August 07, 2024
Today's Communication
- c/w ampicillin either 2 gm IV q4 or continuous infusion - 6 week course through 09/02/24
- Continue ceftriaxone 2g IV q12 - 6 week course through 09/02/24
- Continue oral metronidazole - extend another two weeks to cover the anaerobe through 08/20
stable for dc from ID perspective
Assessment / Plan
Small Periapical Abscess by radiology - no evidence of progression of abscess on my clinical exam
- unfortunately OMFS is no longer available at this institution
- patient already on aggressive antibiotic therapy for odontogenic infections
- outpatient follow up with OMFS
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
Enterococcal, Bacteroides Bacteremia
Left mandibular abscess
Dementia
- c/w ampicillin either 2 gm IV q4 or continuous infusion - 6 week course through 09/02/24
- Continue ceftriaxone 2g IV q12 - 6 week course through 09/02/24
- Continue oral metronidazole - extend another two weeks to cover the anaerobe through 08/20
stable for dc from ID perspective
Chief Complaint
-: Other (AMS)
Subjective / Review of Systems
afebrile
bp stable
no overnight events
Vital Signs / Physical Exam
Vital Signs
Vital Signs
Temp Pulse Resp BP Pulse Ox
98.1 F 56 18 177/86 97
08/07/24 08:32 08/07/24 08:32 08/07/24 08:32 08/07/24 08:32 08/07/24 08:32
Physical Exam
Constitutional: No Acute Distress
Head: Other (no swelling of the neck or jaw)
Cardiovascular: Regular Rate
Pulmonary: Symmetric and Non Labored
Gastrointestinal: Non Distended
Skin: Dry; Negative Rash or Jaundice
Lines: PICC
Objective Data
Lab Data
Lab Results
08/07/24 03:52
08/07/24 03:52
Estimated Creat Clear 62 ml/min 08/07/24 03:52
Total Bilirubin 0.3 mg/dl (0.2-1.3) 08/05/24 18:00
AST 24 U/L (17-59) 08/05/24 18:00
ALT < 10 U/L (0-50) 08/05/24 18:00
Alkaline Phosphatase 86 U/L (38-126) 08/05/24 18:00
Most recent labs reviewed.
--- NOTE | 2024-08-07 11:37 | W.PN.HOSP.TC ---
Today's Communication/Plan
-
Monitor vital signs
see plan
Continue with current diet
Discharge planning
Continue with Parkinson meds
cw abx
Discussed with family at bedside
Assessment / Plan
Assessment / Plan
General: Well Developed, Well Nourished and No Apparent Distress
HEENT: NormoCephalic, Moist mucous membranes and Atraumatic
Respiratory: Clear
Cardiac: S1/S2 and Regular Rhythm; No Murmur or Rub
GI: Soft, Non Tender, Non Distended and Normal Bowel Sounds
Rectal: Deferred by Provider
Musculoskeletal: No Clubbing, No Cyanosis and No Edema
Skin: No Rash
Neuro: Nonfocal/grossly intact
dysphagia likely 2/2 intermittent change in mental status which could be delirium or TME 2/2 medications
-speech evaluated; ok for IDDS6 with thin; 9/10 with silent aspiration with liquids however today much more alert. Appears swallowing difficulties associated with mental status change. Spoke with spouse and daughter at length and will stop zonegran
as it was recommended to taper initially by his outpatient neurologist. he was put on this medication by his old neurologist for motor functions for his parkinson's
speech following; will try diet and monitor. So far no more periods of any signs of aspiration. Spoke with speech therapy and do not think another VSE at this time is necessary. Family is okay with getting VSE done outpatient. Patient at this
time comfortable on current diet.
Spoke with patient, family in length and they would want to hold off on any feeding tube
Patient family is aware that he needs to be seen by OMFS outpatient regarding his dental abscess. Currently he does not have any pain or trouble swallowing. Denies any shortness of breath. Discussed with infectious disease and patient needs to
follow-up outpatient
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
#Enterococcal, Bacteroides Bacteremia
#Left mandibular abscess
Continue ampicillin - 6 week course through 09/02/24; not sure why this has been cancelled by pharmacy
- Continue ceftriaxone 2g IV q12 - 6 week course through 09/02/24
- Continue oral metronidazole (d5 of 14) to cover the anaerobe through 08/20
-ID consulted
#tooth/mandibular abscess
-as per ID The current antibiotics cover odontogenic infections.
-need OMFS evaluation outpatient
#parkinson's Disease with dementia
-on Sinemet, dc Zonegran
#BPH
-Home regimen includes Flomax and Proscar
#GERD-
-Stable on home PPI therapy daily
#DVT prophylaxis: SCDs
#CODE STATUS: Full code
Anticipated Discharge: Today
Subjective/Interval History
-
Date of Service: August 07, 2024
Denies pain
Objective Data
-
Labs:
Laboratory Results
08/07/24
03:52
WBC 8.5
Hgb 11.6 L
Hct 35.2 L
Plt Count 314
Sodium 139
Potassium 4.2
Chloride 106
Carbon Dioxide 23
BUN 19
Creatinine 1.0
Glucose 90
Calcium 9.0
Vital Signs:
Vital Signs
Temp Pulse Resp BP Pulse Ox
98.1 F 56 18 177/86 97
08/07/24 08:32 08/07/24 08:32 08/07/24 08:32 08/07/24 08:32 08/07/24 08:32
I&O
08/06/24 08/07/24 08/08/24
06:59 06:59 06:59
Intake Total 620 / 620
Output Total 400 / 400
Balance 220 / 220
[2024-08-07] MEDS: ROCEPHIN 2000 MG IV (13:49)
[2024-08-07] MEDS: SENOKOT PO (13:49)
[2024-08-07] MEDS: STERILE WATER FOR INJECTION 20 ML IV (13:49)
[2024-08-07 16:16] VITALS: BP 169/81
[2024-08-07] MEDS: FLAGYL 500 MG PO (16:52)
[2024-08-07] MEDS: LOVENOX 40 MG SC (17:44)
[2024-08-07] MEDS: ARICEPT 20 MG PO (21:22)
[2024-08-07] MEDS: FLOMAX 0.4 MG PO (21:22)
[2024-08-07 23:38] VITALS: BP 170/93
[2024-08-08] MEDS: APRESOLINE 5 MG IV (01:15)
[2024-08-08] MEDS: STERILE WATER FOR INJECTION 20 ML IV ×2 (01:15→12:20)
[2024-08-08] MEDS: FLAGYL 500 MG PO ×2 (01:15→08:59)
[2024-08-08] MEDS: ROCEPHIN 2000 MG IV ×2 (01:16→12:20)
[2024-08-08 04:15] VITALS: BP 149/85
[2024-08-08 06:23] LABS: Hematocrit 36.9 % (39.0-52.0); Hemoglobin 12.4 g/dL (13.0-18.0); Mean Corp Hgb Conc. 33.6 g/dL (33.0-37.0); Mean Corpuscular Hgb 28.8 pg (27.0-31.0); Mean Corpuscular Volume 85.8 fL (80.0-94.0); Mean Platelet Volume 10.3 fL (7.4-10.4); Platelet Count 303 10^3/uL (130-400); Red Cell Dist. Width 14.9 % (11.5-14.5); White Blood Cell Count 7.9 10^3/uL (4.8-10.8)
[2024-08-08 06:48] LABS: Blood Urea Nitrogen 19 mg/dl (9-20); Carbon Dioxide 21 mmol/L (22-30); Chloride 103 mmol/L (98-107); Estimated Creatinine Clearance 62 ml/min; Glucose 83 mg/dl (70-99); Potassium 4.2 mmol/L (3.5-5.1); Sodium 138 mmol/L (135-145); eGFR > 60.00
[2024-08-08 07:55] VITALS: BP 149/81
[2024-08-08] MEDS: PROTONIX 40 MG PO (08:59)
[2024-08-08] MEDS: PROSCAR 5 MG PO (08:59)
[2024-08-08] MEDS: VITAMIN D3 (cholecalciferol) 50 MCG PO (08:59)
[2024-08-08] MEDS: NAMENDA 5 MG PO (08:59)
[2024-08-08] MEDS: SINEMET CR 25-100 (EXTENDED RELEASE) 1 TABLET PO (08:59)
[2024-08-08 09:40] VITALS: BP 157/87; PULSE 70; O2SAT 97
[2024-08-08] MEDS: AMPICILLIN 548 MG IV (10:17)
--- NOTE | 2024-08-08 11:25 | W.PN.HOSP.TC ---
Today's Communication/Plan
-
monitor vitals
see plan
cw abx per ID
almaraz today
cw current diet
daughter updated at bedside
time of discharge 38 minutes
Assessment / Plan
Assessment / Plan
General: Well Developed, Well Nourished and No Apparent Distress
HEENT: NormoCephalic, Moist mucous membranes and Atraumatic
Respiratory: Clear
Cardiac: S1/S2 and Regular Rhythm; No Murmur or Rub
GI: Soft, Non Tender, Non Distended and Normal Bowel Sounds
Rectal: Deferred by Provider
Musculoskeletal: No Clubbing, No Cyanosis and No Edema
Skin: No Rash
Neuro: Nonfocal/grossly intact
dysphagia likely 2/2 intermittent change in mental status which could be delirium or TME 2/2 medications
-speech evaluated; ok for IDDS6 with thin; 9/10 with silent aspiration with liquids however today much more alert. Appears swallowing difficulties associated with mental status change. Spoke with spouse and daughter at length and will stop zonegran
as it was recommended to taper initially by his outpatient neurologist. he was put on this medication by his old neurologist for motor functions for his parkinson's
speech following; will try diet and monitor. So far no more periods of any signs of aspiration. Spoke with speech therapy and do not think another VSE at this time is necessary. Family is okay with getting VSE done outpatient. Patient at this
time comfortable on current diet.
Spoke with patient, family in length and they would want to hold off on any feeding tube
Patient family is aware that he needs to be seen by OMFS outpatient regarding his dental abscess. Currently he does not have any pain or trouble swallowing. Denies any shortness of breath. Discussed with infectious disease and patient needs to
follow-up outpatient
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
#Enterococcal, Bacteroides Bacteremia
#Left mandibular abscess
Continue ampicillin - 6 week course through 09/02/24; not sure why this has been cancelled by pharmacy
- Continue ceftriaxone 2g IV q12 - 6 week course through 09/02/24
- Continue oral metronidazole (d5 of 14) to cover the anaerobe through 08/20
-ID consulted
#tooth/mandibular abscess
-as per ID The current antibiotics cover odontogenic infections.
-need OMFS evaluation outpatient
#parkinson's Disease with dementia
-on Sinemet, dc Zonegran
#BPH
-Home regimen includes Flomax and Proscar
#GERD-
-Stable on home PPI therapy daily
#DVT prophylaxis: SCDs
#CODE STATUS: Full code
Anticipated Discharge: Today
Subjective/Interval History
-
Date of Service: August 08, 2024
denies pain
Objective Data
-
Labs:
Laboratory Results
08/08/24
04:53
WBC 7.9
Hgb 12.4 L
Hct 36.9 L
Plt Count 303
Sodium 138
Potassium 4.2
Chloride 103
Carbon Dioxide 21 L
BUN 19
Creatinine 1.0
Glucose 83
Calcium 9.0
Vital Signs:
Vital Signs
Temp Pulse Resp BP Pulse Ox
98 F 64 18 149/81 94
08/08/24 07:55 08/08/24 07:55 08/08/24 07:55 08/08/24 07:55 08/08/24 07:55
I&O
08/07/24 08/08/24 08/09/24
06:59 06:59 06:59
Intake Total 480 / 480
Balance 480 / 480
--- NOTE | 2024-08-08 11:33 | W.DCSUMMARY ---
Discharge Summary
Discharge Data
Date of Admission: 08/05/24
Date of Discharge: 08/08/24
-
Pending Results: No
Hospital Course
73-year-old male with past medical history of faecalis endocarditis, enterococcal, Bacteroides bacteremia, mandibular abscess, Parkinson disease with dementia, BPH, GERD, dysphagia came to the hospital with worsening dysphagia which was likely
thought secondary to intermittent change in mental status. Because of mental status was likely thought could be secondary to delirium or medications related. Patient was seen by speech therapy throughout hospitalization and did not appear to have
any worsening dysphagia. Patient tolerated diet prior to discharge. He was also seen by infectious disease who had him on antibiotics with ceftriaxone and ampicillin. His Flagyl course was also extended through 08/20/2024. He did not appear to
have any jaw pain or increasing size of mandibular abscess so he was instructed to follow-up with OMFS outpatient. For his mental status after speaking with the family who also was speaking with his primary neurologist, Zonegran was discontinued.
Patient mental status continue to improve throughout hospitalization. He was also eval by physical therapy who recommended acute rehab. Once patient symptoms continue to improve and he was able to tolerate diet, he was then discharged to [facility] with instructions to follow-up with all his physicians outpatient.
Discharge Plan
-
Patient Disposition: Acute Rehab Facility
Discharge Diagnosis/Procedures: Dysphagia likely 2/2 intermittent change in mental status which could be delirium or TME 2/2 medications
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
Enterococcal, Bacteroides Bacteremia
Left mandibular abscess
parkinson's Disease with dementia
Condition: Fair
Diet: Other diet
Additional Diets: Soft and bite-size diet with thin liquids
Activity: With assistance and As tolerated
Driving Restrictions: Not until seen by your Dr
Bathing Restrictions: None
Other Services: ST
Activity Restrictions/Additional Instructions:
Continue ampicillin - 6 week course through 09/02/24
- Continue ceftriaxone 2g IV q12 - 6 week course through 09/02/24
- Continue oral metronidazole (d5 of 14) to cover the anaerobe through 08/20
Follow-up with oral maxillofacial surgery outpatient as soon as possible
Referrals:
lGynn Joseph MD [Family Provider] - in less than 1 week
Rosalind Olson MD [Active] -
Prescriptions:
New
memantine 10 mg Tablet
5 mg PO BID Qty: 0 0RF
Continued
isradipine 2.5 mg Capsule
2.5 mg PO Q12H
carbidopa-levodopa 25-100 mg Tablet Extended Release
1 tab PO TID
finasteride 5 mg Tablet
5 mg PO DAILY
metronidazole 500 mg Tablet
500 mg PO Q8H Qty: 0 0RF
sennosides [senna] 8.6 mg Tablet
17.2 mg PO NOON
acetaminophen 325 mg Tablet
650 mg PO Q4HPRN PRN (Reason: mild pain)
donepezil 10 mg Tablet
20 mg PO HS
bisacodyl 10 mg Suppository
10 mg NJ HSPRN PRN (Reason: constipation, if tabs ineffect)
omeprazole 20 mg Capsule,Delayed Release(Dr/Ec)
20 mg PO DAILY
bisacodyl 5 mg Tablet,Delayed Release (Dr/Ec)
10 mg PO DAILYPRN PRN (Reason: constipation)
clotrimazole 1 % Cream
1 applic TOPICAL BID
enoxaparin 40 mg/0.4 mL Syringe
40 mg SC Q24H
cholecalciferol (vitamin D3) [Vitamin D3] 50 mcg (2,000 unit) Tablet
50 mcg PO DAILY
Bio-K plus 50 billion cell Capsule,Delayed Release(Dr/Ec)
2 cap PO DAILY
Gemtesa 75 mg Tablet
75 mg PO DAILY
ceftriaxone 1 gram Recon Soln
2 g IV Q12H
Rx Instructions:
infuse 1,000mg at 200mL/hr over 30 minutes into a venous catheter every 24 hours
ampicillin sodium 2 gram Recon Soln
2 g IV Q4H
Rx Instructions:
Infuse 2000mg at 200mL/hr over 30 minutes into a venous catheter every 4 hours
tamsulosin 0.4 mg capsule
0.4 mg PO HS
Discontinued
zonisamide 25 mg Capsule
25 mg PO DAILY
memantine 7 mg Capsule,Sprinkle,Er 24hr
7 mg PO HS
Discharge Orders:
Discharge Patient (As Directed); Ordered 08/08/24
Ordered By: Marcin Lutz
Discharge Date and Time
Discharge Date/Time: 08/08/24 16:03
Print Language: SLOVAK
[2024-08-08] MEDS: SENOKOT PO (12:18)
--- NOTE | 2024-08-08 14:32 | CM ---
MD entered order for discharge.
Spoke with [facility] she said pt need OT eval today before accepting.
Spoke with dgt she is in agreement with dc to [facility] today via .
IMM reviewed signed on chart.
OT saw pt.
PICC line info faxed to Ricardo.
[facility]
report [phone]
fax [phone]
PLAN to [facility] via [facility]
== END 2024-08-08 16:03 | DRG 306 ==
LOC: 4 EAST ACU 21:50
PROVIDERS: Emergency Medicine; Registered Nurse; ADMITTING PHYSICIAN Hospitalist; ATTENDING PHYSICIAN Internal Medicine; CONSULT PHYSICIAN Student in an Organized Health Care Education/Training Program; EMERGENCY PHYSICIAN Emergency Medicine; FAMILY PHYSICIAN Internal Medicine
DX: I38 Endocarditis, valve unspecified (principal); G92.8 Other toxic encephalopathy; M27.2 Inflammatory conditions of jaws; B95.2 Enterococcus as the cause of diseases classified elsewhere; G20.A1 Parkinson's disease without dyskinesia, without mention of fluctuations; F02.80 Dementia in other diseases classified elsewhere, unspecified severity, without behavioral disturbance, psychotic disturbance, mood disturbance, and anxiety; N40.0 Benign prostatic hyperplasia without lower urinary tract symptoms; K21.9 Gastro-esophageal reflux disease without esophagitis
CPT/HCPCS: 71046; 80048; 80053; 85025; 85027; 92526; 92610; 93005; 96360; 97163; 97167; 97530; 99285

== ENCOUNTER 2024-10-24 11:03 | Outpatient (RCR) | payer MEDICARE, OTHER, SELFPAY | END 2024-10-24 23:59 | disposition home or self-care (01) | LOC: RST 11:03 | PROVIDERS: ATTENDING PHYSICIAN Internal Medicine | DX: G20.A1 Parkinson's disease without dyskinesia, without mention of fluctuations (principal); F02.80 Dementia in other diseases classified elsewhere, unspecified severity, without behavioral disturbance, psychotic disturbance, mood disturbance, and anxiety; R13.12 Dysphagia, oropharyngeal phase; Z73.6 Limitation of activities due to disability; R26.89 Other abnormalities of gait and mobility | CPT/HCPCS: 92507; 92522; 92526; 92610; 97110; 97112; 97116; 97163; 97530 ==

== ENCOUNTER 2024-11-11 12:03 | Outpatient (RCR) | payer MEDICARE, OTHER, SELFPAY | END 2024-11-20 23:59 | disposition home or self-care (01) | LOC: ROT 12:03 | PROVIDERS: ATTENDING PHYSICIAN Internal Medicine | DX: G20.A1 Parkinson's disease without dyskinesia, without mention of fluctuations (principal); F02.80 Dementia in other diseases classified elsewhere, unspecified severity, without behavioral disturbance, psychotic disturbance, mood disturbance, and anxiety; R13.12 Dysphagia, oropharyngeal phase; Z73.6 Limitation of activities due to disability; R26.89 Other abnormalities of gait and mobility; R47.1 Dysarthria and anarthria | CPT/HCPCS: 92507; 92526; 97112; 97116; 97167; 97530; 97535 ==

== ENCOUNTER → 2025-01-29 09:00 | Outpatient (REF) | payer MEDICARE, OTHER, SELFPAY ==
[2025-01-29 17:21] LABS: Urine Albumin 2+ (Neg - Trace); Urine Bilirubin Negative (Negative); Urine Character Clear (Clear); Urine Color Yellow; Urine Glucose Negative (Negative); Urine Ketone 1+ (Negative); Urine Leukocyte 1+ (Negative); Urine Nitrite Positive (Negative); Urine Occult Blood 4+ (Negative); Urine Urobilinogen Negative (Neg - 1+)
[2025-01-29 17:31] LABS: Urine Red Blood Cell >100 /HPF (0-2); Urine Squamous Cell 0-2 /LPF (Few)
[2025-01-29 17:32] LABS: Urine Bacteria Few (Negative)
== END ==
LOC: CLAB 09:00
PROVIDERS: ATTENDING PHYSICIAN Urology
DX: N39.0 Urinary tract infection, site not specified (principal)
CPT/HCPCS: 81003; 81015; 87086

== ENCOUNTER → 2025-03-30 11:59 | Outpatient (REF) | payer MEDICARE, OTHER, SELFPAY ==
[2025-03-30 18:14] LABS: Urine Albumin 1+ (Neg - Trace); Urine Bilirubin Negative (Negative); Urine Character Clear (Clear); Urine Color Yellow; Urine Glucose Negative (Negative); Urine Ketone 1+ (Negative); Urine Leukocyte 2+ (Negative); Urine Nitrite Positive (Negative); Urine Occult Blood 1+ (Negative); Urine Specific Gravity 1.025 (<1.030); Urine Urobilinogen Negative (Neg - 1+)
[2025-03-30 18:49] LABS: Urine Bacteria Many (Negative); Urine Red Blood Cell 0-2 /HPF (0-2); Urine White Cell 60-70 /HPF (0-5)
== END ==
LOC: CLAB 11:59
PROVIDERS: ATTENDING PHYSICIAN Urology
DX: N39.0 Urinary tract infection, site not specified (principal)
CPT/HCPCS: 81003; 81015; 87077; 87086; 87088; 87186

== ENCOUNTER → 2025-05-19 10:13 | Outpatient (REF) | payer MEDICARE, OTHER, SELFPAY ==
[2025-05-19 10:46] LABS: Urine Albumin 1+ (Neg - Trace); Urine Bilirubin Negative (Negative); Urine Character Clear (Clear); Urine Color Yellow; Urine Glucose Negative (Negative); Urine Ketone Negative (Negative); Urine Leukocyte 1+ (Negative); Urine Nitrite Positive (Negative); Urine Occult Blood Negative (Negative); Urine Urobilinogen Negative (Neg - 1+)
[2025-05-19 10:57] LABS: Urine Mucus Few; Urine Red Blood Cell 0-2 /HPF (0-2)
[2025-05-19 10:58] LABS: Urine Bacteria Many (Negative); Urine Calcium Oxalate Crystals Present
== END ==
LOC: REG 10:13
PROVIDERS: ATTENDING PHYSICIAN Surgery; FAMILY PHYSICIAN Internal Medicine
DX: N39.0 Urinary tract infection, site not specified (principal)
CPT/HCPCS: 81003; 81015; 87086

== ENCOUNTER → 2025-07-22 15:49 | Outpatient (REF) | payer MEDICARE, OTHER, SELFPAY ==
[2025-07-22 16:21] LABS: Urine Character Slightly Cloudy (Clear)
[2025-07-22 17:00] LABS: Urine Red Blood Cell 0-2 /HPF (0-2); Urine Urothelial Cell 0-2 /LPF (FEW)
== END ==
LOC: CLAB 15:49
PROVIDERS: ATTENDING PHYSICIAN Surgery
DX: R39.9 Unspecified symptoms and signs involving the genitourinary system (principal)
CPT/HCPCS: 81003; 81015; 87077; 87086

== ENCOUNTER → 2025-08-21 15:13 | Outpatient (REF) | payer MEDICARE, OTHER, SELFPAY | LOC: CLAB 15:13 | PROVIDERS: ATTENDING PHYSICIAN Surgery | DX: N39.0 Urinary tract infection, site not specified (principal) | CPT/HCPCS: 87077; 87086; 87186 ==

== ENCOUNTER → 2025-09-09 17:42 | Outpatient (REF) | payer MEDICARE, OTHER, SELFPAY ==
[2025-09-09 18:40] LABS: Urine Character Cloudy (Clear)
[2025-09-09 19:28] LABS: Urine Squamous Cell 0-2 /LPF (Few); Urine Urothelial Cell 0-2 /LPF (FEW)
[2025-09-09 19:29] LABS: Urine White Cell 70-80 /HPF (0-5)
== END ==
LOC: CLAB 17:42
PROVIDERS: ATTENDING PHYSICIAN Surgery
DX: N39.0 Urinary tract infection, site not specified (principal)
CPT/HCPCS: 81003; 81015; 87077; 87086; 87088; 87186

== ENCOUNTER → 2025-09-17 16:36 | Outpatient (REF) | payer MEDICARE, OTHER, SELFPAY ==
[2025-09-17 18:40] LABS: Urine Character Cloudy (Clear)
[2025-09-17 19:54] LABS: Urine Squamous Cell 0-2 /LPF (Few)
[2025-09-17 19:56] LABS: Urine Red Blood Cell >100 /HPF (0-2); Urine White Cell 30-40 /HPF (0-5)
== END ==
LOC: CLAB 16:36
PROVIDERS: ATTENDING PHYSICIAN Surgery
DX: N39.0 Urinary tract infection, site not specified (principal)
CPT/HCPCS: 81003; 81015; 87086

== ENCOUNTER 2025-09-29 00:05 | Inpatient (IN) | payer MEDICARE, OTHER, SELFPAY ==
[2025-09-28 21:41] VITALS: BP 125/65
[2025-09-28 21:42] VITALS: BP 125/65; BMI 26.1
[2025-09-28 22:00] VITALS: BP 101/63
--- NOTE | 2025-09-28 22:01 | ED.GENMED ---
History of Present Illness
<Nikolay Valerio PA-C - Last Filed: 09/28/25 23:53>
General
Chief Complaint: Catheter/Tube Problem
Time Seen by Provider: 09/28/25 21:52
History of Present Illness
History of Present Illness:
75-year-old male with history of Parkinson's, hypertension, and BPH with retention status post indwelling Zapata catheter presents to the emergency department via EMS for evaluation of fever and altered mental status associated with poor drainage
from the Zapata catheter. Patient is unable to provide any history and his speech is quite slurred on arrival which apparently has been ongoing since having his urinary difficulties over the past several weeks. Has a history of recurrent UTI
secondary to BPH
Past History
<Nikolay Valerio PA-C - Last Filed: 09/28/25 23:53>
Past History
ED Past Medical History: HTN and Other (Parkinson's)
ED Past Surgical History: Urological (Prostate artery embolization 05/15/2024 at [facility]) and Other (Ledbetter teeth)
Social History
Tobacco: Non-smoker
Alcohol: None
Drug: None
Personal:
Living: with family
Employment: Retired
Review of Systems
<Nikolay Valerio PA-C - Last Filed: 09/28/25 23:53>
Review of Systems
Allergies reviewed?: Yes
All Other Systems: ROS reviewed and negative except as documented in HPI and ROS
Phy Exam
<Nikolay Valerio PA-C - Last Filed: 09/28/25 23:53>
Physical Exam
Physical Exam:
GEN: Well appearing, NAD, WDWN
HEENT: Oral mucosa moist, no scleral icterus
Cardiac: Regular rate and rhythm
Lung: No respiratory distress, no tachypnea
MSK: No gross deformity or injuries
Skin: Good color, no pallor or jaundice, no rashes
Neuro: Alert, follows commands, profoundly slurred speech which is nearly indiscernible
Psych: Calm, cooperative
Course
<Nikolay Valerio PA-C - Last Filed: 09/28/25 23:53>
Orders/Labs/Results
Orders:
Orders
09/28/25 21:54
Basic Metabolic Panel Urgent
Complete Blood Count/With Diff Urgent
Lactic Acid Urgent
Manual Differential Urgent
Urinalysis Reflex To Culture Urgent
Date Specimen was Collected: 09/28/25
Time Specimen was Collected: 21:47
Urine Microscopic Reflex Cult Urgent
Blood Culture Urgent
CHRISTOS Source: Blood/Venous
Specimen Description:
Urine Culture Urgent
CHRISTOS Source: U
Specimen Description:
Date Specimen was Collected: 09/28/25
Time Specimen was Collected: 21:47
09/28/25 22:00
Zapata Placement- Treatment ONCE
Reason for insertion: Chronic Zapata on Admit
0.9% Sodium Chloride 1000 ml [Nss] 1,000 ml IV BOLUS
Acetaminophen 1000MG/100Ml [Ofirmev] 1,000 mg in 100 ml IV ONCE
Acetaminophen IV Indication:: ED Narcotic Naive Pt-ONCE
09/28/25 22:39
CefTRIAXone [Rocephin] 1,000 mg IV NOW STA
09/28/25 22:42
Sterile Water [Sterile Water For Injection] 10 ml .ROUTE .STK-MED ONE
Vancomycin [Vancocin] 2,000 mg 0.9% Sodium Chloride 500 ml [Nss] 500 ml IV NOW
09/28/25 22:46
Blood Culture Urgent
CHRISTOS Source: Blood/Venous
Specimen Description:
09/28/25 23:41
Admit/Transfer Patient As Directed
Co-Sign Provider:
Level of Care: Inpatient admission
Assign to:: Medical/Surgical
Physician / Group: genevieve
Diagnosis: sepsis
Reason for Hospitalization: sepsis
Expected length of stay greater than two midnights?: Yes
ELOS- Estimated Length of Stay in days: 3
I certify the patient meets the requirements for IP care: Yes
PRN Pain Medication Management As Directed
May give lesser potent ordered pain med per pt: Yes
preference::
Protocol:: Medication orders for pain may be administered in a
manner that supports deferring to patient preference
when the pt is:
- Requesting an ordered lesser potent pain medication.
Least to most potent pain medications are defined
as: acetaminophen < NSAID < tramadol < opioids
(morphine, oxycodone, hydromorphone).
- Requesting a lesser dose of the same medication IF
ORDERED.
- Requesting a less intrusive route of administration
if both routes are prescribed by the provider (PO <
IV).
09/28/25 23:42
Code Status As Directed
Resuscitation Status: Full Code
Abnormal Lab Results
09/28/25
21:54
WBC 31.2 H 10^3/uL
(4.8-10.8)
RBC 4.42 L 10^6/uL
(4.70-6.10)
Hgb 12.7 L g/dL
(13.0-18.0)
Hct 37.4 L %
(39.0-52.0)
Abs Neuts (Manual) 26.2 H 10^3/uL
(1.4-6.5)
Segmented Neutrophils 84 H %
(42-75)
Lymphocytes (Manual) 9 L %
(20-51)
Carbon Dioxide 21 L mmol/L
(22-30)
BUN 33 H mg/dl
(9-20)
Creatinine 1.5 H mg/dL
(0.7-1.3)
Glucose 140 H mg/dl
(70-99)
Urine Ketones 2+ A
(Negative)
Ur Occult Blood Reflex 4+ A
(Negative)
Leukocyte Esterase Rfl 3+ A
(Negative)
Urine RBC >100 A /HPF
(0-2)
Urine WBC (Reflex) 80-90 A /HPF
(0-5)
Urine Bacteria (Reflex) Many A
(Negative)
Urine Albumin (Reflex) 3+ A
(Neg - Trace)
09/28/25 21:54
09/28/25 21:54
Vital Signs
Initial and Last Documented VS:
Initial Vital Signs
Temp Pulse Resp BP Pulse Ox
99.0 F 78 16 125/65 96
09/28/25 21:42 09/28/25 21:42 09/28/25 21:42 09/28/25 21:42 09/28/25 21:42
Last Documented Vital Signs
Temp Pulse Resp BP Pulse Ox
99.0 F 78 16 125/65 96
09/28/25 21:42 09/28/25 21:42 09/28/25 21:42 09/28/25 21:42 09/28/25 22:02
<Rayshawn Gudino, DO - Last Filed: 09/28/25 22:44>
Orders/Labs/Results
Orders:
Orders
09/28/25 21:54
Basic Metabolic Panel Urgent
Complete Blood Count/With Diff Urgent
Lactic Acid Urgent
Manual Differential Urgent
Urinalysis Reflex To Culture Urgent
Date Specimen was Collected: 09/28/25
Time Specimen was Collected: 21:47
Urine Microscopic Reflex Cult Urgent
Blood Culture Urgent
CHRISTOS Source: Blood/Venous
Specimen Description:
Urine Culture Urgent
CHRISTOS Source: U
Specimen Description:
Date Specimen was Collected: 09/28/25
Time Specimen was Collected: 21:47
09/28/25 22:00
Zapata Placement- Treatment ONCE
Reason for insertion: Chronic Zapata on Admit
0.9% Sodium Chloride 1000 ml [Nss] 1,000 ml IV BOLUS
Acetaminophen 1000MG/100Ml [Ofirmev] 1,000 mg in 100 ml IV ONCE
Acetaminophen IV Indication:: ED Narcotic Naive Pt-ONCE
09/28/25 22:39
CefTRIAXone [Rocephin] 1,000 mg IV NOW STA
09/28/25 22:42
Sterile Water [Sterile Water For Injection] 10 ml .ROUTE .STK-MED ONE
Vancomycin [Vancocin] 2,000 mg 0.9% Sodium Chloride 500 ml [Nss] 500 ml IV NOW
09/28/25 22:46
Blood Culture Urgent
CHRISTOS Source: Blood/Venous
Specimen Description:
09/28/25 23:41
Admit/Transfer Patient As Directed
Co-Sign Provider:
Level of Care: Inpatient admission
Assign to:: Medical/Surgical
Physician / Group: genevieve
Diagnosis: sepsis
Reason for Hospitalization: sepsis
Expected length of stay greater than two midnights?: Yes
ELOS- Estimated Length of Stay in days: 3
I certify the patient meets the requirements for IP care: Yes
PRN Pain Medication Management As Directed
May give lesser potent ordered pain med per pt: Yes
preference::
Protocol:: Medication orders for pain may be administered in a
manner that supports deferring to patient preference
when the pt is:
- Requesting an ordered lesser potent pain medication.
Least to most potent pain medications are defined
as: acetaminophen < NSAID < tramadol < opioids
(morphine, oxycodone, hydromorphone).
- Requesting a lesser dose of the same medication IF
ORDERED.
- Requesting a less intrusive route of administration
if both routes are prescribed by the provider (PO <
IV).
09/28/25 23:42
Code Status As Directed
Resuscitation Status: Full Code
Abnormal Lab Results
09/28/25
21:54
WBC 31.2 H 10^3/uL
(4.8-10.8)
RBC 4.42 L 10^6/uL
(4.70-6.10)
Hgb 12.7 L g/dL
(13.0-18.0)
Hct 37.4 L %
(39.0-52.0)
Abs Neuts (Manual) 26.2 H 10^3/uL
(1.4-6.5)
Segmented Neutrophils 84 H %
(42-75)
Lymphocytes (Manual) 9 L %
(20-51)
Carbon Dioxide 21 L mmol/L
(22-30)
BUN 33 H mg/dl
(9-20)
Creatinine 1.5 H mg/dL
(0.7-1.3)
Glucose 140 H mg/dl
(70-99)
Urine Ketones 2+ A
(Negative)
Ur Occult Blood Reflex 4+ A
(Negative)
Leukocyte Esterase Rfl 3+ A
(Negative)
Urine RBC >100 A /HPF
(0-2)
Urine WBC (Reflex) 80-90 A /HPF
(0-5)
Urine Bacteria (Reflex) Many A
(Negative)
Urine Albumin (Reflex) 3+ A
(Neg - Trace)
09/28/25 21:54
09/28/25 21:54
Vital Signs
Initial and Last Documented VS:
Initial Vital Signs
Temp Pulse Resp BP Pulse Ox
99.0 F 78 16 125/65 96
09/28/25 21:42 09/28/25 21:42 09/28/25 21:42 09/28/25 21:42 09/28/25 21:42
Last Documented Vital Signs
Temp Pulse Resp BP Pulse Ox
99.0 F 78 16 125/65 96
09/28/25 21:42 09/28/25 21:42 09/28/25 21:42 09/28/25 21:42 09/28/25 22:02
<Nikolay Valerio PA-C - Last Filed: 09/28/25 23:53>
MDM/Problems Addressed
MDM/Problems Addressed:
Bladder scan on arrival reveals 350 cc urine in the bladder, Zapata exchanged with good output. Urinalysis grossly positive for UTI, prior history of E. coli and Enterococcus thus will treat with ceftriaxone and vancomycin. Due to severe
leukocytosis will admit to the hospital for IV antibiotics and hydration
<Nikolay Valerio PA-C - Last Filed: 09/28/25 23:53>
*Pulse Oximetry
SaO2: 96
Oxygen Mode of Delivery: Room air
Patient hypoxic: no
*Critical Care Note
Total Time (30-74mins, 75-104mins- exclusive of procedures): Not Applicable
ED Attending Note
<Nikolay Valerio PA-C - Last Filed: 09/28/25 23:53>
-
Portions of this chart may have been created with voice recognition software.� Occasional wrong word or��sound alike� substitutions may have occurred due to the inherent limitations of voice recognition software.
<Rayshawn Gudino DO - Last Filed: 09/28/25 22:44>
ED Attending Note
Patient seen and examined by attending physician: Yes
I performed the substantive portion of visit, reviewed & personally made and approve the management plan that is documented in note by myself or WANDA.: Yes
ED Attending Note:
I evaluated the patient at bedside. White count 31,000, creatinine is worse than prior, urinalysis suggest infection. Lactic 1.6. Chest
Discharge Plan
Departure
Patient Disposition: Admit
Date of Disposition: 09/28/25
Time of Disposition: 23:10
Admit to: Med/Surg
Presentation/result/management discussed w/ accepting MD/DO: Hospitalist
Discharge Problem:
Acute UTI
Prescriptions:
No Action
isradipine 2.5 mg Capsule
2.5 mg PO Q12H
finasteride 5 mg Tablet
5 mg PO DAILY
Rx Instructions:
start 08/09/2024
donepezil 10 mg Tablet
20 mg PO HS
tamsulosin 0.4 mg capsule
0.4 mg PO HS
omeprazole 40 mg Capsule,Delayed Release(Dr/Ec)
40 mg PO DAILY
zonisamide 25 mg Capsule
25 mg PO HS
carbidopa-levodopa 25-100 mg tablet extended release
1 tab PO . 1200, 2000
carbidopa-levodopa 25-100 mg tablet extended release
1.5 tab PO DAILY@0700
memantine 10 mg tablet
14 mg PO BID
L. acidophilus,casei,rhamnosus 50 billion cell Capsule,Delayed Release(Dr/Ec)
2 cap PO DAILY Qty: 0 0RF
Referrals:
UNKNOWN - PT DOES,NOT KNOW [Family Provider]
Interventions
Interventions:
*Risk Screen - Suicide Last Done: 09/28/25 21:42
*General Assessment Last Done: 09/28/25 21:42
*Neglect/Abuse Screening Last Done: 09/28/25 21:42
*ED- Fall Risk Assessment Last Done: 09/28/25 21:42
*ED COVID-19 Vaccine History Last Done: 09/28/25 21:42
*ED Influenza Vaccine History Last Done: 09/28/25 21:42
PY-Zlqvto-Jmjeucqqcp Assessment Last Done: 09/28/25 22:38
ED-Male Genitourinary Assessment Last Done: 09/28/25 22:38
Discharge Date and Time
Print Language: KYRGYZ
[2025-09-28 22:16] LABS: Urine Character Clear (Clear)
[2025-09-28 22:22] LABS: Urine Red Blood Cell >100 /HPF (0-2); Urine White Cell 80-90 /HPF (0-5)
[2025-09-28 22:23] LABS: Urine Squamous Cell 0-2 /LPF (Few)
[2025-09-28] MEDS: NSS 1000 IV (22:27)
[2025-09-28] MEDS: OFIRMEV 100 IV (22:27)
[2025-09-28 22:33] LABS: Blood Urea Nitrogen 33 mg/dl (9-20); Calcium 9.6 mg/dl (8.4-10.2); Carbon Dioxide 21 mmol/L (22-30); Estimated Creatinine Clearance 38 ml/min; Glucose 140 mg/dl (70-99); eGFR 48.25
[2025-09-28 22:34] LABS: Absolute Neutrophils -Man Diff 26.2 10^3/uL (1.4-6.5); Hematocrit 37.4 % (39.0-52.0); Hemoglobin 12.7 g/dL (13.0-18.0); Mean Corp Hgb Conc. 34.0 g/dL (33.0-37.0); Mean Corpuscular Volume 84.6 fL (80.0-94.0); Platelet Count 279 10^3/uL (130-400); Red Cell Dist. Width 13.2 % (11.5-14.5)
[2025-09-28 22:35] LABS: Normal RBC Morphology Yes; Platelets Checked Yes; Total Cells Counted 100
[2025-09-28 22:45] LABS: Chloride 103 mmol/L (98-107); Potassium 4.3 mmol/L (3.5-5.1); Sodium 137 mmol/L (135-145)
[2025-09-28] MEDS: ROCEPHIN 1000 MG IV (22:53)
[2025-09-28] MEDS: VANCOCIN 540 MG IV (22:54)
[2025-09-28 23:00] VITALS: BP 110/63
--- NOTE | 2025-09-28 23:12 | HPS.HSE ---
Family Physician
-
Family Physician: NOT KNOW UNKNOWN - PT DOES
Chief Complaint
-
blood in the urine
History of Present Illness
75-year-old male with history of Parkinson's, hypertension, and BPH with retention status post indwelling Geiger catheter a week ago presented to us bloody urine in the bag, clots in the tube. today he had decreased urine output. he had an temp of
101.5. he was coughing last week. chest x ray was clear. he was fine for few days and now he started coughing since last night. patient not able to provide meaningful story. he was noted confused. history provided from his . since Summer he was
having frequent UTI. patient follows urology recommended Geiger.
UA positive for UTI. Received ceftriaxone and vancomycin in the ER. Patient received fluids in the ER. Admitting for further manage
Medical History
Past Medical History
Past Medical History: Reports Other
Additional Past Medical History:
urinary retention
neurogenic bladder
BPH
parkinson disease
HTN
Past Surgical History: Reports Other
Social History
Tobacco: Non-smoker
Alcohol: None
Drug: None
Personal:
Living: With Family
Family History
Family History: Not pertinent
Allergies / Home Medications
Allergies reflects when Allergies were last updated in [employer].
Home Medications with original date entered in [employer]
Allergy/Medication List:
Allergies
Allergy/AdvReac Type Severity Reaction Status Date / Time
No Known Allergies Allergy Verified 09/28/25 21:45
Home Medications
isradipine 2.5 mg capsule 2.5 mg PO Q12H Blood Pressure 03/23/24
finasteride 5 mg tablet 5 mg PO DAILY Urinary Issue 05/17/24
donepezil 10 mg tablet 20 mg PO HS dementia 08/05/24
tamsulosin 0.4 mg capsule 0.4 mg PO HS Urinary Issue 08/05/24
L. acidophilus,casei,rhamnosus 50 billion cell capsule,delayed release 2 cap PO DAILY supplement #0 caps 08/25/24
carbidopa ER 25 mg-levodopa 100 mg tablet,extended release 1 tab PO . 1200, 2000 parkinson's disease 09/28/25
carbidopa ER 25 mg-levodopa 100 mg tablet,extended release 1.5 tab PO DAILY@0700 parkinson's disease 09/28/25
memantine 10 mg tablet 14 mg PO BID 09/28/25
omeprazole 40 mg capsule,delayed release 40 mg PO DAILY 09/28/25
zonisamide 25 mg capsule 25 mg PO HS 09/28/25
Review of Systems
-
Constitutional: Reports No Symptoms
EENT: Reports No Symptoms
Respiratory: Reports No Symptoms
Cardiac: Reports No Symptoms
Abdomen/GI: Reports No Symptoms
: Reports Geiger
Musculoskeletal: Reports No Symptoms
Skin: Reports No Symptoms
Neurological: Reports No Symptoms
Endocrine: Reports No Symptoms
Hematologic/Lymphatic: Reports No Symptoms
Psych: Reports No Symptoms
Physical Exam
Vital Signs
Vital Signs
Temp Pulse Resp BP Pulse Ox
99.0 F 78 16 125/65 96
09/28/25 21:42 09/28/25 21:42 09/28/25 21:42 09/28/25 21:42 09/28/25 22:02
Physical Exam
General: Well Developed, Well Nourished and No Apparent Distress
HEENT: NormoCephalic, Moist mucous membranes and Atraumatic
Respiratory: Clear
Cardiac: S1/S2 and Regular Rhythm; No Murmur or Rub
GI: Soft, Non Tender, Non Distended and Normal Bowel Sounds; No Organomegaly
Rectal: Deferred by Provider
Genito-urinary: Geiger (Dark urine)
Musculoskeletal: No Clubbing, No Cyanosis and No Edema
Skin: No Rash
Neuro: Nonfocal/grossly intact
Laboratory Results
-
09/28/25 21:54
09/28/25 21:54
Laboratory Results
Lactic Acid 1.6 mmol/L (0.7-2.0) 09/28/25 21:54
Data Reviewed
-
Lab Data: Labs Reviewed by me
Impression/Plan
-
#sepsis secondary to catheter associated UTI
-wbc 31.2, cr 1.5 patient is afebrile
-iv ceftriaxone and vancomycin
-Tylenol prn for fever
-urine culture pending
-ctm
#hxt of E coli, enterococcus faecalis
-geiger exchanged in the ER
#acute kidney injury hypovolemic
-fluids continued
-BMP in am
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
#Enterococcal, Bacteroides Bacteremia
#parkinson's Disease with dementia
-on Sinemet, Zonegran
#BPH
-Home regimen includes Flomax and Proscar
#GERD-
-Stable on home PPI therapy daily
# Essential hypertension
- Isradipine continued
#DVT prophylaxis: SCDs
#CODE STATUS: Full code
--- NOTE | 2025-09-28 23:38 | W.PN.UPDATE ---
Update Note
Progress Note Update
This is an addendum to the H&P written by Stacey Dent on 09/28/2025. �Patient seen and examined independently with RETINAL ANGIOGRAPHER.
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
left mandibular abscess, presenting for fever of 101 and altered mental status with poor drainage, bleeding and clots from Zapata catheter. �Patient with slurred speech.
Coughing for 1 week.
He recently had Zapata catheter placed 1-1/2 weeks ago which was recommended for neurogenic bladder although family has been trying to avoid it previously.
Vital signs unremarkable.
Labs show leukocytosis of 31. �Creatinine of 1.5. �Urinalysis shows +2 leukocyte esterase. �80-90 WBC.
Patient with sepsis/acute metabolic encephalopathy secondary to UTI. �Also with MALLORY. �Check urine culture, blood cultures. �IV fluids. �Vancomycin/ceftriaxone due to history of frequent Enterococcus UTI.� Zapata catheter was Exchanged.
[2025-09-29 00:01] VITALS: BP 107/54
[2025-09-29 01:27] VITALS: BP 120/58
[2025-09-29] MEDS: NSS 1000 IV ×2 (01:43→17:17)
[2025-09-29 02:56] VITALS: BMI 23.8
[2025-09-29] MEDS: SINEMET CR 25-100 (EXTENDED RELEASE) 1.5 TABLET PO (06:26)
[2025-09-29 07:35] VITALS: BP 132/108
--- NOTE | 2025-09-29 08:45 | PTOTSP ---
Speech Language Pathology
Pt seen for clinical bedside swallow evaluation. Well known to AWARD MACHINE OPERATOR service line at [facility]. Multiple VSEs completed, most recent at [facility] 07/01/24 with recommendations for soft regular solids and thin liquids.
This date, P.O. trials of puree, regular solids, ice chips, and thin liquids provided. Prolonged mastication of regular solids noted. After a period of mastication, pt orally held bolus. Unsure if issue with initiation. Able to initiate swallow
given additional time. No overt signs of aspiration.
Per H&P, CXR completed last week given cough, but CXR clear. Not currently admitted for respiratory issues.
Recommend:
(1) IDDSI Level 6 (soft/bite-sized) and thin liquids
(2) Aspiration precautions: slow rate, single sips, sit upright, full assist, ensure pt swallows prior to next bite/sip
(3) Meds crushed in puree (this is how pt takes pills at home per his report
(4) AWARD MACHINE OPERATOR to continue to follow
[2025-09-29] MEDS: PROSCAR 5 MG PO (09:08)
[2025-09-29] MEDS: DESENEX/MITRAZOL/ZEASORB 1 APPLIC TOPICAL ×2 (09:08→21:00)
[2025-09-29] MEDS: NAMENDA 5 MG PO ×2 (09:09→21:00)
[2025-09-29] MEDS: PROTONIX 40 MG PO (09:09)
[2025-09-29 09:51] LABS: Hematocrit 35.8 % (39.0-52.0); Hemoglobin 11.5 g/dL (13.0-18.0); Mean Corp Hgb Conc. 32.1 g/dL (33.0-37.0); Mean Corpuscular Volume 89.1 fL (80.0-94.0); Platelet Count 207 10^3/uL (130-400); Red Cell Dist. Width 13.3 % (11.5-14.5)
[2025-09-29 09:52] LABS: Hematocrit 35.2 % (39.0-52.0); Hemoglobin 11.9 g/dL (13.0-18.0); Mean Corp Hgb Conc. 33.8 g/dL (33.0-37.0); Mean Corpuscular Volume 87.6 fL (80.0-94.0); Platelet Count 200 10^3/uL (130-400); Red Cell Dist. Width 13.2 % (11.5-14.5)
[2025-09-29 10:03] LABS: ALT (SGPT) < 10 U/L (0-50); AST (SGOT) 18 U/L (17-59); Albumin 3.2 g/dl (3.5-5.0); Alkaline Phosphatase 72 U/L (38-126); Blood Urea Nitrogen 27 mg/dl (9-20); Calcium 8.6 mg/dl (8.4-10.2); Carbon Dioxide 25 mmol/L (22-30); Chloride 106 mmol/L (98-107); Estimated Creatinine Clearance 50 ml/min; Glucose 108 mg/dl (70-99); Potassium 3.8 mmol/L (3.5-5.1); Sodium 138 mmol/L (135-145); Total Protein 5.7 g/dl (6.3-8.2); eGFR > 60.00
--- NOTE | 2025-09-29 10:50 | PHA.VAN.IN ---
Assessment
- Assessment
Renal Function: SCR Appears Elevated from baseline (SCR elevated but trending down 1.5 --> 1.1)
Concomitant Antimicrobials: ceftriaxone
Laboratory Tests
09/29/25
09:16
Random Vancomycin 12.9
Drawn ~10H after 2g loading dose
Plan
- Plan
Initial / Loading Dose: 2000mg - 09/28 22:54
Maintenance Regimen: dosing by level - redose with 1g x1 today
Monitoring: random 09/30 600
Pharmacokinetics Vancomycin I
- -
Patient Age: 75
Patient Sex: Male
Vancomycin Day #: 1
Indication: Genito-Urinary Tract
Requesting Provider: Kelsey Dent
Pertinent Antimicrobial Allergies:
NKDA
Height / Weight:
Height 5 ft 5 in
Actual Weight 64.864 kg
Pertinent Past Medical History: Parkinson's
- Vital Signs / Lab Results
Temp Pulse Resp BP Pulse Ox
97.8 F 49 16 132/108 95
09/29/25 07:35 09/29/25 07:35 09/29/25 07:35 09/29/25 07:35 09/29/25 07:35
Lab Results - Hematology
09/28/25 09/29/25 09/29/25
21:54 07:50 09:16
WBC 31.2 H 20.8 H 20.1 H
Band Neutrophils 0
Lab Results - Chemistry
09/28/25 09/29/25
21:54 09:16
BUN 33 H 27 H
Creatinine 1.5 H 1.1
Estimated Creat Clear 38 50
Albumin 3.2 L
09/28/25
21:54
Lactic Acid 1.6
Lab Results - Urine
09/28/25
21:54
Urine Nitrite (Reflex) Negative
Leukocyte Esterase Rfl 3+ A
Urine WBC (Reflex) 80-90 A
Ur Squamous Epith Cells 0-2
Urine Bacteria (Reflex) Many A
[2025-09-29] MEDS: VANCOCIN 200 IV (11:31)
--- NOTE | 2025-09-29 12:15 | W.PN.HOSP.TC ---
Today's Communication/Plan
-
abx
f/u cultures
f/u bmp
Assessment / Plan
Assessment / Plan
Physical Exam
General: Well Developed, Well Nourished and No Apparent Distress
HEENT: NormoCephalic, Moist mucous membranes and Atraumatic
Respiratory: Clear
Cardiac: S1/S2 and Regular Rhythm; No Murmur or Rub
GI: Soft, Non Tender, Non Distended and Normal Bowel Sounds; No Organomegaly
Rectal: Deferred by Provider
Genito-urinary: Geiger (Dark urine)
Musculoskeletal: No Clubbing, No Cyanosis and No Edema
Skin: No Rash
Neuro: Nonfocal/grossly intact
#Sepsis
#UTI
#with organ dysfunction - MALLORY
-hx of E coli, enterococcus faecalis
-iv ceftriaxone and vancomycin
-Tylenol prn for fever
-urine culture pending
-gegier exchanged in the ER
#MALLORY, improving
-hypovolemic
-fluids continued
-BMP in am
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
#Enterococcal, Bacteroides Bacteremia
#Parkinson's Disease with dementia
-on Sinemet, Zonegran
#LLL Opacity
-unchanged
-no clinical evidence of infection at this time
#BPH
-Home regimen includes Flomax and Proscar
#GERD-
-Stable on home PPI therapy daily
# Essential hypertension
- Isradipine continued
#DVT prophylaxis: SCDs
#CODE STATUS: Full code
Total time spent on today's encounter was 51 minutes which included time spent in counseling the patient/family regarding diagnosis and treatment plan as listed above, goals of care, and symptom management. Case was discussed with nursing staff,
specialists, and care coordinators/case management. All labs and imaging personally reviewed by me. Remainder the time spent in detailed review of previous records, lab data, imaging, and other medical provider documentation.
Anticipated Discharge: 24 - 48 hours
Subjective/Interval History
-
Date of Service: September 29, 2025
no acute events
Objective Data
-
Labs:
Laboratory Results
09/29/25 09/29/25
07:50 09:16
WBC 20.8 H 20.1 H
Hgb 11.5 L 11.9 L
Hct 35.8 L 35.2 L
Plt Count 207 D 200
Sodium 138
Potassium 3.8
Chloride 106
Carbon Dioxide 25
BUN 27 H
Creatinine 1.1
Glucose 108 H
Calcium 8.6
Total Bilirubin 0.5
AST 18
ALT < 10
Alkaline Phosphatase 72
Vital Signs:
Vital Signs
Temp Pulse Resp BP Pulse Ox
97.8 F 49 16 132/108 95
09/29/25 07:35 09/29/25 07:35 09/29/25 07:35 09/29/25 07:35 09/29/25 07:35
I&O
09/28/25 09/29/25 09/30/25
06:59 06:59 06:59
Intake Total 1100 / 1100
Output Total 700 / 700
Balance 400 / 400
Review of Systems
-
History Source: Patient
All other systems: Reviewed and negative
Data Reviewed
-
Medical Tests (Nuc Med, Echo etc): Report Reviewed by me and Discussed with Family
Labs: Labs Reviewed by me and Discussed with Family
[2025-09-29] MEDS: SINEMET CR 25-100 (EXTENDED RELEASE) 1 TABLET PO ×2 (13:02→21:00)
[2025-09-29 13:47] VITALS: BP 120/58; PULSE 60
[2025-09-29 15:07] VITALS: BP 114/56
--- NOTE | 2025-09-29 15:37 | CM ---
CM reviewed chart, patient seen in chair with daughter visiting, initial assessment completed.
Patient resides with his in a single story home, one step to enter, rails on either side.
Patient uses a U-walker or WC.
Patient has had [facility] in past, [facility] and [facility] in past.
Family would like patient to d/c to acute rehab- CM discussed therapy recommendations of Acute vs SNF- requesting referrals to [facility]
CM discussed if patient not appropriate/accepted by Acute Rehab, will family consider SNF- daughter unsure, would like to speak to her mother, Flor, concerned patient will not get therapy needed at SNF.
PCP Glynn Joseph, [facility].
CM will continue to follow for all d/c planning needs.
Plan; Acute vs SNF- referrals to [facility]
[2025-09-29] MEDS: ROCEPHIN 1000 MG IV (21:00)
[2025-09-29] MEDS: ARICEPT 20 MG PO (21:00)
[2025-09-29] MEDS: FLOMAX 0.4 MG PO (21:00)
[2025-09-29] MEDS: STERILE WATER FOR INJECTION 10 ML IV (21:01)
[2025-09-29] MEDS: ZONEGRAN 25 MG PO (21:01)
[2025-09-29 23:29] VITALS: BP 176/77
[2025-09-30] MEDS: SINEMET CR 25-100 (EXTENDED RELEASE) 1.5 TABLET PO (06:11)
[2025-09-30] MEDS: NSS 1000 IV (06:11)
[2025-09-30] MEDS: DESENEX/MITRAZOL/ZEASORB 1 APPLIC TOPICAL ×2 (07:29→20:44)
[2025-09-30] MEDS: PROSCAR 5 MG PO (07:29)
[2025-09-30] MEDS: NAMENDA 5 MG PO ×2 (07:30→20:46)
[2025-09-30] MEDS: PROTONIX 40 MG PO (07:31)
[2025-09-30 07:40] VITALS: BP 136/69
[2025-09-30 08:22] LABS: Hematocrit 34.4 % (39.0-52.0); Hemoglobin 11.5 g/dL (13.0-18.0); Mean Corp Hgb Conc. 33.4 g/dL (33.0-37.0); Mean Corpuscular Volume 85.8 fL (80.0-94.0); Platelet Count 216 10^3/uL (130-400); Red Cell Dist. Width 13.2 % (11.5-14.5)
[2025-09-30 08:38] VITALS: BP 136/69
[2025-09-30 11:35] LABS: Blood Urea Nitrogen 21 mg/dl (9-20); Calcium 8.5 mg/dl (8.4-10.2); Carbon Dioxide 24 mmol/L (22-30); Chloride 106 mmol/L (98-107); Estimated Creatinine Clearance 56 ml/min; Glucose 116 mg/dl (70-99); Potassium 4.0 mmol/L (3.5-5.1); Sodium 138 mmol/L (135-145); eGFR > 60.00
[2025-09-30] MEDS: SINEMET CR 25-100 (EXTENDED RELEASE) 1 TABLET PO ×2 (11:35→20:46)
--- NOTE | 2025-09-30 11:35 | PHA.VAN.FU ---
Vancomycin Assessment / Plan
- Assessment
Renal Function: Stable
- Assessment - Therapeutic Drug Monitoring
Random Level: 9.5 - drawn ~19.5H after previous dose of 1g
- Dosing Plan
Adjust Regimen to: Vanc 1250mg Q24H - first dose now then 0600
New Regimen Predicts: AUC (561), Peak (39), Trough (12.4)
- Monitoring Plan
No level(s) ordered at this time: follow renal function trend
- Follow Up
Pharmacy will continue to follow.
Vancomycin Follow UP
- -
Patient Age: 75
Patient Sex: Male
Vancomycin Day #: 2
Indication: Genito-Urinary Tract
Requesting Provider: Kelsey Dent
Pertinent Antimicrobial Allergies:
NKDA
Height / Weight:
Height 5 ft 5 in
Actual Weight 64.864 kg
Pertinent Past Medical History: Parkinson's
- Vital Signs / Lab Results
Temp Pulse Resp BP Pulse Ox
97.1 F 48 18 136/69 99
09/30/25 07:40 09/30/25 07:40 09/30/25 07:40 09/30/25 07:40 09/30/25 07:40
Lab Results - Hematology
09/28/25 09/29/25 09/29/25
21:54 07:50 09:16
WBC 31.2 H 20.8 H 20.1 H
Band Neutrophils 0
09/30/25
07:15
WBC 12.9 H
Band Neutrophils
Lab Results - Chemistry
09/28/25 09/29/25
21:54 09:16
BUN 33 H 27 H
Creatinine 1.5 H 1.1
Estimated Creat Clear 38 50
Albumin 3.2 L
09/28/25
21:54
Lactic Acid 1.6
Lab Results - Urine
09/28/25
21:54
Urine Nitrite (Reflex) Negative
Leukocyte Esterase Rfl 3+ A
Ur Squamous Epith Cells 0-2
Microbiology Results
09/28/25 21:54 Urine Culture - Preliminary
Urine Gram negative bacilli
Enterococcus species
09/29/25 05:19 MRSA Screen - Final
Nose No Methicillin Resistant Staphylococcus aureus isolated.
09/28/25 22:46 Blood Culture - Preliminary
Blood/Venous No Growth in 24 hours- Final report to follow
09/28/25 21:54 Blood Culture - Preliminary
Blood/Venous No Growth in 24 hours- Final report to follow
Therapeutic Drug Monitoring
Random Vancomycin 9.5 ug/ml 09/30/25 07:15
[2025-09-30] MEDS: VANCOCIN 275 MG IV (11:49)
--- NOTE | 2025-09-30 13:43 | W.PN.HOSP.TC ---
Addendum entered and electronically signed by Curt Lane MD 09/30/25 17:24:
Metabolic Encephalopathy -Ruled out
Original Note:
Today's Communication/Plan
-
Continue antibiotics
Follow-up cultures
Assessment / Plan
Assessment / Plan
Physical Exam
General: Well Developed, Well Nourished and No Apparent Distress
HEENT: NormoCephalic, Moist mucous membranes and Atraumatic
Respiratory: Clear
Cardiac: S1/S2 and Regular Rhythm; No Murmur or Rub
GI: Soft, Non Tender, Non Distended and Normal Bowel Sounds; No Organomegaly
Rectal: Deferred by Provider
Genito-urinary: Geiger (Dark urine)
Musculoskeletal: No Clubbing, No Cyanosis and No Edema
Skin: No Rash
Neuro: Nonfocal/grossly intact
#Sepsis
#UTI
#with organ dysfunction - MALLORY
-hx of E coli, enterococcus faecalis
-iv ceftriaxone and vancomycin
-Tylenol prn for fever
-urine culture pending
-geiger exchanged in the ER
#MALLORY, resolved
-hypovolemic
-fluids continued
-BMP in am
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
#Enterococcal, Bacteroides Bacteremia
#Parkinson's Disease with dementia
-on Sinemet, Zonegran
#LLL Opacity
-unchanged
-no clinical evidence of infection at this time
#BPH
-Home regimen includes Flomax and Proscar
#GERD-
-Stable on home PPI therapy daily
# Essential hypertension
- Isradipine continued
#DVT prophylaxis: SCDs
#CODE STATUS: Full code
Anticipated Discharge: Within 24 hours
Subjective/Interval History
-
Date of Service: September 30, 2025
Still nauseous, weak
Objective Data
-
Labs:
Laboratory Results
09/30/25 09/30/25
07:15 09:58
WBC 12.9 H
Hgb 11.5 L
Hct 34.4 L
Plt Count 216
Sodium 138
Potassium 4.0
Chloride 106
Carbon Dioxide 24
BUN 21 H
Creatinine 1.0
Glucose 116 H
Calcium 8.5
Vital Signs:
Vital Signs
Temp Pulse Resp BP Pulse Ox
97.1 F 48 18 136/69 99
09/30/25 07:40 09/30/25 07:40 09/30/25 07:40 09/30/25 07:40 09/30/25 07:40
I&O
09/29/25 09/30/25 10/01/25
06:59 06:59 06:59
Intake Total 1100 / 1100
Output Total 700 / 700 1025 / 1025
Balance 400 / 400 -1025 / -1025
Review of Systems
-
History Source: Patient
All other systems: Reviewed and negative
Data Reviewed
-
Medical Tests (Nuc Med, Echo etc): Report Reviewed by me and Discussed with Family
Labs: Labs Reviewed by me and Discussed with Family
[2025-09-30 15:00] VITALS: BP 148/53
--- NOTE | 2025-09-30 16:47 | PN.CDI ---
CDI
- -
CDI:
Physician Documentation Request
Admit Date: 09/29/25 00:05
Dear Doctor Domingo,
Please review the following and provide your response in the progress notes.
Clinical Indicators:
Pt admitted with Sepsis 2/2 UTI/ with MALLORY
Documented per update note 09/28 , ' Patient with sepsis/acute metabolic encephalopathy secondary to UTI...'
Documented per h&P, ' ...patient not able to provide meaningful story. he was noted confused. history provided from his ...'
Please update the status of metabolic encephalopathy documented in the update note :
Metabolic Encephalopathy-A valid diagnosis -resolved
Metabolic Encephalopathy -Ruled out
Other ( please specify)
Use of terms such as suspected, likely, concern for, or probable (associated with a specific diagnosis that is being evaluated, monitored, or treated as if it exists) are acceptable and can be coded in the inpatient setting, when documented at the
time of discharge.
Thank you,
Aicha Schmidt RN
CDI Specialist
[place] [facility]
Please use your independent medical judgment in providing your response.
[2025-09-30 17:38] VITALS: BP 148/53
[2025-09-30] MEDS: ARICEPT 20 MG PO (21:02)
[2025-09-30] MEDS: ZONEGRAN 25 MG PO (21:02)
[2025-09-30] MEDS: FLOMAX 0.4 MG PO (21:02)
[2025-09-30] MEDS: ROCEPHIN 1000 MG IV (21:03)
[2025-09-30] MEDS: STERILE WATER FOR INJECTION 10 ML IV (21:03)
[2025-09-30 22:53] VITALS: BP 166/83
[2025-10-01] MEDS: VANCOCIN 275 MG IV (05:04)
[2025-10-01 07:35] VITALS: BP 154/70
[2025-10-01] MEDS: SINEMET CR 25-100 (EXTENDED RELEASE) 1.5 TABLET PO (08:29)
[2025-10-01] MEDS: NAMENDA 5 MG PO ×2 (08:30→19:54)
[2025-10-01] MEDS: PROSCAR 5 MG PO (08:30)
[2025-10-01] MEDS: PROTONIX 40 MG PO (08:30)
[2025-10-01] MEDS: DESENEX/MITRAZOL/ZEASORB 1 APPLIC TOPICAL ×2 (08:31→19:54)
[2025-10-01 08:46] LABS: Hematocrit 34.3 % (39.0-52.0); Hemoglobin 11.4 g/dL (13.0-18.0); Mean Corp Hgb Conc. 33.2 g/dL (33.0-37.0); Mean Corpuscular Volume 86.2 fL (80.0-94.0); Platelet Count 248 10^3/uL (130-400); Red Cell Dist. Width 13.1 % (11.5-14.5)
[2025-10-01 09:52] LABS: Blood Urea Nitrogen 17 mg/dl (9-20); Calcium 8.6 mg/dl (8.4-10.2); Carbon Dioxide 26 mmol/L (22-30); Chloride 107 mmol/L (98-107); Estimated Creatinine Clearance 56 ml/min; Glucose 90 mg/dl (70-99); Potassium 4.0 mmol/L (3.5-5.1); Sodium 135 mmol/L (135-145); eGFR > 60.00
--- NOTE | 2025-10-01 09:54 | PHA.VAN.FU ---
Vancomycin Assessment / Plan
- Assessment
Renal Function: Stable
WBC's are: WNL
In the past 24 hrs, patient has been: Afebrile
Concomitant Antimicrobials: ceftriaxone
- Dosing Plan
Continue: Vanc 1250mg Q24H (started 09/30)
- Monitoring Plan
No level(s) ordered at this time: consider levels in next few days
- Follow Up
Pharmacy will continue to follow.
Vancomycin Follow UP
- -
Patient Age: 75
Patient Sex: Male
Vancomycin Day #: 3
Indication: Genito-Urinary Tract
Requesting Provider: Kelsey Dent
Pertinent Antimicrobial Allergies:
NKDA
Height / Weight:
Height 5 ft 5 in
Actual Weight 64.864 kg
Pertinent Past Medical History: Parkinson's
- Vital Signs / Lab Results
Temp Pulse Resp BP Pulse Ox
97.7 F 56 16 154/70 99
10/01/25 07:35 10/01/25 07:35 10/01/25 07:35 10/01/25 07:35 10/01/25 07:35
Lab Results - Hematology
09/28/25 09/29/25 09/29/25
21:54 07:50 09:16
WBC 31.2 H 20.8 H 20.1 H
Band Neutrophils 0
09/30/25 10/01/25
07:15 08:02
WBC 12.9 H 10.4
Band Neutrophils
Lab Results - Chemistry
09/28/25 09/29/25 09/30/25
21:54 09:16 09:58
BUN 33 H 27 H 21 H
Creatinine 1.5 H 1.1 1.0
Estimated Creat Clear 38 50 56
Albumin 3.2 L
10/01/25
08:02
BUN 17
Creatinine 1.0
Estimated Creat Clear 56
Albumin
09/28/25
21:54
Lactic Acid 1.6
Lab Results - Urine
09/28/25
21:54
Urine Nitrite (Reflex) Negative
Leukocyte Esterase Rfl 3+ A
Ur Squamous Epith Cells 0-2
Microbiology Results
09/28/25 21:54 Urine Culture - Preliminary
Urine Gram negative bacilli
Enterococcus species
09/28/25 22:46 Blood Culture - Preliminary
Blood/Venous No Growth in 48 hours- Final report to follow
09/28/25 21:54 Blood Culture - Preliminary
Blood/Venous No Growth in 48 hours- Final report to follow
09/29/25 05:19 MRSA Screen - Final
Nose No Methicillin Resistant Staphylococcus aureus isolated.
Therapeutic Drug Monitoring
Random Vancomycin 9.5 ug/ml 09/30/25 07:15
--- NOTE | 2025-10-01 11:55 | PTOTSP ---
Speech Language Pathology
Pt seen for dysphagia tx. Wet vocal quality noted at rest, which has been noted in the past. Seen with thin water via cup sips and diced peaches. In approximately 3 ounces of peaches, strong cough response noted immediately after swallow 4 times.
Question aspiration. Pt stated that he coughs at times at home. Suspect mixed consistency caused increased difficulty. No respiratory concerns this admission, and WBC WNL.
Recommend:
(1) Continue IDDSI Level 6 (soft/bite-sized) and thin liquids
(2) Avoid mixed consistencies (solid and liquid together), such as broth-based soups
(3) Aspiration precautions: slow rate, single sips, sit upright, full assist, ensure pt swallows prior to next bite/sip
(4) Meds crushed in puree (this is how pt takes pills at home per his report
(5) LACE INSPECTOR to continue to follow
[2025-10-01] MEDS: FIRVANQ 125 MG PO (11:57)
[2025-10-01] MEDS: SINEMET CR 25-100 (EXTENDED RELEASE) 1 TABLET PO ×2 (11:57→19:55)
--- NOTE | 2025-10-01 13:52 | W.PN.HOSP.TC ---
Today's Communication/Plan
-
oral vanc
switch to po abx
disposition planning
Assessment / Plan
Assessment / Plan
Physical Exam
General: Well Developed, Well Nourished and No Apparent Distress
HEENT: NormoCephalic, Moist mucous membranes and Atraumatic
Respiratory: Clear
Cardiac: S1/S2 and Regular Rhythm; No Murmur or Rub
GI: Soft, Non Tender, Non Distended and Normal Bowel Sounds; No Organomegaly
Rectal: Deferred by Provider
Genito-urinary: Geiger (Dark urine)
Musculoskeletal: No Clubbing, No Cyanosis and No Edema
Skin: No Rash
Neuro: Nonfocal/grossly intact
#Sepsis
#UTI, E-Coli and E. Faecalis
#with organ dysfunction - MALLORY
-hx of E coli, enterococcus faecalis
-iv ceftriaxone and vancomycin - switch to cipro and augmentin - 14 day total course
-Add vanco for ppx use for prior hx of cdiff
-Tylenol prn for fever
-urine culture pending
-geiger exchanged in the ER
#MALLORY, resolved
-hypovolemic
-fluids continued
-BMP in am
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
#Enterococcal, Bacteroides Bacteremia
#Parkinson's Disease with dementia
-on Sinemet, Zonegran
#LLL Opacity
-unchanged
-no clinical evidence of infection at this time
#BPH
-Home regimen includes Flomax and Proscar
#GERD-
-Stable on home PPI therapy daily
# Essential hypertension
- Isradipine continued
#DVT prophylaxis: SCDs
#CODE STATUS: Full code
Anticipated Discharge: Within 24 hours
Subjective/Interval History
-
Date of Service: October 01, 2025
No acute events overnight
Objective Data
-
Labs:
Laboratory Results
10/01/25
08:02
WBC 10.4
Hgb 11.4 L
Hct 34.3 L
Plt Count 248
Sodium 135
Potassium 4.0
Chloride 107
Carbon Dioxide 26
BUN 17
Creatinine 1.0
Glucose 90
Calcium 8.6
Vital Signs:
Vital Signs
Temp Pulse Resp BP Pulse Ox
97.7 F 56 16 154/70 99
10/01/25 07:35 10/01/25 07:35 10/01/25 07:35 10/01/25 07:35 10/01/25 07:35
I&O
09/30/25 10/01/25 10/02/25
06:59 06:59 06:59
Intake Total 732.5 / 732.5
Output Total 1025 / 1025 1200 / 1200
Balance -1025 / -1025 -467.5 / -467.5
Review of Systems
-
History Source: Patient
All other systems: Not reviewed unless documented
Physical Exam
-
General: Well Developed, Well Nourished and No Apparent Distress
HEENT: Normocephalic and Atraumatic
Respiratory: Clear to Auscultation; Negative Wheezes or Rhonchi
Cardiac: Regular Rhythm and S1/S2; Negative Murmur
Musculoskeletal: No Clubbing, No Cyanosis and No Edema
Neuro: Awake and Alert
Data Reviewed
-
Medical Tests (Nuc Med, Echo etc): Report Reviewed by me
Labs: Labs Reviewed by me
--- NOTE | 2025-10-01 14:54 | CM ---
CM reviewed chart, patient seen in chair with present.
CM discussed therapy recommendations of Acute vs SNF- not agreeable to SNF, if acute unable to accept, will likely bring patient home.
PMR consulted, discussed with [facility] liaison, patient likely for d/c next 24 hrs.
CM will continue to follow for all d/c planning needs.
Plan; PMR consulted, acute vs home with family/services
[2025-10-01 15:17] VITALS: BP 167/76
[2025-10-01] MEDS: HEPARIN 5000 UNITS SC ×2 (15:24→23:17)
[2025-10-01] MEDS: AUGMENTIN 875 MG/125 MG 1 TABLET PO (19:53)
[2025-10-01] MEDS: CIPRO 500 MG PO (19:54)
[2025-10-01] MEDS: ZONEGRAN 25 MG PO (21:46)
[2025-10-01] MEDS: FLOMAX 0.4 MG PO (21:53)
[2025-10-01] MEDS: ARICEPT 15 MG PO (21:54)
--- NOTE | 2025-10-01 21:59 | CON.MD ---
Consultation - Medical
-
Chief Complaint:�Debility
�
History of Present Illness:�75-year-old male with PMH (Dementia, Parkinson's disease with ambulatory dysfunction,Benign prostate hypertrophy,Hypertension,Gastroesophageal reflux disease, UTI) presented to [facility] on 09/28/[facility]25 with fever,
cough, hematuria after recent Zapata catheter placed for urinary retention. UA was positive and he was started on ceftriaxone and vancomycin. Found to have sepsis with acute metabolic encephalopathy secondary to UTI as well as MALLORY. Zapata catheter
exchanged. MALLORY resolved with fluids. Found to have Pseudomonas aeruginosa and Enterococcus faecalis UTI. Blood cultures negative. Switch from ceftriaxone and vancomycin to Cipro and Augmentin for 14-day total course. Oral vancomycin added for
C. difficile prophylaxis with history of C. difficile. Seen by speech with coughing after eating. Placed on a level 6 soft and bite-size diet with thin liquids with avoiding mixed consistencies, meds crushed in pur�e
�
Past Medical History:�Dementia, Parkinson's disease with ambulatory dysfunction, Benign prostate hypertrophy, Hypertension, Gastroesophageal reflux disease, UTI, neurogenic bladder, migraines Enterococcus faecalis sepsis with possible endocarditis,
enterococcal Bacteroides bacteremia, left mandibular abscess
Procedure History:�Prostate artery embolization 05/15/2024 at [facility], wisdom tooth removal
Family History:�None relevant
�
Social History:�
Functional Level Premorbidly:�Min assist with some ADLs. Close supervision/min assist for ambulation with use step and transfers. Son or daughter come by at night to help patient get into bed.
Functional Level Currently:�Dysphagia. Max assist transfers and standing. Dependent for toileting and lower extremity self-care. Max assist toilet transfer.
�
Tobacco: Denies
Alcohol: Denies
Drug use: Denies
Lives with:
24-hour assistance available: Yes
Number of floors: one story home
# steps to enter: 3
# steps to second floor: Full flight
Potential First floor set up:available
Driving: No
Occupation: Retired
�
�
Allergies:�
Allergy/AdvReac Type Severity Reaction Status Date / Time
No Known Allergies Allergy Verified 09/28/25 21:45
�
Review of Systems:�
Constitutional: (x) abNormal _fatigue
Eye: (x) Normal _
Ear/Nose/Throat: (x) abNormal _swallowing difficulties
Respiratory: (x) Normal _
Cardiovascular: (x) Normal _
Gastrointestinal: (x) Normal _
Genitourinary: (x) abNormal _difficulty emptying bladder requiring Zapata catheter with recent hematuria
Musculoskeletal: (x) Normal _
Integumentary: (x) Normal _
Neurologic: (x) abNormal _Parkinson's disease, dementia
Psychiatric: (x) Normal _
Endocrine: (x) Normal _
Hematologic/Lymphatic: (x) Normal _
Allergic/Immunologic: (x) Normal _
�
Medications:�
Active Current Visit Medication List
Category Date Time Status
Acetaminophen [Tylenol/Feverall] Med 09/29/25 01:24 Active
650 mg RECTAL Q4HPRN PRN
Acetaminophen [Tylenol] Med 09/29/25 01:24 Active
650 mg PO Q4HPRN PRN
Amoxicillin 875 mg/Clav 125 mg [Augmentin 875 mg/125 mg Med 10/01/25 20:00 Active
]
1 tablet PO Q12
Carbidopa/Levodopa Cr [Sinemet Cr 25-100 (Extended Med 09/29/25 12:00 Active
Release)]
1 tablet PO BID@1200,2000
Carbidopa/Levodopa Cr [Sinemet Cr 25-100 (Extended Med 09/29/25 07:00 Active
Release)]
1.5 tablet PO DAILY@0700
Ciprofloxacin HCl [Cipro] Med 10/01/25 20:00 Active
500 mg PO BID
Donepezil [Aricept] Med 10/01/25 22:00 Active
15 mg PO HS
Finasteride [Proscar] Med 09/29/25 08:00 Active
5 mg PO DAILY
Flush (0.9% Sodium Chloride) [Flush (Nss)] Med 09/29/25 02:00 Active
See Dose Instructions IV PER PROTOCOL
Heparin Med 10/01/25 16:00 Active
5,000 units SC Q8
Memantine HCl [Namenda] Med 10/01/25 20:00 Active
5 mg PO BID
Miconazole Nitrate [Desenex/Mitrazol/Zeasorb] Med 09/29/25 08:00 Active
See Dose Instructions TOPICAL BID
Pantoprazole [Protonix] Med 09/29/25 08:00 Active
40 mg PO DAILY
Tamsulosin [Flomax] Med 09/29/25 22:00 Active
0.4 mg PO HS
Vancomycin HCl [Firvanq] Med 10/01/25 11:45 Active
125 mg PO DAILY
Zonisamide [Zonegran] Med 09/29/25 22:00 Active
25 mg PO HS
isradipine Med 09/29/25 08:00 Pending
See Dose Instructions PO Q12
�
Vitals:�
Temp Pulse Resp BP Pulse Ox
97.8 F 57 16 167/76 98
10/01/25 15:17 10/01/25 15:17 10/01/25 15:17 10/01/25 15:17 10/01/25 15:17
Height 5 ft 5 in
Actual Weight 64.864 kg
Body Mass Index (BMI) 23.8
�
Physical Exam:�
General Appearance/Observation: Well-developed, well-nourished male in no apparent distress.�
Pain/Comfort Assessment: Denies�
Mood/Affect: Appropriate�
�
Integumentary/Operative Site:�No lesions noted during course of exam
�
Eyes: Conjunctiva/Lids: normal��� Pupils: pupils equal round and reactive to light and Accommodation
Ears/Nose/Throat: oral mucosa slightly dry, throat difficult to see with limited mouth opening.������������ Lips/Teeth/Gums: normal
Neck: Mild trapezius muscle spasm with no tenderness�
Cardiovascular: Heart: regular, no murmur�
Pulses: dorsalis pedis 2+ bilaterally�
Respiratory: Respiratory Effort/Chest Expansion: normal������ Auscultation: Clear to auscultation bilaterally
Gastrointestinal: abdomen not tender, no distension, normal abdominal bowel sounds
Genitourinary: No Zapata�
Rectal Exam: Deferred�
Extremities:�Edema: None�Cyanosis: None�Trophic�changes: None
�
Neurology Exam:
Orientation: Alert, Oriented to self, month, year, Place�
Memory: Impaired
Comprehension: Intact for basic information
Two step command: Impaired
Cranial Nerves:
�� CNII:�Pupillary light reflex: Intact���Visual Field: Intact
�� CN III, IV, : Extraocular muscles: Intact�
�� CN V:�Facial Sensation�at�Forehead: Intact,�Maxilla: Intact,�Mandible: Intact
�� CN VII:�Facial movement: Decreased general facial movement, symmetric
�� CN VIII:�Hearing: Normal
�� CN IX/X:�Speech & swallow: Mild hypophonia and dysarthria,�Position of Uvula: Midline
�� CN XI:�Shoulder shrug: Symmetric
�� CN XII:�Tongue protrusion: Midline
Sensory:
�� Light touch: Intact in bilateral upper and lower extremities
�
Reflexes:
�� Biceps: 2+ bilaterally
�� Brachioradialis: 2+ bilaterally
�� Triceps: 2+ bilaterally
�� Patellar: 2+ bilaterally
�� Achilles: 2+ bilaterally
�� Babinski: Down going bilaterally
�� Clonus: None
�� Terrance: Negative bilaterally�
Cerebellar: Dysmetria/Ataxia: None�
Musculoskeletal:Motor: (Manual muscle scale 0-5)�
Muscle SA EF WE EE FF FA HF KE DF EHL PF
Right� 3 5 4 4 4 2+ 4 5 4
Left 3 4+ 4 3+ 4 2+ 4 5 4
�
Tone: Difficult to tell increased tone versus contraction in legs
Range of Motion: Limited range of motion both shoulders, decreased left knee extension, decreased range of motion both ankles
�
Lab Results
Laboratory Data
10/01/25 08:02
10/01/25 08:02
Total Bilirubin 0.5 mg/dl (0.2-1.3) 09/29/25 09:16
AST 18 U/L (17-59) 09/29/25 09:16
ALT < 10 U/L (0-50) 09/29/25 09:16
Alkaline Phosphatase 72 U/L (38-126) 09/29/25 09:16
Total Protein 5.7 g/dl (6.3-8.2) L 09/29/25 09:16
Albumin 3.2 g/dl (3.5-5.0) L 09/29/25 09:16
�
Diagnostic Results:�as per HPI�
�
Assessment
75y/o M PMH (Dementia, Parkinson's disease with ambulatory dysfunction, Benign prostate hypertrophy, Hypertension, Gastroesophageal reflux disease, UTI, neurogenic bladder, migraines Enterococcus faecalis sepsis with possible endocarditis,
enterococcal Bacteroides bacteremia, left mandibular abscess) with 09/28/2025 acute metabolic encephalopathy secondary to Pseudomonas aeruginosa and Enterococcus faecalis urosepsis with MALLORY resulting in ADL and ambulatory dysfunction with worse
dysphagia secondary to mental status change.
Plan�
PM&R�PT/OT to increase independence with ADLs, improve balance, coordination, endurance, strength, mobility, community reintegration, decreased burden of care on others and family education.�
Pseudomonas aeruginosa/Enterococcus faecalis urosepsis: Continuing on Augmentin and ciprofloxacin for 14-day course
Parkinson's disease: Sinemet, timing important
Dysphagia: speech, oral care protocol, chlorhexidine rinse after meals and HS, aspiration precautions.� Advance diet I IDDSI 6 soft and bite-size with thin liquid diet as tolerated.� No mixed consistencies. Meds crushed in pur�e
Dysarthria: speech �
Lower extremity stiffness:�Increased tone versus contracture. PT/OT/stretching/range of motion. Adjust medications as necessary.
Dementia: Donepezil, memantine
Migraines: Zonisamide
�
HTN: Isradipine, monitor
Anemia: Likely multifactorial.� Continue to monitor.�
Psych: Monitor mood, medications as needed.�
Skin: monitor for pressure sores/rashes/lesions.�
Pain: acetaminophen as needed.�
Bowel: Colace and Senna, PRN bisacodyl.�
Neurogenic bladder with urinary retention: Zapata catheter. Flomax.
GERD: Pantoprazole�
DVT Prophylaxis: Mechanical and heparin.�
Pulmonary: Incentive spirometry�
Safety: Continue to reinforce assistance with all transfers.�
Code Status:� Full code
Dispo�(date/plan/equipment needs): Home with family care.� Social history reviewed.� Spoke with son who knows that family will need to start getting outside help based on patient's progress and Parkinson's disease. They do have some agencies that
they are looking into. They would like him to be more towards his recent baseline to make things easier at home and require less help.
Functional and Medical Goals:�Modified Independent with ADL�s, ambulation, transfers�
Discharge Destination:�Acute inpatient rehabilitation
A total of 60 minutes were spent with the patient preparing for the evaluation, obtaining history, performing examination and evaluation, counseling, data review, case management, care coordination, back order clerk, and EMR documentation.
�
Thank you for allowing me to care for your patient. Please contact me with any questions or concerns.
Consultation
-
Date/Time Consultation Requested: 09/30/25
Date/Time Consultation Performed: 10/01/25
Requesting Provider: Dr. Curt Lane
Performing Provider: Dr. Justen Haider
Reason for Consultation: Rehabilitation plan
[2025-10-01 22:52] VITALS: BP 149/72
[2025-10-02] MEDS: SINEMET CR 25-100 (EXTENDED RELEASE) 1.5 TABLET PO (06:03)
[2025-10-02 07:10] VITALS: BP 160/74
[2025-10-02 08:38] LABS: Hematocrit 37.0 % (39.0-52.0); Hemoglobin 11.9 g/dL (13.0-18.0); Mean Corp Hgb Conc. 32.2 g/dL (33.0-37.0); Mean Corpuscular Volume 88.3 fL (80.0-94.0); Platelet Count 251 10^3/uL (130-400); Red Cell Dist. Width 13.1 % (11.5-14.5)
[2025-10-02] MEDS: CIPRO 500 MG PO (08:46)
[2025-10-02] MEDS: NAMENDA 5 MG PO (08:46)
[2025-10-02] MEDS: PROSCAR 5 MG PO (08:46)
[2025-10-02] MEDS: FIRVANQ 125 MG PO (08:46)
[2025-10-02] MEDS: DESENEX/MITRAZOL/ZEASORB 1 APPLIC TOPICAL (08:46)
[2025-10-02] MEDS: HEPARIN 5000 UNITS SC (08:46)
[2025-10-02] MEDS: PROTONIX 40 MG PO (08:46)
[2025-10-02] MEDS: AUGMENTIN 875 MG/125 MG 1 TABLET PO (08:46)
[2025-10-02 08:58] LABS: Blood Urea Nitrogen 14 mg/dl (9-20); Calcium 8.8 mg/dl (8.4-10.2); Carbon Dioxide 28 mmol/L (22-30); Chloride 103 mmol/L (98-107); Estimated Creatinine Clearance 50 ml/min; Glucose 92 mg/dl (70-99); Potassium 3.9 mmol/L (3.5-5.1); Sodium 135 mmol/L (135-145); eGFR > 60.00
--- NOTE | 2025-10-02 10:57 | CM ---
Addendum entered by Reny Jefferson 10/02/25 11:45:
Spoke w/ [facility], can accept patient today
Updated hospitalist as patient is stable for d/c
Updated daughterLinda
IMM verbally reviewed, copy on chart
[facility]
Report: [phone]

Plan: D/c to [facility] today
Original Note:
Chart reviewed. Physiatry assessment ordered and completed. Acute rehab recommended.
Met w/ patient and daughter bedside. Confirmed she would like acute rehab for patient. Confirmed [facility] of [facility] Referral updated to re-consider as [facility] declined, [facility] pending decision at this time.
Plan: Acute rehab
[2025-10-02] MEDS: SINEMET CR 25-100 (EXTENDED RELEASE) 1 TABLET PO (11:02)
[2025-10-02 11:15] VITALS: BP 139/68; PULSE 63; O2SAT 99
[2025-10-02 11:31] VITALS: BP 139/68; PULSE 63; O2SAT 99
--- NOTE | 2025-10-02 12:21 | PN.CDI ---
CDI
- -
CDI:
Physician Documentation Request
Admit Date: 09/29/25 00:05
Dear Doctor Domingo,
Please review the following and provide your response in the progress notes.
Clinical Indicators:
Pt admitted with Sepsis 2/2 UTI/ with MALLORY
Documented per nursing wound care documentation 09/28 ,' Present on admission Sacrum Pressure injury stage 1 ... treatment provided silicone border foam..'
Physician documentation of the type and location of wounds is required for compliant documentation. Based on the above clinical findings and your assessment, please provide the following in your progress note:
1. Location of the ulcer/wound, including laterality.
2. Type (etiology) of ulcer/wound:
- Pressure (decubitus) ulcer
- Non-pressure ulcer
- Other ( please specify)
Use of terms such as suspected, likely, concern for, or probable (associated with a specific diagnosis that is being evaluated, monitored, or treated as if it exists) are acceptable and can be coded in the inpatient setting, when documented at the
time of discharge.
Thank you,
Aicha Schmidt RN
CDI Specialist
[place] [facility]
Please use your independent medical judgment in providing your response.
*Source: National Pressure Ulcer Advisory Panel (NPUAP)
--- NOTE | 2025-10-02 12:38 | W.PN.HOSP.TC ---
Addendum entered and electronically signed by Curt Lane MD 10/04/25 14:52:
Sacrum Pressure injury stage 1
Addendum entered and electronically signed by Curt Lane MD 10/02/25 15:47:
[id number]
Original Note:
Today's Communication/Plan
-
abx course along with ppx vanco dosing
f/u labs outpt
pcp and urology f/u outpt
Assessment / Plan
Assessment / Plan
Physical Exam
General: Well Developed, Well Nourished and No Apparent Distress
HEENT: NormoCephalic, Moist mucous membranes and Atraumatic
Respiratory: Clear
Cardiac: S1/S2 and Regular Rhythm; No Murmur or Rub
GI: Soft, Non Tender, Non Distended and Normal Bowel Sounds; No Organomegaly
Rectal: Deferred by Provider
Genito-urinary: Geiger (Dark urine)
Musculoskeletal: No Clubbing, No Cyanosis and No Edema
Skin: No Rash
Neuro: Nonfocal/grossly intact
#Sepsis
#UTI, E-Coli and E. Faecalis
#with organ dysfunction - MALLORY
-hx of E coli, enterococcus faecalis
-iv ceftriaxone and vancomycin - switch to cipro and augmentin - 14 day total course; provide 11 additional days
-Add vanco for ppx use for prior hx of cdiff; continued for 5 days after completion of antibiotics
-Tylenol prn for fever
-urine culture pending
-geiger exchanged in the ER
-F/u urology outpt
#MALLORY, resolved
-hypovolemic
-fluids continued
-BMP in am
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
#Enterococcal, Bacteroides Bacteremia
#Parkinson's Disease with dementia
-on Sinemet, Zonegran
#LLL Opacity
-unchanged
-no clinical evidence of infection at this time
#BPH
-Home regimen includes Flomax and Proscar
#GERD-
-Stable on home PPI therapy daily
# Essential hypertension
- Isradipine continued
#DVT prophylaxis: SCDs
#CODE STATUS: Full code
More than 30 minutes spent in discharge including
Final examination of the patient
Summarizing hospital stay
Instructions for continuing care to all relevant caregivers
Preparation of discharge records, prescriptions, and referral forms
Total time spent (in minutes): 36
Anticipated Discharge: Today
Subjective/Interval History
-
Date of Service: October 02, 2025
No acute events overnight
Objective Data
-
Labs:
Laboratory Results
10/02/25
07:14
WBC 8.6
Hgb 11.9 L
Hct 37.0 L
Plt Count 251
Sodium 135
Potassium 3.9
Chloride 103
Carbon Dioxide 28
BUN 14
Creatinine 1.1
Glucose 92
Calcium 8.8
Vital Signs:
Vital Signs
Temp Pulse Resp BP Pulse Ox
98.3 F 55 18 160/74 97
10/02/25 07:10 10/02/25 07:10 10/02/25 07:10 10/02/25 07:10 10/02/25 07:10
I&O
10/01/25 10/02/25 10/03/25
06:59 06:59 06:59
Intake Total 732.5 / 732.5 230 / 230
Output Total 1200 / 1200 1905 / 1905
Balance -467.5 / -467.5 -1675 / -1675
Review of Systems
-
History Source: Patient
All other systems: Not reviewed unless documented
Data Reviewed
-
Medical Tests (Nuc Med, Echo etc): Report Reviewed by me
Labs: Labs Reviewed by me
--- NOTE | 2025-10-02 12:40 | W.DS.TRANS ---
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
-
Discharge Instructions:
Discharge Diagnosis/Procedures #Sepsis
#UTI, E-Coli and E. Faecalis
#with organ dysfunction - MALLORY
Diet Low Cholesterol,Low Fat
Blood Work cbc and bmp in 3-5 days
Instructions:
Stand-Alone Forms:
Changes to Home Medications: No
Discharge Medications:
DC Medications w/original date entered in [employer]
isradipine 2.5 mg capsule 2.5 mg PO Q12H Blood Pressure 03/23/24
finasteride 5 mg tablet 5 mg PO DAILY Urinary Issue 05/17/24
donepezil 10 mg tablet 15 mg PO HS dementia 08/05/24
tamsulosin 0.4 mg capsule 0.4 mg PO HS Urinary Issue 08/05/24
L. acidophilus,casei,rhamnosus 50 billion cell capsule,delayed release 2 cap PO DAILY supplement #0 caps 08/25/24
carbidopa ER 25 mg-levodopa 100 mg tablet,extended release 1 tab PO . 1200, 2000 parkinson's disease 09/28/25
carbidopa ER 25 mg-levodopa 100 mg tablet,extended release 1.5 tab PO DAILY@0700 parkinson's disease 09/28/25
memantine 10 mg tablet 14 mg PO QPM Mental Health/Anxiety 09/28/25
omeprazole 40 mg capsule,delayed release 40 mg PO DAILY GERD 09/28/25
zonisamide 25 mg capsule 25 mg PO HS Seizures 09/28/25
amoxicillin 875 mg-potassium clavulanate 125 mg tablet 1 tab PO Q12 11 days #22 tabs 10/02/25
ciprofloxacin HCl 500 mg tablet 500 mg PO BID 11 days #22 tabs 10/02/25
miconazole nitrate 2 % topical powder (Miconazorb AF) 1 applic topical BID #85 grams 10/02/25
vancomycin 50 mg/mL oral solution 125 mg (2.5 mL) PO DAILY #300 mL 10/02/25
Home Medication Changes
amoxicillin 875 mg-potassium clavulanate 125 mg tablet 1 tab PO Q12 11 days #22 tabs 10/02/25
ciprofloxacin HCl 500 mg tablet 500 mg PO BID 11 days #22 tabs 10/02/25
miconazole nitrate 2 % topical powder (Miconazorb AF) 1 applic topical BID #85 grams 10/02/25
vancomycin 50 mg/mL oral solution 125 mg (2.5 mL) PO DAILY #300 mL 10/02/25
Pending Results: No
== END 2025-10-02 14:25 | DRG 698 ==
LOC: 4 WEST ACU 00:05
PROVIDERS: Registered Nurse; ADMITTING PHYSICIAN Hospitalist; ATTENDING PHYSICIAN Internal Medicine; CONSULT PHYSICIAN Physical Medicine & Rehabilitation; EMERGENCY PHYSICIAN Emergency Medicine
DX: T83.511A Infection and inflammatory reaction due to indwelling urethral catheter, initial encounter (principal); A41.9 Sepsis, unspecified organism; G93.41 Metabolic encephalopathy; R65.20 Severe sepsis without septic shock; N17.9 Acute kidney failure, unspecified; N39.0 Urinary tract infection, site not specified; E86.1 Hypovolemia; F02.80 Dementia in other diseases classified elsewhere, unspecified severity, without behavioral disturbance, psychotic disturbance, mood disturbance, and anxiety; G20.A1 Parkinson's disease without dyskinesia, without mention of fluctuations; K21.9 Gastro-esophageal reflux disease without esophagitis; I10 Essential (primary) hypertension; N40.1 Benign prostatic hyperplasia with lower urinary tract symptoms; R33.8 Other retention of urine; N31.9 Neuromuscular dysfunction of bladder, unspecified; B96.20 Unspecified Escherichia coli [E. coli] as the cause of diseases classified elsewhere; D64.9 Anemia, unspecified; G43.909 Migraine, unspecified, not intractable, without status migrainosus; R13.10 Dysphagia, unspecified; Y84.6 Urinary catheterization as the cause of abnormal reaction of the patient, or of later complication, without mention of misadventure at the time of the procedure; Z87.440 Personal history of urinary (tract) infections; L89.151 Pressure ulcer of sacral region, stage 1
CPT/HCPCS: 80048; 80053; 80202; 81003; 81015; 83605; 85025; 85027; 87040; 87070; 87077; 87086; 87186; 92526; 92610; 96365; 96366; 96375; 97110; 97112; 97163; 97167; 97530; 97535; 99285

== ENCOUNTER 2025-10-12 17:35 | Emergency (ER) | payer MEDICARE, OTHER, SELFPAY ==
[2025-10-12 17:45] VITALS: BP 170/84
--- NOTE | 2025-10-12 19:16 | ED.GENMED ---
History of Present Illness
General
Chief Complaint: Seizure
Source: patient, family and other ([facility] re[facility] staff)
Time Seen by Provider: 10/12/25 17:36
Nursing documentation reviewed up to this point in time: agreed with
History of Present Illness
History of Present Illness:
The patient is a pleasant 75-year-old man with a past medical history of Parkinson's disease who was recently admitted to [facility] for UTI and sepsis. Patient was then discharged to [facility]. Patient was sent to the emergency
department due to seizure-like activity that [facility]. Reportedly, the patient had shaking of his arms and legs that lasted 15 to 20 seconds while he was seated in a chair. Reportedly, the patient lost consciousness during
that time. Reportedly, the patient has never had a seizure before. According to his Flor, who I spoke to on the phone, the patient does have tremor related to his Parkinson's disease. The patient is a poor historian. He denies pain or any
any complaints. I do not see any evidence that the patient bit his tongue. Patient does have a chronic Zap[place] in place.
Past History
Past History
ED Past Medical History: HTN and Other (Parkinson's)
ED Past Surgical History: Urological (Prostate artery embolization 05/15/2024 at [facility]) and Other ([place] teeth)
Social History
Tobacco: Non-smoker
Alcohol: None
Drug: None
Personal:
Living: with family
Employment: Retired
Family History
Family History: Other
Review of Systems
Review of Systems
Allergies reviewed?: Yes
Unable to obtain full review of systems at this time due to: dementia
Other source history: family and other
All Other Systems: ROS reviewed and negative except as documented in HPI and ROS
Constitutional: Reports fatigue
EENT: Reports no symptoms
Respiratory: Reports no symptoms
Cardiac: Reports no symptoms
ABD/GI: Reports no symptoms
: Reports no symptoms
Musculoskeletal: Reports no symptoms
Skin: Reports no symptoms
Neurological: Reports other (Possible seizure)
Endocrine: Reports no symptoms
Hematologic/Lymphatic: Reports no symptoms
Psychiatric: Reports no symptoms
Phy Exam
Physical Exam
Physical Exam:
Physical Exam
General: Patient is fully awake, alert and following all simple commands. Atraumatic appearing face and head
Neck: supple.
Nontender C-spine
Heart: s1/s2 regular rate and rhythm
Lungs: no acute respiratory distress. clear bilaterally. No sign of any respiratory distress
Abdomen: normal bowel sounds. not tender. no CVAT
Neuro: alert, nonfocal, follows all simple commands answer simple questions
Skin: no rash
Psychiatric: well kept. interactive and cooperative
Extremities: no edema. no calf tenderness. negative homans. good distal pulses
Course
Orders/Labs/Results
Orders:
Orders
10/12/25 18:29
Electrocardiogram (*1) Urgent
Reason for Study: Other
Other Reason for Exam: possible seizure
CT Head W/o Iv Contrast Urgent
Comment:
Reason For Exam: possible seizure
EKG- Treatment ONCE
10/12/25 19:15
Complete Blood Count/With Diff Urgent
Comprehensive Metabolic Panel Urgent
Abnormal Lab Results
10/12/25
19:15
MCHC 31.8 L g/dL
(33.0-37.0)
Absolute Neuts (auto) 6.9 H 10^3/uL
(1.4-6.5)
Absolute Monos (auto) 0.7 H 10^3/uL
(0.1-0.6)
BUN 24 H mg/dl
(9-20)
10/12/25 19:15
10/12/25 19:15
Vital Signs
Initial and Last Documented VS:
Initial Vital Signs
Temp Pulse Resp BP Pulse Ox
97.4 F 65 14 170/84 99
10/12/25 17:45 10/12/25 17:45 10/12/25 17:45 10/12/25 17:45 10/12/25 17:45
Last Documented Vital Signs
Temp Pulse Resp BP Pulse Ox
97.6 F 55 20 148/81 97
10/12/25 19:19 10/12/25 19:19 10/12/25 19:19 10/12/25 19:19 10/12/25 19:19
MDM/Problems Addressed
Differential Diagnosis Includes:
Tonic-clonic seizure, partial seizure, exacerbation of tremor related to Parkinson's disease
MDM/Problems Addressed:
Patient presents after acute seizure activity lasting 15 to 20 seconds but is now fully awake and alert
Chronic conditions affecting care:
Parkinson's disease
Acute Exacerbation and/or Progression of Chronic Illness:
Patient may have had acute tremor related to Parkinson disease
*Radiology
Radiology exam reviewed: radiology read reviewed
*Pulse Oximetry
SaO2: 99
Oxygen Mode of Delivery: Room air
Patient hypoxic: no
*EKG
Interpreted by ED Provider?: Yes
Interpretation: abnormal
Comparison EKG: no changes
Rate: bradycardiac
Rhythm: sinus
[place]: normal axis
Interval: normal interval
QRS Pattern: normal QRS
Ischemia: non-specific ST changes
*Taper Machine Interpretation
Rate: normal
Interpretation: normal
Rhythm: sinus
*Critical Care Note
Total Time (30-74mins, 75-104mins- exclusive of procedures): Not Applicable
Data Reviewed
Review of Other/Old Records Reveals: Discharge Summary (Discharge summary reviewed from September 2025 when patient had been admitted for UTI and sepsis)
Source: other (daughter - Paty )
Patient Management
Social determinants of health affecting care: Living situation and Strong social support
Discussion with other providers: Other (Discussed patient's presentation and plan with Dr. Haider)
Escalation/DeEscalation of care consider admission/obs:
Patient has been fully alert and awake in the ED without any signs of postictal state or seizure activity. CT head shows nothing acute. I did have an extensive conversation with the patient's daughter, Paty, who reports that she will certainly
follow-up with the patient's own neurologist to describe that the patient may have had 15 to 20-second seizure. I told Paty that his neurologist may want to order an EEG and consider antiepileptic medication
ED Attending Note
-
Portions of this chart may have been created with voice recognition software.� Occasional wrong word or��sound alike� substitutions may have occurred due to the inherent limitations of voice recognition software.
Discharge Plan
Departure
Patient Disposition: Acute Rehab Facility
Date of Disposition: 10/12/25
Time of Disposition: 20:24
Patient with high blood pressure during this ER visit?: Yes
Condition: Good
Covid-19: Not Applicable
Discharge Problem:
Seizure
Instructions: Seizures, Adult (DC)
Prescriptions:
No Action
finasteride 5 mg Tablet
5 mg PO DAILY
donepezil 10 mg Tablet
15 mg PO HS
tamsulosin 0.4 mg capsule
0.4 mg PO HS
zonisamide 25 mg Capsule
25 mg PO HS
carbidopa-levodopa 25-100 mg tablet extended release
1 tab PO BID@1200,2000
carbidopa-levodopa 25-100 mg tablet extended release
1.5 tab PO DAILY@0700
pantoprazole [Protonix] 40 mg Tablet,Delayed Release (Dr/Ec)
40 mg PO DAILY
vancomycin [Firvanq] 50 mg/mL Recon Soln
125 mg PO QID
bisacodyl [Dulcolax (bisacodyl)] 5 mg Tablet,Delayed Release (Dr/Ec)
10 mg PO DAILYPRN PRN (Reason: constipation)
heparin (porcine) 5,000 unit/mL Solution
5,000 unit SC Q8H
memantine [Namenda] 5 mg Tablet
5 mg PO BID
Visbiome 112.5 billion cell Capsule
2 cap PO DAILY
miconazole nitrate [Miconazorb AF] 2 % powder
1 applic topical BID
amoxicillin-pot clavulanate 875-125 mg tablet
1 tab PO BID
ciprofloxacin HCl 500 mg Tablet
500 mg PO BID 2 Days Qty: 4 0RF
docusate sodium 100 mg Capsule
100 mg PO BID 30 Days Qty: 60 0RF
hyoscyamine sulfate 0.125 mg Tablet, Sublingual
0.125 mg PO Q6HPRN PRN (Reason: excess secretion in mouth) 30 Days Qty: 120 0RF
acetaminophen 325 mg Tablet
650 mg PO Q6HPRN PRN (Reason: mild pain) 30 Days Qty: 100 0RF
Referrals:
UNKNOWN - PT DOES,NOT KNOW [Family Provider]
Activity Restrictions/Additional Instructions:
Please call and follow-up with your neurologist to soon as possible to let your neurologist know that you were witnessed to have a possible seizure that lasted 15 to 20 seconds. Your neurologist may order an EEG test on you to see if you have any
sign of seizure activity
Interventions
Interventions:
*Risk Screen - Suicide Last Done: 10/12/25 17:50
*General Assessment Last Done: 10/12/25 17:49
*Neglect/Abuse Screening Last Done: 10/12/25 17:50
*ED COVID-19 Vaccine History Last Done: 10/12/25 17:49
*ED Influenza Vaccine History Last Done: 10/12/25 17:49
ED- Cardiac Assessment Last Done: 10/12/25 19:19
ED- Neurological Assessment Last Done: 10/12/25 19:19
ED- Pulmonary Assessment Last Done: 10/12/25 19:19
Discharge Date and Time
Print Language: AMHARIC
[2025-10-12 19:19] VITALS: BP 148/81
[2025-10-12 19:25] LABS: Hematocrit 42.2 % (39.0-52.0); Hemoglobin 13.4 g/dL (13.0-18.0); Mean Corp Hgb Conc. 31.8 g/dL (33.0-37.0); Mean Corpuscular Volume 89.0 fL (80.0-94.0); Nucleated Red Blood Cells % 0 % (-); Platelet Count 255 10^3/uL (130-400); Red Cell Dist. Width 13.6 % (11.5-14.5)
[2025-10-12 19:54] LABS: ALT (SGPT) 12 U/L (0-50); AST (SGOT) 26 U/L (17-59); Albumin 4.0 g/dl (3.5-5.0); Alkaline Phosphatase 79 U/L (38-126); Blood Urea Nitrogen 24 mg/dl (9-20); Calcium 9.2 mg/dl (8.4-10.2); Carbon Dioxide 28 mmol/L (22-30); Chloride 102 mmol/L (98-107); Glucose 97 mg/dl (70-99); Potassium 4.1 mmol/L (3.5-5.1); Sodium 137 mmol/L (135-145); Total Protein 6.6 g/dl (6.3-8.2); eGFR 57.29
[2025-10-12 21:10] VITALS: BP 130/100
== END 2025-10-12 21:45 ==
LOC: EMR 17:35
PROVIDERS: EMERGENCY PHYSICIAN Emergency Medicine
DX: R56.9 Unspecified convulsions (principal); G20.A1 Parkinson's disease without dyskinesia, without mention of fluctuations; I10 Essential (primary) hypertension; Z87.440 Personal history of urinary (tract) infections
CPT/HCPCS: 99284; 70450; 80053; 85025; 93005